=== PATIENT | female | born 1940 | race Caucasian/White ===

== ENCOUNTER 2023-04-29 17:45 | Observation (INO) | payer MEDICARE, SELFPAY ==
[2023-04-29] VITALS (28 sets, daily range): BP systolic 170–189; BP diastolic 78–100; PULSE 65–109; RESP 15–28; TEMP 36.6–36.8; O2SAT 97; BMI 24.0
--- NOTE | 2023-04-29 17:53 | CT_ITS ---
The [address] [address] Patient Name: AGNIE HONEYCUTT MRN: [id number] date: 1940 Sex: F Assigned Patient Location: ER Current Patient Location: ER Accession/Order Number: [id number] Exam Date: 04/29/2023 18:17 Report Date: 04/29/2023 18:45 At the request of: RADHA MENA Procedure: CT head/brain wo con EXAM: CT scan of the head and cervical spine without contrast. Dose reduction technique used: Automated exposure control and/or adjustment of the mA and/or kV according to patient size and/or use of iterative reconstruction technique. REASON FOR EXAM: fall, head injury COMPARISON: None FINDINGS: HEAD: No intracranial hemorrhage, mass effect, midline shift, fractures or evidence of acute ischemic infarct. No hydrocephalus. Moderate generalized cerebral and cerebellar volume loss. Moderate small vessel gliosis. Old left thalamic lacunar infarct. Tiny old left basal ganglia lacunar infarct. Paranasal sinuses and mastoid air cells are clear. C-SPINE: No fractures, dislocations or acute malalignment of the cervical spine. Cervical spine degenerative changes with multilevel bilateral moderate and severe neural foraminal stenoses. Anterolisthesis of C3 on C4. Multilevel mild and moderate spinal canal stenoses. Remainder unremarkable. CT/CT head/brain wo con IMPRESSION: No acute intracranial or cervical spine abnormalities. Electronically authenticated by: SREE RAY Date: 04/29/2023 18:45
--- NOTE | 2023-04-29 17:53 | CT_ITS ---
The [address] [address] Patient Name: ANGIE HONEYCUTT MRN: [id number] date: 1940 Sex: F Assigned Patient Location: ER Current Patient Location: ER Accession/Order Number: [id number] Exam Date: 04/29/2023 18:17 Report Date: 04/29/2023 18:45 At the request of: RADHA MENA Procedure: CT cervical spine wo con EXAM: CT scan of the head and cervical spine without contrast. Dose reduction technique used: Automated exposure control and/or adjustment of the mA and/or kV according to patient size and/or use of iterative reconstruction technique. REASON FOR EXAM: fall, head injury COMPARISON: None FINDINGS: HEAD: No intracranial hemorrhage, mass effect, midline shift, fractures or evidence of acute ischemic infarct. No hydrocephalus. Moderate generalized cerebral and cerebellar volume loss. Moderate small vessel gliosis. Old left thalamic lacunar infarct. Tiny old left basal ganglia lacunar infarct. Paranasal sinuses and mastoid air cells are clear. C-SPINE: No fractures, dislocations or acute malalignment of the cervical spine. Cervical spine degenerative changes with multilevel bilateral moderate and severe neural foraminal stenoses. Anterolisthesis of C3 on C4. Multilevel mild and moderate spinal canal stenoses. Remainder unremarkable. CT/CT cervical spine wo con IMPRESSION: No acute intracranial or cervical spine abnormalities. Electronically authenticated by: SREE RAY Date: 04/29/2023 18:45
--- NOTE | 2023-04-29 18:06 | PC.NURSE ---
pt was making some dinner and slipped out of rollator chair and onto floor. does admit to hitting head on floor, no laceration or hematoma assessed. pt denies pain anywhere else and has full ROM in all 4 extremities. does have some back pain but states this is nothing new for her. pt does live alone, so pt was crawling on floor for approx 40mins trying to get to phone to call daughter.
--- NOTE | 2023-04-29 18:15 | ED.GENADUL1 ---
HPI - General Adult General Chief complaint: Head Injury Stated complaint: FALL 40 MINS/HIT HEAD Time Seen by Provider: 04/29/23 17:46 Source: patient Mode of arrival: ambulance Limitations: physical limitation History of Present Illness HPI narrative: Patient with dementia who lives at home alone but has a son in law who assists with her care, came in by EMS after she slid off of her chair in the kitchen at home. She said that she was making soup and then leaned too much one way and slid off the chair. She struck the top of her head - she told us on the floor and has some pain there. No LOC. She was on the floor about 40 minutes trying to get up and eventually was able to contact her daughter - who lives out of state - and apparently 911 was called. She denied any neck or back pain that is not chronic - no extremity injuries or pain in the hips/pelvis. No syncope or near-syncope. No dizziness. No vomiting or seizure since the injury. Related Data Allergies Allergy/AdvReac Type Severity Reaction Status Date / Time No Known Drug Allergies Allergy Verified 04/29/23 17:56 Exam Narrative Exam Narrative: Nurses note and vital signs reviewed and patient is not hypoxic. afebrile General: The patient appears well and in no apparent distress. Patient is resting comfortably on cart. GCS = 15. Skin: Warm, dry, no pallor noted. Head: Normocephalic, atraumatic - I cannot find an area of injury of the patient's head. Neck: Supple, trachea mid-line. Full ROM and no cervical spinal tenderness. Eyes: PERRLA, EOMI ENT: TMs clear, no hemotympanum detected, no blood in posterior oropharynx Cardiovascular: Regular Rate and Rhythm Respiratory: Patient is in no distress, no accessory muscle use, lungs are clear to auscultation, no wheezing, rales or rhonchi Chest Wall: no tenderness, no flail chest, contusion, abrasion, or signs of trauma. Back: No thoracic or lumbar tenderness to palpation. Negative straight leg raise bilaterally. Musculoskeletal: no sign of long bone fracture, no tenderness, no swelling. Pulses at femoral, DP, PT, and popliteal were 2+ bilaterally. Moves all four extremities in all modalities with 5/5 strength. GI: Normal bowel sounds, no tenderness to palpation, no masses appreciated. No rebound, guarding, or rigidity noted. Neurological: A&O x4, normal equal improvement auditor strength, normal finger to nose, normal speech, normal coordination, normal motor, normal sensory. Psychiatric: Cooperative Constitutional Vital Signs, click to edit/add: Last Vital Signs Temp 98.3 F 04/29/23 17:47 Pulse 88 04/29/23 17:47 Resp 16 04/29/23 17:47 BP 182/90 H 04/29/23 17:47 Pulse Ox 97 04/29/23 17:47 O2 Del Method Room Air 04/29/23 17:47 Course Vital Signs Vital signs: Vital Signs Temperature 98.3 F 04/29/23 17:47 Pulse Rate 88 04/29/23 17:47 Respiratory Rate 16 04/29/23 17:47 Blood Pressure 182/90 H 04/29/23 17:47 Pulse Oximetry 97 04/29/23 17:47 Oxygen Delivery Method Room Air 04/29/23 17:47 Temperature 98.3 F 04/29/23 17:47 Pulse Rate 88 04/29/23 17:47 Respiratory Rate 16 04/29/23 17:47 Blood Pressure 182/90 H 04/29/23 17:47 Pulse Oximetry 97 04/29/23 17:47 Oxygen Delivery Method Room Air 04/29/23 17:47 Medical Decision Making MDM Narrative Medical decision making narrative: blood was drawn and sent for testing. EKG is obtained. The patient was sent for CT scan of the brain and cervical spine, which radiologist did not find anything worrisome acutely. Patient signed out to Dr Nair at 7pm shift change with blood and urine tests pending. Her son and I discussed the case and i plan to admit the patient on obs basis tonight. Lab Data Lab results reviewed: Yes I reviewed the patient's lab results Labs: Lab Results 04/29/23 04/29/23 Range/Units 18:08 18:45 WBC 6.3 (4.0-11.0) 10^3/uL RBC 4.67 (4.20-5.40) 10^6/uL Hgb 13.6 (12.0-16.0) g/dL Hct 42.6 (36.0-48.0) % MCV 91.2 (81.0-99.0) fL MCH 29.1 (26.7-34.0) pg MCHC 31.9 (29.9-35.2) g/dL RDW 12.7 (11.0-15.0) % Plt Count 255 (150-450) 10^3/uL MPV 10.6 (9.5-13.5) fL Neut % (Auto) 64.0 (43.0-75.0) % Lymph % (Auto) 24.0 (20.5-60.0) % [place] % (Auto) 7.0 (1.7-12.0) % Eos % (Auto) 3.2 (0.9-7.0) % Baso % (Auto) 1.6 (0.2-2.0) % Neut # (Auto) 4.0 (1.4-6.5) 10^3/uL Lymph # (Auto) 1.5 (1.2-3.8) 10^3/uL [place] # (Auto) 0.4 (0.3-0.8) 10^3/uL Eos # (Auto) 0.2 (0.0-0.7) 10^3/uL Baso # (Auto) 0.1 (0.0-0.1) 10^3/uL Abs Immat Gran (auto) 0.01 (0.00-0.03) 10^3/uL Imm/Tot Granulo (auto) 0.2 (0.0-0.5) % Sodium 143 (136-145) mmol/L Potassium 3.8 (3.5-5.1) mmol/L Chloride 104 (98-107) mmol/L Carbon Dioxide 27.6 (21.0-32.0) mmol/L Anion Gap 15.2 BUN 19.0 H (7.0-18.0) mg/dL Creatinine 1.10 H (0.55-1.02) mg/dL Est GFR ( Amer) 57 L (>=60) Est GFR (Non-Af Amer) 47 L (>=60) BUN/Creatinine Ratio 17.3 Glucose 102 (74-106) mg/dL Calcium 10.2 H (8.5-10.1) mg/dL Imaging Data CT scan - head: Radiologist's impression: Patient Name: ANGIE HONEYCUTT MRN: [facility]:[id number] date: 1940 Sex: F Assigned Patient Location: ER Current Patient Location: ER Accession/Order Number: [id number] Exam Date: 04/29/2023 18:17 Report Date: 04/29/2023 18:45 At the request of: RADHA MENA Procedure: CT head/brain wo con EXAM: CT scan of the head and cervical spine without contrast. Dose reduction technique used: Automated exposure control and/or adjustment of the mA and/or kV according to patient size and/or use of iterative reconstruction technique. REASON FOR EXAM: fall, head injury COMPARISON: None FINDINGS: HEAD: No intracranial hemorrhage, mass effect, midline shift, fractures or evidence of acute ischemic infarct. No hydrocephalus. Moderate generalized cerebral and cerebellar volume loss. Moderate small vessel gliosis. Old left thalamic lacunar infarct. Tiny old left basal ganglia lacunar infarct. Paranasal sinuses and mastoid air cells are clear. C-SPINE: No fractures, dislocations or acute malalignment of the cervical spine. Cervical spine degenerative changes with multilevel bilateral moderate and severe neural foraminal stenoses. Anterolisthesis of C3 on C4. Multilevel mild and moderate spinal canal stenoses. Remainder unremarkable. IMPRESSION: No acute intracranial or cervical spine abnormalities. Electronically authenticated by: SREE RAY Date: 04/29/2023 18:45 CT cervical spine: Radiologist's impression: Patient Name: ANGIE HONEYCUTT MRN: [id number] date: 1940 Sex: F Assigned Patient Location: Current Patient Location: ER Accession/Order Number: [id number] Exam Date: 04/29/2023 18:17 Report Date: 04/29/2023 18:45 At the request of: RADHA MENA Procedure: CT cervical spine wo con EXAM: CT scan of the head and cervical spine without contrast. Dose reduction technique used: Automated exposure control and/or adjustment of the mA and/or kV according to patient size and/or use of iterative reconstruction technique. REASON FOR EXAM: fall, head injury COMPARISON: None FINDINGS: HEAD: No intracranial hemorrhage, mass effect, midline shift, fractures or evidence of acute ischemic infarct. No hydrocephalus. Moderate generalized cerebral and cerebellar volume loss. Moderate small vessel gliosis. Old left thalamic lacunar infarct. Tiny old left basal ganglia lacunar infarct. Paranasal sinuses and mastoid air cells are clear. C-SPINE: No fractures, dislocations or acute malalignment of the cervical spine. Cervical spine degenerative changes with multilevel bilateral moderate and severe neural foraminal stenoses. Anterolisthesis of C3 on C4. Multilevel mild and moderate spinal canal stenoses. Remainder unremarkable. IMPRESSION: No acute intracranial or cervical spine abnormalities. Electronically authenticated by: SREE RAY Date: 04/29/2023 18:45 ECG Data Interpretation: EKG interpretation: Emergency Department physician interpretation. Normal sinus rhythm at 78bpm. Normal axis, normal intervals and no ST segment elevation or depression. Normal EKG Discharge Plan Discharge Chief Complaint: Head Injury Clinical Impression: Closed head injury Referrals: APOLLO BOO [Primary Care Provider] - 1 week
--- NOTE | 2023-04-29 18:20 | ECG_ITS ---
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
[2023-04-29 18:26] LABS: Anion Gap 15.2; BUN Creatinine Ratio 17.3; Calcium 10.2 mg/dL (8.5-10.1); Carbon Dioxide 27.6 mmol/L (21.0-32.0); Chloride 104 mmol/L (98-107); Estimated GFR (African America 57 (>=60); Estimated GFR (Non-African Ame 47 (>=60); Glucose 102 mg/dL (74-106); Potassium 3.8 mmol/L (3.5-5.1); Sodium 143 mmol/L (136-145)
[2023-04-29 18:50] LABS: Basophils Absolute Auto 0.1 10^3/uL (0.0-0.1); Basophils Percent Auto 1.6 % (0.2-2.0); Eosinophils Absolute Auto 0.2 10^3/uL (0.0-0.7); Eosinophils Percent Auto 3.2 % (0.9-7.0); Hematocrit 42.6 % (36.0-48.0); Hemoglobin 13.6 g/dL (12.0-16.0); Immature Granulocytes Abs Auto 0.01 10^3/uL (0.00-0.03); Immature Granulocytes Pct Auto 0.2 % (0.0-0.5); Lymphocytes Absolute Auto 1.5 10^3/uL (1.2-3.8); Mean Corpuscular HGB Conc 31.9 g/dL (29.9-35.2); Mean Corpuscular Hemoglobin 29.1 pg (26.7-34.0); Mean Corpuscular Volume 91.2 fL (81.0-99.0); Mean Platelet Volume 10.6 fL (9.5-13.5); Monocytes Absolute Auto 0.4 10^3/uL (0.3-0.8); Platelet Count 255 10^3/uL (150-450); Red Blood Count 4.67 10^6/uL (4.20-5.40); Red Cell Distribution Width 12.7 % (11.0-15.0); White Blood Count 6.3 10^3/uL (4.0-11.0)
[2023-04-29 19:18] LABS: Creatine Kinase 88 U/L (26-192); Creatine Kinase MB 0.97 ng/mL (<=3.60); Troponin I High Sensitivity 7.6 pg/mL (4.0-51.3)
[2023-04-29 19:19] LABS: Myoglobin 302 ng/mL (9-82)
[2023-04-29] MEDS: 0.9 % SODIUM CHLORIDE 500 ML IV (19:26)
[2023-04-29 19:28] LABS: Bilirubin Urine NEGATIVE (NEGATIVE); Blood Urine TRACE-I (NEGATIVE); Clarity Urine CLEAR (CLEAR); Color Urine YELLOW (YELLOW); Glucose Urine UA NEGATIVE (NEGATIVE); Ketones Urine TRACE mg/dL (NEGATIVE); Leukocyte Esterase Urine NEGATIVE (NEGATIVE); Nitrite Urine NEGATIVE (NEGATIVE); Protein Urine TRACE mg/dL (NEG/TRACE); Specific Gravity Urine 1.025 (1.005-1.025); Urobilinogen Urine 0.2 EU/dL (0.2-1.0)
[2023-04-29 19:33] LABS: Urine Microscopic Indicated NO
--- NOTE | 2023-04-29 19:33 | ED_ITS ---
HPI - General Adult General Chief complaint: Head Injury Stated complaint: FALL 40 MINS/HIT HEAD Time Seen by Provider: 04/29/23 17:46 Source: patient Mode of arrival: ambulance Limitations: physical limitation History of Present Illness HPI narrative: The patient was initially seen by Dr. Hinson and signed out to me after discussing the case with him thoroughly. Please see his full history and physical. Related Data Allergies Allergy/AdvReac Type Severity Reaction Status Date / Time No Known Drug Allergies Allergy Verified 04/29/23 17:56 Exam Constitutional Vital Signs, click to edit/add: Last Vital Signs Temp 98.3 F 04/29/23 17:47 Pulse 88 04/29/23 17:47 Resp 16 04/29/23 17:47 BP 182/90 H 04/29/23 17:47 Pulse Ox 97 04/29/23 17:47 O2 Del Method Room Air 04/29/23 17:47 Course Vital Signs Vital signs: Vital Signs Temperature 98.3 F 04/29/23 17:47 Pulse Rate 88 04/29/23 17:47 Respiratory Rate 16 04/29/23 17:47 Blood Pressure 182/90 H 04/29/23 17:47 Pulse Oximetry 97 04/29/23 17:47 Oxygen Delivery Method Room Air 04/29/23 17:47 Temperature 98.3 F 04/29/23 17:47 Pulse Rate 88 04/29/23 17:47 Respiratory Rate 16 04/29/23 17:47 Blood Pressure 182/90 H 04/29/23 17:47 Pulse Oximetry 97 04/29/23 17:47 Oxygen Delivery Method Room Air 04/29/23 17:47 Medical Decision Making [facility] Narrative Medical decision making narrative: CT of the brain and CT C-spine are negative. Myoglobin is mildly elevated at three oh two and she'll be admitted for hydration. Findings are discussed with her son by telephone who reports that she has status of DNR CCA. Differential Diagnosis Differential Diagnosis: fall, cervical spine injury, intracranial hemorrhage, rhabdomyolysis Lab Data Lab results reviewed: Yes I reviewed the patient's lab results Labs: Lab Results 04/29/23 04/29/23 Range/Units 18:08 18:45 WBC 6.3 (4.0-11.0) 10^3/uL RBC 4.67 (4.20-5.40) 10^6/uL Hgb 13.6 (12.0-16.0) g/dL Hct 42.6 (36.0-48.0) % MCV 91.2 (81.0-99.0) fL MCH 29.1 (26.7-34.0) pg MCHC 31.9 (29.9-35.2) g/dL RDW 12.7 (11.0-15.0) % Plt Count 255 (150-450) 10^3/uL MPV 10.6 (9.5-13.5) fL Neut % (Auto) 64.0 (43.0-75.0) % Lymph % (Auto) 24.0 (20.5-60.0) % [place] % (Auto) 7.0 (1.7-12.0) % Eos % (Auto) 3.2 (0.9-7.0) % Baso % (Auto) 1.6 (0.2-2.0) % Neut # (Auto) 4.0 (1.4-6.5) 10^3/uL Lymph # (Auto) 1.5 (1.2-3.8) 10^3/uL [place] # (Auto) 0.4 (0.3-0.8) 10^3/uL Eos # (Auto) 0.2 (0.0-0.7) 10^3/uL Baso # (Auto) 0.1 (0.0-0.1) 10^3/uL Abs Immat Gran (auto) 0.01 (0.00-0.03) 10^3/uL Imm/Tot Granulo (auto) 0.2 (0.0-0.5) % Sodium 143 (136-145) mmol/L Potassium 3.8 (3.5-5.1) mmol/L Chloride 104 (98-107) mmol/L Carbon Dioxide 27.6 (21.0-32.0) mmol/L Anion Gap 15.2 BUN 19.0 H (7.0-18.0) mg/dL Creatinine 1.10 H (0.55-1.02) mg/dL Est GFR ( Amer) 57 L (>=60) Est GFR (Non-Af Amer) 47 L (>=60) BUN/Creatinine Ratio 17.3 Glucose 102 (74-106) mg/dL Calcium 10.2 H (8.5-10.1) mg/dL Total Creatine Kinase 88 (26-192) U/L CK-MB (CK-2) 0.97 (<=3.60) ng/mL Myoglobin 302 H* (9-82) ng/mL Troponin I High Sens 7.6 (4.0-51.3) pg/mL Imaging Data CT brain, CT C-spine: Radiologist's impression: Procedure: CT cervical spine wo con EXAM: CT scan of the head and cervical spine without contrast. Dose reduction technique used: Automated exposure control and/or adjustment of the mA and/or kV according to patient size and/or use of iterative reconstruction technique. REASON FOR EXAM: fall, head injury COMPARISON: None FINDINGS: HEAD: No intracranial hemorrhage, mass effect, midline shift, fractures or evidence of acute ischemic infarct. No hydrocephalus. Moderate generalized cerebral and cerebellar volume loss. Moderate small vessel gliosis. Old left thalamic lacunar infarct. Tiny old left basal ganglia lacunar infarct. Paranasal sinuses and mastoid air cells are clear. C-SPINE: No fractures, dislocations or acute malalignment of the cervical spine. Cervical spine degenerative changes with multilevel bilateral moderate and severe neural foraminal stenoses. Anterolisthesis of C3 on C4. Multilevel mild and moderate spinal canal stenoses. Remainder unremarkable. IMPRESSION: No acute intracranial or cervical spine abnormalities. * Procedure: CT head/brain wo conEXAM: CT scan of the head and cervical spine without contrast. Dose reduction technique used: Automated exposure control and/or adjustment ofthe mA and/or kV according to patient size and/or use of iterative reconstruction technique.REASON FOR EXAM: fall, head injuryCOMPARISON: NoneFINDINGS: HEAD: No intracranial hemorrhage, mass effect, midline shift, fractures or evidence of acute ischemic infarct. No hydrocephalus. Moderate generalized cerebral and cerebellar volume loss. Moderate small vessel gliosis. Old left thalamic lacunar infarct. Tiny old left basal ganglia lacunar infarct. Paranasal sinuses and mastoid air cells are clear. C-SPINE: No fractures, dislocations or acute malalignment of the cervical spine. Cervical spine degenerative changes with multilevel bilateral moderate and severe neural foraminal stenoses. Anterolisthesis of C3 on C4. Multilevel mild and moderate spinal canal stenoses.Remainder unremarkable.IMPRESSION:No acute intracranial or cervical spine abnormalities. Electronically authenticated by: SREE RAY Date: 04/29/2023 18:45 Discharge Plan Discharge Chief Complaint: Head Injury Clinical Impression: Closed head injury, Rhabdomyolysis Patient Disposition: Admitted as Observation Time of Disposition Decision: 19:32 Condition: Good
--- NOTE | 2023-04-29 22:30 | P.PN_ITS ---
Progress Note: Subjective Subjective Interval history: CC: Fall at home HPI: 83 y/o Female with history of HTN, early dementia who presents after a fall at home. she lives by herself, but has a sone who assist with her care. she slid off her chair in the kitchen and struck the top of her head on the floor. no report of LOC, she was unable to et up on her own, eventually called her daughter. she has chronic back pain limiting ambulation, no reports of recent illness, fevers, cough, vomiting, change in bowel urinary habits, seizures, of focal weakness. in the ER, CT head C spine without acute abnormalities, labs with mild elevation in creatinine and myoglobin. IV fluids started, son (physician) contacted and aware of hospitalization. PMHx: hypertension, asthma, chronic lumbar pain, dementia, hypothyroidism, insomnia PSHx: n/a due to dementia SHx: lives by herself, no reports of tobacco or etoh use FHx: non- contributory to today's visit Allergies: none per chart Home medications: difficult to reconcile due to mentation ROS: unable to obtain due to dementia PE: Gen: lying in bed, in no distress, alert to self and place HEENT: NC, trachea midline, EOMI CVS: RRR, no edema Lungs: bilateral air entry, normal respiratory effort GI: no visible masses. not distended neuro: moves all extremities, no focal deficits Exam Constitutional Vital Signs, click to edit/add: Last Vital Signs Temp 98.3 F 04/29/23 20:49 Pulse 75 04/29/23 21:53 Resp 20 04/29/23 20:49 BP 177/78 H 04/29/23 20:49 Pulse Ox 97 04/29/23 21:53 O2 Del Method Room Air 04/29/23 20:49 Progress Note: Objective Labs Labs: Short CBC 04/29/23 Range/Units 18:45 WBC 6.3 (4.0-11.0) 10^3/uL Hgb 13.6 (12.0-16.0) g/dL Hct 42.6 (36.0-48.0) % Plt Count 255 (150-450) 10^3/uL BMP 04/29/23 18:08 Sodium 143 Potassium 3.8 Chloride 104 Carbon Dioxide 27.6 BUN 19.0 H Creatinine 1.10 H Glucose 102 Calcium 10.2 H Cardiac Enzymes 04/29/23 Range/Units 18:45 Total Creatine Kinase 88 (26-192) U/L CK-MB (CK-2) 0.97 (<=3.60) ng/mL Urine 04/29/23 Range/Units 19:00 Urine Color Yellow (YELLOW) Urine Clarity Clear (CLEAR) Urine pH 6.0 (5.0-9.0) Ur Specific [place] 1.025 (1.005-1.025) Urine Protein Trace (NEG/TRACE) mg/dL Urine Glucose (UA) Negative (NEGATIVE) mg/dL Progress Note: A&P Assessment and Plan (1) Closed head injury: (2) Rhabdomyolysis: (3) Hypertension, uncontrolled: Plan Fall at home Closed head injury Early Alzheimer dementia At risk for polypharmacy Mild Rhabdomyolysis Hypertension, uncontrolled Acquired hypothyroidism chronic low back pain Insomnia - Admit to med surg bed on telemetry - check B12/Folate, UA, TSH, Vit D - fall precautions - Unable to reconcile home medications due to confusion -IV fluids recheck CPK level - PT/OT evaluation, fall precautions - start low dose Norvasc for better BP control and monitor vitals closely - Son (physician) helps take care of patient DVT ppx-Lovenox DNR-CCA Medication reconciliation unable to complete due to confusion communications: discussed with ER physician, bedside nurse, patient updated of plan of care, all questions answered to their satisfaction disposition: Home when medically stable As the provider of this telehealth evaluation, requested by the patient's evaluating physician, i attest that i introduced myself to the patient, provided my credentials, and determined that telemedicine, via a realtime 2 way interactive audio and video platform is an appropriate and effective means of providing this service. I reviewed the patient chart and had a discussion with the member of the patient treatment team. the patient and I mutually agreed with continuation of this evaluation via telemedicine. the patient consented for the telemedicine evaluation. The nurse was present during the entire time of the encounter and was able to move the stethoscope in appropriate directions, encounter lasted about 30 minutes evaluated at 2240 Telemedicine Attestation Telemedicine Attestation I conducted this encounter from [[place]] via secure live, [id number] video conference with the patient, located at [facility] with [nursing staff]. Prior to the interview, the risks and benefits of telemedicine were discussed with the patient and verbal consent was obtained.
[2023-04-29] MEDS: LACTATED RINGER'S SOLUTION 1,000 ML 125 ML IV (23:48)
[2023-04-29] MEDS: TRAMADOL HCL 50 MG TABLET PO (23:49)
[2023-04-29] MEDS: ENOXAPARIN SODIUM 30 MG/0.3 ML SYRINGE SUBQ (23:54)
[2023-04-30] VITALS (36 sets, daily range): BP systolic 154–199; BP diastolic 75–100; PULSE 60–96; RESP 15–25; TEMP 36.5–36.9; O2SAT 95–97
[2023-04-30 04:49] LABS: Basophils Absolute Auto 0.1 10^3/uL (0.0-0.1); Basophils Percent Auto 1.6 % (0.2-2.0); Eosinophils Absolute Auto 0.3 10^3/uL (0.0-0.7); Eosinophils Percent Auto 4.2 % (0.9-7.0); Hematocrit 39.2 % (36.0-48.0); Hemoglobin 12.6 g/dL (12.0-16.0); Immature Granulocytes Abs Auto 0.01 10^3/uL (0.00-0.03); Immature Granulocytes Pct Auto 0.2 % (0.0-0.5); Lymphocytes Percent Auto 30.7 % (20.5-60.0); Mean Corpuscular HGB Conc 32.1 g/dL (29.9-35.2); Mean Corpuscular Hemoglobin 29.4 pg (26.7-34.0); Mean Corpuscular Volume 91.4 fL (81.0-99.0); Mean Platelet Volume 11.9 fL (9.5-13.5); Monocytes Absolute Auto 0.6 10^3/uL (0.3-0.8); Monocytes Percent Auto 9.1 % (1.7-12.0); Neutrophils Absolute Auto 3.5 10^3/uL (1.4-6.5); Neutrophils Percent Auto 54.2 % (43.0-75.0); Platelet Count 191 10^3/uL (150-450); Red Blood Count 4.29 10^6/uL (4.20-5.40); Red Cell Distribution Width 12.7 % (11.0-15.0); White Blood Count 6.5 10^3/uL (4.0-11.0)
[2023-04-30 04:55] LABS: Anion Gap 13.8; BUN Creatinine Ratio 13.8; Calcium 9.2 mg/dL (8.5-10.1); Carbon Dioxide 25.8 mmol/L (21.0-32.0); Chloride 105 mmol/L (98-107); Estimated GFR (African America >60 (>=60); Estimated GFR (Non-African Ame 57 (>=60); Glucose 103 mg/dL (74-106); Potassium 3.6 mmol/L (3.5-5.1); Sodium 141 mmol/L (136-145)
[2023-04-30 05:11] LABS: Creatine Kinase 116 U/L (26-192); Thyroid Stimulating Hormone 4.216 uIU/mL (0.358-3.740)
[2023-04-30] MEDS: LACTATED RINGER'S SOLUTION 1,000 ML 125 ML IV (07:33)
[2023-04-30] MEDS: ENOXAPARIN SODIUM 30 MG/0.3 ML SYRINGE SUBQ (10:14)
[2023-04-30] MEDS: DONEPEZIL HCL 10 MG TABLET PO ×2 (10:14→21:38)
[2023-04-30] MEDS: DULOXETINE HCL 60 MG CAPSULE.DR PO (10:15)
[2023-04-30] MEDS: MEMANTINE HCL 28 MG CAP XR PO (10:15)
[2023-04-30] MEDS: AMLODIPINE BESYLATE 5 MG TABLET 10 MG PO (10:15)
[2023-04-30 10:54] LABS: Creatine Kinase 196 U/L (26-192); Myoglobin 99 ng/mL (9-82)
--- NOTE | 2023-04-30 12:36 | PM.HP ---
H&P: HPI History of Present Illness Chief complaint: Fall/Weakness Narrative: 83 y o female, who lives alone at home was brought via EMS after she slid off her chair and was unable to get up. She laid on the floor for about 40 minutes or so and was finally able to reach out to her daughter who called EMS. Patient reports being unsteady on her feet. She denies LOC but struck her head. She denies any sig active complaints currently. Her w/u in ED was c/w mild rhabdo and dehydration. Pt was admitted for IV hydration and PT/OT eval. Review of Systems ROS Status of ROS 10 or more systems reviewed and unremarkable except as noted in history and below [facility] Medical History (Updated 04/30/23 @ 12:57 by Shaikh Verónica MD) Acute asthma ?J45.909 - Unspecified asthma, uncomplicated (ICD-10) Acute bronchitis ?J20.9 - Acute bronchitis, unspecified (ICD-10) Cataract ?H26.9 - Unspecified cataract (ICD-10) COPD (chronic obstructive pulmonary disease) ?J44.9 - Chronic obstructive pulmonary disease, unspecified (ICD-10) Cystitis cystica ?N30.80 - Other cystitis without hematuria (ICD-10) Dementia ?F03.90 - Unspecified dementia, unspecified severity, without behavioral disturbance, psychotic disturbance, mood disturbance, and anxiety (ICD-10) Esophageal abnormality ?K22.9 - Disease of esophagus, unspecified (ICD-10) Hypothyroid ?E03.9 - Hypothyroidism, unspecified (ICD-10) Numbness and tingling in both hands ?R20.0 - Anesthesia of skin (ICD-10) ?R20.2 - Paresthesia of skin (ICD-10) Numbness and tingling of both feet ?R20.0 - Anesthesia of skin (ICD-10) ?R20.2 - Paresthesia of skin (ICD-10) Spondylitis ?M46.90 - Unspecified inflammatory spondylopathy, site unspecified (ICD-10) TMJ (temporomandibular joint syndrome) ?M26.609 - Unspecified temporomandibular joint disorder, unspecified side (ICD-10) Surgical History H/O: hysterectomy ?Z90.710 - Acquired absence of both cervix and uterus (ICD-10) History of cataract surgery ?Z98.49 - Cataract extraction status, unspecified eye (ICD-10) Total knee replacement status ?Z96.659 - Presence of unspecified artificial knee joint (ICD-10) Social History Within the past year, how often did you have a drink containing alcohol: never Within the past year, how often did you have six or more drinks on one occasion: never Score interpretation: A score less than 3 is consistent with normal alcohol consumption. Smoking status: Never smoker Non-prescribed substance use: denies use Previous occupational history: n/a Highest level of school completed/degree received: some college, no degree Are you now , , , , never or living with a partner: In a typical week, how many times do you talk on the telephone with family, friends, or neighbors: 3 or more times per week How often do you get together with friends or relatives: never How often do you attend mandaen or spiritism services: never Do you belong to any clubs or organizations such as mandaen groups unions, [employer] or athletic groups, or school groups: no Total score: 1 Score interpretation: A score of less than or equal to 1 indicates the most socially isolated. Little interest or pleasure in doing things: not at all Feeling down, depressed, or hopeless: nearly every day Feel stressed/tense/nervous/anxious/difficulty sleeping: to some extent Life stressors: other Life stressor details: pain in back Due to disability, difficulty making decisions: No Meds Home Medications and Allergies Home Medications Medication Instructions Recorded Confirmed Type donepezil 10 mg tablet 10 mg PO BID 04/29/23 04/30/23 History duloxetine 60 mg capsule,delayed 60 mg PO DAILY 04/29/23 04/30/23 History release quetiapine 25 mg tablet 25 mg PO BEDTIME 04/29/23 04/30/23 History levothyroxine 100 mcg tablet 100 mcg PO DAILY 04/30/23 04/30/23 History (Synthroid) memantine 10 mg tablet (Namenda) 10 mg PO BID 04/30/23 04/30/23 History Allergies Allergy/AdvReac Type Severity Reaction Status Date / Time No Known Drug Allergies Allergy Verified 04/29/23 17:56 Exam Constitutional Vital Signs, click to edit/add: Last Vital Signs Temp 97.8 F 04/30/23 12:22 Pulse 72 04/30/23 12:22 Resp 18 04/30/23 12:22 BP 191/87 H 04/30/23 07:36 Pulse Ox 97 04/30/23 12:22 O2 Del Method Room Air 04/30/23 12:22 Documenting provider has reviewed patient's vital signs: yes Common normals: no apparent distress and oriented x3 General appearance: cooperative and frail appearing [facility] Common normals: normocephalic and head/scalp atraumatic Head and scalp: normocephalic and atraumatic Eye Common normals: conjunctivae normal and no scleral icterus Conjunctiva: conjunctiva(e) normal Respiratory Common normals: normal respiratory effort and clear to auscultation bilaterally Effort & inspection: able to speak in complete sentences Auscultation: clear to auscultation bilaterally Cardio Common normals: regular rate, S1 normal heart sound and S2 normal heart sound Rate: regular rate Heart sounds: S1 normal and S2 normal GI Common normals: Normal to inspection, nondistended, normoactive bowel sounds present, soft to palpation, non-tender and no hepatosplenomegaly Palpation: soft and no hepatosplenomegaly Extremity Common normals: no clubbing, cyanosis or edema Neuro Common normals: oriented x3, moves all extremities and no focal motor deficits Gait (neuro): other (unsteady) Psych Common normals: mental status grossly normal, denies hallucinations, denies homicidal ideation and denies suicidal ideation Results Labs Labs: Short CBC 04/29/23 04/30/23 Range/Units 18:45 03:59 WBC 6.3 6.5 (4.0-11.0) 10^3/uL Hgb 13.6 12.6 (12.0-16.0) g/dL Hct 42.6 39.2 (36.0-48.0) % Plt Count 255 191 (150-450) 10^3/uL BMP 04/29/23 04/30/23 18:08 03:59 Sodium 143 141 Potassium 3.8 3.6 Chloride 104 105 Carbon Dioxide 27.6 25.8 BUN 19.0 H 13.0 Creatinine 1.10 H 0.94 Glucose 102 103 Calcium 10.2 H 9.2 Cardiac Enzymes 04/29/23 04/30/23 04/30/23 Range/Units 18:45 03:59 10:19 Total Creatine Kinase 88 116 196 H (26-192) U/L CK-MB (CK-2) 0.97 (<=3.60) ng/mL Urine 04/29/23 Range/Units 19:00 Urine Color Yellow (YELLOW) Urine Clarity Clear (CLEAR) Urine pH 6.0 (5.0-9.0) Ur Specific [place] 1.025 (1.005-1.025) Urine Protein Trace (NEG/TRACE) mg/dL Urine Glucose (UA) Negative (NEGATIVE) mg/dL Assessment and Plan Assessment and Plan (1) Closed head injury: Assessment and Plan: No LOC, no acute finding on CTH and Neck. Normal Neurological exam Qualifiers: Encounter type: subsequent encounter Qualified Code(s): S09.90XD - Unspecified injury of head, subsequent encounter (2) Rhabdomyolysis: Assessment and Plan: mild rhabdo from being on floor for prolonged period. On IVF Monitor CK and myoglobin Qualifiers: Rhabdomyolysis type: non-traumatic Qualified Code(s): M62.82 - Rhabdomyolysis (3) Hypertension, uncontrolled: Assessment and Plan: Not on any medications surprisingly. Started on amlodipine. (4) Dementia: Assessment and Plan: More or less at baseline mental status. C/w terri meds. (5) Hypothyroid: Assessment and Plan: C/w levothyroxine. Plan Old age, poor mobility, unsteady gait and lives by herself. PT/OT eval rec rehab placement. Will need precert for it.
[2023-04-30] MEDS: LACTATED RINGER'S SOLUTION 1,000 ML 100 ML IV (16:40)
--- NOTE | 2023-04-30 21:36 | PC.NURSE ---
pt. up to bedside commode. pt. vioded. but not enough to measure. incontinent of urine
[2023-04-30] MEDS: QUETIAPINE FUMARATE 25 MG TABLET PO (21:38)
[2023-05-01] MEDS: LACTATED RINGER'S SOLUTION 1,000 ML 100 ML IV (02:02)
[2023-05-01 04:57] VITALS: BP 169/81; PULSE 66; RESP 18; TEMP 36.4; O2SAT 92
[2023-05-01] MEDS: LEVOTHYROXINE SODIUM 100 MCG TABLET PO (05:40)
[2023-05-01 08:08] LABS: Vitamin D, 25-Hydroxy 21.7 ng/mL (30.0-100.0)
[2023-05-01] MEDS: MEMANTINE HCL 28 MG CAP XR PO (08:48)
[2023-05-01] MEDS: ENOXAPARIN SODIUM 30 MG/0.3 ML SYRINGE SUBQ (08:48)
[2023-05-01] MEDS: DULOXETINE HCL 60 MG CAPSULE.DR PO (08:48)
[2023-05-01] MEDS: DONEPEZIL HCL 10 MG TABLET PO ×2 (08:48→21:10)
[2023-05-01] MEDS: AMLODIPINE BESYLATE 5 MG TABLET 10 MG PO (08:48)
[2023-05-01 10:56] VITALS: BP 149/77; PULSE 76; RESP 16; TEMP 36.6; O2SAT 96
--- NOTE | 2023-05-01 11:43 | P.IMPN_ITS ---
Progress Note: A&P Assessment and Plan (1) Closed head injury: Assessment and Plan: CTH negative for acute intracranial pathology. No neurological deficit. Qualifiers: Encounter type: subsequent encounter Qualified Code(s): S09.90XD - Unspecified injury of head, subsequent encounter (2) Rhabdomyolysis: Assessment and Plan: due to immobility and being on ground for long. Resolved. Qualifiers: Rhabdomyolysis type: non-traumatic Qualified Code(s): M62.82 - Rhabdomyolysis (3) Hypertension, uncontrolled: Assessment and Plan: Started on amlodipine - BP is better but still above goal. Monitor for now. (4) Dementia: Assessment and Plan: Not on any medications as outpatient. Monitor. (5) Hypothyroid: Assessment and Plan: C/w levothyroxine. (6) Persistent asthma: Assessment and Plan: Repots hx of asthma and that she feels her chest is congested. Added duonebs as needed (7) Ambulatory dysfunction: Assessment and Plan: Ambulatory dysfunction, unsteady gait, generalized weakness, lives by herself. PT/OT eval and rx. Will need rehab placement Internal Medicine - PN: Subj Subjective Interval history: Seen and examined. No events overnight. Reports mild difficulty in breathing and that she thinks her asthma is flaring up. Exam Constitutional Vital Signs, click to edit/add: Last Vital Signs Temp 97.8 F 05/01/23 10:56 Pulse 76 05/01/23 10:56 Resp 16 05/01/23 10:56 BP 149/77 H 05/01/23 10:56 Pulse Ox 96 05/01/23 10:56 O2 Del Method Room Air 05/01/23 10:56 Documenting provider has reviewed patient's vital signs: yes Common normals: no apparent distress and oriented x3 General appearance: cooperative and frail appearing [facility] Common normals: normocephalic and head/scalp atraumatic Head and scalp: normocephalic and atraumatic Eye Common normals: conjunctivae normal and no scleral icterus Conjunctiva: conjunctiva(e) normal Respiratory Common normals: normal respiratory effort and clear to auscultation bilaterally Effort & inspection: able to speak in complete sentences Auscultation: clear to auscultation bilaterally Cardio Common normals: regular rate, S1 normal heart sound and S2 normal heart sound Rate: regular rate Heart sounds: S1 normal and S2 normal GI Common normals: Normal to inspection, nondistended, normoactive bowel sounds present, soft to palpation, non-tender and no hepatosplenomegaly Palpation: soft and no hepatosplenomegaly Extremity Common normals: no clubbing, cyanosis or edema Neuro Common normals: oriented x3, moves all extremities and no focal motor deficits Gait (neuro): other (unsteady) Psych Common normals: mental status grossly normal, denies hallucinations, denies homicidal ideation and denies suicidal ideation Internal Medicine - PN: Obj Da Labs Labs: Laboratory Results - last 24 hr 04/30/23 03:59 25-OH Vitamin D Total 21.7 L
[2023-05-01 11:57] VITALS: O2SAT 95
[2023-05-01 13:46] VITALS: BP 144/70; PULSE 79; RESP 18; TEMP 36.3; O2SAT 95
--- NOTE | 2023-05-01 19:47 | RESP.RT ---
No PRN breathing tx given. No respiratory distress noted.
[2023-05-01 20:00] VITALS: BP 138/79; PULSE 80; RESP 18; TEMP 36.9; O2SAT 95
[2023-05-01] MEDS: QUETIAPINE FUMARATE 25 MG TABLET PO (21:09)
[2023-05-02] MEDS: LEVOTHYROXINE SODIUM 100 MCG TABLET PO (05:47)
[2023-05-02 06:00] VITALS: BP 168/95; PULSE 77; RESP 18; TEMP 36.8; O2SAT 96
--- NOTE | 2023-05-02 09:19 | SWNOTE1 ---
SW had message from pt's son and they would like pt to go to [facility]. SW to send referral. Pt is a precert.
[2023-05-02] MEDS: DONEPEZIL HCL 10 MG TABLET PO ×2 (09:21→21:35)
[2023-05-02] MEDS: AMLODIPINE BESYLATE 5 MG TABLET 10 MG PO (09:21)
[2023-05-02] MEDS: DULOXETINE HCL 60 MG CAPSULE.DR PO (09:22)
[2023-05-02] MEDS: ENOXAPARIN SODIUM 30 MG/0.3 ML SYRINGE SUBQ (09:22)
[2023-05-02] MEDS: MEMANTINE HCL 28 MG CAP XR PO (09:22)
--- NOTE | 2023-05-02 10:24 | PT.DAILY ---
Physical Therapy Daily Note PT Daily Note/Assess Start: 05/02/23 10:20 Freq: Status: Active Protocol: Document 05/02/23 10:20 WILLIAM (Rec: 05/02/23 10:24 WILLIAM [id number]) Physical Therapy Daily Note/Assessment Time In/Time Out Time In 09:25 Time Out 09:38 Pain In Pain N/A Pain Out Pain N/A Subjective Subjective Pt sitting in BS chair upon arrival. Agrees to PT. Reports high pain in low back but does not rate. Therapeutic Exercise Time Therapeutic Exercise Minutes (minutes) 3 Therapeutic Exercise Units 0 Therapeutic Exercise Treatment Therapeutic Exercise Treatment Seated bilat LE strengthening ex complete while in BS chair - 10x ea. Therapeutic Activity Time Therapeutic Activity Minutes (minutes) 12 Therapeutic Activity Units 1 Therapeutic Activity Treatment Bed Mobility Ability Moderate Assist Chair Transfer Ability Minimum Assist Therapeutic Activity Comments Sit>stand from BS chair Radhika to RW. Pt amb 80'x2 with 1x standing rest break needed. Pt needs to use restroom. Needs assistance to doff brief and using grab bar to lower herself to toilet. Sit>stand from toilet with grab bar and Radhika. Pt amb 30' to bed. ModA to advance LE's into bed. Bed alarm set and needs met. Total Physical Therapy Time Total Therapy Minutes 15 Total Physical Therapy Units 1 Summary Daily Note Summary Improved gait endurance. Does need assistance for sit>stand and sit>supine transfers. Min fatigue upon completion.
--- NOTE | 2023-05-02 10:49 | CM.NOTE ---
Rounds made with Dr. Sanches. Potential discharge if precert obtained from insurance company for [facility].
--- NOTE | 2023-05-02 11:34 | SWNOTE1 ---
Saigeert started for pt to go to [facility].
--- NOTE | 2023-05-02 12:06 | PM.IMPN1 ---
Progress Note: A&P Assessment and Plan (1) Closed head injury: Assessment and Plan: CTH negative for acute intracranial pathology. No neurological deficit. Qualifiers: Encounter type: subsequent encounter Qualified Code(s): S09.90XD - Unspecified injury of head, subsequent encounter (2) Rhabdomyolysis: Assessment and Plan: due to immobility and being on ground for long. Resolved. Qualifiers: Rhabdomyolysis type: non-traumatic Qualified Code(s): M62.82 - Rhabdomyolysis (3) Hypertension, uncontrolled: Assessment and Plan: Started on amlodipine - BP is better but still above goal. Monitor for now. (4) Dementia: Assessment and Plan: Not on any medications as outpatient. Monitor. (5) Hypothyroid: Assessment and Plan: C/w levothyroxine. (6) Persistent asthma: Assessment and Plan: Repots hx of asthma and that she feels her chest is congested. Added duonebs as needed (7) Ambulatory dysfunction: Assessment and Plan: Ambulatory dysfunction, unsteady gait, generalized weakness, lives by herself. PT/OT eval and rx. Awaiting pre certification for rehab placement Internal Medicine - PN: Subj Subjective Interval history: Seen and examined. No events. No active complaints. Exam Constitutional Vital Signs, click to edit/add: Last Vital Signs Temp 98.2 F 05/02/23 06:00 Pulse 77 05/02/23 06:00 Resp 18 05/02/23 06:00 BP 168/95 H 05/02/23 06:00 Pulse Ox 96 05/02/23 06:00 O2 Del Method Room Air 05/02/23 06:00 Documenting provider has reviewed patient's vital signs: yes Common normals: no apparent distress and oriented x3 General appearance: cooperative and frail appearing [facility] Common normals: normocephalic and head/scalp atraumatic Head and scalp: normocephalic and atraumatic Eye Common normals: conjunctivae normal and no scleral icterus Conjunctiva: conjunctiva(e) normal Respiratory Common normals: normal respiratory effort and clear to auscultation bilaterally Effort & inspection: able to speak in complete sentences Auscultation: clear to auscultation bilaterally Cardio Common normals: regular rate, S1 normal heart sound and S2 normal heart sound Rate: regular rate Heart sounds: S1 normal and S2 normal GI Common normals: Normal to inspection, nondistended, normoactive bowel sounds present, soft to palpation, non-tender and no hepatosplenomegaly Palpation: soft and no hepatosplenomegaly Extremity Common normals: no clubbing, cyanosis or edema Neuro Common normals: oriented x3, moves all extremities and no focal motor deficits Gait (neuro): other (unsteady) Psych Common normals: mental status grossly normal, denies hallucinations, denies homicidal ideation and denies suicidal ideation
--- NOTE | 2023-05-02 12:47 | SWNOTE1 ---
JALYN spoke with pt, pt is agreeable to rehab and voiced she spoke with her son about it. She voiced she went to [facility] in past because [place] did not have openings. She liked [facility]. SW let her know referral was sent and we are waiting for approval from insurance. Pt does live at home alone and furniture walks at home, if she goes outside she uses a walker. Pt is alert and oriented and knows she is at [facility], and the month, and they year. Pt knows her birthdate as well. JALYN reviewed the EMERY form with pt. Pt voiced understanding and had no questions/concerns at this time. Pt signed form, original given to pt and copy placed in chart.
[2023-05-02 13:50] VITALS: BP 154/83; PULSE 68; RESP 18; TEMP 36.9; O2SAT 92
[2023-05-02] MEDS: QUETIAPINE FUMARATE 25 MG TABLET PO (21:35)
[2023-05-02 21:39] VITALS: BP 157/75; PULSE 80; RESP 18; TEMP 36.6; O2SAT 92
[2023-05-02 22:22] VITALS: O2SAT 96
[2023-05-03] MEDS: LEVOTHYROXINE SODIUM 100 MCG TABLET PO (05:33)
[2023-05-03 05:38] VITALS: BP 153/76; PULSE 81; RESP 18; TEMP 36.5; O2SAT 92
[2023-05-03] MEDS: ENOXAPARIN SODIUM 30 MG/0.3 ML SYRINGE SUBQ (08:19)
[2023-05-03] MEDS: AMLODIPINE BESYLATE 5 MG TABLET 10 MG PO (08:19)
[2023-05-03] MEDS: DONEPEZIL HCL 10 MG TABLET PO (08:19)
[2023-05-03] MEDS: DULOXETINE HCL 60 MG CAPSULE.DR PO (08:19)
[2023-05-03] MEDS: TRAMADOL HCL 50 MG TABLET PO (08:19)
[2023-05-03] MEDS: MEMANTINE HCL 28 MG CAP XR PO (08:19)
[2023-05-03 08:27] VITALS: BP 156/82; PULSE 83
--- NOTE | 2023-05-03 09:20 | SWNOTE1 ---
SW spoke to case management and pt is approved to go to [facility]. SW to get things set up once discharge orders are in.
--- NOTE | 2023-05-03 11:04 | P.DS_ITS ---
DS: Providers Provider Date of admission: 04/29/23 20:08 Primary care physician: APOLLO BOO Consults: 04/29/23 22:25 Occupational Therapy Eval and Treat Routine Reason for consultation: fall Has provider been notified: Yes Physical Therapy Eval and Treat Routine Reason for consultation: fall Has provider been notified: Yes Attending physician on discharge: Shaikh Verónica Discharging clinician: Shaikh Verónica Anticipated date of discharge: 05/03/23 DS: Diagnosis Discharge Diagnosis (1) Closed head injury: Assessment and plan: No acute intracranial pathology. CTH -negative Qualifiers: Encounter type: subsequent encounter Qualified Code(s): S09.90XD - Unspecified injury of head, subsequent encounter (2) Rhabdomyolysis: Assessment and plan: due to being on floor for extended period of time. Resolved. Qualifiers: Rhabdomyolysis type: non-traumatic Qualified Code(s): M62.82 - Rh abdomyolysis (3) Hypertension, uncontrolled: Assessment and plan: New diagnosis. Started on amlodipine. Will need f/u for it (4) Dementia: Assessment and plan: Outpatient f/u (5) Hypothyroid: Assessment and plan: C/w levothyroxine (6) Persistent asthma: Assessment and plan: Stable (7) Ambulatory dysfunction: Assessment and plan: Poor balance, generalized weakness - will be d/c to rehab DS: Summary Hospital Course Hospital Course: 83 y o female, who lives alone at home was brought via EMS after she slid off her chair and was unable to get up. She laid on the floor for about 40 minutes or so and was finally able to reach out to her daughter who called EMS. On w/u she was found to have mild rhabdomyolysis and dehydration and was treated with IVF. Normal CTH. No fx or dislocation on CT neck. She participated with PT/OT and was accepted for short term rehab for poor balance, weakness and unsteady gait. Stable from medical point of view for discharge. New diagnosis of HTN -started on amlodipine and she will need f/u for it as outpatient to adjust her meds and monitoring. Status at Discharge Functional status at discharge: uses cane/walker Overall status at discharge: patient is progressing back to baseline Time Spent with Patient Time attestation: Total time spent providing and/or coordinating discharge services: Time spent: greater than 30 minutes Exam Constitutional Vital Signs, click to edit/add: Last Vital Signs Temp 97.7 F 05/03/23 05:38 Pulse 83 05/03/23 08:27 Resp 18 05/03/23 05:38 BP 156/82 H 05/03/23 08:27 Pulse Ox 92 L 05/03/23 05:38 O2 Del Method Room Air 05/03/23 05:38 Documenting provider has reviewed patient's vital signs: yes Common normals: no apparent distress and oriented x3 General appearance: cooperative and frail appearing [facility] Common normals: normocephalic and head/scalp atraumatic Head and scalp: normocephalic and atraumatic Eye Common normals: conjunctivae normal and no scleral icterus Conjunctiva: conjunctiva(e) normal Respiratory Common normals: normal respiratory effort and clear to auscultation bilaterally Effort & inspection: able to speak in complete sentences Auscultation: clear to auscultation bilaterally Cardio Common normals: regular rate, S1 normal heart sound and S2 normal heart sound Rate: regular rate Heart sounds: S1 normal and S2 normal GI Common normals: Normal to inspection, nondistended, normoactive bowel sounds present, soft to palpation, non-tender and no hepatosplenomegaly Palpation: soft and no hepatosplenomegaly Back & Pelvis Other: severe kyphosis of spine Extremity Common normals: no clubbing, cyanosis or edema Neuro Common normals: oriented x3, moves all extremities and no focal motor deficits Gait (neuro): assistive device used (walks slowly, and is unsteady on her feet) walker Psych Common normals: mental status grossly normal, denies hallucinations, denies homicidal ideation and denies suicidal ideation Discharge Plan Discharge Disposition: Xfer Inpatient Rehab Fac Condition: Good Discharge Medications: New amlodipine 10 mg tablet 10 mg PO DAILY Qty: 30 0RF Continued quetiapine 25 mg tablet 25 mg PO BEDTIME donepezil 10 mg tablet 10 mg PO BID duloxetine 60 mg capsule,delayed release(DR/EC) 60 mg PO DAILY memantine [Namenda] 10 mg tablet 10 mg PO BID levothyroxine [Synthroid] 100 mcg tablet 100 mcg PO DAILY Forms: Portal Instructions Follow Up Appointments: PCP in one week
[2023-05-03 11:12] VITALS: O2SAT 94
--- NOTE | 2023-05-03 11:25 | RESP.RT ---
Patient denies need. No distress noted
--- NOTE | 2023-05-03 11:49 | CM.NOTE ---
Rounds made with Dr. Sanches. Plan for discharge today to [facility].
--- NOTE | 2023-05-03 12:38 | SWNOTE1 ---
JALYN set up discharge to [facility] for skilled. Trips will be here between 4-4:30. JALYN sent dc orders to [facility] and updated packet. JALYN completed HENS. JALYN notified pt's son, nursing, and [facility] of time.
[2023-05-03 13:42] VITALS: BP 147/79; PULSE 75; RESP 18; TEMP 36.6; O2SAT 94
== END 2023-05-03 16:30 ==
LOC: ER 19:53 → ICU 20:13 → MS 04-30 15:36
PROVIDERS: Emergency Medicine; Internal Medicine; Admitting Provider Family Medicine; Emergency Provider Emergency Medicine; PCP Family Medicine; Visit Provider Internal Medicine
DX: M62.82 Rhabdomyolysis (principal); S09.8XXA Other specified injuries of head, initial encounter; I10 Essential (primary) hypertension; G30.0 Alzheimer's disease with early onset; F02.80 Dementia in other diseases classified elsewhere, unspecified severity, without behavioral disturbance, psychotic disturbance, mood disturbance, and anxiety; R26.81 Unsteadiness on feet; R53.1 Weakness; J45.30 Mild persistent asthma, uncomplicated; E86.0 Dehydration; W19.XXXA Unspecified fall, initial encounter; G89.29 Other chronic pain; M54.50 Low back pain, unspecified; E03.9 Hypothyroidism, unspecified; G47.00 Insomnia, unspecified; Z66 Do not resuscitate; M46.90 Unspecified inflammatory spondylopathy, site unspecified; Z90.710 Acquired absence of both cervix and uterus; Z96.659 Presence of unspecified artificial knee joint; Z98.49 Cataract extraction status, unspecified eye; Z79.899 Other long term (current) drug therapy; Z79.890 Hormone replacement therapy
CPT/HCPCS: 36415; 70450; 72125; 80048; 81003; 82306; 82550; 82553; 82607; 82746; 83874; 84443; 84484; 85025; 93005; 96360; 96361; 96372; 97161; 97165; 97530; 97535; 99285; G0378; Q3014

== ENCOUNTER 2023-06-19 22:45 | Outpatient (REF) | payer MEDICARE, SELFPAY ==
[2023-06-20 09:29] LABS: Bilirubin Urine NEGATIVE (NEGATIVE); Blood Urine NEGATIVE (NEGATIVE); Clarity Urine CLEAR (CLEAR); Color Urine LT. YELLOW (YELLOW); Glucose Urine UA NEGATIVE (NEGATIVE); Ketones Urine NEGATIVE (NEGATIVE); Leukocyte Esterase Urine NEGATIVE (NEGATIVE); Nitrite Urine POSITIVE (NEGATIVE); Protein Urine NEGATIVE (NEG/TRACE); Specific Gravity Urine 1.015 (1.005-1.025); Urobilinogen Urine 0.2 EU/dL (0.2-1.0)
[2023-06-20 09:32] LABS: Urine Microscopic Indicated YES
[2023-06-20 09:39] LABS: Bacteria Urine SMALL #/HPF (NONE SEEN); Mucus Urine NONE SEEN (NONE SEEN); RBC Urine NONE SEEN #/HPF (0-2); Squamous Epithelial Cell Urine FEW #/LPF (NONE/RARE)
[2023-06-20 09:40] LABS: Urine Culture Indicated YES
== END 2023-06-19 22:46 | disposition home or self-care (01) ==
LOC: LAB 22:45
PROVIDERS: PCP Family Medicine; Visit Provider Family Medicine
DX: R30.0 Dysuria (principal)
CPT/HCPCS: 81001; 87086; 87150; 87186

== ENCOUNTER 2023-08-14 07:17 | Observation (INO) | payer MEDICARE, SELFPAY ==
[2023-08-14] VITALS (19 sets, daily range): BP systolic 129–203; BP diastolic 75–103; PULSE 63–74; RESP 16–30; TEMP 36.6–36.8; O2SAT 94–99; BMI 30.2; BMI 32.6
--- NOTE | 2023-08-14 | CT_ITS ---
The [address] [address] Patient Name: ANGIE HONEYCUTT MRN: [id number] date: 1940 Sex: F Assigned Patient Location: ER Current Patient Location: ED.MAIN Accession/Order Number: [id number] Exam Date: 08/14/2023 07:20 Report Date: 08/14/2023 07:38 At the request of: KAVITA HERNANDEZ Procedure: CT stroke head/brain wo con HEAD CT WITHOUT CONTRAST: 08/14/2023 7:20 AM EST Clinical Data: Confussion Comparison: 04/29/2023 Unenhanced axial data from base to vertex. INTRA-AXIAL: No acute hemorrhage. No acute infarction is evident. 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 Again, potential chronic right periventricular infarct. No interval change. Again, there is symmetric modest white matter disease. EXTRA-AXIAL: No acute hemorrhage. No focal fluid collection. BRAIN VOLUME: No change VENTRICLES: No hydrocephalus PARANASAL SINUSES: No air-fluid levels in the included aspects. MASTOIDS: Clear. CALVARIUM: No acute finding. EXTRACALVARIAL: No acute findings CT/CT stroke head/brain wo con IMPRESSION: 1. Chronic findings. No evidence of acute intracranial process on this unenhanced study as described. All CT scans at this facility use dose modulation, iterative reconstruction, and/or weight based dosing when appropriate to reduce radiation dose to as low as reasonably achievable. Electronically authenticated by: ZAIRE RODRIGUEZ Date: 08/14/2023 07:38
--- OUTSIDE RECORDS SUMMARY | 2023-08-14 07:39 | XMS_ITS | CCD ---
Author Name Unknown Address [address] [place] [address] Organization [facility] Care Team Providers Care Foundation Coordinator Name Role Phone PHYSICIAN, DEFAULT Unavailable Unavailable PHYSICIAN, DEFAULT Unavailable Unavailable DARCY, DR ALEIDA Gonzaelz Consulting Unavailable PETZNICK, APOLLO Primary Care Unavailable ROMULO ., NATELMO Attending Unavailable ROMULO ., ANTELMO Admitting Unavailable ELIDELL Consulting Unavailable DAVIS, ASHVIN Consulting Unavailable ROMULO ., ANTELMO Consulting Unavailable DIAB ., KAVITA Consulting Unavailable KENDALL ., DR MARLA Nieto Attending Unavailable KENDALL ., DR MARLA Nieto Consulting Unavailable ENOCH ., DR MARLA Nieto Admitting [facility]available [facility] AP[facility]LL[facility] Primary Care Unavailable EARNESTINE, DR KARISSA Martinez Consulting Unavailable KENDALL ., DR MARLA Nieto Attending Unavailable KENDALL ., DR MARLA Nieto Consulting Unavailable ENOCH ., DR MARLA Nieto Admitting Unavailable [facility] Primary Care Unavailable DR KENROY HEALY Consulting UnavailDR ALEIDA Griffin V Consulting Unavailable DAWSON MAYA Consulting Unavailable Allergies Allergy Classification Reported Allergen(s) Allergy Type Date of Onset Reaction(s) Facility (1 source) Desonide Drug Allergy [facility] (1 source) nabumetone Drug Allergy [facility] (1 source) Neomycin Drug Allergy [facility] (1 source) oxyCODONE Drug Allergy [facility] (1 source) Ramipril Drug Allergy [facility] (1 source) Polymyxin B Drug allergy (disorder) [facility] Problems Active Problems Problem Classification Problem Date Documented Da te Episodic/Chronic Delirium, dementia, and amnestic and other cognitive disorders (1 source) Unspecified dementia without behavioral disturbance; Translations: [UNSP CONCHA UNS SEV W/O DSTRB ANXTY] Onset: 12-28-2022 Chronic Fluid and electrolyte disorders (1 source) Hypokalemia; Translations: [HYPOKALEMIA] Onset: 12-28-2022 Episodic Influenza (1 source) Influenza due to other identified influenza virus with unspecified type of pneumonia; Translations: [FLU D/T OTH ID FLU VIR UNS TYPE PN] Onset: 12-28-2022 Episodic Menopausal disorders (1 source) Hormone replacement therapy; Translations: [HORMONE REPLACEMENT THERAPY] Onset: 12-28-2022 Episodic Osteoporosis (2 sources) Age-related osteoporosis without current pathological fracture; Translations: [AGE-REL OSTEOPOR W/O CURR PATH FX] Onset: 06-28-2022 Chronic Other acquired deformities (1 source) Scoliosis, unspecified; Translations: [SCOLIOSIS UNSPECIFIED] Onset: 06-21-2022 Chronic Other acquired deformities (1 source) Other forms of scoliosis, lumbar region; Translations: [OTHER FORMS SCOLIOSIS LUMBAR REGION] Onset: 06-21-2022 Chronic Other aftercare (1 source) 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; Translations: [USP CURRENT USE OF ASPIRIN] Onset: 12-28-2022 Episodic Other aftercare (1 source) Other group home (current) drug therapy; Translations: [OTH PARCEL CARRIER CURRENT DRUG THERAPY] Onset: 12-28-2022 Episodic Other hereditary and degenerative nervous system conditions (1 source) Mild cognitive impairment, so stated; Translations: [MILD COGNTV IMPAIRMNT UNCRTN/UNKNWN] Onset: 06-21-2022 Chronic Thyroid disorders (1 source) Hypothyroidism, unspecified; Translations: [HYPOTHYROIDISM UNSPECIFIED] Onset: 12-28-2022 Chronic Unclassified (1 source) CONTACT W/AND (SUSP) EXPOS COVID-19; Translations: [CONTACT W/AND (SUSP) EXPOS COVID-19] Onset: 06-21-2022 Viral infection (3 sources) COVID-19; Translations: [COVID-19] Onset: 12-26-2022 Past or Other Problems Problem Classification Problem Date Documented Da te Episodic/Chronic Deficiency and other anemia (1 source) Anemia, unspecified; Translations: [ANEMIA UNSPECIFIED] Onset: 06-21-2022 Episodic Malaise and fatigue (4 sources) Weakness; Translations: [WEAKNESS] Onset: 06-22-2022 Episodic Other bone disease and musculoskeletal deformities (1 source) Other specified disorders of bone density and structure, right thigh; Translations: [OTH D/O BONE DEN STRUCT RT THIGH] Onset: 06-28-2022 Episodic Other connective tissue disease (4 sources) Muscle weakness (generalized); Translations: [MUSCLE WEAKNESS GENERALIZED] Onset: 06-14-2022 Episodic Other connective tissue disease (1 source) Other muscle spasm; Translations: [OTHER MUSCLE SPASM] Onset: 06-21-2022 Episodic Other gastrointestinal disorders (1 source) Full incontinence of feces; Translations: [FULL INCONTINENCE OF FECES] Onset: 06-21-2022 Episodic Other injuries and conditions due to external causes (1 source) History of falling; Translations: [HISTORY OF FALLING] Onset: 06-21-2022 Episodic Results Test Name Value Interpretation Reference Range Facility CBC AUTO DIFFon 12-29-2022 BASO # 0.1 103/ul Normal 0.0-0.1 [facility] Comment on above: Performed By: #### R SPLUS #### [facility] [address] [place] [address] Dr. Emilie Carmona Basophils/100 WBC (Bld) 0.8 % Normal 0.2-2.0 [facility] Comment on above: Performed By: #### R SPLUS #### [facility] [address] [place] [address] Dr. Emilie Carmona EO # 0.0 103/ul Normal 0.0-0.7 [facility] Comment on above: Performed By: #### R SPLUS #### [facility] [address] [address] [address] Emilie Carmona Eosinophils/100 WBC (Bld) 0.1 % Critically low 0.9-7.0 [facility] Comment on above: Performed By: #### R SPLUS #### [facility] [address] [place] [address] Dr. Emilie Carmona Erythrocyte distribution width (RBC) [Ratio] 14.8 % Normal 11.0-15.0 [facility] Comment on above: Performed By: #### R SPLUS #### [facility] [address] [place] [address] Dr. Emilie Carmona Hematocrit (Bld) [Volume fraction] 33.3 % Critically low 36.0-48.0 [facility] Comment on above: Performed By: #### R SPLUS #### [facility] [address] [place] [address] Dr. Emilie Carmona Hemoglobin (Bld) [Mass/Vol] 10.9 g/dL Critically low 12.0-16.0 [facility] Comment on above: Performed By: #### R SPLUS #### [facility] [address] [address] [address] Emilie Carmona IG # 0.61 10e3/ul Critically high 0.00-0.03 [facility] Comment on above: Performed By: #### R SPLUS #### [facility] [address] [place] [address] Dr. Emilie Carmona IG % 5.7 % Critically high 0.0-0.5 [facility] Comment on above: Performed By: #### R SPLUS #### [facility] [address] [place] [address] Dr. Emilie Carmona LYMPH # 1.7 103/ul Normal 1.2-3.8 [facility] Comment on above: Performed By: #### R SPLUS #### [facility] [address] [place] [address] Dr. Emilie Carmona Lymphocytes/100 WBC (Bld) 15.8 % Critically low 20.5-60.0 [facility] Comment on above: Performed By: #### R SPLUS #### [facility] [address] [place] [address] Dr. Emilie Carmona MANUAL DIFF REQ NO Normal [facility] Comment on above: Performed By: #### R SPLUS #### [facility] [address] [place] [address] Dr. Emilie Carmona MCH (RBC) [Entitic mass] 27.9 pg Normal 26.7-34.0 [facility] Comment on above: Performed By: #### R SPLUS #### [facility] [address] [place] [address] Dr. Emilie Carmona MCHC (RBC) [Mass/Vol] 32.7 g/dL Normal 29.9-35.2 [facility] Comment on above: Performed By: #### R SPLUS #### [facility] [address] [place] [address] Dr. Emilie Carmona MCV (RBC) [Entitic vol] 85.4 fL Normal 81.0-99.0 [facility] Comment on above: Performed By: #### R SPLUS #### [facility] [address] [place] [address] Dr. Emilie Carmona MONO # 0.7 103/ul Normal 0.3-0.8 [facility] Comment on above: Performed By: #### R SPLUS #### [facility] [address] [place] [address] Dr. Emilie Carmona Monocytes/100 WBC (Bld) 6.9 % Normal 1.7-12.0 [facility] Comment on above: Performed By: #### R SPLUS #### [facility] [address] [place] [address] Dr. Emilie Carmona NEUT # 7.6 103/ul Critically high 1.4-6.5 [facility] Comment on above: Performed By: #### R SPLUS #### [facility] [address] [place] [address] Dr. Emilie Carmona Neutrophils/100 WBC (Bld) 70.7 % Normal 43.0-75.0 [facility] Comment on above: Performed By: #### R SPLUS #### [facility] [address] [place] [address] Dr. Emilie Carmona Platelet mean volume (Bld) [Entitic vol] 10.8 fL Normal 9.5-13.5 [facility] Comment on above: Performed By: #### R SPLUS #### [facility] [address] [place] [address] Dr. Emilie Carmona PLT 270 103/ul Normal 150-450 [facility] Comment on above: Performed By: #### R SPLUS #### [facility] [address] [place] [address] Dr. Emilie Carmona RBC 3.90 106/ul Critically low 4.20-5.40 [facility] Comment on above: Performed By: #### R SPLUS #### [facility] [address] [place] [address] Dr. Emilie Carmona WBC 10.7 103/ul Normal 4.0-11.0 [facility] Comment on above: Performed By: #### R SPLUS #### [facility] [address] [place] [address] Dr. Emilie Carmona PROF 14(COMP METB)on 023 Albumin [Mass/Vol] 2.6 g/dL Critically low 3.4-5.0 [facility] Comment on above: Performed By: #### C MP #### [facility] [address] [place] [address] Dr. Emilie Carmona Albumin/Globulin [Mass ratio] 0.6 {ratio} Normal [facility] Comment on above: Performed By: #### C MP #### [facility] [address] [place] [address] Dr. Emilie Carmona ALP [Catalytic activity/Vol] 58 U/L Normal 46-116 [facility] Comment on above: Performed By: #### C MP #### [facility] [address] [place] [address] Dr. Emilie Carmona ALT [Catalytic activity/Vol] 32 U/L Normal 14-59 [facility] Comment on above: Performed By: #### C MP #### [facility] [address] [place] [address] Dr. Emilie Carmona Anion gap [Moles/Vol] 13.8 mmol/L Normal [facility] Comment on above: Performed By: #### C MP #### [facility] [address] [place] [address] Dr. Emilie Carmona AST [Catalytic activity/Vol] 30 U/L Normal 15-37 [facility] Comment on above: Performed By: #### C MP #### [facility] [address] [place] [address] Dr. Emilie Carmona Bilirubin [Mass/Vol] 0.2 mg/dL Normal 0.2-1.0 [facility] Comment on above: Performed By: #### C MP #### [facility] [address] [address] [address] Emilie Carmona Calcium [Mass/Vol] 9.7 mg/dL Normal 8.5-10.1 [facility] Comment on above: Performed By: #### C MP #### [facility] [address] [address] [address] Emilie Carmona Chloride [Moles/Vol] 107 mmol/L Normal 98-107 [facility] Comment on above: Performed By: #### C MP #### [facility] [address] [address] [address] Emilie Carmona CO2 [Moles/Vol] 24.8 mmol/L Normal 21.0-32.0 [facility] Comment on above: Performed By: #### C MP #### [facility] [address] [address] [address] Emilie Carmona Creatinine [Mass/Vol] 1.02 mg/dL Normal 0.55-1.02 [facility] Comment on above: Performed By: #### C MP #### [facility] [address] [address] [address] Emilie Carmona EGFR-AF JAPANESE >60 Normal >=60 [facility] Comment on above: Performed By: #### C MP #### [facility] [address] [address] [address] Emilie Carmona EGFR-NON AF JAPANESE 52 mL/min/1.73m2 Critically low >=60 [facility] Comment on above: Performed By: #### C MP #### [facility] [address] [address] [address] Emilie Carmona Globulin (S) [Mass/Vol] 4.0 g/dL Normal [facility] Comment on above: Performed By: #### C MP #### [facility] [address] [address] [address] Emilie Carmona Glucose [Mass/Vol] 99 mg/dL Normal 74-106 [facility] Comment on above: Performed By: #### C MP #### [facility] [address] [address] [address] Emilie Carmona Potassium [Moles/Vol] 4.6 mmol/L Normal 3.5-5.1 [facility] Comment on above: Performed By: #### C MP #### [facility] [address] [address] [address] Emilie Carmona Protein [Mass/Vol] 6.6 g/dL Normal 6.4-8.2 [facility] Comment on above: Performed By: #### C MP #### [facility] [address] [address] [address] Emilie Carmona Sodium [Moles/Vol] 141 mmol/L Normal 136-145 [facility] Comment on above: Performed By: #### C MP #### [facility] [address] [place] [address] Dr. Emilie Carmona Urea nitrogen [Mass/Vol] 17.0 mg/dL Normal 7.0-18.0 [facility] Comment on above: Performed By: #### C MP #### [facility] [address] [place] [address] Dr. Emilie Carmona Urea nitrogen/Creatinine [Mass ratio] 16.7 mg/mg Normal [facility] Comment on above: Performed By: #### C MP #### [facility] [address] [place] [address] Dr. Emilie Carmona CBC AUTO DIFFon 12-28-2022 BASO # 0.0 103/ul Normal 0.0-0.1 [facility] Comment on above: Performed By: #### C BC #### [facility] [address] [place] [address] Dr. mEilie Carmona Basophils/100 WBC (Bld) 0.3 % Normal 0.2-2.0 [facility] Comment on above: Performed By: #### C BC #### [facility] [address] [place] [address] Dr. Emilie Carmona EO # 0.0 103/ul Normal 0.0-0.7 [facility] Comment on above: Performed By: #### C BC #### [facility] [address] [address] [address] Emilie Carmona Eosinophils/100 WBC (Bld) 0.0 % Critically low 0.9-7.0 [facility] Comment on above: Performed By: #### C BC #### [facility] [address] [address] [address] Emilie Carmona Erythrocyte distribution width (RBC) [Ratio] 14.6 % Normal 11.0-15.0 [facility] Comment on above: Performed By: #### C BC #### [facility] [address] [place] [address] Dr. Emilie Carmona Hematocrit (Bld) [Volume fraction] 32.2 % Critically low 36.0-48.0 [facility] Comment on above: Performed By: #### C BC #### [facility] [address] [place] [address] Dr. Emilie Carmona Hemoglobin (Bld) [Mass/Vol] 10.4 g/dL Critically low 12.0-16.0 [facility] Comment on above: Performed By: #### C BC #### [facility] [address] [place] [address] Dr. Emilie aCrmona IG # 0.22 10e3/ul Critically high 0.00-0.03 [facility] Comment on above: Performed By: #### C BC #### [facility] [address] [place] [address] Dr. Emilie Carmona IG % 2.0 % Critically high 0.0-0.5 [facility] Comment on above: Performed By: #### C BC #### [facility] [address] [place] [address] Dr. Emilie Carmona LYMPH # 1.2 103/ul Normal 1.2-3.8 [facility] Comment on above: Performed By: #### C BC #### [facility] [address] [place] [address] Dr. Emilie Carmona Lymphocytes/100 WBC (Bld) 11.4 % Critically low 20.5-60.0 [facility] Comment on above: Performed By: #### C BC #### [facility] [address] [place] [address] Dr. Emilie Carmona MANUAL DIFF REQ NO Normal [facility] Comment on above: Performed By: #### C BC #### [facility] [address] [place] [address] Dr. Emilie Carmona MCH (RBC) [Entitic mass] 27.6 pg Normal 26.7-34.0 [facility] Comment on above: Performed By: #### C BC #### [facility] [address] [place] [address] Dr. Emilie Carmona MCHC (RBC) [Mass/Vol] 32.3 g/dL Normal 29.9-35.2 [facility] Comment on above: Performed By: #### C BC #### [facility] [address] [place] [address] Dr. Emilie Carmona MCV (RBC) [Entitic vol] 85.4 fL Normal 81.0-99.0 [facility] Comment on above: Performed By: #### C BC #### [facility] [address] [place] [address] Dr. Emilie Carmona MONO # 0.7 103/ul Normal 0.3-0.8 [facility] Comment on above: Performed By: #### C BC #### [facility] [address] [place] [address] Dr. Emilie Carmona Monocytes/100 WBC (Bld) 6.3 % Normal 1.7-12.0 [facility] Comment on above: Performed By: #### C BC #### [facility] [address] [place] [address] Dr. Emilie Carmona NEUT # 8.7 103/ul Critically high 1.4-6.5 [facility] Comment on above: Performed By: #### C BC #### [facility] [address] [place] [address] Dr. Emilie Carmona Neutrophils/100 WBC (Bld) 80.0 % Critically high 43.0-75.0 [facility] Comment on above: Performed By: #### C BC #### [facility] [address] [address] [address] Emilie Carmona Platelet mean volume (Bld) [Entitic vol] 10.9 fL Normal 9.5-13.5 [facility] Comment on above: Performed By: #### C BC #### [facility] [address] [address] [address] Emilie Carmona PLT 226 103/ul Normal 150-450 [facility] Comment on above: Performed By: #### C BC #### [facility] [address] [address] [address] Emilie Carmona RBC 3.77 106/ul Critically low 4.20-5.40 [facility] Comment on above: Performed By: #### C BC #### [facility] [address] [address] [address] Emilie Carmona WBC 10.9 103/ul Normal 4.0-11.0 [facility] Comment on above: Performed By: #### C BC #### [facility] [address] [address] [address] Emilie Carmona PROF 14(COMP METB)on 023 Albumin [Mass/Vol] 2.4 g/dL Critically low 3.4-5.[address] [facility] Comment on above: Performed By: #### C MP ####[facility] [address] [id number] Carmona Albumin/Globulin [Mass ratio] 0.6 {ratio} Normal [facility] Comment on above: Performed By: #### C MP ####[facility] [address] [id number] Carmona ALP [Catalytic activity/Vol] 57 U/L Normal 46-116 [facility] Comment on above: Performed By: #### C MP ####[facility] [address] [address]DrBrenton Carmona ALT [Catalytic activity/Vol] 32 U/L Normal 14-59 [facility] Comment on above: Performed By: #### C MP ####[facility] [address] [address]Dr. Emilie Carmona Anion gap [Moles/Vol] 14.1 mmol/L Normal [facility] Comment on above: Performed By: #### C MP ####[facility] [address] [place], [place] [address]Dr. Emilie Carmona AST [Catalytic activity/Vol] 35 U/L Normal 15-37 [facility] Comment on above: Performed By: #### C MP ####[facility] [address] [place], [place] [address]Dr. Emilie Mathew Bilirubin [Mass/Vol] 0.2 mg/dL Normal 0.2-1.0 [facility] Comment on above: Performed By: #### C MP ####[facility] [address] [place], [place] [address]Dr. Emilie Carmona Calcium [Mass/Vol] 9.2 mg/dL Normal 8.5-10.1 [facility] Comment on above: Performed By: #### C MP ####[facility] [address] [place], [place] [address]Dr. Emilie Carmona Chloride [Moles/Vol] 107 mmol/L Normal 98-107 [facility] Comment on above: Performed By: #### C MP ####[facility] [address] [place], [place] [address]Dr. Emilie Carmona CO2 [Moles/Vol] 22.7 mmol/L Normal 21.0-32.0 [facility] Comment on above: Performed By: #### C MP ####[facility] [address] [place], [place] [address]Dr. Emilie Carmona Creatinine [Mass/Vol] 1.02 mg/dL Normal 0.55-1.02 [facility] Comment on above: Performed By: #### C MP ####[facility] [address] [place], [place] [address]Dr. Emilie Carmona EGFR-AF JAPANESE >60 Normal >=60 [facility] Comment on above: Performed By: #### C MP ####[facility] [address] [place], [place] [address]Dr. Emilie Carmona EGFR-NON AF JAPANESE 52 mL/min/1.73m2 Critically low >=60 [facility] Comment on above: Performed By: #### C MP ####[facility] [address] [address]Dr. Emilie Carmona Globulin (S) [Mass/Vol] 4.0 g/dL Normal [facility] Comment on above: Performed By: #### C MP ####[facility] [address] [address]Dr. Emilie Carmona Glucose [Mass/Vol] 132 mg/dL Critically high 74-106 [facility] Comment on above: Performed By: #### C MP ####[facility] [address] [place], [place] [address]Dr. Emilie Carmona Potassium [Moles/Vol] 3.8 mmol/L Normal 3.5-5.1 [facility] Comment on above: Performed By: #### C MP ####[facility] [address] [place], [place] [address]Dr. Emilie Carmona Protein [Mass/Vol] 6.4 g/dL Normal 6.4-8.2 [facility] Comment on above: Performed By: #### C MP ####[facility] [address] [place], [place] [address]Dr. Emilie Carmona Sodium [Moles/Vol] 140 mmol/L Normal 136-145 [facility] Comment on above: Performed By: #### C MP ####[facility] [address] [place], [place] [address]Dr. Emilie Carmona Urea nitrogen [Mass/Vol] 19.0 mg/dL Critically high 7.0-18.0 [facility] Comment on above: Performed By: #### C MP ####[facility] [address] [place], [place] [address]Dr. Emilie Carmona Urea nitrogen/Creatinine [Mass ratio] 18.6 mg/mg Normal [facility] Comment on above: Performed By: #### C MP ####[facility] [address] [place], [place] [address]Dr. Emilie Carmona CBC AUTO DIFFon 12-27-2022 BASO # 0.1 103/ul Normal 0.0-0.1 [facility] Comment on above: Performed By: #### C BC #### [facility] [address] [address] [address] Emilie Carmona Basophils/100 WBC (Bld) 0.4 % Normal 0.2-2.0 [facility] Comment on above: Performed By: #### C BC #### [facility] [address] [address] [address] Emilie Carmona EO # 0.2 103/ul Normal 0.0-0.7 [facility] Comment on above: Performed By: #### C BC #### [facility] [address] [place] [address] Dr. Emilie Carmona Eosinophils/100 WBC (Bld) 1.8 % Normal 0.9-7.0 [facility] Comment on above: Performed By: #### C BC #### [facility] [address] [place] [address] Dr. Emilie Carmona Erythrocyte distribution width (RBC) [Ratio] 14.1 % Normal 11.0-15.0 [facility] Comment on above: Performed By: #### C BC #### [facility] [address] [place] [address] Dr. Emilie Carmona Hematocrit (Bld) [Volume fraction] 32.1 % Critically low 36.0-48.0 [facility] Comment on above: Performed By: #### C BC #### [facility] [address] [place] [address] Dr. Emilie Carmona Hemoglobin (Bld) [Mass/Vol] 10.7 g/dL Critically low 12.0-16.0 [facility] Comment on above: Performed By: #### C BC #### [facility] [address] [place] [address] Dr. Emilie Carmona IG # 0.13 10e3/ul Critically high 0.00-0.03 [facility] Comment on above: Performed By: #### C BC #### [facility] [address] [place] [address] Dr. Emilie Carmona IG % 0.9 % Critically high 0.0-0.5 [facility] Comment on above: Performed By: #### C BC #### [facility] [address] [place] [address] Dr. Emilie Carmona LYMPH # 0.9 103/ul Critically low 1.2-3.[address] [facility] Comment on above: Performed By: #### C BC #### [facility] [address] [place] [address] Dr. Emilie Carmona Lymphocytes/100 WBC (Bld) 6.9 % Critically low 20.5-60.0 [facility] Comment on above: Performed By: #### C BC #### [facility] [address] [place] [address] Dr. Emilie Carmona MANUAL DIFF REQ NO Normal [facility] Comment on above: Performed By: #### C BC #### [facility] [address] [place] [address] Dr. Emilie Carmona MCH (RBC) [Entitic mass] 28.2 pg Normal 26.7-34.0 [facility] Comment on above: Performed By: #### C BC #### [facility] [address] [place] [address] Dr. Emilie Carmona MCHC (RBC) [Mass/Vol] 33.3 g/dL Normal 29.9-35.2 [facility] Comment on above: Performed By: #### C BC #### [facility] [address] [place] [address] Dr. Emilie Carmona MCV (RBC) [Entitic vol] 84.7 fL Normal 81.0-99.0 [facility] Comment on above: Performed By: #### C BC #### [facility] [address] [place] [address] Dr. Emilie Carmona MONO # 0.8 103/ul Normal 0.3-0.8 [facility] Comment on above: Performed By: #### C BC #### [facility] [address] [place] [address] Dr. Emilie Carmona Monocytes/100 WBC (Bld) 5.8 % Normal 1.7-12.0 [facility] Comment on above: Performed By: #### C BC #### [facility] [address] [place] [address] Dr. Emilie Carmona NEUT # 11.5 103/ul Critically high 1.4-6.5 [facility] Comment on above: Performed By: #### C BC #### [facility] [address] [place] [address] Dr. Emilie Carmona Neutrophils/100 WBC (Bld) 84.2 % Critically high 43.0-75.0 [facility] Comment on above: Performed By: #### C BC #### [facility] [address] [place] [address] Dr. Emilie Carmona Platelet mean volume (Bld) [Entitic vol] 10.8 fL Normal 9.5-13.5 [facility] Comment on above: Performed By: #### C BC #### [facility] [address] [place] [address] Dr. Emilie Carmona PLT 200 103/ul Normal 150-450 [facility] Comment on above: Performed By: #### C BC #### [facility] [address] [place] [address] Dr. Emilie Carmona RBC 3.79 106/ul Critically low 4.20-5.40 [facility] Comment on above: Performed By: #### C BC #### [facility] [address] [place] [address] Dr. Emilie Carmona WBC 13.7 103/ul Critically high 4.0-11.0 [facility] Comment on above: Performed By: #### C BC #### [facility] [address] [place] [address] Dr. Emilie Carmona PROF 14(COMP METB)on 023 Albumin [Mass/Vol] 2.4 g/dL Critically low 3.4-5.[address] [facility] Comment on above: Performed By: #### C MP #### [facility] [address] [place] [address] Dr. Emilie Carmona Albumin/Globulin [Mass ratio] 0.6 {ratio} Normal [facility] Comment on above: Performed By: #### C MP #### [facility] [address] [place] [address] Dr. Emilie Carmona ALP [Catalytic activity/Vol] 57 U/L Normal 46-116 [facility] Comment on above: Performed By: #### C MP #### [facility] [address] [address] [address] Emilie Carmona ALT [Catalytic activity/Vol] 21 U/L Normal 14-59 [facility] Comment on above: Performed By: #### C MP #### [facility] [address] [place] [address] Dr. Emilie Carmona Anion gap [Moles/Vol] 15.4 mmol/L Normal [facility] Comment on above: Performed By: #### C MP #### [facility] [address] [place] [address] Dr. Emilie Carmona AST [Catalytic activity/Vol] 39 U/L Critically high 15-37 [facility] Comment on above: Performed By: #### C MP #### [facility] [address] [place] [address] Dr. Emilie Carmona Bilirubin [Mass/Vol] 0.3 mg/dL Normal 0.2-1.0 [facility] Comment on above: Performed By: #### C MP #### [facility] [address] [place] [address] Dr. Emilie Carmona Calcium [Mass/Vol] 9.0 mg/dL Normal 8.5-10.1 [facility] Comment on above: Performed By: #### C MP #### [facility] [address] [address] [address] Emilie Carmona Chloride [Moles/Vol] 104 mmol/L Normal 98-107 [facility] Comment on above: Performed By: #### C MP #### [facility] [address] [place] [address] Dr. Emilie Carmona CO2 [Moles/Vol] 20.7 mmol/L Critically low 21.0-32.0 [facility] Comment on above: Performed By: #### C MP #### [facility] [address] [address] [address] Emilie Carmona Creatinine [Mass/Vol] 1.05 mg/dL Critically high 0.55-1.02 [facility] Comment on above: Performed By: #### C MP #### [facility] [address] [address] [address] Emilie Carmona EGFR-AF JAPANESE >60 Normal >=60 [facility] Comment on above: Performed By: #### C MP #### [facility] [address] [address] [address] Emilie Carmona EGFR-NON AF JAPANESE 50 mL/min/1.73m2 Critically low >=60 [facility] Comment on above: Performed By: #### C MP #### [facility] [address] [address] [address] Emilie Carmona Globulin (S) [Mass/Vol] 4.1 g/dL Normal [facility] Comment on above: Performed By: #### C MP #### [facility] [address] [address] [address] Emilie Carmona Glucose [Mass/Vol] 141 mg/dL Critically high 74-106 [facility] Comment on above: Performed By: #### C MP #### [facility] [address] [address] [address] Emilie Carmona Potassium [Moles/Vol] 4.1 mmol/L Normal 3.5-5.1 [facility] Comment on above: Performed By: #### C MP #### [facility] [address] [address] [address] Emilie Carmona Protein [Mass/Vol] 6.5 g/dL Normal 6.4-8.2 [facility] Comment on above: Performed By: #### C MP #### [facility] [address] [address] [address] Emilie Carmona Sodium [Moles/Vol] 136 mmol/L Normal 136-145 [facility] Comment on above: Performed By: #### C MP #### [facility] [address] [place] [address] Dr. Emilie Carmona Urea nitrogen [Mass/Vol] 22.0 mg/dL Critically high 7.0-18.0 [facility] Comment on above: Performed By: #### C MP #### [facility] [address] [place] [address] Dr. Emilie Carmona Urea nitrogen/Creatinine [Mass ratio] 21.0 mg/mg Normal [facility] Comment on above: Performed By: #### C MP #### [facility] [address] [place] [address] Dr. Emilie Carmona CBC AUTO DIFFon 12-26-2022 BASO # 0.0 103/ul Normal 0.0-0.1 [facility] Comment on above: Performed By: #### C BC #### [facility] [address] [place] [address] Dr. Emilie Carmona Basophils/100 WBC (Bld) 0.2 % Normal 0.2-2.0 [facility] Comment on above: Performed By: #### C BC #### [facility] [address] [place] [address] Dr. Emilie Carmona EO # 0.0 103/ul Normal 0.0-0.7 [facility] Comment on above: Performed By: #### C BC #### [facility] [address] [place] [address] Dr. Emilie Carmona Eosinophils/100 WBC (Bld) 0.1 % Critically low 0.9-7.0 [facility] Comment on above: Performed By: #### C BC #### [facility] [address] [place] [address] Dr. Emilie Carmona Erythrocyte distribution width (RBC) [Ratio] 13.7 % Normal 11.0-15.0 [facility] Comment on above: Performed By: #### C BC #### [facility] [address] [place] [address] Dr. Emilie Carmona Hematocrit (Bld) [Volume fraction] 32.5 % Critically low 36.0-48.0 [facility] Comment on above: Performed By: #### C BC #### [facility] [address] [address] [address] Emilie Carmona Hemoglobin (Bld) [Mass/Vol] 10.9 g/dL Critically low 12.0-16.0 [facility] Comment on above: Performed By: #### C BC #### [facility] [address] [address] [address] Emilie Carmona IG # 0.09 10e3/ul Critically high 0.00-0.03 [facility] Comment on above: Performed By: #### C BC #### [facility] [address] [address] [address] Emilie Carmona IG % 0.9 % Critically high 0.0-0.5 [facility] Comment on above: Performed By: #### C BC #### [facility] [address] [address] [address] Emilie Carmona LYMPH # 0.5 103/ul Critically low 1.2-3.8 [facility] Comment on above: Performed By: #### C BC #### [facility] [address] [address] [address] Emilie Carmona Lymphocytes/100 WBC (Bld) 4.8 % Critically low 20.5-60.0 [facility] Comment on above: Performed By: #### C BC #### [facility] [address] [address] [address] Emilie Carmona MANUAL DIFF REQ NO Normal [facility] Comment on above: Performed By: #### C BC #### [facility] [address] [address] [address] Emilie Carmona MCH (RBC) [Entitic mass] 28.5 pg Normal 26.7-34.0 [facility] Comment on above: Performed By: #### C BC #### [facility] [address] [address] [address] Emilie Carmona MCHC (RBC) [Mass/Vol] 33.5 g/dL Normal 29.9-35.2 [facility] Comment on above: Performed By: #### C BC #### [facility] [address] [address] [address] Emilie Carmona MCV (RBC) [Entitic vol] 84.9 fL Normal 81.0-99.0 [facility] Comment on above: Performed By: #### C BC #### [facility] [address] [address] [address] Emilie Carmona MONO # 0.3 103/ul Normal 0.3-0.8 [facility] Comment on above: Performed By: #### C BC #### [facility] [address] [address] [address] Emilie Carmona Monocytes/100 WBC (Bld) 2.9 % Normal 1.7-12.0 [facility] Comment on above: Performed By: #### C BC #### [facility] [address] [place] [address] Dr. Emilie Carmona NEUT # 8.9 103/ul Critically high 1.4-6.5 [facility] Comment on above: Performed By: #### C BC #### [facility] [address] [place] [address] Dr. Emilie Carmona Neutrophils/100 WBC (Bld) 91.1 % Critically high 43.0-75.0 [facility] Comment on above: Performed By: #### C BC #### [facility] [address] [place] [address] Dr. Emilie Carmona Platelet mean volume (Bld) [Entitic vol] 10.8 fL Normal 9.5-13.5 [facility] Comment on above: Performed By: #### C BC #### [facility] [address] [place] [address] Dr. Emilie Carmona PLT 204 103/ul Normal 150-450 [facility] Comment on above: Performed By: #### C BC #### [facility] [address] [place] [address] Dr. Emilie Carmona RBC 3.83 106/ul Critically low 4.20-5.40 [facility] Comment on above: Performed By: #### C BC #### [facility] [address] [address] [address] Emilie Carmona WBC 9.8 103/ul Normal 4.0-11.0 [facility] Comment on above: Performed By: #### C BC #### [facility] [address] [place] [address] Dr. Emilie Carmona PROF 14(COMP METB)on 023 Albumin [Mass/Vol] 2.5 g/dL Critically low 3.4-5.0 [facility] Comment on above: Performed By: #### R SPLUS #### [facility] [address] [place] [address] Dr. Emilie Carmona Albumin/Globulin [Mass ratio] 0.6 {ratio} Normal [facility] Comment on above: Performed By: #### R SPLUS #### [facility] [address] [place] [address] Dr. Emilie Carmona ALP [Catalytic activity/Vol] 63 U/L Normal 46-116 [facility] Comment on above: Performed By: #### R SPLUS #### [facility] [address] [place] [address] Dr. Emilie Carmona ALT [Catalytic activity/Vol] 13 U/L Critically low 14-59 [facility] Comment on above: Performed By: #### R SPLUS #### [facility] [address] [place] [address] Dr. Emilie Carmona Anion gap [Moles/Vol] 18.7 mmol/L Normal [facility] Comment on above: Performed By: #### R SPLUS #### [facility] [address] [place] [address] Dr. Emilie Carmona AST [Catalytic activity/Vol] 16 U/L Normal 15-37 [facility] Comment on above: Performed By: #### R SPLUS #### [facility] [address] [place] [address] Dr. Emilie Carmona Bilirubin [Mass/Vol] 0.3 mg/dL Normal 0.2-1.0 [facility] Comment on above: Performed By: #### R SPLUS #### [facility] [address] [address] [address] Emilie Carmona Calcium [Mass/Vol] 8.5 mg/dL Normal 8.5-10.1 [facility] Comment on above: Performed By: #### R SPLUS #### [facility] [address] [address] [address] Emilie Carmona Chloride [Moles/Vol] 103 mmol/L Normal 98-107 [facility] Comment on above: Performed By: #### R SPLUS #### [facility] [address] [address] [address] Emilie Carmona CO2 [Moles/Vol] 21.0 mmol/L Normal 21.0-32.0 [facility] Comment on above: Performed By: #### R SPLUS #### [facility] [address] [address] [address] Emilie Carmona Creatinine [Mass/Vol] 1.37 mg/dL Critically high 0.55-1.02 [facility] Comment on above: Performed By: #### R SPLUS #### [facility] [address] [address] [address] Emilie Carmona EGFR-AF JAPANESE 45 mL/min/1.73m2 Critically low >=60 [facility] Comment on above: Performed By: #### R SPLUS #### [facility] [address] [address] [address] Emilie Carmona EGFR-NON AF JAPANESE 37 mL/min/1.73m2 Critically low >=60 [facility] Comment on above: Performed By: #### R SPLUS #### [facility] [address] [address] [address] Emilie Carmona Globulin (S) [Mass/Vol] 4.1 g/dL Normal [facility] Comment on above: Performed By: #### R SPLUS #### [facility] [address] [address] [address] Emilie Carmona Glucose [Mass/Vol] 235 mg/dL Critically high 74-106 [facility] Comment on above: Performed By: #### R SPLUS #### [facility] [address] [address] [address] Emilie Carmona Potassium [Moles/Vol] 2.7 mmol/L Critically low 3.5-5.1 [facility] Comment on above: Performed By: #### R SPLUS #### [facility] [address] [address] [address] Emilie Carmona Protein [Mass/Vol] 6.6 g/dL Normal 6.4-8.2 [facility] Comment on above: Performed By: #### R SPLUS #### [facility] [address] [address] [address] Emilie Carmona Sodium [Moles/Vol] 138 mmol/L Normal 136-145 [facility] Comment on above: Performed By: #### R SPLUS #### [facility] [address] [place] [address] Dr. Emilie Carmona Urea nitrogen [Mass/Vol] 20.0 mg/dL Critically high 7.0-18.0 [facility] Comment on above: Performed By: #### R SPLUS #### [facility] [address] [place] [address] Dr. Emilie Carmona Urea nitrogen/Creatinine [Mass ratio] 14.6 mg/mg Normal [facility] Comment on above: Performed By: #### R SPLUS #### [facility] [address] [place] [address] Dr. Emilie Carmona XR CHEST 1 Von 12-26-2022 XR CHEST 1 V EXAM: XR CHEST 1 V HISTORY: SHORTNESS OF BREATH 12/25/2022 COMPARISON: None. TECHNIQUE: AP portable FINDINGS: LUNGS: New left basilar infiltrate. The right lung is clear. VASCULATURE: No increased pulmonary vasculature. PLEURA: No pneumothorax, effusion, or pleural thickening. CARDIAC: No cardiomegaly or cardiac silhouette abnormality. MEDIASTINUM: No visible mass or adenopathy. BONES: No fracture or visible bone lesion. OTHER: Negative. IMPRESSION: New left basilar infiltrate, atelectasis versus pneumonia Electronically authenticated by: ALEIDA TAVERAS Date: 2022-12-26 10:29 Normal [facility] BNPon 12-25-2022 Natriuretic peptide B (Bld) [Mass/Vol] 639.0 pg/mL Normal <=1,800.0 [facility] Comment on above: Performed By: #### C MADM, BNP, CMP ####[facility] [id number] [id number] Emilie Carmona CARDIAC MARYCRUZ ADMITon 023 CK [Catalytic activity/Vol] 248 U/L Critically high 26-192 [facility] Comment on above: Performed By: #### C MADM, BNP, CMP ####[facility] [address] [address]Dr[address] Emilie Carmona CK.MB [Mass/Vol] 1.38 ng/mL Normal <=3.60 [facility] Comment on above: Performed By: #### C MADM, BNP, CMP ####[facility] [address] [address]Dr. Emilie Carmona HSTROP 11.8 pg/mL Normal 4.0-51.3 [facility] Comment on above: Result Comment: CUT- OFF POINTS HAVE BEEN ESTABLISHED BASED ON THE FOURTH UNIVERSAL DEFINITIONS OF MYOCARDIAL INFARCTION. THE UPPER REFERENCE LIMIT (URL) OF TROPONIN, DEFINED THE 99TH PERCENTILE OF cTnI DISTRIBUTION IN A REFERENCE POPULATION, HAS BEEN CONFIRMED THE DECISION THRESHOLD FOR HI DIAGNOSIS. Performed By: #### C MADM, BNP, CMP ####[facility] [address] [id number] Carmona MAXIMILIAN 484 ng/mL Critically high 9-82 [facility] Comment on above: Performed By: #### C MADM, BNP, CMP ####[facility] [address] [id number] Emilie Carmona CBC AUTO DIFFon 12-25-2022 BASO # 0.0 103/ul Normal 0.0-0.1 [facility] Comment on above: Performed By: #### C BC #### [facility] [id number] Emilie Carmona Basophils/100 WBC (Bld) 0.4 % Normal 0.2-2.0 [facility] Comment on above: Performed By: #### C BC #### [facility] [address] [place] [address] Dr. Emilie Carmona EO # 0.0 103/ul Normal 0.0-0.7 [facility] Comment on above: Performed By: #### C BC #### [facility] [address] [place] [address] Dr. Emilie Carmona Eosinophils/100 WBC (Bld) 0.0 % Critically low 0.9-7.0 [facility] Comment on above: Performed By: #### C BC #### [facility] [address] [place] [address] Dr. Emilie Carmona Erythrocyte distribution width (RBC) [Ratio] 13.6 % Normal 11.0-15.0 [facility] Comment on above: Performed By: #### C BC #### [facility] [address] [place] [address] Dr. Emilie Carmona Hematocrit (Bld) [Volume fraction] 39.0 % Normal 36.0-48.0 [facility] Comment on above: Performed By: #### C BC #### [facility] [address] [place] [address] Dr. Emilie Carmona Hemoglobin (Bld) [Mass/Vol] 13.0 g/dL Normal 12.0-16.0 [facility] Comment on above: Performed By: #### C BC #### [facility] [address] [place] [address] Dr. Emilie Carmona IG # 0.07 10e3/ul Critically high 0.00-0.03 The [facility] Comment on above: Performed By: #### C BC #### [facility] [address] [place] [address] Dr. Emilie Carmona IG % 0.6 % Critically high 0.0-0.5 The [facility] Comment on above: Performed By: #### C BC #### [facility] [address] [place] [address] Dr. Emilie Carmona LYMPH # 0.8 103/ul Critically low 1.2-3.[address] [facility] Comment on above: Performed By: #### C BC #### [facility] [address] [address] [address] Emilie Carmona Lymphocytes/100 WBC (Bld) 6.9 % Critically low 20.5-60.0 [facility] Comment on above: Performed By: #### C BC #### [facility] [address] [address] [address] Emilie Carmona MANUAL DIFF REQ NO Normal [facility] Comment on above: Performed By: #### C BC #### [facility] [address] [place] [address] Dr. Emilie Carmona MCH (RBC) [Entitic mass] 28.4 pg Normal 26.7-34.0 The [facility] Comment on above: Performed By: #### C BC #### [facility] [address] [place] [address] Dr. Emilie Carmona MCHC (RBC) [Mass/Vol] 33.3 g/dL Normal 29.9-35.2 The [facility] Comment on above: Performed By: #### C BC #### [facility] [address] [place] [address] Dr. Emilie Carmona MCV (RBC) [Entitic vol] 85.3 fL Normal 81.0-99.0 [facility] Comment on above: Performed By: #### C BC #### [facility] [address] [place] [address] Dr. Emilie Carmona MONO # 1.0 103/ul Critically high 0.3-0.8 [facility] Comment on above: Performed By: #### C BC #### [facility] [address] [place] [address] Dr. Emilie Carmona Monocytes/100 WBC (Bld) 9.1 % Normal 1.7-12.0 The [facility] Comment on above: Performed By: #### C BC #### [facility] [address] [place] [address] Dr. Emilie Carmona NEUT # 9.0 103/ul Critically high 1.4-6.5 [facility] Comment on above: Performed By: #### C BC #### [facility] [address] [address] [address] Emilie Carmona Neutrophils/100 WBC (Bld) 83.0 % Critically high 43.0-75.0 [facility] Comment on above: Performed By: #### C BC #### [facility] [address] [address] [address] Emilie Carmona Platelet mean volume (Bld) [Entitic vol] 10.6 fL Normal 9.5-13.5 [facility] Comment on above: Performed By: #### C BC #### [facility] [address] [address] [address] Emilie Carmona PLT 276 103/ul Normal 150-450 [facility] Comment on above: Performed By: #### C BC #### [facility] [address] [address] [address] Emilie Carmona RBC 4.57 106/ul Normal 4.20-5.40 [facility] Comment on above: Performed By: #### C BC #### [facility] [address] [address] [address] Emilie Carmona WBC 10.8 103/ul Normal 4.0-11.0 [facility] Comment on above: Performed By: #### C BC #### [facility] [address] [address] [address] Emilie Carmona CULTURE BLOODon 12-25-2022 Microscopic examination of blood, culture Culture Observations: NO GROWTH AT 36-48 HOURS. FINAL TO FOLLOW. Normal [facility] Comment on above: Performed By: #### B LDCX2 ####[facility] [address] [id number]. Emilie Carmona Microscopic examination of blood, culture Culture Observations: NO GROWTH AT 36-48 HOURS. FINAL TO FOLLOW. Normal [facility] Comment on above: Performed By: #### B LDCX1 #### [facility] [address] [address] [address] Emilie Carmona CULTURE SPUTUMon 12-25-2022 CULTURE SPUTUM Culture Observations : Growth of Normal Respiratory Joanne also seen Isolate 1 Haemophilus influenzae Heavy growth of Normal The [facility] Comment on above: Result Comment: Beta Lactamase: Negative Performed By: #### S PUTCX ####[facility] [address] [address]Dr. Emilie Carmona CULTURE URINEon 12-25-2022 CULTURE URINE Culture Observations : ROD TO FOLLOW. Isolate 1 Escherichia coli 15,000 cfu/mL of Normal [facility] Comment on above: Performed By: #### U RCX #### [facility] [address] [address] [address] Emilie Carmona ER URINE PROFILEon 3 Bilirubin Ql (U) Negative Normal NEGATIVE [facility] Comment on above: Performed By: #### R SPLUS #### [facility] [address] [place] [address] Dr. Emilie Carmona Clarity (U) CLEAR Normal CLEAR [facility] Comment on above: Performed By: #### R SPLUS #### [facility] [address] [place] [address] Dr. Emilie Carmona Color (U) YELLOW Normal YELLOW [facility] Comment on above: Performed By: #### R SPLUS #### [facility] [address] [place] [address] Dr. Emilie MURRIETA A micrscopic examination will be performed if indicated. Normal The [facility] Comment on above: Performed By: #### R SPLUS #### [facility] [address] [place] [address] Dr. Emilie Carmona Glucose Ql (U) Negative Normal NEGATIVE The [facility] Comment on above: Performed By: #### R SPLUS #### [facility] [address] [place] [address] Dr. Emilie Carmona Hemoglobin Ql (U) SMALL Abnormal NEGATIVE The [facility] Comment on above: Performed By: #### R SPLUS #### [facility] [address] [place] [address] Dr. Emilie Carmona Ketones Ql (U) 15 mg/dl Abnormal NEGATIVE The [facility] Comment on above: Performed By: #### R SPLUS #### [facility] [address] [place] [address] Dr. Emilie Carmona LEUKOCYTES Negative Normal NEGATIVE [facility] Comment on above: Performed By: #### R SPLUS #### [facility] [address] [address] [address] Emilie Carmona Nitrite Ql (U) Negative Normal NEGATIVE [facility] Comment on above: Performed By: #### R SPLUS #### [facility] [address] [address] [address] Emilie Carmona pH (U) 6.0 [pH] Normal 5-9 [facility] Comment on above: Performed By: #### R SPLUS #### [facility] [address] [address] [address] Emilie Carmona SPEC GRAVITY 1.015 Normal 1.005-<=1.025 [facility] Comment on above: Performed By: #### R SPLUS #### [facility] [address] [place] [address] Dr. Emilie Carmona UA PROTEIN TRACE Normal NEGATIVE/ TRACE [facility] Comment on above: Performed By: #### R SPLUS #### [facility] [address] [place] [address] Dr. Emilie Carmona UR MICRO IND INDICATED Normal [facility] Comment on above: Performed By: #### R SPLUS #### [facility] [address] [place] [address] Dr. Emilie Carmona Urobilinogen Qn (U) 0.2 {Warren'U}/dL Normal 0.2 - 1. 0 [facility] Comment on above: Performed By: #### R SPLUS #### [facility] [address] [place] [address] Dr. Emilie Carmona LACTATE/LACTIC ACIDon 2022 Lactate [Moles/Vol] 1.2 mmol/L Normal 0.4-2.0 [facility] Comment on above: Performed By: #### L ACT ####[facility] [address] [address]Dr. Emilie Carmona PROF 14(COMP METB)on 023 Albumin [Mass/Vol] 3.4 g/dL Normal 3.4-5.0 [facility] Comment on above: Performed By: #### C MADM, BNP, CMP ####[facility] [address] [address]Dr. Emilie Carmona Albumin/Globulin [Mass ratio] 0.8 {ratio} Normal [facility] Comment on above: Performed By: #### C MADM, BNP, CMP ####[facility] [address] [address]Dr. Emilie Carmona ALP [Catalytic activity/Vol] 88 U/L Normal 46-116 [facility] Comment on above: Performed By: #### C MADM, BNP, CMP ####[facility] [address] [place], [place] [address]Dr. Emilie Carmona ALT [Catalytic activity/Vol] 17 U/L Normal 14-59 [facility] Comment on above: Performed By: #### C MADM, BNP, CMP ####[facility] [address] [place], [place] [address]Dr. Emilie Carmona Anion gap [Moles/Vol] 13.2 mmol/L Normal [facility] Comment on above: Performed By: #### C MADM, BNP, CMP ####[facility] [address] [place], [place] [address]Dr. Emilie Carmona AST [Catalytic activity/Vol] 22 U/L Normal 15-37 [facility] Comment on above: Performed By: #### C MADM, BNP, CMP ####[facility] [address] [place], [place] [address]Dr. Emilie Carmona Bilirubin [Mass/Vol] 0.4 mg/dL Normal 0.2-1.0 The [facility] Comment on above: Performed By: #### C MADM, BNP, CMP ####[facility] [address] [place], [place] [address]Dr. Emilie Carmona Calcium [Mass/Vol] 9.2 mg/dL Normal 8.5-10.1 [facility] Comment on above: Performed By: #### C MADM, BNP, CMP ####[facility] [address] [address]Dr. Emilie Carmona Chloride [Moles/Vol] 100 mmol/L Normal 98-107 The [facility] Comment on above: Performed By: #### C MADM, BNP, CMP ####[facility] [address] [address]Dr. Emilie Carmona CO2 [Moles/Vol] 26.5 mmol/L Normal 21.0-32.0 [facility] Comment on above: Performed By: #### C MADM, BNP, CMP ####[facility] [address] [address]Dr. Emilie Carmona Creatinine [Mass/Vol] 1.12 mg/dL Critically high 0.55-1.02 [facility] Comment on above: Performed By: #### C MADM, BNP, CMP ####[facility] [address] [place], [place] [address]Dr. Emilie Mathew EGFR-AF JAPANESE 56 mL/min/1.73m2 Critically low >=60 [facility] Comment on above: Performed By: #### C MADM, BNP, CMP ####[facility] [address] [place], [place] [address]Dr. Emilie Carmona EGFR-NON AF JAPANESE 46 mL/min/1.73m2 Critically low >=60 [facility] Comment on above: Performed By: #### C MADM, BNP, CMP ####[facility] [address] [address]Dr. Emilie Carmona Globulin (S) [Mass/Vol] 4.4 g/dL Normal [facility] Comment on above: Performed By: #### C MADM, BNP, CMP ####[facility] [address] [address]Dr. Emilie Carmona Glucose [Mass/Vol] 123 mg/dL Critically high 74-106 [facility] Comment on above: Performed By: #### C MADM, BNP, CMP ####[facility] [address] [address]Dr. Emilie Carmona Potassium [Moles/Vol] 3.7 mmol/L Normal 3.5-5.1 The [facility] Comment on above: Performed By: #### C MADM, BNP, CMP ####[facility] [address] [address]Dr. Emilie Carmona Protein [Mass/Vol] 7.8 g/dL Normal 6.4-8.2 [facility] Comment on above: Performed By: #### C MADM, BNP, CMP ####[facility] [address] [address]Dr. Emilie Carmona Sodium [Moles/Vol] 136 mmol/L Normal 136-145 [facility] Comment on above: Performed By: #### C MADM, BNP, CMP ####[facility] [address] [address]Dr. Emilie Carmona Urea nitrogen [Mass/Vol] 14.0 mg/dL Normal 7.0-18.0 The [facility] Comment on above: Performed By: #### C MADM, BNP, CMP ####[facility] [address] [place], [place] [address]Dr. Emilie Carmoan Urea nitrogen/Creatinine [Mass ratio] 12.5 mg/mg Normal The [facility] Comment on above: Performed By: #### C MADM, BNP, CMP ####[facility] [address] [place], [place] [address]Dr. Emilie Carmona RESPIRATORY PANEL PLUSon Adenovirus Not detected Normal NOT DETECTED The [facility] Comment on above: Performed By: #### R SPLUS #### [facility] [address] [place] [address] Dr. Emilie Carmona B. Parapertusis Not detected Normal NOT DETECTED [facility] Comment on above: Performed By: #### R SPLUS #### [facility] [address] [place] [address] Dr. Emilie Lyn. Pertussis Not detected Normal NOT DETECTED [facility] Comment on above: Performed By: #### R SPLUS #### [facility] [address] [address] [address] Emilei Carmona Chlamydia Pneumoniae Not detected Normal NOT DETECTED The [facility] Comment on above: Performed By: #### R SPLUS #### [facility] [address] [place] [address] Dr. Emilie Carmona Coronavirus 229E Not detected Normal NOT DETECTED The [facility] Comment on above: Performed By: #### R SPLUS #### [facility] [address] [place] [address] Dr. Emilie Carmona Coronavirus HKU1 Not detected Normal NOT DETECTED The [facility] Comment on above: Performed By: #### R SPLUS #### [facility] [address] [place] [address] Dr. Emilie Carmona Coronavirus NL63 Not detected Normal NOT DETECTED [facility] Comment on above: Performed By: #### R SPLUS #### [facility] [address] [place] [address] Dr. Emilie Carmona Coronavirus OC43 Not detected Normal NOT DETECTED [facility] Comment on above: Performed By: #### R SPLUS #### [facility] [address] [place] [address] Dr. Emilie Carmona Influenza A H1 Not detected Normal NOT DETECTED [facility] Comment on above: Performed By: #### R SPLUS #### [facility] [address] [place] [address] Dr. Emilie Carmona Influenza A H1 2009 Detected Abnormal NOT DETECTED [facility] Comment on above: Performed By: #### R SPLUS #### [facility] [address] [place] [address] Dr. Emilie Carmona Influenza A H3 Not detected Normal NOT DETECTED [facility] Comment on above: Performed By: #### R SPLUS #### [facility] [address] [place] [address] Dr. Emilie Carmona Influenza B Not detected Normal NOT DETECTED [facility] Comment on above: Performed By: #### R SPLUS #### [facility] [address] [place] [address] Dr. Emilie Carmona Metapneumovirus Not detected Normal NOT DETECTED [facility] Comment on above: Performed By: #### R SPLUS #### [facility] [address] [place] [address] Dr. Emilie Carmona Mycoplas. Pneumoniae Not detected Normal NOT DETECTED [facility] Comment on above: Performed By: #### R SPLUS #### [facility] [address] [place] [address] Dr. Emilie Carmona Parainfluenza 1 Not detected Normal NOT DETECTED [facility] Comment on above: Performed By: #### R SPLUS #### [facility] [address] [place] [address] Dr. Emilie Carmona Parainfluenza 2 Not detected Normal NOT DETECTED [facility] Comment on above: Performed By: #### R SPLUS #### [facility] [address] [place] [address] Dr. Emilie Carmona Parainfluenza 3 Not detected Normal NOT DETECTED [facility] Comment on above: Performed By: #### R SPLUS #### [facility] [address] [place] [address] Dr. Emilie Carmona Parainfluenza 4 Not detected Normal NOT DETECTED [facility] Comment on above: Performed By: #### R SPLUS #### [facility] [address] [place] [address] Dr. Emilie Carmona Rhino/Enterovirus Not detected Normal NOT DETECTED [facility] Comment on above: Performed By: #### R SPLUS #### [facility] [address] [place] [address] Dr. Emilie FRASER Header 1 RESPIRATORY PANEL: VIRUSES Normal [facility] Comment on above: Performed By: #### R SPLUS #### [facility] [address] [place] [address] Dr. Emilie FRASER Header 2 RESPIRATORY PANEL: BACTERIA Normal [facility] Comment on above: Performed By: #### R SPLUS #### [facility] [address] [place] [address] Dr. Emilie Carmona RSV Not detected Normal NOT DETECTED The [facility] Comment on above: Performed By: #### R SPLUS #### [facility] [address] [address] [address] Emilie Carmona SARS-CoV-2 (COVID-19) RNA CHASITY+probe Ql (Unsp spec) Detected Abnormal NOT DETECTED The [facility] Comment on above: Performed By: #### R SPLUS #### [facility] [address] [place] [address] Dr. Emilie Carmona SPUTUM GRAM STAINon 12-26-19 COMMENTS Normal [facility] Comment on above: Performed By: #### C BC #### [facility] [address] [place] [address] Dr. Emilie Carmona DIPHTHEROIDS Normal [facility] Comment on above: Performed By: #### C BC #### [facility] [address] [place] [address] Dr. Emilie Carmona EPITHELIALS <25 Normal [facility] Comment on above: Performed By: #### C BC #### [facility] [address] [place] [address] Dr. Emilie Carmona FUNGAL ELEMENTS Normal [facility] Comment on above: Performed By: #### C BC #### [facility] [address] [address] [address] Emilie Carmona GRAM NEG BACILLI [facility] Comment on above: Performed By: #### C BC #### [facility] [address] [place] [address] Dr. Emilie Carmona GRAM NEG DIPPLOCOCCI FEW Normal [facility] Comment on above: Performed By: #### C BC #### [facility] [address] [place] [address] Dr. Emilie Carmona GRAM POS BACILLI Normal [facility] Comment on above: Performed By: #### C BC #### [facility] [address] [address] [address] Emilie Carmona GRAM POSITIVE COCCI Normal [facility] Comment on above: Performed By: #### C BC #### [facility] [address] [place] [address] Dr. Emilie Carmona WBC (Bld) [#/Vol] 10*3/uL Normal [facility] Comment on above: Performed By: #### C BC #### [facility] [address] [place] [address] Dr. Emilie Carmona URINE MICROSCOPIC ONLYon BACTERIA SMALL Abnormal NONE SEEN The [facility] Comment on above: Performed By: #### R SPLUS #### [facility] [address] [place] [address] Dr. Emilie Carmona Bacteria identified Cx Nom (U) INDICATED Normal [facility] Comment on above: Performed By: #### R SPLUS #### [facility] [address] [place] [address] Dr. Emilie Carmona CAST SEEN Abnormal NONE SEEN [facility] Comment on above: Performed By: #### R SPLUS #### [facility] [address] [place] [address] Dr. Emilie Carmona Crystals LM Nom (Urine sed) NONE SEEN Normal NONE SEEN [facility] Comment on above: Performed By: #### R SPLUS #### [facility] [address] [place] [address] Dr. Emilie Carmona Epithelial cells LM Ql (Urine sed) FEW Abnormal NONE SEEN /RARE The [facility] Comment on above: Performed By: #### R SPLUS #### [facility] [address] [place] [address] Dr. Emilie Carmona HYALINE CAST RARE Normal [facility] Comment on above: Performed By: #### R SPLUS #### [facility] [address] [place] [address] Dr. Emilie Carmona MUCOUS NONE SEEN Normal NONE SEEN [facility] Comment on above: Performed By: #### R SPLUS #### [facility] [address] [place] [address] Dr. Emilie Carmona RBC 10-20 Abnormal 0-2 [facility] Comment on above: Performed By: #### R SPLUS #### [facility] [address] [place] [address] Dr. Emilie Carmona WBC 2-5 Abnormal NONE SEEN [facility] Comment on above: Performed By: #### R SPLUS #### [facility] [address] [place] [address] Dr. Emilie Carmona XR CHEST 1 Von 12-25-2022 XR CHEST 1 V EXAM: XR CHEST 1 V INDICATION: SHORTNESS OF BREATH. COMPARISON: Chest radiograph 06/14/2022 TECHNIQUE: Single frontal view of the chest FINDINGS: Normal cardiomediastinal contours. No acute infiltrative process. No pleural effusion or pneumothorax. No acute osseous abnormality. IMPRESSION: No acute cardiopulmonary process. Electronically authenticated by: DELL BENITEZ Date: 2022-12-25 15:54 Normal [facility] XR DEXA BONE DENSITYon 06-22 XR DEXA BONE DENSITY EXAMINATION: XR DEX A BONE DENSITY, 06/22/2022 11:25 AM EST HISTORY: Anemia COMPARISON: None. TECHNIQUE: Dual-energy X-ray absorptiometry (DEXA) bone density study performed for the axial skeleton. FINDINGS: HIP ANALYSIS: Lowest bone mineral density is within the right femoral neck, 0.51 g/cm2. T-score (standard deviation relative to young adult mean): -1.3 . IMPRESSION: [employer] Classification: Osteopenia - Moderate Fracture Risk Electronically authenticated by: KARISSA COLBY Date: 2022-06-22 15:50 Normal [facility] CBC AUTO DIFFon 06-16-2022 BASO # 0.1 103/ul Normal 0.0-0.1 [facility] Comment on above: Performed By: #### C BC #### [facility] [address] [address] [address] Emilie Carmona Basophils/100 WBC (Bld) 0.9 % Normal 0.2-2.0 [facility] Comment on above: Performed By: #### C BC #### [facility] [facility] [address] [address] [address] Emilie Carmona EO # 0.4 103/ul Normal 0.0-0.7 [facility] Comment on above: Performed By: #### C BC #### [facility] [address] [address] [address] Emilie Carmona Eosinophils/100 WBC (Bld) 5.7 % Normal 0.9-7.0 [facility] Comment on above: Performed By: #### C BC #### [facility] [address] [place] [address] Dr. Emilie Carmona Erythrocyte distribution width (RBC) [Ratio] 13.5 % Normal 11.0-15.0 [facility] Comment on above: Performed By: #### C BC #### [facility] [address] [place] [address] Dr. Emilie Carmona Hematocrit (Bld) [Volume fraction] 32.9 % Critically low 36.0-48.0 [facility] Comment on above: Performed By: #### C BC #### [facility] [address] [place] [address] Dr. Emilie Carmona Hemoglobin (Bld) [Mass/Vol] 10.6 g/dL Critically low 12.0-16.0 [facility] Comment on above: Performed By: #### C BC #### [facility] [address] [place] [address] Dr. Emilie Carmona IG # 0.02 10e3/ul Normal 0.00-0.03 [facility] Comment on above: Performed By: #### C BC #### [facility] [address] [place] [address] Dr. Emilie Carmona IG % 0.3 % Normal 0.0-0.5 [facility] Comment on above: Performed By: #### C BC #### [facility] [address] [place] [address] Dr. Emilie Carmona LYMPH # 1.8 103/ul Normal 1.2-3.8 [facility] Comment on above: Performed By: #### C BC #### [facility] [address] [place] [address] Dr. Emilie Carmona Lymphocytes/100 WBC (Bld) 28.4 % Normal 20.5-60.0 [facility] Comment on above: Performed By: #### C BC #### [facility] [address] [place] [address] Dr. Emilie Carmona MANUAL DIFF REQ NO Normal [facility] Comment on above: Performed By: #### C BC #### [facility] [address] [place] [address] Dr. Emilie Carmona MCH (RBC) [Entitic mass] 28.5 pg Normal 26.7-34.0 [facility] Comment on above: Performed By: #### C BC #### [facility] [address] [place] [address] Dr. Emilie Carmona MCHC (RBC) [Mass/Vol] 32.2 g/dL Normal 29.9-35.2 [facility] Comment on above: Performed By: #### C BC #### [facility] [address] [place] [address] Dr. Emilie Carmona MCV (RBC) [Entitic vol] 88.4 fL Normal 81.0-99.0 [facility] Comment on above: Performed By: #### C BC #### [facility] [address] [place] [address] Dr. Emilie Carmona MONO # 0.7 103/ul Normal 0.3-0.8 [facility] Comment on above: Performed By: #### C BC #### [facility] [address] [place] [address] Dr. Emilie Carmona Monocytes/100 WBC (Bld) 11.0 % Normal 1.7-12.0 [facility] Comment on above: Performed By: #### C BC #### [facility] [address] [place] [address] Dr. Emilie Carmona NEUT # 3.5 103/ul Normal 1.4-6.5 [facility] Comment on above: Performed By: #### C BC #### [facility] [address] [place] [address] Dr. Emilie Carmona Neutrophils/100 WBC (Bld) 53.7 % Normal 43.0-75.0 [facility] Comment on above: Performed By: #### C BC #### [facility] [address] [place] [address] Dr. Emilie Carmona Platelet mean volume (Bld) [Entitic vol] 11.6 fL Normal 9.5-13.5 [facility] Comment on above: Performed By: #### C BC #### [facility] [address] [place] [address] Dr. Emilie Carmona PLT 223 103/ul Normal 150-450 [facility] Comment on above: Performed By: #### C BC #### [facility] [address] [place] [address] Dr. Emilie Carmona RBC 3.72 106/ul Critically low 4.20-5.40 [facility] Comment on above: Performed By: #### C BC #### [facility] [address] [place] [address] Dr. Emilie Carmona WBC 6.4 103/ul Normal 4.0-11.0 [facility] Comment on above: Performed By: #### C BC #### [facility] [address] [place] [address] Dr. Emilie Carmona PROF CHEM 8 (BAS METB)on Anion gap [Moles/Vol] 10.4 mmol/L Normal [facility] Comment on above: Performed By: #### C BC #### [facility] [address] [place] [address] Dr. Emilie Carmona Calcium [Mass/Vol] 9.8 mg/dL Normal 8.5-10.1 [facility] Comment on above: Performed By: #### C BC #### [facility] [address] [place] [address] Dr. Emilie Carmona Chloride [Moles/Vol] 105 mmol/L Normal 98-107 [facility] Comment on above: Performed By: #### C BC #### [facility] [address] [place] [address] Dr. Emilie Carmona CO2 [Moles/Vol] 25.0 mmol/L Normal 21.0-32.0 [facility] Comment on above: Performed By: #### C BC #### [facility] [address] [place] [address] Dr. Emilie Carmona Creatinine [Mass/Vol] 0.87 mg/dL Normal 0.55-1.02 [facility] Comment on above: Performed By: #### C BC #### [facility] [address] [place] [address] Dr. Emilie Carmona EGFR-AF JAPANESE >60 Normal >=60 [facility] Comment on above: Performed By: #### C BC #### [facility] [address] [address] [address] Emilie Carmona EGFR-NON AF JAPANESE >60 Normal >=60 [facility] Comment on above: Performed By: #### C BC #### [facility] [address] [address] [address] Emilie Carmona Glucose [Mass/Vol] 105 mg/dL Normal 74-106 [facility] Comment on above: Performed By: #### C BC #### [facility] [address] [address] [address] Emilie Carmona Potassium [Moles/Vol] 3.4 mmol/L Critically low 3.5-5.1 [facility] Comment on above: Performed By: #### C BC #### [facility] [address] [address] [address] Emilie Carmona Sodium [Moles/Vol] 137 mmol/L Normal 136-145 [facility] Comment on above: Performed By: #### C BC #### [facility] [address] [address] [address] Emilie Carmona Urea nitrogen [Mass/Vol] 12.0 mg/dL Normal 7.0-18.0 [facility] Comment on above: Performed By: #### C BC #### [facility] [address] [address] [address] Emilie Carmona Urea nitrogen/Creatinine [Mass ratio] 13.8 mg/mg Normal [facility] Comment on above: Performed By: #### C BC #### [facility] [address] [address] [address] Emilie Carmona CBC AUTO DIFFon 06-15-2022 BASO # 0.1 103/ul Normal 0.0-0.1 [facility] Comment on above: Performed By: #### C BC ####[facility] [address] [address]Dr. Emilie Carmona Basophils/100 WBC (Bld) 0.7 % Normal 0.2-2.0 [facility] Comment on above: Performed By: #### C BC ####[facility] [address] [address]Dr. Emilie Carmona EO # 0.2 103/ul Normal 0.0-0.7 [facility] Comment on above: Performed By: #### C BC ####[facility] [address] [place], [place] [address]Dr. Savileslie Carmona Eosinophils/100 WBC (Bld) 2.4 % Normal 0.9-7.0 [facility] Comment on above: Performed By: #### C BC ####[facility] [address] [place], [place] [address]Dr. Savileslie Carmona Erythrocyte distribution width (RBC) [Ratio] 13.5 % Normal 11.0-15.0 [facility] Comment on above: Performed By: #### C BC ####[facility] [address] [place], [place] [address]Dr. Savileslie Carmona Hematocrit (Bld) [Volume fraction] 35.3 % Critically low 36.0-48.0 [facility] Comment on above: Performed By: #### C BC ####[facility] [address] [place], [place] [address]Dr. Emilie Carmona Hemoglobin (Bld) [Mass/Vol] 11.5 g/dL Critically low 12.0-16.0 [facility] Comment on above: Performed By: #### C BC ####[facility] [address] [place], [place] [address]Dr. Savileslie Carmona IG # 0.01 10e3/ul Normal 0.00-0.03 [facility] Comment on above: Performed By: #### C BC ####[facility] [address] [place], [place] [address]Dr. Savileslie Carmona IG % 0.1 % Normal 0.0-0.5 [facility] Comment on above: Performed By: #### C BC ####[facility] [address] [place], [place] [address]DrBrenton Carmona LYMPH # 1.6 103/ul Normal 1.2-3.8 [facility] Comment on above: Performed By: #### C BC ####[facility] [address] [id number]. Savileslie Carmona Lymphocytes/100 WBC (Bld) 23.3 % Normal 20.5-60.0 [facility] Comment on above: Performed By: #### C BC ####[facility] [address] [id number]. Emilie Carmona MANUAL DIFF REQ NO Normal [facility] Comment on above: Performed By: #### C BC ####[facility] [address] [id number]. Emilie Carmona MCH (RBC) [Entitic mass] 28.9 pg Normal 26.7-34.0 [facility] Comment on above: Performed By: #### C BC ####[facility] [address] [id number]. Emilie Carmona MCHC (RBC) [Mass/Vol] 32.6 g/dL Normal 29.9-35.2 [facility] Comment on above: Performed By: #### C BC ####[facility] [address] [id number]. Emilie Carmona MCV (RBC) [Entitic vol] 88.7 fL Normal 81.0-99.0 [facility] Comment on above: Performed By: #### C BC ####[facility] [address] [id number]. Emilie Carmona MONO # 0.8 103/ul Normal 0.3-0.8 [facility] Comment on above: Performed By: #### C BC ####[facility] [address] [id number]. Emilie Carmona Monocytes/100 WBC (Bld) 11.9 % Normal 1.7-12.0 [facility] Comment on above: Performed By: #### C BC ####[facility] [address] [id number] Carmona NEUT # 4.3 103/ul Normal 1.4-6.5 [facility] Comment on above: Performed By: #### C BC ####[facility] [address] [phone]. Emilie Carmona Neutrophils/100 WBC (Bld) 61.6 % Normal 43.0-75.0 [facility] Comment on above: Performed By: #### C BC ####[facility] [address] [phone] Carmona Platelet mean volume (Bld) [Entitic vol] 11.9 fL Normal 9.5-13.5 [facility] Comment on above: Performed By: #### C BC ####[facility] [address] [phone]. Emilie Carmona PLT 247 103/ul Normal 150-450 [facility] Comment on above: Performed By: #### C BC ####[facility] [address] [phone] Carmona RBC 3.98 106/ul Critically low 4.20-5.40 [facility] Comment on above: Performed By: #### C BC ####[facility] [address] [phone] Carmona WBC 7.0 103/ul Normal 4.0-11.0 [facility] Comment on above: Performed By: #### C BC ####[facility] [address] [phone] Carmona FREE T3on 06-15-2022 FREE T3 1.29 pg/mlL Critically low 2.18-3.98 [facility] Comment on above: Performed By: #### F T3, TSH ####[facility] [address] [phone] Carmona PROF CHEM 8 (BAS METB)on Anion gap [Moles/Vol] 10.0 mmol/L Normal [facility] Comment on above: Performed By: #### B MP ####[facility] [address] [phone] Carmona Calcium [Mass/Vol] 9.8 mg/dL Normal 8.5-10.1 [facility] Comment on above: Performed By: #### B MP ####[facility] [address] [address]Dr. Savileslie Mathew Chloride [Moles/Vol] 102 mmol/L Normal 98-107 [facility] Comment on above: Performed By: #### B MP ####[facility] [address] [address]Dr. Savileslie Mathew CO2 [Moles/Vol] 28.0 mmol/L Normal 21.0-32.0 [facility] Comment on above: Performed By: #### B MP ####[facility] [address] [place], [place] [address]Dr. Emilie Carmona Creatinine [Mass/Vol] 0.91 mg/dL Normal 0.55-1.02 [facility] Comment on above: Performed By: #### B MP ####[facility] [address] [place], [place] [address]Dr. Savileslie Mathew EGFR-AF JAPANESE >60 Normal >=60 [facility] Comment on above: Performed By: #### B MP ####[facility] [address] [place], [place] [address]Dr. Savileslie Mathew EGFR-NON AF JAPANESE 59 mL/min/1.73m2 Critically low >=60 [facility] Comment on above: Performed By: #### B MP ####[facility] [address] [address]Dr. Emilie Carmona Glucose [Mass/Vol] 96 mg/dL Normal 74-106 [facility] Comment on above: Performed By: #### B MP ####[facility] [address] [address]Dr. Emilie Carmona Potassium [Moles/Vol] 3.0 mmol/L Critically low 3.5-5.1 [facility] Comment on above: Performed By: #### B MP ####[facility] [address] [address]Dr. Emilie Carmona Sodium [Moles/Vol] 137 mmol/L Normal 136-145 [facility] Comment on above: Performed By: #### B MP ####[facility] [address] [address]DrBrenton Carmona Urea nitrogen [Mass/Vol] 16.0 mg/dL Normal 7.0-18.0 [facility] Comment on above: Performed By: #### B MP ####[facility] [address] [address]DrBrenton Carmona Urea nitrogen/Creatinine [Mass ratio] 17.6 mg/mg Normal [facility] Comment on above: Performed By: #### B MP ####[facility] [address] [address]DrBrenton Carmona TSHon 06-15-2022 TSH 12.224 uIU/mL Critically high 0.358-3.740 [facility] Comment on above: Performed By: #### F T3, TSH ####[facility] [address] [address]DrBrenton Carmona CARDIAC MARYCRUZ 3-6on 2 CK [Catalytic activity/Vol] 163 U/L Normal 26-192 [facility] Comment on above: Performed By: #### R SPLUS #### [facility] [address] [place] [address] Dr. Emilie Carmona CK.MB [Mass/Vol] 2.77 ng/mL Normal <=3.60 [facility] Comment on above: Performed By: #### R SPLUS #### [facility] [address] [place] [address] Dr. Emilie Carmona HSTROP 8.5 pg/mL Normal 4.0-51.3 [facility] Comment on above: Result Comment: CUT- OFF POINTS HAVE BEEN ESTABLISHED BASED ON THE FOURTH UNIVERSAL DEFINITIONS OF MYOCARDIAL INFARCTION. THE UPPER REFERENCE LIMIT (URL) OF TROPONIN, DEFINED THE 99TH PERCENTILE OF cTnI DISTRIBUTION IN A REFERENCE POPULATION, HAS BEEN CONFIRMED THE DECISION THRESHOLD FOR HI DIAGNOSIS. Performed By: #### R SPLUS #### [facility] [address] [place] [address] Dr. Emilie Carmona CK [Catalytic activity/Vol] 141 U/L Normal 26-192 [facility] Comment on above: Performed By: #### C BC #### [facility] [address] [place] [address] Dr. Emilie Carmona CK.MB [Mass/Vol] 2.50 ng/mL Normal <=3.60 [facility] Comment on above: Performed By: #### C BC #### [facility] [address] [place] [address] Dr. Emilie Carmona HSTROP 9.8 pg/mL Normal 4.0-51.3 [facility] Comment on above: Result Comment: CUT- OFF POINTS HAVE BEEN ESTABLISHED BASED ON THE FOURTH UNIVERSAL DEFINITIONS OF MYOCARDIAL INFARCTION. THE UPPER REFERENCE LIMIT (URL) OF TROPONIN, DEFINED THE 99TH PERCENTILE OF cTnI DISTRIBUTION IN A REFERENCE POPULATION, HAS BEEN CONFIRMED THE DECISION THRESHOLD FOR HI DIAGNOSIS. Performed By: #### C BC #### [facility] [address] [place] [address] Dr. Emilie Carmona CBC AUTO DIFFon 06-14-2022 BASO # 0.0 103/ul Normal 0.0-0.1 [facility] Comment on above: Performed By: #### C BC #### [facility] [address] [place] [address] Dr. Emilie Carmona Basophils/100 WBC (Bld) 0.5 % Normal 0.2-2.0 [facility] Comment on above: Performed By: #### C BC #### [facility] [address] [place] [address] Dr. Emilie Carmona EO # 0.0 103/ul Normal 0.0-0.7 [facility] Comment on above: Performed By: #### C BC #### [facility] [address] [place] [address] Dr. Emilie Carmona Eosinophils/100 WBC (Bld) 0.1 % Critically low 0.9-7.0 [facility] Comment on above: Performed By: #### C BC #### [facility] [address] [place] [address] Dr. Emilie Carmona Erythrocyte distribution width (RBC) [Ratio] 13.2 % Normal 11.0-15.0 [facility] Comment on above: Performed By: #### C BC #### [facility] [address] [place] [address] Dr. Emilie Carmona Hematocrit (Bld) [Volume fraction] 41.0 % Normal 36.0-48.0 [facility] Comment on above: Performed By: #### C BC #### [facility] [address] [place] [address] Dr. Emilie Carmona Hemoglobin (Bld) [Mass/Vol] 13.3 g/dL Normal 12.0-16.0 [facility] Comment on above: Performed By: #### C BC #### [facility] [address] [place] [address] Dr. Emilie Carmona IG # 0.03 10e3/ul Normal 0.00-0.03 [facility] Comment on above: Performed By: #### C BC #### [facility] [address] [place] [address] Dr. Emilie Carmona IG % 0.4 % Normal 0.0-0.5 [facility] Comment on above: Performed By: #### C BC #### [facility] [address] [place] [address] Dr. Emilie Carmona LYMPH # 1.4 103/ul Normal 1.2-3.8 [facility] Comment on above: Performed By: #### C BC #### [facility] [address] [place] [address] Dr. Emilie Carmona Lymphocytes/100 WBC (Bld) 15.9 % Critically low 20.5-60.0 [facility] Comment on above: Performed By: #### C BC #### [facility] [address] [place] [address] Dr. Emilie Carmona MANUAL DIFF REQ NO Normal [facility] Comment on above: Performed By: #### C BC #### [facility] [address] [place] [address] Dr. Emilie Carmona MCH (RBC) [Entitic mass] 28.6 pg Normal 26.7-34.0 [facility] Comment on above: Performed By: #### C BC #### [facility] [address] [address] [address] Emilie Carmona MCHC (RBC) [Mass/Vol] 32.4 g/dL Normal 29.9-35.2 [facility] Comment on above: Performed By: #### C BC #### [facility] [address] [address] [address] Emilie Carmona MCV (RBC) [Entitic vol] 88.2 fL Normal 81.0-99.0 [facility] Comment on above: Performed By: #### C BC #### [facility] [address] [address] [address] Emilie Carmona MONO # 0.9 103/ul Critically high 0.3-0.8 [facility] Comment on above: Performed By: #### C BC #### [facility] [address] [address] [address] Emilie Carmona Monocytes/100 WBC (Bld) 9.9 % Normal 1.7-12.0 [facility] Comment on above: Performed By: #### C BC #### [facility] [address] [place] [address] Dr. Emilie Carmona NEUT # 6.3 103/ul Normal 1.4-6.5 [facility] Comment on above: Performed By: #### C BC #### [facility] [address] [address] [address] Emilie Carmona Neutrophils/100 WBC (Bld) 73.2 % Normal 43.0-75.0 [facility] Comment on above: Performed By: #### C BC #### [facility] [address] [address] [address] Emilie Carmona Platelet mean volume (Bld) [Entitic vol] 11.6 fL Normal 9.5-13.5 [facility] Comment on above: Performed By: #### C BC #### [facility] [address] [address] [address] Emilie Carmona PLT 269 103/ul Normal 150-450 [facility] Comment on above: Performed By: #### C BC #### [facility] [address] [place], [place] [address] Dr. Emilie Carmona RBC 4.65 106/ul Normal 4.20-5.40 [facility] Comment on above: Performed By: #### C BC #### [facility] [address] [place], [place] [address] Dr. Eimlie Carmona WBC 8.6 103/ul Normal 4.0-11.0 [facility] Comment on above: Performed By: #### C BC #### [facility] [id number] Emilie Carmona Covid-19 PCR (CVDTBH)on 06-01 SARS-CoV-2 (COVID-19) RNA CHASITY+probe Ql (Unsp spec) Not detected Normal NOT DETECTED [facility] Comment on above: Result Comment: When diagnostic testing is negative, the possibility of a false negative should be considered in the context of a patient's recent exposures and the presence of clinical signs and symptoms consistent with SARS-CoV-2. This test is not yet approved or cleared by the [place] FDA. When there are no FDA-approved or cleared tests available, and other criteria are met, FDA can make tests available under an emergency access mechanism called an Emergency Use Authorization (EUA). The EUA for this test is supported by the [employer] Leader of Health and Human Service's declaration that circumstances exist to justify the emergency use of in vitro diagnostics for the detection and/or diagnosis of the virus that causes COVID-19. This EUA will remain in effect for the duration of the COVID-19 declaration justifying emergency of IVDs, unless it is terminated or revoked by the FDA (after which the test may no longer be used). Performed By: #### C VDTBH ####[facility] [id number] [id number]. Emilie Carmona ER URINE PROFILEon 2 Bilirubin Ql (U) SMALL Abnormal NEGATIVE [facility] Comment on above: Performed By: #### R SPLUS #### [facility] [id number] Emilie Carmona Clarity (U) SL CLOUDY Abnormal CLEAR [facility] Comment on above: Performed By: #### R SPLUS #### [facility] [address] [address] [address] Emilie Carmona Color (U) YELLOW Normal YELLOW [facility] Comment on above: Performed By: #### R SPLUS #### [facility] [address] [place] [address] Dr. Emilie Carmona ERUAHD A micrscopic examination will be performed if indicated. Normal [facility] Comment on above: Performed By: #### R SPLUS #### [facility] [address] [place] [address] Dr. Emilie Carmona Glucose Ql (U) Negative Normal NEGATIVE [facility] Comment on above: Performed By: #### R SPLUS #### [facility] [address] [place] [address] Dr. Emilie Carmona Hemoglobin Ql (U) TRACE-INTACT Abnormal NEGATIVE [facility] Comment on above: Performed By: #### R SPLUS #### [facility] [address] [place] [address] Dr. Emilie Carmona Ketones Ql (U) 40 mg/dl Abnormal NEGATIVE [facility] Comment on above: Performed By: #### R SPLUS #### [facility] [address] [place] [address] Dr. Emilie Carmona LEUKOCYTES Negative Normal NEGATIVE [facility] Comment on above: Performed By: #### R SPLUS #### [facility] [address] [address] [address] Emilie Carmona Nitrite Ql (U) Negative Normal NEGATIVE [facility] Comment on above: Performed By: #### R SPLUS #### [facility] [address] [address] [address] Emilie Carmona pH (U) 5.5 [pH] Normal 5-9 [facility] Comment on above: Performed By: #### R SPLUS #### [facility] [address] [place] [address] Dr. Emilie Carmona SPEC GRAVITY 1.030 Abnormal 1.005-<=1.025 [facility] Comment on above: Performed By: #### R SPLUS #### [facility] [address] [address] [address] Emilie Carmona UA PROTEIN Negative Normal NEGATIVE/ TRACE [facility] Comment on above: Performed By: #### R SPLUS #### [facility] [address] [address] [address] Emilie Carmona UR MICRO IND INDICATED Normal [facility] Comment on above: Performed By: #### R SPLUS #### [facility] [address] [place] [address] Dr. Emilie Carmona Urobilinogen Qn (U) 0.2 {Warren'U}/dL Normal 0.2 - 1. 0 [facility] Comment on above: Performed By: #### R SPLUS #### [facility] [address] [place] [address] Dr. Emilie Carmona FREE T4on 06-14-2022 Free T4 [Mass/Vol] 0.75 ng/dL Critically low 0.76-1.[address] [facility] Comment on above: Performed By: #### F T4, VITAD, FETIBC, B12FOL ####[facility] [id number] [address]Dr. Emilie Carmona IRON AND TIBCon 06-14-2022 % SATURATION 6.7 % Normal [facility] Comment on above: Performed By: #### C BC #### [facility] [address] [place] [address] Dr. Emilie Carmona Iron [Mass/Vol] 21.0 ug/dL Critically low 50.0-170.0 [facility] Comment on above: Performed By: #### C BC #### [facility] [address] [place] [address] Dr. Emilie Carmona TIBC DIRECT 312.0 ug/dL Normal 250.0-450.0 [facility] Comment on above: Performed By: #### C BC #### [facility] [address] [address] [address] Emilie Carmona MYOGLOBINon 06-14-2022 MAXIMILIAN 268 ng/mL Critically high 9-82 [facility] Comment on above: Performed By: #### M YO ####[facility] [address] [address]Dr. Emilie Carmona PROF CHEM 8 (BAS METB)on Anion gap [Moles/Vol] 12.8 mmol/L Normal [facility] Comment on above: Performed By: #### C BC #### [facility] [address] [address] [address] Emilie Carmona Calcium [Mass/Vol] 10.7 mg/dL Critically high 8.5-10.1 [facility] Comment on above: Performed By: #### C BC #### [facility] [address] [address] [address] Emilie Carmona Chloride [Moles/Vol] 100 mmol/L Normal 98-107 [facility] Comment on above: Performed By: #### C BC #### [facility] [address] [address] [address] Emilie Carmona CO2 [Moles/Vol] 25.6 mmol/L Normal 21.0-32.0 [facility] Comment on above: Performed By: #### C BC #### [facility] [address] [address] [address] Emilie Carmona Creatinine [Mass/Vol] 1.05 mg/dL Critically high 0.55-1.02 [facility] Comment on above: Performed By: #### C BC #### [facility] [address] [address] [address] Emilie Carmona EGFR-AF JAPANESE >60 Normal >=60 [facility] Comment on above: Performed By: #### C BC #### [facility] [address] [address] [address] Emilie Carmona EGFR-NON AF JAPANESE 50 mL/min/1.73m2 Critically low >=60 [facility] Comment on above: Performed By: #### C BC #### [facility] [address] [address] [address] Emilie Carmona Glucose [Mass/Vol] 129 mg/dL Critically high 74-106 [facility] Comment on above: Performed By: #### C BC #### [facility] [address] [place] [address] Dr. Emilie Carmona Potassium [Moles/Vol] 3.4 mmol/L Critically low 3.5-5.1 [facility] Comment on above: Performed By: #### C BC #### [facility] [address] [place] [address] Dr. Emilie Carmona Sodium [Moles/Vol] 135 mmol/L Critically low 136-145 [facility] Comment on above: Performed By: #### C BC #### [facility] [address] [place] [address] Dr. Emilie Carmona Urea nitrogen [Mass/Vol] 19.0 mg/dL Critically high 7.0-18.0 [facility] Comment on above: Performed By: #### C BC #### [facility] [address] [place] [address] Dr. Emilie Carmona Urea nitrogen/Creatinine [Mass ratio] 18.1 mg/mg Normal [facility] Comment on above: Performed By: #### C BC #### [facility] [address] [place] [address] Dr. Emilie Carmona URINE MICROSCOPIC ONLYon BACTERIA NONE SEEN Normal NONE SEEN [facility] Comment on above: Performed By: #### R SPLUS #### [facility] [address] [place] [address] Dr. Emilie Carmona Bacteria identified Cx Nom (U) NOT INDICATED Normal [facility] Comment on above: Performed By: #### R SPLUS #### [facility] [address] [place] [address] Dr. Emilie Carmona CAST SEEN Abnormal NONE SEEN [facility] Comment on above: Performed By: #### R SPLUS #### [facility] [address] [place] [address] Dr. Emilie Carmona Crystals LM Nom (Urine sed) NONE SEEN Normal NONE SEEN [facility] Comment on above: Performed By: #### R SPLUS #### [facility] [address] [place] [address] Dr. Emilie Carmona Epithelial cells LM Ql (Urine sed) FEW Abnormal NONE SEEN /RARE [facility] Comment on above: Performed By: #### R SPLUS #### [facility] [address] [place] [address] Dr. Emilie Carmona MUCOUS NONE SEEN Normal NONE SEEN [facility] Comment on above: Performed By: #### R SPLUS #### [facility] [address] [place] [address] Dr. Emilie Carmona RBC 0-2 Normal 0-2 [facility] Comment on above: Performed By: #### R SPLUS #### [facility] [address] [place] [address] Dr. Emilie Carmona WBC 0-2 Abnormal NONE SEEN [facility] Comment on above: Performed By: #### R SPLUS #### [facility] [address] [place] [address] Dr. Emilie Carmona VIT B12 AND FOLATEon 022 Cobalamin (Vitamin B12) [Mass/Vol] 426.0 pg/mL Normal 193.0-986.0 [facility] Comment on above: Performed By: #### C BC #### [facility] [address] [place] [address] Dr. Emilie Carmona FOLATE 12.10 ng/mL Normal 8.60-58.90 [facility] Comment on above: Performed By: #### C BC #### [facility] [address] [place] [address] Dr. Emilie Carmona VITAMIN D 25 OHon 06-14-2022 VIT D 25-OH 75.5 ng/mL Normal [facility] Comment on above: Performed By: #### C BC #### [facility] [address] [place] [address] Dr. Emilie Carmona VIT D RANGES SEE BELOW Normal [facility] Comment on above: Result Comment: <20 ng/mL Vit D deficient 20 - <30 ng/mL Vit D insufficient 30 - 100 ng/mL Vit D sufficient >100 ng/mL Potential Toxicity Performed By: #### C BC #### [facility] [address] [address] [address] Emilie Carmona XR ABD FLAT_UPon 06-14-2022 XR ABD FLAT_UP EXAMINATION: XR ABD FLAT_UP HISTORY: Asthenia COMPARISON: No relevant comparison available. FINDINGS: BOWEL GAS PATTERN: Scattered air-fluid levels. Overall nonobstructive bowel gas pattern. FREE AIR: None. CALCIFICATIONS: None significant. BONES: Rotatory dextroscoliosis with degenerative change. L3-L4 fusion OTHER: Negative. IMPRESSION: Scattered air-fluid levels. Overall nonobstructive bowel gas pattern Electronically authenticated by: ALEIDA TAVERAS Date: 2022-06-14 12:35 Normal [facility] XR CHEST 1 Von 06-14-2022 XR CHEST 1 V EXAMINATION: XR CHES T 1 V HISTORY: Asthenia COMPARISON: No relevant comparison available. TECHNIQUE: Portable FINDINGS: LUNGS: No significant pulmonary parenchymal abnormalities. VASCULATURE: No increased pulmonary vasculature. PLEURA: No pneumothorax, effusion, or pleural thickening. CARDIAC: No cardiomegaly or cardiac silhouette abnormality. MEDIASTINUM: No visible mass or adenopathy. BONES: Mild degenerative disc disease and spondylosis without visible acute abnormalities. OTHER: Negative. IMPRESSION: No acute disease. Electronically authenticated by: ALEIDA TAVERAS Date: 2022-06-14 07:10 Normal [facility] XR HIPS LYNDA 5V W PELVISon XR HIPS LYNDA 5V W PELVIS EXAMINATION: XR HIPS LYNDA 5V W PELVIS HISTORY: Pain COMPARISON: No relevant comparison available. FINDINGS: RIGHT FINDINGS: BONES: No acute fracture or dislocation. Cgho-ul-pbaavarn hip osteoarthropathy SOFT TISSUES: Negative. No visible soft tissue swelling. OTHER: Lumbar posterior decompression and transpedicular fusion LEFT FINDINGS: BONES: No acute fracture or dislocation. Qdet-il-qrxkjhku hip osteoarthropathy SOFT TISSUES: Negative. No visible soft tissue swelling. OTHER: Negative. IMPRESSION: RIGHT CONCLUSION: Osteoarthritis. No acute fracture LEFT CONCLUSION: Osteoarthritis. No acute fracture Electronically authenticated by: ALEIDA TAVERAS Date: 2022-06-14 07:15 Normal [facility] XR LSPINE 2_3 VIEWSon 2021 XR LSPINE 2_3 VIEWS EXAMINATION: XR LSPI NE 2_3 VIEWS HISTORY: Pain COMPARISON: No relevant comparison available. FINDINGS: BONES: Normal alignment with no acute fracture or spondylolisthesis. Severe degenerative changes with spondylosis and facet osteoarthropathy. Posterior decompression bilateral transpedicular fusion L3-L4. DISC SPACES: Diffuse severe disc space narrowing with endplate sclerosis and vacuum disks PARASPINOUS: Negative. No paraspinous abnormality is seen. OTHER: Extensive atherosclerosis IMPRESSION: Severe degenerative changes and lumbar fusion Electronically authenticated by: ALEIDA TAVERAS Date: 2022-06-14 07:12 Normal [facility] Comprehensive Metabolic Pane edson 09-21-2021 Albumin [Mass/Vol] 4.5 g/dL Normal 3.6-5.1 [facility] Comment on above: Performed By: #### V ITD, FT3, FT4, CMP, TSH #### [facility] [address] [place], [place] [id number] Albumin/Globulin [Mass ratio] 1.5 {ratio} Normal 1.0-2.5 [facility] Comment on above: Performed By: #### V ITD, FT3, FT4, CMP, TSH #### [facility] [address], [place] [id number] ALP [Catalytic activity/Vol] 103 U/L Normal 35-119 [facility] Comment on above: Performed By: #### V ITD, FT3, FT4, CMP, TSH #### [facility] [address] [place], [place] [id number] ALT [Catalytic activity/Vol] 18 U/L Normal 6-33 [facility] Comment on above: Result Comment: 07/01 Female reference range changed. Performed By: #### V ITD, FT3, FT4, CMP, TSH #### [facility] [address] [place], [place] [id number] Anion gap [Moles/Vol] 24 mmol/L High 12-20 [facility] Comment on above: Result Comment: Effe ctive 08/06/2019 reference range changed. Performed By: #### V ITD, FT3, FT4, CMP, TSH #### [facility] [address] [place], [place] [id number] AST [Catalytic activity/Vol] 16 U/L Normal 9-34 [facility] Comment on above: Performed By: #### V ITD, FT3, FT4, CMP, TSH #### [facility] [address] [place], [place] [id number] BUN/CREA 27 Ratio High 6-22 [facility] Comment on above: Performed By: #### V ITD, FT3, FT4, CMP, TSH #### [facility] [address] [place], [place] [id number] Calcium [Mass/Vol] 10.7 mg/dL High 8.6-10.2 [facility] Comment on above: Performed By: #### V ITD, FT3, FT4, CMP, TSH #### [facility] [address] [place], [place] [id number] Chloride [Moles/Vol] 103 mmol/L Normal 98-107 [facility] Comment on above: Performed By: #### V ITD, FT3, FT4, CMP, TSH #### [facility] [address] [place], [place] [id number] CO2 [Moles/Vol] 17 mmol/L Low 20-31 [facility] Comment on above: Performed By: #### V ITD, FT3, FT4, CMP, TSH #### [facility] [address] [place], [place] [id number] Creatinine [Mass/Vol] 1.1 mg/dL Normal 0.6-1.4 [facility] Comment on above: Performed By: #### V ITD, FT3, FT4, CMP, TSH #### [facility] [address] [place], [place] [id number] eGFRAA 60 mL/min/1.73m2 Low >60 [facility] Comment on above: Performed By: #### V ITD, FT3, FT4, CMP, TSH #### [facility] [address] [place], [place] [id number] eGFRNAA 49 mL/min/1.73m2 Low >60 [facility] Comment on above: Performed By: #### V ITD, FT3, FT4, CMP, TSH #### [facility] [address] [place], [place] [id number] Globulin (S) [Mass/Vol] 3.0 g/dL Normal 1.9-3.7 [facility] [employer] [employer] [facility] Comment on above: Performed By: #### V ITD, FT3, FT4, CMP, TSH #### [facility] [address] [place], [place] [id number] Glucose [Mass/Vol] 109 mg/dL High 65-99 [facility] Comment on above: Result Comment: For FASTING Glucose --- ADA reference ranges: Normal 65-99 mg/dl Prediabetes 100-125 Diabetes >/= 126 Performed By: #### V ITD, FT3, FT4, CMP, TSH #### [facility] [address], [place] [id number] Potassium [Moles/Vol] 4.7 mmol/L Normal 3.5-5.5 [facility] [employer] Comment on above: Performed By: #### V ITD, FT3, FT4, CMP, TSH #### [facility] [address], [place] [id number] Protein [Mass/Vol] 7.5 g/dL Normal 6.1-8.1 [facility] [employer] [facility] Comment on above: Performed By: #### V ITD, FT3, FT4, CMP, TSH #### [facility] [address] [place], [place] [id number] Sodium [Moles/Vol] 139 mmol/L Normal 135-146 [facility] [employer] [facility] Comment on above: Performed By: #### V ITD, FT3, FT4, CMP, TSH #### [facility] [address], [place] [id number] TBIL <0.3 Normal [facility] Comment on above: Performed By: #### V ITD, FT3, FT4, CMP, TSH #### [facility] [address] [place], [place] [id number] Urea nitrogen [Mass/Vol] 29 mg/dL High 7-25 [facility] [employer] [facility] [employer] Comment on above: Performed By: #### V ITD, FT3, FT4, CMP, TSH #### [facility] [address] [place], [place] [id number] Free T3on 09-21-2021 FT3 1.79 pg/mL Low 2.00-4.40 [facility] [employer] [facility] [employer] Comment on above: Performed By: #### V ITD, FT3, FT4, CMP, TSH #### [facility] [address], [place] [id number] Free T4on 09-21-2021 Free T4 [Mass/Vol] 0.67 ng/dL Low 0.80-1.80 [facility] Comment on above: Performed By: #### V ITD, FT3, FT4, CMP, TSH #### [facility] [address] [place], [place] [id number] TSHon 09-21-2021 TSH 0.611 uIU/mL Normal 0.400-4.500 [facility] [employer] Comment on above: Performed By: #### V ITD, FT3, FT4, CMP, TSH #### [facility] [address], [place] [id number] US Carotid, Bilateralon 09-02 US Carotid, Bilateral FINDINGS: Right (% stenosis)Left (% stenosis) ICA Peak Systolic Velocity (cm/sec)6367 ICA/CCA Systolic Ratio0.81.0 BILATERAL CAROTID SYSTEMS: Minimal echogenic plaque throughout both carotid systems. No significant stenosis is present based on visual inspection or velocity and ratio values. Both vertebral arteries have normal cephalad-directed flow. Estimated range of stenosis*: Minimal, not hemodynamically significant *COMMENT: These estimates represent a median value within a 95% confidence interval range. They represent percent diameter ICA stenosis derived from regression curve analysis using the NASCET method and Doppler ultrasound velocities. Please note with high-grade stenosis (greater than 95%), an actual reduction in velocity will occur. Reference: Tyrese May. carotid ultrasound, in RAD [facility] NA, 39 (3), Nov, 2000. Report reported and signed by Tyrese Wisdom on 09/22/2021 0822 Normal [facility] Vitamin B12/Folateon 022 Cobalamin (Vitamin B12) [Mass/Vol] 383 pg/mL Normal 211-946 [facility] Comment on above: Performed By: #### B 12/Fol #### [facility] [address], [place] [id number] FOL 5.5 ng/mL Normal >4.7 [facility] Comment on above: Result Comment: Refe rence range change 06/17/2017. Prior reference range F 4.8-37.3 ng/mL, M 4.5-32.2 ng/mL. Performed By: #### B 12/Fol #### [facility] [address], [place] [id number] Vitamin D 25-OHon 09-21-2021 VIT D 25 OH 23 ng/ml Low >29 [facility] [employer] Comment on above: Result Comment: Lat[place] min D Status Deficiency <20 ng/mL Insufficiency 20-29 ng/mL Optimal 30-100 ng/mL Possible Toxicity >=150 ng/mL Performed By: #### V ITD, FT3, FT4, CMP, TSH #### [facility] [address] [place], [place] [id number] Encounters Encounter Date Encounter Type Care Provider Facility Start: 12-26-2022 End: 12-29-2022 Evaluation and management of inpatient DR ALEIDA TAVERAS Facility: Start: 06-22-2022 End: 06-23-[address] MARLA KENDALL . Facility:[facility] Start: 06-14-2022 End: 06-16-[address] MARLA KENDALL . Facility:[facility] Start: 10-20-2017 End: 10-21-2017 Ambulatory DEFAULT PHYSICIAN Facility:[facility] Payers Date Payer Category Payer Medicare [id number] 1960 Medicare [id number] 1940 Unknown [id number] 1940 Unknown [id number] 1940 Unknown [id number] [id number] Unknown Clinical Note 06-14-2022 Note Date & Type Note Facility 06-14-2022 Note PROCEDURE: XR SHOULD ER LT 2V or > COMPARISON: None. HISTORY: Pain FINDINGS: BONES:No acute fracture or dislocation. Mild degenerative changes. SOFT TISSUES:Negative. No visible soft tissue swelling. EFFUSION:None visible. OTHER: Negative. IMPRESSION: No acute fracture Electronically authenticated by: ALEIDA TAVERAS Date: 2022-06-14 07:08 [facility] Clinical Note 09-21-2021 Note Date & Type Note Facility 09-21-2021 Note PROCEDURE: [employer]ose[employer] Signa HDXT 1.5 Sagittal T1, T2, STIR and axial T1 and T2 contiguous and cone down images through the brain were performed with and without contrast administration HISTORY: Chronic dizziness, headaches FINDINGS: No acute or subacute major vessel ischemia. Diffuse loss of brain volume with commensurate ventricular and cerebral sulcal size. Moderate periventricular, subcortical white matter confluent non-enhancing hyperintensities (T2 inversion recovery) greatest involvement about the periventricular regions, frontal body and occipital horns. One larger contiguous non-enhancing hyperintensity right central semiovale 1.4 x 1.8 cm. No intracranial hemorrhage. Unremarkable corpus callosum, catia, midbrain and spinal cord. Empty sella. No mass effect upon optic chiasm. Unremarkable orbital contents, paranasal sinuses, mastoid air cells and nasopharyngeal soft tissues. IMPRESSION: 1. Non-enhancing white matter hyperintensities location and morphology can be consistent with demyelination, largest aggregate right centrum semiovale. Currently these are non-enhancing and demonstrate no surrounding edema. 2. Diffuse loss of brain volume. Report reported and signed by Tyrese Wisdom on 09/22/2021 0902 [facility] [employer] Summary Purpose Family History No Family History Records FoundNo Family History Records FoundNo Family History Records Found Advance Directives No Advanced Directives Records FoundNo Advanced Directives Records FoundNo Advanced Directives Records Found Additional Source Comments INFORMATION SOURCE (unrecogn ized section and content) DATE CREATED AUTHOR 01/20/2018 [facility] DATE CREATED AUTHOR AUTHOR'S ORGANIZ ATION 09/24/2021 [facility] DATE CREATED AUTHOR AUTHOR'S ORGANIZ ATION 01/10/2023 [facility] FOR RECORDS PERTAINING TO PATIENTS WHO ARE OR HAVE BEEN ENROLLED IN A CHEMICAL DEPENDENCY/SUBSTANCEABUSE PROGRAM, SOME INFORMATION MAY BE OMITTED. This clinical summary was aggregated from multiple sources. Caution should be exercised in using it in the provision of clinical care. This summary normalizes information from multiple sources, and as a consequence, information in this document may materially change the coding, format and clinical context of patient data. In addition, data may be omitted in some cases. CLINICAL DECISIONS SHOULD BE BASED ON THE PRIMARY CLINICAL RECORDS. [facility] [employer] [facility]. provides no warranty or guarantee of the accuracy or completeness of information in this document.
--- NOTE | 2023-08-14 07:41 | ECG_ITS ---
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
--- NOTE | 2023-08-14 07:41 | XR_ITS ---
The [address] [address] Patient Name: ANGIE HONEYCUTT MRN: [id number] date: 1940 Sex: F Assigned Patient Location: ER Current Patient Location: ER Accession/Order Number: [id number] Exam Date: 08/14/2023 07:48 Report Date: 08/14/2023 08:00 At the request of: KAVITA HERNANDEZ Procedure: XR chest 1V EXAM: XR chest 1V HISTORY: Cough. Confusion. COMPARISON: 12/26/2022 FINDINGS: There is a shallow inspiratory volume. The heart, mediastinum, pulmonary vasculature, and bony thorax demonstrate no discrete acute abnormality. There is no evidence of an infiltrate, pleural effusion or pneumothorax. There is mild prominence of the lung markings. XR/XR chest 1V IMPRESSION: No evidence of an acute cardiopulmonary abnormality. Electronically authenticated by: ZAIRE TUCKER Date: 08/14/2023 08:00
[2023-08-14 08:05] LABS: Basophils Absolute Auto 0.1 10^3/uL (0.0-0.1); Basophils Percent Auto 1.4 % (0.2-2.0); Eosinophils Absolute Auto 0.5 10^3/uL (0.0-0.7); Eosinophils Percent Auto 5.5 % (0.9-7.0); Hemoglobin 13.9 g/dL (12.0-16.0); Immature Granulocytes Abs Auto 0.04 10^3/uL (0.00-0.03); Immature Granulocytes Pct Auto 0.5 % (0.0-0.5); Lymphocytes Absolute Auto 1.6 10^3/uL (1.2-3.8); Lymphocytes Percent Auto 18.2 % (20.5-60.0); Mean Corpuscular HGB Conc 31.6 g/dL (29.9-35.2); Mean Corpuscular Hemoglobin 29.4 pg (26.7-34.0); Mean Platelet Volume 10.9 fL (9.5-13.5); Monocytes Absolute Auto 0.6 10^3/uL (0.3-0.8); Monocytes Percent Auto 7.1 % (1.7-12.0); Neutrophils Absolute Auto 5.9 10^3/uL (1.4-6.5); Neutrophils Percent Auto 67.3 % (43.0-75.0); Platelet Count 231 10^3/uL (150-450); Red Blood Count 4.73 10^6/uL (4.20-5.40); Red Cell Distribution Width 13.2 % (11.0-15.0); White Blood Count 8.8 10^3/uL (4.0-11.0)
[2023-08-14 08:15] LABS: SARS-CoV-2 Ag NEGATIVE (NEGATIVE)
[2023-08-14 08:18] LABS: INR 0.94
[2023-08-14 08:23] LABS: Troponin I High Sensitivity 6.7 pg/mL (4.0-51.3)
[2023-08-14 08:24] LABS: Alanine Aminotransferase 21 U/L (14-59); Albumin Globulin Ratio 0.9; Albumin Level 3.8 g/dL (3.4-5.0); Alkaline Phosphatase 96 U/L (46-116); Anion Gap 13.1; Aspartate Amino Transferase 15 U/L (15-37); Bilirubin Total 0.6 mg/dL (0.2-1.0); Calcium 9.9 mg/dL (8.5-10.1); Chloride 104 mmol/L (98-107); Estimated GFR (African America >60 (>=60); Estimated GFR (Non-African Ame 50 (>=60); Glucose 109 mg/dL (74-106); Potassium 4.1 mmol/L (3.5-5.1); Sodium 141 mmol/L (136-145); Total Protein 7.8 g/dL (6.4-8.2)
[2023-08-14] MEDS: TRAMADOL HCL 50 MG TABLET PO (08:31)
[2023-08-14 08:45] LABS: Bilirubin Urine NEGATIVE (NEGATIVE); Blood Urine NEGATIVE (NEGATIVE); Clarity Urine CLEAR (CLEAR); Color Urine LT. YELLOW (YELLOW); Glucose Urine UA NEGATIVE (NEGATIVE); Ketones Urine NEGATIVE (NEGATIVE); Leukocyte Esterase Urine SMALL (NEGATIVE); Nitrite Urine NEGATIVE (NEGATIVE); Protein Urine NEGATIVE (NEG/TRACE); Urobilinogen Urine 0.2 EU/dL (0.2-1.0)
[2023-08-14 08:49] LABS: Urine Microscopic Indicated YES
[2023-08-14 08:53] LABS: Bacteria Urine MODERATE #/HPF (NONE SEEN); Cast Seen? NONE SEEN #/LPF (NONE SEEN); Crystals Seen? None Seen #/HPF (None Seen); Mucus Urine TRACE (NONE SEEN); RBC Urine 0-2 #/HPF (0-2); Squamous Epithelial Cell Urine FEW #/LPF (NONE/RARE); Urine Culture Indicated YES; WBC Urine 20-50 #/HPF (NONE SEEN)
[2023-08-14] MEDS: KETOROLAC TROMETHAMINE 30 MG/ML VIAL 15 MG IVP (08:55)
[2023-08-14] MEDS: LABETALOL HCL 20 MG/4 ML SYRINGE 10 MG IVP (09:09)
--- NOTE | 2023-08-14 09:10 | ED_ITS ---
HPI - Fall General Chief Complaint: Fall Stated Complaint: head injury/ fall Time Seen by Provider: 08/14/23 07:40 Source: patient Mode of arrival: ambulance Limitations: no limitations History of Present Illness HPI Narrative: Is a brought to us from a senior living facility with increasing confusion as well as elevated blood pressure, according to the son who provided the information that she usually gets more confused when she have a urine infection, the patient blood pressure also was noted to be elevated upon arrival. The patient herself denies any acute complaints mentioned that she always have a fro ntal headache all the time and it has been going on for a long time and she did not fall. The headache is left-sided and frontal. The patient denies any complaints and in review of systems she does not have any complaint and I am not sure how accurate that would be with the dementia history Related Data Home Medications Medication Instructions Recorded Confirmed donepezil 10 mg tablet 10 mg PO BID 04/29/23 08/14/23 duloxetine 60 mg capsule,delayed 60 mg PO DAILY 04/29/23 08/14/23 release quetiapine 25 mg tablet 25 mg PO BEDTIME 04/29/23 08/14/23 levothyroxine 100 mcg tablet 100 mcg PO DAILY 04/30/23 08/14/23 (Synthroid) memantine 10 mg tablet (Namenda) 10 mg PO BID 04/30/23 08/14/23 Previous Rx's Medication Instructions Recorded amlodipine 10 mg tablet 10 mg PO DAILY #30 tabs 05/03/23 Allergies Allergy/AdvReac Type Severity Reaction Status Date / Time No Known Drug Allergies Allergy Verified 04/29/23 17:56 Review of Systems ROS Status of ROS 10 or more systems reviewed and unremark able except as noted in history and below [facility] Medical History (Updated 08/14/23 @ 09:23 by Devora Bojorquez MD) Ambulatory dysfunction ?R26.2 - Difficulty in walking, not elsewhere classified (ICD-10) Persistent asthma Hypothyroid ?E03.9 - Hypothyroidism, unspecified (ICD-10) Dementia ?F03.90 - Unspecified dementia, unspecified severity, without behavioral disturbance, psychotic disturbance, mood disturbance, and anxiety (ICD-10) Hypertension, uncontrolled ?I10 - Essential (primary) hypertension (ICD-10) Cystitis cystica ?N30.80 - Other cystitis without hematuria (ICD-10) Spondylitis ?M46.90 - Unspecified inflammatory spondylopathy, site unspecified (ICD-10) Cataract ?H26.9 - Unspecified cataract (ICD-10) Numbness and tingling of both feet ?R20.0 - Anesthesia of skin (ICD-10) ?R20.2 - Paresthesia of skin (ICD-10) Numbness and tingling in both hands ?R20.0 - Anesthesia of skin (ICD-10) ?R20.2 - Paresthesia of skin (ICD-10) COPD (chronic obstructive pulmonary disease) ?J44.9 - Chronic obstructive pulmonary disease, unspecified (ICD-10) Acute bronchitis ?J20.9 - Acute bronchitis, unspecified (ICD-10) Acute asthma ?J45.909 - Unspecified asthma, uncomplicated (ICD-10) Esophageal abnormality ?K22.9 - Disease of esophagus, unspecified (ICD-10) TMJ (temporomandibular joint syndrome) ?M26.609 - Unspecified temporomandibular joint disorder, unspecified side (ICD-10) Closed head injury ?S09.90XA - Unspecified injury of head, initial encounter (ICD-10) Surgical History History of cataract surgery ?Z98.49 - Cataract extraction status, unspecified eye (ICD-10) H/O: hysterectomy ?Z90.710 - Acquired absence of both cervix and uterus (ICD-10) Total knee replacement status ?Z96.659 - Presence of unspecified artificial knee joint (ICD-10) Social History Within the past year, how often did you have a drink containing alcohol: never Within the past year, how often did you have six or more drinks on one occasion: never Score interpretation: A score less than 3 is consistent with normal alcohol consumption. Smoking status: Never smoker Non-prescribed substance use: denies use Previous occupational history: n/a Highest level of school completed/degree received: some college, no degree Are you now , , , , never or living with a partner: In a typical week, how many times do you talk on the telephone with family, friends, or neighbors: 3 or more times per week How often do you get together with friends or relatives: never How often do you attend orthodoxy or protestant services: never Do you belong to any clubs or organizations such as orthodoxy groups unions, fraternal or athletic groups, or school groups: no Total score: 1 Score interpretation: A score of less than or equal to 1 indicates the most socially isolated. Little interest or pleasure in doing things: not at all Feeling down, depressed, or hopeless: nearly every day Feel stressed/tense/nervous/anxious/difficulty sleeping: to some extent Life stressors: other Life stressor details: pain in back Due to disability, difficulty making decisions: No Exam Narrative Exam Narrative: Nurses notes and vital signs reviewed and patient is not hypoxic. General: Well-appearing and in no apparent distress. Skin: Warm, dry, no pallor noted. No rash. Head: Normocephalic, atraumatic. Neck: Supple, non-tender. Eye: Pupils are equal, round and EOMI. No scleral icterus. Ears, Nose, Mouth, and Throat: TM are clear, no nasal mucosal hypertrophy. Oral mucosa is moist, no posterior oropharynx erythema, uvula is mid-line Cardiovascular: Regular Rate and Rhythm without murmur, gallop or rub. Respiratory: No accessory muscle use or respiratory distress. Lungs are clear to auscultation, no wheezing, rales or rhonchi Chest Wall: no tenderness Back: No midline thoracic or lumbar vertebral tenderness. No CVA tenderness Musculoskeletal: normal ROM, no calf or popliteal tenderness, no lower extremity edema/swelling GI: Abdomen is soft, non-distended. Normal bowel sounds. No masses appreciated. No tenderness to palpation. No rebound, guarding, or rigidity noted. Neurological: A&O x2 No cranial nerve dysfunction observed. Moves all extremities. Sensation intact. Psychiatric: Cooperative and interactive. Normal mood and affect. Constitutional Vital Signs, click to edit/add: Last Vital Signs Temp 98.2 F 08/14/23 07:31 Pulse 67 08/14/23 09:13 Resp 24 08/14/23 09:13 BP 155/76 H 08/14/23 09:13 Pulse Ox 96 08/14/23 09:13 Course Vital Signs Vital signs: Vital Signs Pulse Rate 72 08/14/23 07:27 Respiratory Rate 18 08/14/23 07:27 Blood Pressure 193/76 H 08/14/23 07:27 Pulse Oximetry 97 08/14/23 07:27 Temperature 98.2 F 08/14/23 07:31 Pulse Rate 67 08/14/23 09:13 Respiratory Rate 24 08/14/23 09:13 Blood Pressure 155/76 H 08/14/23 09:13 Pulse Oximetry 96 08/14/23 09:13 MDM - Fall MDM Narrative Medical decision making narrative: EKG showing sinus rhythm with a heart rate of [address] elevation or depression. Upon presentation the patient was taken to the CAT scan head right away and the CT head came negative for any acute pathology she does have some chronic changes. The patient blood pressure was noted to be elevated initially at 180 systolic it went up to 200 after a while and I did control it with the labetalol 10 mg IV one-time after making sure the patient had no stroke finding and her neurological examination was benign except for the confusion The patient urinalysis positive for UTI and I did speak with her son Dr. Tal Hernandez , he is up-to-date about her case. The patient case was discussed with Dr. Sanches who agreed with observation in the hospital setting Lab Data Labs: Lab Results 08/14/23 08/14/23 08/14/23 Range/Units 07:49 07:57 08:30 WBC 8.8 (4.0-11.0) 10^3/uL RBC 4.73 (4.20-5.40) 10^6/uL Hgb 13.9 (12.0-16.0) g/dL Hct 44.0 (36.0-48.0) % MCV 93.0 (81.0-99.0) fL MCH 29.4 (26.7-34.0) pg MCHC 31.6 (29.9-35.2) g/dL RDW 13.2 (11.0-15.0) % Plt Count 231 (150-450) 10^3/uL MPV 10.9 (9.5-13.5) fL Neut % (Auto) 67.3 (43.0-75.0) % Lymph % (Auto) 18.2 L (20.5-60.0) % Wayne % (Auto) 7.1 (1.7-12.0) % Eos % (Auto) 5.5 (0.9-7.0) % Baso % (Auto) 1.4 (0.2-2.0) % Neut # (Auto) 5.9 (1.4-6.5) 10^3/uL Lymph # (Auto) 1.6 (1.2-3.8) 10^3/uL Wayne # (Auto) 0.6 (0.3-0.8) 10^3/uL Eos # (Auto) 0.5 (0.0-0.7) 10^3/uL Baso # (Auto) 0.1 (0.0-0.1) 10^3/uL Abs Immat Gran (auto) 0.04 H (0.00-0.03) 10^3/uL Imm/Tot Granulo (auto) 0.5 (0.0-0.5) % PT 10.0 (9.0-11.6) sec INR 0.94 Sodium 141 (136-145) mmol/L Potassium 4.1 (3.5-5.1) mmol/L Chloride 104 (98-107) mmol/L Carbon Dioxide 28.0 (21.0-32.0) mmol/L Anion Gap 13.1 BUN 22.0 H (7.0-18.0) mg/dL Creatinine 1.05 H (0.55-1.02) mg/dL Est GFR ( Amer) >60 (>=60) Est GFR (Non-Af Amer) 50 L (>=60) BUN/Creatinine Ratio 21.0 Glucose 109 H (74-106) mg/dL Calcium 9.9 (8.5-10.1) mg/dL Total Bilirubin 0.6 (0.2-1.0) mg/dL AST 15 (15-37) U/L ALT 21 (14-59) U/L Alkaline Phosphatase 96 (46-116) U/L Troponin I High Sens 6.7 (4.0-51.3) pg/mL Total Protein 7.8 (6.4-8.2) g/dL Albumin 3.8 (3.4-5.0) g/dL Globulin 4.0 g/dL Albumin/Globulin Ratio 0.9 Urine Color Lt. yellow (YELLOW) Urine Clarity Clear (CLEAR) Urine pH 7.0 (5.0-9.0) Ur Specific [place] 1.020 (1.005-1.025) Urine Protein Negative (NEG/TRACE) mg/dL Urine Glucose (UA) Negative (NEGATIVE) mg/dL Urine Ketones Negative (NEGATIVE) mg/dL Urine Occult Blood Negative (NEGATIVE) Urine Nitrite Negative (NEGATIVE) Urine Bilirubin Negative (NEGATIVE) Urine Urobilinogen 0.2 (0.2-1.0) EU/dL Ur Leukocyte Esterase Small A (NEGATIVE) Urine RBC 0-2 (0-2) #/HPF Urine WBC 20-50 A (NONE SEEN) #/HPF Ur Squamous Epith Cells Few A (NONE/RARE) #/LPF Urine Crystals None seen (None Seen) #/HPF Urine Bacteria Moderate A (NONE SEEN) #/HPF Urine Casts None seen (NONE SEEN) #/LPF Urine Mucus Trace A (NONE SEEN) Ur Culture Indicated? Yes SARS-CoV-2 Ag (CV2AG) Negative (NEGATIVE) Discharge Plan Discharge Chief Complaint: Fall Clinical Impression: Hypertension, uncontrolled, Confusion, Acute UTI Patient Disposition: Admitted as Observation Time of Disposition Decision: 09:23
--- OUTSIDE RECORDS SUMMARY | 2023-08-14 09:55 | XMS_ITS | CCD ---
Author Name Unknown Address [address] [place] [address] Organization [facility] Care Team Providers Care Coding Manager Name Role Phone PHYSICIAN, DEFAULT Unavailable Unavailable PHYSICIAN, DEFAULT Unavailable Unavailable DARCY, DR ALEIDA Gonzalez Consulting Unavailable PETZNICK, APOLLO Primary Care Unavailable ROMULO ., ANTELMO Attending Unavailable ROMULO ., ANTELMO Admitting Unavailable ELIDELL Consulting Unavailable DAVIS, ASHVIN Consulting Unavailable ROMULO ., ANTELMO Consulting Unavailable DIAB ., KAVITA Consulting Unavailable KENDALL ., DR MARLA Nieto Attending Unavailable KENDALL ., DR MARLA Nieto Consulting Unavailable ENOCH ., DR MARLA Nieto Admitting [facility]available [facility] Primary Care Unavailable EARNESTINE, DR KARISSA Martinez Consulting Unavailable KENDALL ., DR MARLA Nieto Attending Unavailable KENDALL ., DR MARLA Nieto Consulting Unavailable ENOCH ., DR MARLA Nieto Admitting Unavailable [facility], [facility] Primary Care Unavailable DR KENROY HEALY Consulting UnavailDR ALEIDA Griffin V Consulting Unavailable DAWSON MAYA Consulting Unavailable Allergies Allergy Classification Reported Allergen(s) Allergy Type Date of Onset Reaction(s) Facility (1 source) Desonide Drug Allergy [facility] Repository (1 source) nabumetone Drug Allergy [facility] Repository (1 source) Neomycin Drug Allergy [facility] Repository (1 source) oxyCODONE Drug Allergy [facility] Repository (1 source) Ramipril Drug Allergy [facility] Repository (1 source) Polymyxin B Drug allergy (disorder) [facility] Repository Problems Active Problems Problem Classification Problem [...] Onset: 06-21-2022 Chronic Other aftercare (1 source) 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 Emilie Carmona Basophils/100 WBC (Bld) 0.8 % Normal 0.2-2.0 [facility] Comment on above: Performed By: #### R SPLUS #### [facility] Laboratory [address] [place] [address] Dr. Emilie Carmona EO # 0.0 103/ul Normal 0.0-0.7 [facility] Comment on above: Performed By: #### R SPLUS #### [facility] Laboratory [address] [address] [address] Emilie Carmona Eosinophils/100 WBC (Bld) 0.1 % Critically low 0.9-7.0 [facility] Comment on above: Performed By: #### R SPLUS #### [facility] Laboratory [address] [place] [address] Dr. Emilie Carmona Erythrocyte distribution width (RBC) [Ratio] 14.8 % Normal 11.0-15.0 [facility] Comment on above: Performed By: #### R SPLUS #### [facility] Laboratory [address] [place] [address] Dr. Emilie Carmona Hematocrit (Bld) [Volume fraction] 33.3 % Critically low 36.0-48.0 [facility] Comment on above: Performed By: #### R SPLUS #### [facility] Laboratory [address] [place] [address] Dr. Emilie Carmona Hemoglobin (Bld) [Mass/Vol] 10.9 g/dL Critically low 12.0-16.0 [facility] Comment on above: Performed By: #### R SPLUS #### [facility] Laboratory [address] [address] [address] Emilie Carmona IG # 0.61 10e3/ul Critically high 0.00-0.03 [facility] Comment on above: Performed By: #### R SPLUS #### [facility] Laboratory [address] [place] [address] Dr. Emilie Carmona IG % 5.7 % Critically high 0.0-0.5 [facility] Comment on above: Performed By: #### R SPLUS #### [facility] Laboratory [address] [place] [address] Dr. Emilie Carmona LYMPH # 1.7 103/ul Normal 1.2-3.8 [facility] Comment on above: Performed By: #### R SPLUS #### [facility] Laboratory [address] [place] [address] Dr. Emilie Carmona Lymphocytes/100 WBC (Bld) 15.8 % Critically low 20.5-60.0 [facility] Comment on above: Performed By: #### R SPLUS #### [facility] Laboratory [address] [place] [address] Dr. Emilie Carmona MANUAL DIFF REQ NO Normal [facility] Comment on above: Performed By: #### R SPLUS #### [facility] Laboratory [address] [place] [address] Dr. Emilie Carmona MCH (RBC) [Entitic mass] 27.9 pg Normal 26.7-34.0 [facility] Comment on above: Performed By: #### R SPLUS #### [facility] Laboratory [address] [place] [address] Dr. Emilie Carmona MCHC (RBC) [Mass/Vol] 32.7 g/dL Normal 29.9-35.2 [facility] Comment on above: Performed By: #### R SPLUS #### [facility] Laboratory [address] [place] [address] Dr. Emilie Carmona MCV (RBC) [Entitic vol] 85.4 fL Normal 81.0-99.0 [facility] Comment on above: Performed By: #### R SPLUS #### [facility] Laboratory [address] [place] [address] Dr. Emilie Carmona MONO # 0.7 103/ul Normal 0.3-0.8 [facility] Comment on above: Performed By: #### R SPLUS #### [facility] Laboratory [address] [place] [address] Dr. Emilie Carmona Monocytes/100 WBC (Bld) 6.9 % Normal 1.7-12.0 [facility] Comment on above: Performed By: #### R SPLUS #### [facility] Laboratory [address] [place] [address] Dr. Emilie Carmona NEUT # 7.6 103/ul Critically high 1.4-6.5 [facility] Comment on above: Performed By: #### R SPLUS #### [facility] Laboratory [address] [place] [address] Dr. Emilie Carmona Neutrophils/100 WBC (Bld) 70.7 % Normal 43.0-75.0 [facility] Comment on above: Performed By: #### R SPLUS #### [facility] Laboratory [address] [place] [address] Dr. Emilie Carmona Platelet mean volume (Bld) [Entitic vol] 10.8 fL Normal 9.5-13.5 [facility] Comment on above: Performed By: #### R SPLUS #### [facility] Laboratory [address] [place] [address] Dr. Emilie Carmona PLT 270 103/ul Normal 150-450 [facility] Comment on above: Performed By: #### R SPLUS #### [facility] Laboratory [address] [place] [address] Dr. Emilie Carmona RBC 3.90 106/ul Critically low 4.20-5.40 [facility] Comment on above: Performed By: #### R SPLUS #### [facility] Laboratory [address] [place] [address] Dr. Emilie Carmona WBC 10.7 103/ul Normal 4.0-11.0 [facility] Comment on above: Performed By: #### R SPLUS #### [facility] Laboratory [address] [place] [address] Dr. Emilie Carmona PROF 14(COMP METB)on 023 Albumin [Mass/Vol] 2.6 g/dL Critically low 3.4-5.0 [facility] Comment on above: Performed By: #### C MP #### [facility] Laboratory [address] [place] [address] Dr. Emilie Carmona Albumin/Globulin [Mass ratio] 0.6 {ratio} Normal [facility] Comment on above: Performed By: #### C MP #### [facility] Laboratory [address] [place] [address] Dr. Emilie Carmona ALP [Catalytic activity/Vol] 58 U/L Normal 46-116 [facility] Comment on above: Performed By: #### C MP #### [facility] Laboratory [address] [place] [address] Dr. Emilie Carmona ALT [Catalytic activity/Vol] 32 U/L Normal 14-59 [facility] Comment on above: Performed By: #### C MP #### [facility] Laboratory [address] [place] [address] Dr. Emilie Carmona Anion gap [Moles/Vol] 13.8 mmol/L Normal [facility] Comment on above: Performed By: #### C MP #### [facility] Laboratory [address] [place] [address] Dr. Emilie Carmona AST [Catalytic activity/Vol] 30 U/L Normal 15-37 [facility] Comment on above: Performed By: #### C MP #### [facility] Laboratory [address] [place] [address] Dr. Emilie Carmona Bilirubin [Mass/Vol] 0.2 mg/dL Normal 0.2-1.0 [facility] Comment on above: Performed By: #### C MP #### [facility] Laboratory [address] [address] [address] Emilie Carmona Calcium [Mass/Vol] 9.7 mg/dL Normal 8.5-10.1 [facility] Comment on above: Performed By: #### C MP #### [facility] Laboratory [address] [address] [address] Emilie Carmona Chloride [Moles/Vol] 107 mmol/L Normal 98-107 [facility] Comment on above: Performed By: #### C MP #### [facility] Laboratory [address] [address] [address] Emilie Carmona CO2 [Moles/Vol] 24.8 mmol/L Normal 21.0-32.0 [facility] Comment on above: Performed By: #### C MP #### [facility] Laboratory [address] [address] [address] Emilie Carmona Creatinine [Mass/Vol] 1.02 mg/dL Normal 0.55-1.02 [facility] Comment on above: Performed By: #### C MP #### [facility] Laboratory [address] [address] [address] Emilie Carmona EGFR-AF GAMBIAN >60 Normal >=60 [facility] Comment on above: Performed By: #### C MP #### [facility] Laboratory [address] [address] [address] Emilie Carmona EGFR-NON AF GAMBIAN 52 mL/min/1.73m2 Critically low >=60 [facility] Comment on above: Performed By: #### C MP #### [facility] Laboratory [address] [address] [address] Emilie Carmona Globulin (S) [Mass/Vol] 4.0 g/dL Normal [facility] Comment on above: Performed By: #### C MP #### [facility] Laboratory [address] [address] [address] Emilie Carmona Glucose [Mass/Vol] 99 mg/dL Normal 74-106 [facility] Comment on above: Performed By: #### C MP #### [facility] Laboratory [address] [address] [address] Emilie Carmona Potassium [Moles/Vol] 4.6 mmol/L Normal 3.5-5.1 [facility] Comment on above: Performed By: #### C MP #### [facility] Laboratory [address] [address] [address] Emilie Carmona Protein [Mass/Vol] 6.6 g/dL Normal 6.4-8.2 [facility] Comment on above: Performed By: #### C MP #### [facility] Laboratory [address] [address] [address] Emilie Carmona Sodium [Moles/Vol] 141 mmol/L Normal 136-145 [facility] Comment on above: Performed By: #### C MP #### [facility] Laboratory [address] [place] [address] Dr. Emilie Carmona Urea nitrogen [Mass/Vol] 17.0 mg/dL Normal 7.0-18.0 [facility] Comment on above: Performed By: #### C MP #### [facility] Laboratory [address] [place] [address] Dr. Emilie Carmona Urea nitrogen/Creatinine [Mass ratio] 16.7 mg/mg Normal [facility] Comment on above: Performed By: #### C MP #### [facility] Laboratory [address] [place] [address] Dr. Emilie Carmona CBC AUTO DIFFon 12-28-2022 BASO # 0.0 103/ul Normal 0.0-0.1 [facility] Comment on above: Performed By: #### C BC #### [facility] Laboratory [address] [place] [address] Dr. Emilie Carmona Basophils/100 WBC (Bld) 0.3 % Normal 0.2-2.0 [facility] Comment on above: Performed By: #### C BC #### [facility] Laboratory [address] [place] [address] Dr. Emilie Carmona EO # 0.0 103/ul Normal 0.0-0.7 [facility] Comment on above: Performed By: #### C BC #### [facility] Laboratory [address] [address] [address] Emilie Carmona Eosinophils/100 WBC (Bld) 0.0 % Critically low 0.9-7.0 [facility] Comment on above: Performed By: #### C BC #### [facility] Laboratory [address] [address] [address] Emilie Carmona Erythrocyte distribution width (RBC) [Ratio] 14.6 % Normal 11.0-15.0 [facility] Comment on above: Performed By: #### C BC #### [facility] Laboratory [address] [place] [address] Dr. Emilie Carmona Hematocrit (Bld) [Volume fraction] 32.2 % Critically low 36.0-48.0 [facility] Comment on above: Performed By: #### C BC #### [facility] Laboratory [address] [place] [address] Dr. Emilie Carmona Hemoglobin (Bld) [Mass/Vol] 10.4 g/dL Critically low 12.0-16.0 [facility] Comment on above: Performed By: #### C BC #### [facility] Laboratory [address] [place] [address] Dr. Emilie Carmona IG # 0.22 10e3/ul Critically high 0.00-0.03 [facility] Comment on above: Performed By: #### C BC #### [facility] Laboratory [address] [place] [address] Dr. Emilie Carmona IG % 2.0 % Critically high 0.0-0.5 [facility] Comment on above: Performed By: #### C BC #### [facility] Laboratory [address] [place] [address] Dr. Emilie Carmona LYMPH # 1.2 103/ul Normal 1.2-3.8 [facility] Comment on above: Performed By: #### C BC #### [facility] Laboratory [address] [place] [address] Dr. Emilie Carmona Lymphocytes/100 WBC (Bld) 11.4 % Critically low 20.5-60.0 [facility] Comment on above: Performed By: #### C BC #### [facility] Laboratory [address] [place] [address] Dr. Emilie Carmona MANUAL DIFF REQ NO Normal [facility] Comment on above: Performed By: #### C BC #### [facility] Laboratory [address] [place] [address] Dr. Emilie Carmona MCH (RBC) [Entitic mass] 27.6 pg Normal 26.7-34.0 [facility] Comment on above: Performed By: #### C BC #### [facility] Laboratory [address] [place] [address] Dr. Emilie Carmona MCHC (RBC) [Mass/Vol] 32.3 g/dL Normal 29.9-35.2 [facility] Comment on above: Performed By: #### C BC #### [facility] Laboratory [address] [place] [address] Dr. Emilie Carmona MCV (RBC) [Entitic vol] 85.4 fL Normal 81.0-99.0 [facility] Comment on above: Performed By: #### C BC #### [facility] Laboratory [address] [place] [address] Dr. Emilie Carmona MONO # 0.7 103/ul Normal 0.3-0.8 [facility] Comment on above: Performed By: #### C BC #### [facility] Laboratory [address] [place] [address] Dr. Emilie Carmona Monocytes/100 WBC (Bld) 6.3 % Normal 1.7-12.0 [facility] Comment on above: Performed By: #### C BC #### [facility] Laboratory [address] [place] [address] Dr. Emilie Carmona NEUT # 8.7 103/ul Critically high 1.4-6.5 [facility] Comment on above: Performed By: #### C BC #### [facility] Laboratory [address] [place] [address] Dr. Emilie Carmona Neutrophils/100 WBC (Bld) 80.0 % Critically high 43.0-75.0 [facility] Comment on above: Performed By: #### C BC #### [facility] Laboratory [address] [address] [address] Emilie Carmona Platelet mean volume (Bld) [Entitic vol] 10.9 fL Normal 9.5-13.5 [facility] Comment on above: Performed By: #### C BC #### [facility] Laboratory [address] [address] [address] Emilie Carmona PLT 226 103/ul Normal 150-450 [facility] Comment on above: Performed By: #### C BC #### [facility] Laboratory [address] [address] [address] Emilie Carmona RBC 3.77 106/ul Critically low 4.20-5.40 [facility] Comment on above: Performed By: #### C BC #### [facility] Laboratory [address] [address] [address] Emilie Carmona WBC 10.9 103/ul Normal 4.0-11.0 [facility] Comment on above: Performed By: #### C BC #### [facility] Laboratory [address] [address] [address] Emilie Carmona PROF 14(COMP METB)on 023 Albumin [Mass/Vol] 2.4 g/dL Critically low 3.4-5.0 [facility] Comment on above: Performed By: #### C MP ####[facility] [id number] [id number] Carmona Albumin/Globulin [Mass ratio] 0.6 {ratio} Normal [facility] Comment on above: Performed By: #### C MP ####[facility] [address] [id number] Carmona ALP [Catalytic activity/Vol] 57 U/L Normal 46-116 [facility] Comment on above: Performed By: #### C MP ####[facility] [address] [address]DrBrenton Carmona ALT [Catalytic activity/Vol] 32 U/L Normal 14-59 [facility] Comment on above: Performed By: #### C MP ####[facility] [id number] [address]Dr. Emilie Carmona Anion gap [Moles/Vol] 14.1 mmol/L Normal [facility] Comment on above: Performed By: #### C MP ####[facility] [address] [place], [place] [address]Dr. Emilie Carmona AST [Catalytic activity/Vol] 35 U/L Normal 15-37 [facility] Comment on above: Performed By: #### C MP ####[facility] [address] [place], [place] [address]Dr. Emilie Mathew Bilirubin [Mass/Vol] 0.2 mg/dL Normal 0.2-1.0 [facility] Comment on above: Performed By: #### C MP ####[facility] [address] [place], [place] [address]Dr. Emilie Carmona Calcium [Mass/Vol] 9.2 mg/dL Normal 8.5-10.1 [facility] Comment on above: Performed By: #### C MP ####[facility] [address] [place], [place] [address]Dr. Emilie Carmona Chloride [Moles/Vol] 107 mmol/L Normal 98-107 [facility] Comment on above: Performed By: #### C MP ####[facility] [address] [place], [place] [address]Dr. Emilie Carmona CO2 [Moles/Vol] 22.7 mmol/L Normal 21.0-32.0 [facility] Comment on above: Performed By: #### C MP ####[facility] [address] [place], [place] [address]Dr. Emilie Carmona Creatinine [Mass/Vol] 1.02 mg/dL Normal 0.55-1.02 [facility] Comment on above: Performed By: #### C MP ####[facility] [address] [place], [place] [address]Dr. Emilie Carmona EGFR-AF GAMBIAN >60 Normal >=60 [facility] Comment on above: Performed By: #### C MP ####[facility] [address] [place], [place] [address]Dr. Emilie Carmona EGFR-NON AF GAMBIAN 52 mL/min/1.73m2 Critically low >=60 [facility] Comment on above: Performed By: #### C MP ####[facility] [id number] [address]Dr. Emilie Carmona Globulin (S) [Mass/Vol] 4.0 g/dL Normal [facility] Comment on above: Performed By: #### C MP ####[facility] [address] [address]Dr. Emilie Carmona Glucose [Mass/Vol] 132 mg/dL Critically high 74-106 [facility] Comment on above: Performed By: #### C MP ####[facility] [address] [place], [place] [address]Dr. Emilie Carmona Potassium [Moles/Vol] 3.8 mmol/L Normal 3.5-5.1 [facility] Comment on above: Performed By: #### C MP ####[facility] [address] [place], [place] [address]Dr. Emilie Carmona Protein [Mass/Vol] 6.4 g/dL Normal 6.4-8.2 [facility] Comment on above: Performed By: #### C MP ####[facility] [id number] [place], [place] [address]Dr. Emilie Carmona Sodium [Moles/Vol] 140 mmol/L Normal 136-145 [facility] Comment on above: Performed By: #### C MP ####[facility] [address] [place], [place] [address]Dr. Emilie Carmona Urea nitrogen [Mass/Vol] 19.0 mg/dL Critically high 7.0-18.0 [facility] Comment on above: Performed By: #### C MP ####[facility] [address] [place], [place] [address]Dr. Emilie Carmona Urea nitrogen/Creatinine [Mass ratio] 18.6 mg/mg Normal [facility] Comment on above: Performed By: #### C MP ####[facility] [address] [place], [place] [address]Dr. Emilie Carmona CBC AUTO DIFFon 12-27-2022 BASO # 0.1 103/ul Normal 0.0-0.1 [facility] Comment on above: Performed By: #### C BC #### [facility] Laboratory [address] [address] [address] Emilie Carmona Basophils/100 WBC (Bld) 0.4 % Normal 0.2-2.0 [facility] Comment on above: Performed By: #### C BC #### [facility] Laboratory [address] [address] [address] Emilie Carmona EO # 0.2 103/ul Normal 0.0-0.7 [facility] Comment on above: Performed By: #### C BC #### [facility] Laboratory [address] [place] [address] Dr. Emilie Carmona Eosinophils/100 WBC (Bld) 1.8 % Normal 0.9-7.0 [facility] Comment on above: Performed By: #### C BC #### [facility] Laboratory [address] [place] [address] Dr. Emilie Carmona Erythrocyte distribution width (RBC) [Ratio] 14.1 % Normal 11.0-15.0 [facility] Comment on above: Performed By: #### C BC #### [facility] Laboratory [address] [place] [address] Dr. Emilie Carmona Hematocrit (Bld) [Volume fraction] 32.1 % Critically low 36.0-48.0 [facility] Comment on above: Performed By: #### C BC #### [facility] Laboratory [address] [place] [address] Dr. Emilie Carmona Hemoglobin (Bld) [Mass/Vol] 10.7 g/dL Critically low 12.0-16.0 [facility] Comment on above: Performed By: #### C BC #### [facility] Laboratory [address] [place] [address] Dr. Emilie Carmona IG # 0.13 10e3/ul Critically high 0.00-0.03 [facility] Comment on above: Performed By: #### C BC #### [facility] Laboratory [address] [place] [address] Dr. Emiile Carmona IG % 0.9 % Critically high 0.0-0.5 [facility] Comment on above: Performed By: #### C BC #### [facility] Laboratory [address] [place] [address] Dr. Emilie Carmona LYMPH # 0.9 103/ul Critically low 1.2-3.[address] [facility] Comment on above: Performed By: #### C BC #### [facility] Laboratory [address] [place] [address] Dr. Emilie Carmona Lymphocytes/100 WBC (Bld) 6.9 % Critically low 20.5-60.0 [facility] Comment on above: Performed By: #### C BC #### [facility] Laboratory [address] [place] [address] Dr. Emilie Carmona MANUAL DIFF REQ NO Normal [facility] Comment on above: Performed By: #### C BC #### [facility] Laboratory [address] [place] [address] Dr. Emilie Carmona MCH (RBC) [Entitic mass] 28.2 pg Normal 26.7-34.0 [facility] Comment on above: Performed By: #### C BC #### [facility] Laboratory [address] [place] [address] Dr. Emilie Carmona MCHC (RBC) [Mass/Vol] 33.3 g/dL Normal 29.9-35.2 [facility] Comment on above: Performed By: #### C BC #### [facility] Laboratory [address] [place] [address] Dr. Emilie Carmona MCV (RBC) [Entitic vol] 84.7 fL Normal 81.0-99.0 [facility] Comment on above: Performed By: #### C BC #### [facility] Laboratory [address] [place] [address] Dr. Emilie Carmona MONO # 0.8 103/ul Normal 0.3-0.8 [facility] Comment on above: Performed By: #### C BC #### [facility] Laboratory [address] [place] [address] Dr. Emilie Carmona Monocytes/100 WBC (Bld) 5.8 % Normal 1.7-12.0 [facility] Comment on above: Performed By: #### C BC #### [facility] Laboratory [address] [place] [address] Dr. Emilie Carmona NEUT # 11.5 103/ul Critically high 1.4-6.5 [facility] Comment on above: Performed By: #### C BC #### [facility] Laboratory [address] [place] [address] Dr. Emiile Carmona Neutrophils/100 WBC (Bld) 84.2 % Critically high 43.0-75.0 [facility] Comment on above: Performed By: #### C BC #### [facility] Laboratory [address] [place] [address] Dr. Emilie Carmona Platelet mean volume (Bld) [Entitic vol] 10.8 fL Normal 9.5-13.5 [facility] Comment on above: Performed By: #### C BC #### [facility] Laboratory [address] [place] [address] Dr. Emilie Carmona PLT 200 103/ul Normal 150-450 [facility] Comment on above: Performed By: #### C BC #### [facility] Laboratory [address] [place] [address] Dr. Emilie Carmona RBC 3.79 106/ul Critically low 4.20-5.40 [facility] Comment on above: Performed By: #### C BC #### [facility] Laboratory [address] [place] [address] Dr. Emilie Carmona WBC 13.7 103/ul Critically high 4.0-11.0 [facility] Comment on above: Performed By: #### C BC #### [facility] Laboratory [address] [place] [address] Dr. Emilie Carmona PROF 14(COMP METB)on 023 Albumin [Mass/Vol] 2.4 g/dL Critically low 3.4-5.0 [facility] Comment on above: Performed By: #### C MP #### [facility] Laboratory [address] [place] [address] Dr. Emilie Carmona Albumin/Globulin [Mass ratio] 0.6 {ratio} Normal [facility] Comment on above: Performed By: #### C MP #### [facility] Laboratory [address] [place] [address] Dr. Emilie Carmona ALP [Catalytic activity/Vol] 57 U/L Normal 46-116 [facility] Comment on above: Performed By: #### C MP #### [facility] Laboratory [address] [address] [address] Emilie Carmona ALT [Catalytic activity/Vol] 21 U/L Normal 14-59 [facility] Comment on above: Performed By: #### C MP #### [facility] Laboratory [address] [place] [address] Dr. Emilie Carmona Anion gap [Moles/Vol] 15.4 mmol/L Normal [facility] Comment on above: Performed By: #### C MP #### [facility] Laboratory [address] [place] [address] Dr. Emilie Carmoan AST [Catalytic activity/Vol] 39 U/L Critically high 15-37 [facility] Comment on above: Performed By: #### C MP #### [facility] Laboratory [address] [place] [address] Dr. Emilie Carmona Bilirubin [Mass/Vol] 0.3 mg/dL Normal 0.2-1.0 [facility] Comment on above: Performed By: #### C MP #### [facility] Laboratory [address] [place] [address] Dr. Emilie Carmona Calcium [Mass/Vol] 9.0 mg/dL Normal 8.5-10.1 [facility] Comment on above: Performed By: #### C MP #### [facility] Laboratory [address] [address] [address] Emilie Carmona Chloride [Moles/Vol] 104 mmol/L Normal 98-107 [facility] Comment on above: Performed By: #### C MP #### [facility] Laboratory [address] [place] [address] Dr. Emilie Carmona CO2 [Moles/Vol] 20.7 mmol/L Critically low 21.0-32.0 [facility] Comment on above: Performed By: #### C MP #### [facility] Laboratory [address] [address] [address] Emilie Carmona Creatinine [Mass/Vol] 1.05 mg/dL Critically high 0.55-1.02 [facility] Comment on above: Performed By: #### C MP #### [facility] Laboratory [address] [address] [address] Emilie Carmona EGFR-AF GAMBIAN >60 Normal >=60 [facility] Comment on above: Performed By: #### C MP #### [facility] Laboratory [address] [address] [address] Emilie Carmona EGFR-NON AF GAMBIAN 50 mL/min/1.73m2 Critically low >=60 [facility] Comment on above: Performed By: #### C MP #### [facility] Laboratory [address] [address] [address] Emilie Carmona Globulin (S) [Mass/Vol] 4.1 g/dL Normal [facility] Comment on above: Performed By: #### C MP #### [facility] Laboratory [address] [address] [address] Emilie Carmona Glucose [Mass/Vol] 141 mg/dL Critically high 74-106 [facility] Comment on above: Performed By: #### C MP #### [facility] Laboratory [address] [address] [address] Emilie Carmona Potassium [Moles/Vol] 4.1 mmol/L Normal 3.5-5.1 [facility] Comment on above: Performed By: #### C MP #### [facility] Laboratory [address] [address] [address] Emilie Carmona Protein [Mass/Vol] 6.5 g/dL Normal 6.4-8.2 [facility] Comment on above: Performed By: #### C MP #### [facility] Laboratory [address] [address] [address] Emilie Carmona Sodium [Moles/Vol] 136 mmol/L Normal 136-145 [facility] Comment on above: Performed By: #### C MP #### [facility] Laboratory [address] [place] [address] Dr. Emilie Carmona Urea nitrogen [Mass/Vol] 22.0 mg/dL Critically high 7.0-18.0 [facility] Comment on above: Performed By: #### C MP #### [facility] Laboratory [address] [place] [address] Dr. Emilie Carmona Urea nitrogen/Creatinine [Mass ratio] 21.0 mg/mg Normal [facility] Comment on above: Performed By: #### C MP #### [facility] Laboratory [address] [place] [address] Dr. Emilie Carmona CBC AUTO DIFFon 12-26-2022 BASO # 0.0 103/ul Normal 0.0-0.1 [facility] Comment on above: Performed By: #### C BC #### [facility] Laboratory [address] [place] [address] Dr. Emilie Carmona Basophils/100 WBC (Bld) 0.2 % Normal 0.2-2.0 [facility] Comment on above: Performed By: #### C BC #### [facility] Laboratory [address] [place] [address] Dr. Emilie Carmona EO # 0.0 103/ul Normal 0.0-0.7 [facility] Comment on above: Performed By: #### C BC #### [facility] Laboratory [address] [place] [address] Dr. Emilie Carmona Eosinophils/100 WBC (Bld) 0.1 % Critically low 0.9-7.0 [facility] Comment on above: Performed By: #### C BC #### [facility] Laboratory [address] [place] [address] Dr. Emilie Carmona Erythrocyte distribution width (RBC) [Ratio] 13.7 % Normal 11.0-15.0 [facility] Comment on above: Performed By: #### C BC #### [facility] Laboratory [address] [place] [address] Dr. Emilie Carmona Hematocrit (Bld) [Volume fraction] 32.5 % Critically low 36.0-48.0 [facility] Comment on above: Performed By: #### C BC #### [facility] Laboratory [address] [address] [address] Emilie Carmona Hemoglobin (Bld) [Mass/Vol] 10.9 g/dL Critically low 12.0-16.0 [facility] Comment on above: Performed By: #### C BC #### [facility] Laboratory [address] [address] [address] Emilie Carmona IG # 0.09 10e3/ul Critically high 0.00-0.03 [facility] Comment on above: Performed By: #### C BC #### [facility] Laboratory [address] [address] [address] Emilie Carmona IG % 0.9 % Critically high 0.0-0.5 [facility] Comment on above: Performed By: #### C BC #### [facility] Laboratory [address] [address] [address] Emilie Carmona LYMPH # 0.5 103/ul Critically low 1.2-3.8 [facility] Comment on above: Performed By: #### C BC #### [facility] Laboratory [address] [address] [address] Emilie Carmona Lymphocytes/100 WBC (Bld) 4.8 % Critically low 20.5-60.0 [facility] Comment on above: Performed By: #### C BC #### [facility] Laboratory [address] [address] [address] Emilie Carmona MANUAL DIFF REQ NO Normal [facility] Comment on above: Performed By: #### C BC #### [facility] Laboratory [address] [address] [address] Emilie Carmona MCH (RBC) [Entitic mass] 28.5 pg Normal 26.7-34.0 [facility] Comment on above: Performed By: #### C BC #### [facility] Laboratory [address] [address] [address] Emilie Carmona MCHC (RBC) [Mass/Vol] 33.5 g/dL Normal 29.9-35.2 [facility] Comment on above: Performed By: #### C BC #### [facility] Laboratory [address] [address] [address] Emilie Carmona MCV (RBC) [Entitic vol] 84.9 fL Normal 81.0-99.0 [facility] Comment on above: Performed By: #### C BC #### [facility] Laboratory [address] [address] [address] Emilie Carmona MONO # 0.3 103/ul Normal 0.3-0.8 [facility] Comment on above: Performed By: #### C BC #### [facility] Laboratory [address] [address] [address] Emilie Carmona Monocytes/100 WBC (Bld) 2.9 % Normal 1.7-12.0 [facility] Comment on above: Performed By: #### C BC #### [facility] Laboratory [address] [place] [address] Dr. Emilie Carmona NEUT # 8.9 103/ul Critically high 1.4-6.5 [facility] Comment on above: Performed By: #### C BC #### [facility] Laboratory [address] [place] [address] Dr. Emilie Carmona Neutrophils/100 WBC (Bld) 91.1 % Critically high 43.0-75.0 [facility] Comment on above: Performed By: #### C BC #### [facility] Laboratory [address] [place] [address] Dr. Emilie Carmona Platelet mean volume (Bld) [Entitic vol] 10.8 fL Normal 9.5-13.5 [facility] Comment on above: Performed By: #### C BC #### [facility] Laboratory [address] [place] [address] Dr. Emilie Carmona PLT 204 103/ul Normal 150-450 [facility] Comment on above: Performed By: #### C BC #### [facility] Laboratory [address] [place] [address] Dr. Emilie Carmona RBC 3.83 106/ul Critically low 4.20-5.40 [facility] Comment on above: Performed By: #### C BC #### [facility] Laboratory [address] [address] [address] Emilie Carmona WBC 9.8 103/ul Normal 4.0-11.0 [facility] Comment on above: Performed By: #### C BC #### [facility] Laboratory [address] [place] [address] Dr. Emilie Carmona PROF 14(COMP METB)on 023 Albumin [Mass/Vol] 2.5 g/dL Critically low 3.4-5.0 [facility] Comment on above: Performed By: #### R SPLUS #### [facility] Laboratory [address] [place] [address] Dr. Emilie Carmona Albumin/Globulin [Mass ratio] 0.6 {ratio} Normal [facility] Comment on above: Performed By: #### R SPLUS #### [facility] Laboratory [address] [place] [address] Dr. Emilie Carmona ALP [Catalytic activity/Vol] 63 U/L Normal 46-116 [facility] Comment on above: Performed By: #### R SPLUS #### [facility] Laboratory [address] [place] [address] Dr. Emilie Carmona ALT [Catalytic activity/Vol] 13 U/L Critically low 14-59 [facility] Comment on above: Performed By: #### R SPLUS #### [facility] Laboratory [address] [place] [address] Dr. Emilie Carmona Anion gap [Moles/Vol] 18.7 mmol/L Normal [facility] Comment on above: Performed By: #### R SPLUS #### [facility] Laboratory [address] [place] [address] Dr. Emilie Carmona AST [Catalytic activity/Vol] 16 U/L Normal 15-37 [facility] Comment on above: Performed By: #### R SPLUS #### [facility] Laboratory [address] [place] [address] Dr. Emilie Carmona Bilirubin [Mass/Vol] 0.3 mg/dL Normal 0.2-1.0 [facility] Comment on above: Performed By: #### R SPLUS #### [facility] Laboratory [address] [address] [address] Emilie Carmona Calcium [Mass/Vol] 8.5 mg/dL Normal 8.5-10.1 [facility] Comment on above: Performed By: #### R SPLUS #### [facility] Laboratory [address] [address] [address] Emilie Carmona Chloride [Moles/Vol] 103 mmol/L Normal 98-107 [facility] Comment on above: Performed By: #### R SPLUS #### [facility] Laboratory [address] [address] [address] Emilie Carmona CO2 [Moles/Vol] 21.0 mmol/L Normal 21.0-32.0 [facility] Comment on above: Performed By: #### R SPLUS #### [facility] Laboratory [address] [address] [address] Emilie Carmona Creatinine [Mass/Vol] 1.37 mg/dL Critically high 0.55-1.02 [facility] Comment on above: Performed By: #### R SPLUS #### [facility] Laboratory [address] [address] [address] Emilie Carmona EGFR-AF GAMBIAN 45 mL/min/1.73m2 Critically low >=60 [facility] Comment on above: Performed By: #### R SPLUS #### [facility] Laboratory [address] [address] [address] Emilie Carmona EGFR-NON AF GAMBIAN 37 mL/min/1.73m2 Critically low >=60 [facility] Comment on above: Performed By: #### R SPLUS #### [facility] Laboratory [address] [address] [address] Emilie Carmona Globulin (S) [Mass/Vol] 4.1 g/dL Normal [facility] Comment on above: Performed By: #### R SPLUS #### [facility] Laboratory [address] [address] [address] Emilie Carmona Glucose [Mass/Vol] 235 mg/dL Critically high 74-106 [facility] Comment on above: Performed By: #### R SPLUS #### [facility] Laboratory [address] [address] [address] Emilie Carmona Potassium [Moles/Vol] 2.7 mmol/L Critically low 3.5-5.1 [facility] Comment on above: Performed By: #### R SPLUS #### [facility] Laboratory [address] [address] [address] Emilie Carmona Protein [Mass/Vol] 6.6 g/dL Normal 6.4-8.2 [facility] Comment on above: Performed By: #### R SPLUS #### [facility] Laboratory [address] [address] [address] Emilie Carmona Sodium [Moles/Vol] 138 mmol/L Normal 136-145 [facility] Comment on above: Performed By: #### R SPLUS #### [facility] Laboratory [address] [place] [address] Dr. Emilie Carmona Urea nitrogen [Mass/Vol] 20.0 mg/dL Critically high 7.0-18.0 [facility] Comment on above: Performed By: #### R SPLUS #### [facility] Laboratory [address] [place] [address] Dr. Emilie Carmona Urea nitrogen/Creatinine [Mass ratio] 14.6 mg/mg Normal [facility] Comment on above: Performed By: #### R SPLUS #### [facility] Laboratory [address] [place] [address] Dr. Emilie Carmona XR CHEST 1 Von [...] ALEIDA TAVERAS Date: 2022-12-26 10:29 Normal [facility] BNPon 12-25-2022 Natriuretic peptide B (Bld) [Mass/Vol] 639.0 pg/mL Normal <=1,800.0 [facility] Comment on above: Performed By: #### C MADM, BNP, CMP ####[facility] [id number] Emilie Carmona CARDIAC MARYCRUZ ADMITon 023 CK [Catalytic activity/Vol] 248 U/L Critically high 26-192 [facility] Comment on above: Performed By: #### C MADM, BNP, CMP ####[facility] [id number] [address]. Emilie Carmnoa CK.MB [Mass/Vol] 1.38 ng/mL Normal <=3.60 [facility] Comment on above: Performed By: #### C MADM, BNP, CMP ####[facility] [id number] [address]. Emilie Carmona HSTROP 11.8 pg/mL Normal 4.0-51.3 [facility] Comment on above: Result Comment: CUT- OFF POINTS HAVE BEEN ESTABLISHED BASED ON THE FOURTH UNIVERSAL DEFINITIONS OF MYOCARDIAL INFARCTION. THE UPPER REFERENCE LIMIT (URL) OF TROPONIN, DEFINED THE 99TH PERCENTILE OF cTnI DISTRIBUTION IN A REFERENCE POPULATION, HAS BEEN CONFIRMED THE DECISION THRESHOLD FOR MO DIAGNOSIS. Performed By: #### C MADM, BNP, CMP ####[facility] [id number] [id number] Carmona MAXIMILIAN 484 ng/mL Critically high 9-82 [facility] Comment on above: Performed By: #### C MADM, BNP, CMP ####[facility] [id number] [id number] Emilie Carmona CBC AUTO DIFFon 12-25-2022 BASO # 0.0 103/ul Normal 0.0-0.1 [facility] [facility] Comment on above: Performed By: #### C BC #### [facility] Laboratory [id number] Emilie Carmona Basophils/100 WBC (Bld) 0.4 % Normal 0.2-2.0 [facility] [place] Comment on above: Performed By: #### C BC #### [facility] Laboratory [address] [place] [address] Dr. Emilie Carmona EO # 0.0 103/ul Normal 0.0-0.7 The [facility] Comment on above: Performed By: #### C BC #### [facility] Laboratory [address] [place] [address] Dr. Emilie Carmona Eosinophils/100 WBC (Bld) 0.0 % Critically low 0.9-7.0 The [facility] [place] Comment on above: Performed By: #### C BC #### [facility] Laboratory [address] [place] [address] Dr. Emilie Carmona Erythrocyte distribution width (RBC) [Ratio] 13.6 % Normal 11.0-15.0 [facility] Comment on above: Performed By: #### C BC #### [facility] Laboratory [address] [place] [address] Dr. Emilie Carmona Hematocrit (Bld) [Volume fraction] 39.0 % Normal 36.0-48.0 [facility] Comment on above: Performed By: #### C BC #### [facility] Laboratory [address] [place] [address] Dr. Emilie Carmona Hemoglobin (Bld) [Mass/Vol] 13.0 g/dL Normal 12.0-16.0 [facility] Comment on above: Performed By: #### C BC #### [facility] Laboratory [address] [place] [address] Dr. Emilie Carmona IG # 0.07 10e3/ul Critically high 0.00-0.03 The [facility] Comment on above: Performed By: #### C BC #### [facility] Laboratory [address] [place] [address] Dr. Emilie Carmona IG % 0.6 % Critically high 0.0-0.5 The [facility] Comment on above: Performed By: #### C BC #### [facility] Laboratory [address] [place] [address] Dr. Emilie Carmona LYMPH # 0.8 103/ul Critically low 1.2-3.[address] [facility] Comment on above: Performed By: #### C BC #### [facility] Laboratory [address] [address] [address] Emilie Carmona Lymphocytes/100 WBC (Bld) 6.9 % Critically low 20.5-60.0 [facility] Comment on above: Performed By: #### C BC #### [facility] Laboratory [address] [address] [address] Emilie Carmona MANUAL DIFF REQ NO Normal The [facility] Comment on above: Performed By: #### C BC #### [facility] Laboratory [address] [place] [address] Dr. Emilie Carmona MCH (RBC) [Entitic mass] 28.4 pg Normal 26.7-34.0 The [facility] Comment on above: Performed By: #### C BC #### [facility] Laboratory [address] [place] [address] Dr. Emilie Carmona MCHC (RBC) [Mass/Vol] 33.3 g/dL Normal 29.9-35.2 The [facility] Comment on above: Performed By: #### C BC #### [facility] Laboratory [address] [place] [address] Dr. Emilie Carmona MCV (RBC) [Entitic vol] 85.3 fL Normal 81.0-99.0 [facility] Comment on above: Performed By: #### C BC #### [facility] Laboratory [address] [place] [address] Dr. Emilie Carmona MONO # 1.0 103/ul Critically high 0.3-0.8 The [facility] Comment on above: Performed By: #### C BC #### [facility] Laboratory [address] [place] [address] Dr. Emilie Carmona Monocytes/100 WBC (Bld) 9.1 % Normal 1.7-12.0 The [facility] Comment on above: Performed By: #### C BC #### [facility] Laboratory [address] [place] [address] Dr. Emilie Carmona NEUT # 9.0 103/ul Critically high 1.4-6.5 The [facility] Comment on above: Performed By: #### C BC #### [facility] Laboratory [address] [address] [address] Emilie Carmona Neutrophils/100 WBC (Bld) 83.0 % Critically high 43.0-75.0 [facility] Comment on above: Performed By: #### C BC #### [facility] Laboratory [address] [address] [address] Emilie Carmona Platelet mean volume (Bld) [Entitic vol] 10.6 fL Normal 9.5-13.5 [facility] Comment on above: Performed By: #### C BC #### [facility] Laboratory [address] [address] [address] Emilie Carmona PLT 276 103/ul Normal 150-450 [facility] Comment on above: Performed By: #### C BC #### [facility] Laboratory [address] [address] [address] Emilie Carmona RBC 4.57 106/ul Normal 4.20-5.40 [facility] Comment on above: Performed By: #### C BC #### [facility] Laboratory [address] [address] [address] Emilie Carmona WBC 10.8 103/ul Normal 4.0-11.0 [facility] Comment on above: Performed By: #### C BC #### [facility] Laboratory [address] [address] [address] Emilie Carmona CULTURE BLOODon 12-25-2022 Microscopic examination of blood, culture Culture Observations: NO GROWTH AT 36-48 HOURS. FINAL TO FOLLOW. Normal [facility] Comment on above: Performed By: #### B LDCX2 ####[facility] [id number] [id number]. Emilie Carmona Microscopic examination of blood, culture Culture Observations: NO GROWTH AT 36-48 HOURS. FINAL TO FOLLOW. Normal [facility] Comment on above: Performed By: #### B LDCX1 #### [facility] Laboratory [address] [address] [address] Emilie Carmona CULTURE SPUTUMon 12-25-2022 CULTURE SPUTUM Culture Observations : Growth of Normal Respiratory Joanne also seen Isolate 1 Haemophilus influenzae Heavy growth of Normal The [facility] Comment on above: Result Comment: Beta Lactamase: Negative Performed By: #### S PUTCX ####[facility] [address] [address] Emilie Carmona CULTURE URINEon 12-25-2022 CULTURE URINE Culture Observations : ROD TO FOLLOW. Isolate 1 Escherichia coli 15,000 cfu/mL of Normal [facility] Comment on above: Performed By: #### U RCX #### [facility] Laboratory [address] [address] [address] Emilie Carmona ER URINE PROFILEon 3 Bilirubin Ql (U) Negative Normal NEGATIVE The [facility] Comment on above: Performed By: #### R SPLUS #### [facility] Laboratory [address] [place] [address] Dr. Emilie Carmona Clarity (U) CLEAR Normal CLEAR [facility] Comment on above: Performed By: #### R SPLUS #### [facility] Laboratory [address] [place] [address] Dr. Emilie Carmona Color (U) YELLOW Normal YELLOW [facility] Comment on above: Performed By: #### R SPLUS #### [facility] Laboratory [address] [place] [address] Dr. Emilie MURRIETA A micrscopic examination will be performed if indicated. Normal The [facility] Comment on above: Performed By: #### R SPLUS #### [facility] Laboratory [address] [place] [address] Dr. Emilie Carmona Glucose Ql (U) Negative Normal NEGATIVE The [facility] Comment on above: Performed By: #### R SPLUS #### [facility] Laboratory [address] [place] [address] Dr. Emilie Carmona Hemoglobin Ql (U) SMALL Abnormal NEGATIVE The [facility] Comment on above: Performed By: #### R SPLUS #### [facility] Laboratory [address] [place] [address] Dr. Emilie Carmona Ketones Ql (U) 15 mg/dl Abnormal NEGATIVE The [facility] Comment on above: Performed By: #### R SPLUS #### [facility] Laboratory [address] [place] [address] Dr. Emilie Carmona LEUKOCYTES Negative Normal NEGATIVE [facility] Comment on above: Performed By: #### R SPLUS #### [facility] Laboratory [address] [address] [address] Emilie Carmona Nitrite Ql (U) Negative Normal NEGATIVE [facility] Comment on above: Performed By: #### R SPLUS #### [facility] Laboratory [address] [address] [address] Emilie Carmona pH (U) 6.0 [pH] Normal 5-9 [facility] Comment on above: Performed By: #### R SPLUS #### [facility] Laboratory [address] [address] [address] Emilie Carmona SPEC GRAVITY 1.015 Normal 1.005-<=1.025 [facility] Comment on above: Performed By: #### R SPLUS #### [facility] Laboratory [address] [place] [address] Dr. Emilie Carmona UA PROTEIN TRACE Normal NEGATIVE/ TRACE [facility] Comment on above: Performed By: #### R SPLUS #### [facility] Laboratory [address] [place] [address] Dr. Emilie Carmona UR MICRO IND INDICATED Normal [facility] Comment on above: Performed By: #### R SPLUS #### [facility] Laboratory [address] [place] [address] Dr. Emilie Carmona Urobilinogen Qn (U) 0.2 {Warren'U}/dL Normal 0.2 - 1. 0 [facility] Comment on above: Performed By: #### R SPLUS #### [facility] Laboratory [address] [place] [address] Dr. Emilie Carmona LACTATE/LACTIC ACIDon 2022 Lactate [Moles/Vol] 1.2 mmol/L Normal 0.4-2.0 [facility] Comment on above: Performed By: #### L ACT ####[facility] [address] [address] Emilie Carmona PROF 14(COMP METB)on 023 Albumin [Mass/Vol] 3.4 g/dL Normal 3.4-5.0 [facility] Comment on above: Performed By: #### C MADM, BNP, CMP ####[facility] [address] [address]Dr. Emilie Carmona Albumin/Globulin [Mass ratio] 0.8 {ratio} Normal [facility] Comment on above: Performed By: #### C MADM, BNP, CMP ####[facility] [id number] [address]Dr. Emilie Carmona ALP [Catalytic activity/Vol] 88 U/L Normal 46-116 [facility] Comment on above: Performed By: #### C MADM, BNP, CMP ####[facility] [address] [place], [place] [address]Dr. Emilie Carmona ALT [Catalytic activity/Vol] 17 U/L Normal 14-59 [facility] Comment on above: Performed By: #### C MADM, BNP, CMP ####[facility] [address] [place], [place] [address]Dr. Emilie Carmona Anion gap [Moles/Vol] 13.2 mmol/L Normal [facility] Comment on above: Performed By: #### C MADM, BNP, CMP ####[facility] [address] [place], [place] [address]Dr. Emilie Carmona AST [Catalytic activity/Vol] 22 U/L Normal 15-37 [facility] Comment on above: Performed By: #### C MADM, BNP, CMP ####[facility] [address] [place], [place] [address]Dr. Emilie Carmona Bilirubin [Mass/Vol] 0.4 mg/dL Normal 0.2-1.0 The [facility] Comment on above: Performed By: #### C MADM, BNP, CMP ####[facility] [address] [place], [place] [address]Dr. Emilie Carmona Calcium [Mass/Vol] 9.2 mg/dL Normal 8.5-10.1 [facility] Comment on above: Performed By: #### C MADM, BNP, CMP ####[facility] [address] [address]Dr. Emilie Carmona Chloride [Moles/Vol] 100 mmol/L Normal 98-107 The [facility] Comment on above: Performed By: #### C MADM, BNP, CMP ####[facility] [address] [address]Dr. Emilie Carmona CO2 [Moles/Vol] 26.5 mmol/L Normal 21.0-32.0 The [facility] Comment on above: Performed By: #### C MADM, BNP, CMP ####[facility] [address] [address]Dr. Emilie Carmona Creatinine [Mass/Vol] 1.12 mg/dL Critically high 0.55-1.02 [facility] Comment on above: Performed By: #### C MADM, BNP, CMP ####[facility] [address] [place], [place] [address]Dr. Emilie Mathew EGFR-AF GAMBIAN 56 mL/min/1.73m2 Critically low >=60 [facility] Comment on above: Performed By: #### C MADM, BNP, CMP ####[facility] [address] [place], [place] [address]Dr. Emilie Carmona EGFR-NON AF GAMBIAN 46 mL/min/1.73m2 Critically low >=60 [facility] Comment on above: Performed By: #### C MADM, BNP, CMP ####[facility] [address] [address]Dr. Emilie Carmona Globulin (S) [Mass/Vol] 4.4 g/dL Normal The [facility] Comment on above: Performed By: #### C MADM, BNP, CMP ####[facility] [address] [address]Dr. Emilie Carmona Glucose [Mass/Vol] 123 mg/dL Critically high 74-106 [facility] Comment on above: Performed By: #### C MADM, BNP, CMP ####[facility] [address] [address]Dr. Emilie Carmona Potassium [Moles/Vol] 3.7 mmol/L Normal 3.5-5.1 The [facility] Comment on above: Performed By: #### C MADM, BNP, CMP ####[facility] [address] [address]Dr. Emilie Carmona Protein [Mass/Vol] 7.8 g/dL Normal 6.4-8.2 [facility] Comment on above: Performed By: #### C MADM, BNP, CMP ####[facility] [address] [address]Dr. Emilie Carmona Sodium [Moles/Vol] 136 mmol/L Normal 136-145 [facility] Comment on above: Performed By: #### C MADM, BNP, CMP ####[facility] [address] [address]Dr. Emilie Carmona Urea nitrogen [Mass/Vol] 14.0 mg/dL Normal 7.0-18.0 The [facility] Comment on above: Performed By: #### C MADM, BNP, CMP ####[facility] [address] [place], [place] [address]Dr. Emilie Carmona Urea nitrogen/Creatinine [Mass ratio] 12.5 mg/mg Normal The [facility] Comment on above: Performed By: #### C MADM, BNP, CMP ####[facility] [id number] [place], [place] [address]Dr. Emilie Carmona RESPIRATORY PANEL PLUSon Adenovirus Not detected Normal NOT DETECTED The [facility] Comment on above: Performed By: #### R SPLUS #### [facility] Laboratory [address] [place] [address] Dr. Emilie Carmona B. Parapertusis Not detected Normal NOT DETECTED The [facility] Comment on above: Performed By: #### R SPLUS #### [facility] Laboratory [address] [place] [address] Dr. Emilie Lyn. Pertussis Not detected Normal NOT DETECTED The [facility] Comment on above: Performed By: #### R SPLUS #### [facility] Laboratory [address] [address] [address] Emilie Carmona Chlamydia Pneumoniae Not detected Normal NOT DETECTED The [facility] Comment on above: Performed By: #### R SPLUS #### [facility] Laboratory [address] [place] [address] Dr. Emilie Carmona Coronavirus 229E Not detected Normal NOT DETECTED The [facility] Comment on above: Performed By: #### R SPLUS #### [facility] Laboratory [address] [place] [address] Dr. Emilie Carmona Coronavirus HKU1 Not detected Normal NOT DETECTED The [facility] Comment on above: Performed By: #### R SPLUS #### [facility] Laboratory [address] [place] [address] Dr. Emilie Carmona Coronavirus NL63 Not detected Normal NOT DETECTED The [facility] Comment on above: Performed By: #### R SPLUS #### [facility] Laboratory [address] [place] [address] Dr. Emilie Carmona Coronavirus OC43 Not detected Normal NOT DETECTED The [facility] Comment on above: Performed By: #### R SPLUS #### [facility] Laboratory [address] [place] [address] Dr. Emilie Carmona Influenza A H1 Not detected Normal NOT DETECTED [facility] Comment on above: Performed By: #### R SPLUS #### [facility] Laboratory [address] [place] [address] Dr. Emilie Carmona Influenza A H1 2009 Detected Abnormal NOT DETECTED The [facility] Comment on above: Performed By: #### R SPLUS #### [facility] Laboratory [address] [place] [address] Dr. Emilie Carmona Influenza A H3 Not detected Normal NOT DETECTED [facility] Comment on above: Performed By: #### R SPLUS #### [facility] Laboratory [address] [place] [address] Dr. Emilie Carmona Influenza B Not detected Normal NOT DETECTED [facility] Comment on above: Performed By: #### R SPLUS #### [facility] Laboratory [address] [place] [address] Dr. Emilie Carmona Metapneumovirus Not detected Normal NOT DETECTED [facility] Comment on above: Performed By: #### R SPLUS #### [facility] Laboratory [address] [place] [address] Dr. Emilie Carmona Mycoplas. Pneumoniae Not detected Normal NOT DETECTED The [facility] Comment on above: Performed By: #### R SPLUS #### [facility] Laboratory [address] [place] [address] Dr. Emilie Carmona Parainfluenza 1 Not detected Normal NOT DETECTED [facility] Comment on above: Performed By: #### R SPLUS #### [facility] Laboratory [address] [place] [address] Dr. Emilie Carmona Parainfluenza 2 Not detected Normal NOT DETECTED [facility] Comment on above: Performed By: #### R SPLUS #### [facility] Laboratory [address] [place] [address] Dr. Emilie Carmona Parainfluenza 3 Not detected Normal NOT DETECTED [facility] Comment on above: Performed By: #### R SPLUS #### [facility] Laboratory [address] [place] [address] Dr. Emilie Carmona Parainfluenza 4 Not detected Normal NOT DETECTED [facility] Comment on above: Performed By: #### R SPLUS #### [facility] Laboratory [address] [place] [address] Dr. Emilie Carmona Rhino/Enterovirus Not detected Normal NOT DETECTED The [facility] Comment on above: Performed By: #### R SPLUS #### [facility] Laboratory [address] [place] [address] Dr. Emilie FRASER Header 1 RESPIRATORY PANEL: VIRUSES Normal The [facility] Comment on above: Performed By: #### R SPLUS #### [facility] Laboratory [address] [place] [address] Dr. Emilie FRASER Header 2 RESPIRATORY PANEL: BACTERIA Normal The [facility] Comment on above: Performed By: #### R SPLUS #### [facility] Laboratory [address] [place] [address] Dr. Emilie Carmona RSV Not detected Normal NOT DETECTED The [facility] Comment on above: Performed By: #### R SPLUS #### [facility] Laboratory [address] [address] [address] Emilie Carmona SARS-CoV-2 (COVID-19) RNA CHASITY+probe Ql (Unsp spec) Detected Abnormal NOT DETECTED The [facility] Comment on above: Performed By: #### R SPLUS #### [facility] Laboratory [address] [place] [address] Dr. Emilie Carmona SPUTUM GRAM STAINon 12-26-19 COMMENTS Normal [facility] Comment on above: Performed By: #### C BC #### [facility] Laboratory [address] [place] [address] Dr. Emilie Carmona DIPHTHEROIDS Normal [facility] Comment on above: Performed By: #### C BC #### [facility] Laboratory [address] [place] [address] Dr. Emilie Carmona EPITHELIALS <25 Normal [facility] Comment on above: Performed By: #### C BC #### [facility] Laboratory [address] [place] [address] Dr. Emilie Carmona FUNGAL ELEMENTS Normal [facility] Comment on above: Performed By: #### C BC #### [facility] Laboratory [address] [address] [address] Emilie Carmona GRAM NEG BACILLI [facility] Comment on above: Performed By: #### C BC #### [facility] Laboratory [address] [place] [address] Dr. Emilie Carmona GRAM NEG DIPPLOCOCCI FEW Normal [facility] [facility] Comment on above: Performed By: #### C BC #### [facility] Laboratory [address] [place] [address] Dr. Emilie Carmona GRAM POS BACILLI Normal [facility] Comment on above: Performed By: #### C BC #### [facility] Laboratory [address] [address] [address] Emilie Carmona GRAM POSITIVE COCCI Normal [facility] Comment on above: Performed By: #### C BC #### [facility] Laboratory [address] [place] [address] Dr. Emilie Carmona WBC (Bld) [#/Vol] 10*3/uL Normal [facility] Comment on above: Performed By: #### C BC #### [facility] Laboratory [address] [place] [address] Dr. Emilie Carmona URINE MICROSCOPIC ONLYon BACTERIA SMALL Abnormal NONE SEEN [facility] Comment on above: Performed By: #### R SPLUS #### [facility] Laboratory [address] [place] [address] Dr. Emilie Carmona Bacteria identified Cx Nom (U) INDICATED Normal [facility] Comment on above: Performed By: #### R SPLUS #### [facility] Laboratory [address] [place] [address] Dr. Emilie Carmona CAST SEEN Abnormal NONE SEEN [facility] Comment on above: Performed By: #### R SPLUS #### [facility] Laboratory [address] [place] [address] Dr. Emilie Carmona Crystals LM Nom (Urine sed) NONE SEEN Normal NONE SEEN [facility] Comment on above: Performed By: #### R SPLUS #### [facility] Laboratory [address] [place] [address] Dr. Emilie Carmona Epithelial cells LM Ql (Urine sed) FEW Abnormal NONE SEEN /RARE [facility] Comment on above: Performed By: #### R SPLUS #### [facility] Laboratory [address] [place] [address] Dr. Emilie Carmona HYALINE CAST RARE Normal [facility] Comment on above: Performed By: #### R SPLUS #### [facility] Laboratory [address] [place] [address] Dr. Emilie Carmona MUCOUS NONE SEEN Normal NONE SEEN [facility] Comment on above: Performed By: #### R SPLUS #### [facility] Laboratory [address] [place] [address] Dr. Emilie Carmona RBC 10-20 Abnormal 0-2 [facility] Comment on above: Performed By: #### R SPLUS #### [facility] Laboratory [address] [place] [address] Dr. Emilie Carmona WBC 2-5 Abnormal NONE SEEN [facility] Comment on above: Performed By: #### R SPLUS #### [facility] Laboratory [address] [place] [address] Dr. Emilie Carmona XR CHEST 1 Von 12-25-2022 XR CHEST 1 V EXAM: XR CHEST 1 V INDICATION: SHORTNESS OF BREATH. COMPARISON: Chest radiograph 06/14/2022 TECHNIQUE: Single frontal view of the chest FINDINGS: Normal cardiomediastinal contours. No acute infiltrative process. No pleural effusion or pneumothorax. No acute osseous abnormality. IMPRESSION: No acute cardiopulmonary process. Electronically authenticated by: DELL BENITEZ Date: 2022-12-25 15:54 Normal [facility] XR DEXA BONE DENSITYon 06-22 XR DEXA [...] by: KARISSA COLBY Date: 2022-06-22 15:50 Normal [facility] CBC AUTO DIFFon 06-16-2022 BASO # 0.1 103/ul Normal 0.0-0.1 [facility] Comment on above: Performed By: #### C BC #### [facility] Laboratory [address] [address] [address] Emilie Carmona Basophils/100 WBC (Bld) 0.9 % Normal 0.2-2.0 [facility] Comment on above: Performed By: #### C BC #### [facility] Laboratory [address] [address] [address] Emilie Carmona EO # 0.4 103/ul Normal 0.0-0.7 [facility] Comment on above: Performed By: #### C BC #### [facility] Laboratory [address] [address] [address] Emilie Carmona Eosinophils/100 WBC (Bld) 5.7 % Normal 0.9-7.0 [facility] Comment on above: Performed By: #### C BC #### [facility] Laboratory [address] [place] [address] Dr. Emilie Carmona Erythrocyte distribution width (RBC) [Ratio] 13.5 % Normal 11.0-15.0 [facility] Comment on above: Performed By: #### C BC #### [facility] Laboratory [address] [place] [address] Dr. Emilie Carmona Hematocrit (Bld) [Volume fraction] 32.9 % Critically low 36.0-48.0 [facility] Comment on above: Performed By: #### C BC #### [facility] Laboratory [address] [place] [address] Dr. Emilie Carmona Hemoglobin (Bld) [Mass/Vol] 10.6 g/dL Critically low 12.0-16.0 [facility] Comment on above: Performed By: #### C BC #### [facility] Laboratory [address] [place] [address] Dr. Emilie Carmona IG # 0.02 10e3/ul Normal 0.00-0.03 [facility] Comment on above: Performed By: #### C BC #### [facility] Laboratory [address] [place] [address] Dr. Emilie Carmona IG % 0.3 % Normal 0.0-0.5 [facility] Comment on above: Performed By: #### C BC #### [facility] Laboratory [address] [place] [address] Dr. Emilie Carmona LYMPH # 1.8 103/ul Normal 1.2-3.8 [facility] Comment on above: Performed By: #### C BC #### [facility] Laboratory [address] [place] [address] Dr. Emilie Carmona Lymphocytes/100 WBC (Bld) 28.4 % Normal 20.5-60.0 [facility] Comment on above: Performed By: #### C BC #### [facility] Laboratory [address] [place] [address] Dr. Emilie Carmona MANUAL DIFF REQ NO Normal [facility] Comment on above: Performed By: #### C BC #### [facility] Laboratory [address] [place] [address] Dr. Emilie Carmona MCH (RBC) [Entitic mass] 28.5 pg Normal 26.7-34.0 [facility] Comment on above: Performed By: #### C BC #### [facility] Laboratory [address] [place] [address] Dr. Emilie Carmona MCHC (RBC) [Mass/Vol] 32.2 g/dL Normal 29.9-35.2 [facility] Comment on above: Performed By: #### C BC #### [facility] Laboratory [address] [place] [address] Dr. Emilie Carmona MCV (RBC) [Entitic vol] 88.4 fL Normal 81.0-99.0 [facility] Comment on above: Performed By: #### C BC #### [facility] Laboratory [address] [place] [address] Dr. Emilie Carmona MONO # 0.7 103/ul Normal 0.3-0.8 [facility] Comment on above: Performed By: #### C BC #### [facility] Laboratory [address] [place] [address] Dr. Emilie Carmona Monocytes/100 WBC (Bld) 11.0 % Normal 1.7-12.0 [facility] Comment on above: Performed By: #### C BC #### [facility] Laboratory [address] [place] [address] Dr. Emilie Carmona NEUT # 3.5 103/ul Normal 1.4-6.5 [facility] Comment on above: Performed By: #### C BC #### [facility] Laboratory [address] [place] [address] Dr. Emilie Carmona Neutrophils/100 WBC (Bld) 53.7 % Normal 43.0-75.0 [facility] Comment on above: Performed By: #### C BC #### [facility] Laboratory [address] [place] [address] Dr. Emilie Carmona Platelet mean volume (Bld) [Entitic vol] 11.6 fL Normal 9.5-13.5 [facility] Comment on above: Performed By: #### C BC #### [facility] Laboratory [address] [place] [address] Dr. Emilie Carmona PLT 223 103/ul Normal 150-450 [facility] Comment on above: Performed By: #### C BC #### [facility] Laboratory [address] [place] [address] Dr. Emilie Carmona RBC 3.72 106/ul Critically low 4.20-5.40 [facility] Comment on above: Performed By: #### C BC #### [facility] Laboratory [address] [place] [address] Dr. Emilie Carmona WBC 6.4 103/ul Normal 4.0-11.0 [facility] Comment on above: Performed By: #### C BC #### [facility] Laboratory [address] [place] [address] Dr. Emilie Carmona PROF CHEM 8 (BAS METB)on Anion gap [Moles/Vol] 10.4 mmol/L Normal [facility] Comment on above: Performed By: #### C BC #### [facility] Laboratory [address] [place] [address] Dr. Emilie Carmona Calcium [Mass/Vol] 9.8 mg/dL Normal 8.5-10.1 [facility] Comment on above: Performed By: #### C BC #### [facility] Laboratory [address] [place] [address] Dr. Emilie Carmona Chloride [Moles/Vol] 105 mmol/L Normal 98-107 [facility] Comment on above: Performed By: #### C BC #### [facility] Laboratory [address] [place] [address] Dr. Emilie Carmona CO2 [Moles/Vol] 25.0 mmol/L Normal 21.0-32.0 [facility] Comment on above: Performed By: #### C BC #### [facility] Laboratory [address] [place] [address] Dr. Emilie Carmona Creatinine [Mass/Vol] 0.87 mg/dL Normal 0.55-1.02 [facility] Comment on above: Performed By: #### C BC #### [facility] Laboratory [address] [place] [address] Dr. Emilie Carmona EGFR-AF GAMBIAN >60 Normal >=60 [facility] Comment on above: Performed By: #### C BC #### [facility] Laboratory [address] [address] [address] Emilie Carmona EGFR-NON AF GAMBIAN >60 Normal >=60 [facility] Comment on above: Performed By: #### C BC #### [facility] Laboratory [address] [address] [address] Emilie Carmona Glucose [Mass/Vol] 105 mg/dL Normal 74-106 [facility] Comment on above: Performed By: #### C BC #### [facility] Laboratory [address] [address] [address] Emilie Carmona Potassium [Moles/Vol] 3.4 mmol/L Critically low 3.5-5.1 [facility] Comment on above: Performed By: #### C BC #### [facility] Laboratory [address] [address] [address] Emilie Carmona Sodium [Moles/Vol] 137 mmol/L Normal 136-145 [facility] Comment on above: Performed By: #### C BC #### [facility] Laboratory [address] [address] [address] Emilie Carmona Urea nitrogen [Mass/Vol] 12.0 mg/dL Normal 7.0-18.0 [facility] Comment on above: Performed By: #### C BC #### [facility] Laboratory [address] [address] [address] Emilie Carmona Urea nitrogen/Creatinine [Mass ratio] 13.8 mg/mg Normal [facility] Comment on above: Performed By: #### C BC #### [facility] Laboratory [address] [address] [address] Emilie Carmona CBC AUTO DIFFon 06-15-2022 BASO # 0.1 103/ul Normal 0.0-0.1 [facility] Comment on above: Performed By: #### C BC ####[facility] [address] [address]Dr. Emilie Carmona Basophils/100 WBC (Bld) 0.7 % Normal 0.2-2.0 [facility] Comment on above: Performed By: #### C BC ####[facility] [address] [address]Dr. Emilie aCrmona EO # 0.2 103/ul Normal 0.0-0.7 [facility] Comment on above: Performed By: #### C BC ####[facility] [address] [place], [place] [address]Dr. Savileslie Carmona Eosinophils/100 WBC (Bld) 2.4 % Normal 0.9-7.0 [facility] Comment on above: Performed By: #### C BC ####[facility] [address] [place], [place] [address]Dr. Savileslie Carmona Erythrocyte distribution width (RBC) [Ratio] 13.5 % Normal 11.0-15.0 [facility] Comment on above: Performed By: #### C BC ####[facility] [address] [place], [place] [address]Dr. Savileslie Carmona Hematocrit (Bld) [Volume fraction] 35.3 % Critically low 36.0-48.0 [facility] Comment on above: Performed By: #### C BC ####[facility] [address] [place], [place] [address]Dr. Emilie Carmona Hemoglobin (Bld) [Mass/Vol] 11.5 g/dL Critically low 12.0-16.0 [facility] Comment on above: Performed By: #### C BC ####[facility] [address] [place], [place] [address]Dr. Savileslie Carmona IG # 0.01 10e3/ul Normal 0.00-0.03 [facility] Comment on above: Performed By: #### C BC ####[facility] [address] [place], [place] [address]Dr. Savileslie Carmona IG % 0.1 % Normal 0.0-0.5 The [facility] Comment on above: Performed By: #### C BC ####[facility] [address] [place], [place] [address]DrBrenton Carmona LYMPH # 1.6 103/ul Normal 1.2-3.8 [facility] Comment on above: Performed By: #### C BC ####[facility] [address] [id number]. Savileslie Carmona Lymphocytes/100 WBC (Bld) 23.3 % Normal 20.5-60.0 [facility] Comment on above: Performed By: #### C BC ####[facility] [address] [phone]. Emilie Carmona MANUAL DIFF REQ NO Normal [facility] Comment on above: Performed By: #### C BC ####[facility] [address] [phone]. Emilie Carmona MCH (RBC) [Entitic mass] 28.9 pg Normal 26.7-34.0 [facility] Comment on above: Performed By: #### C BC ####[facility] [address] [phone]. Emilie Carmona MCHC (RBC) [Mass/Vol] 32.6 g/dL Normal 29.9-35.2 The [facility] Comment on above: Performed By: #### C BC ####[facility] [address] [phone]. Emilie Carmona MCV (RBC) [Entitic vol] 88.7 fL Normal 81.0-99.0 The [facility] Comment on above: Performed By: #### C BC ####[facility] [address] [phone]. Emilie Carmona MONO # 0.8 103/ul Normal 0.3-0.8 The [facility] Comment on above: Performed By: #### C BC ####[facility] [address] [phone]. Emilie Carmona Monocytes/100 WBC (Bld) 11.9 % Normal 1.7-12.0 The [facility] Comment on above: Performed By: #### C BC ####[facility] [address] [phone] Carmona NEUT # 4.3 103/ul Normal 1.4-6.5 [facility] Comment on above: Performed By: #### C BC ####[facility] [address] [phone]. Emilie Carmona Neutrophils/100 WBC (Bld) 61.6 % Normal 43.0-75.0 [facility] Comment on above: Performed By: #### C BC ####[facility] [address] [phone] Carmona Platelet mean volume (Bld) [Entitic vol] 11.9 fL Normal 9.5-13.5 [facility] Comment on above: Performed By: #### C BC ####[facility] [address] [phone]. Emilie Carmona PLT 247 103/ul Normal 150-450 [facility] Comment on above: Performed By: #### C BC ####[facility] [address] [phone] Carmona RBC 3.98 106/ul Critically low 4.20-5.40 [facility] Comment on above: Performed By: #### C BC ####[facility] [address] [phone] Carmona WBC 7.0 103/ul Normal 4.0-11.0 [facility] Comment on above: Performed By: #### C BC ####[facility] [address] [phone] Carmona FREE T3on 06-15-2022 FREE T3 1.29 pg/mlL Critically low 2.18-3.98 [facility] Comment on above: Performed By: #### F T3, TSH ####[facility] [address] [phone] Carmona PROF CHEM 8 (BAS METB)on Anion gap [Moles/Vol] 10.0 mmol/L Normal [facility] Comment on above: Performed By: #### B MP ####[facility] [address] [phone] Carmona Calcium [Mass/Vol] 9.8 mg/dL Normal 8.5-10.1 [facility] Comment on above: Performed By: #### B MP ####[facility] [address] [address]Dr. Savileslie Mathew Chloride [Moles/Vol] 102 mmol/L Normal 98-107 [facility] Comment on above: Performed By: #### B MP ####[facility] [address] [address]Dr. Savileslie Mathew CO2 [Moles/Vol] 28.0 mmol/L Normal 21.0-32.0 [facility] Comment on above: Performed By: #### B MP ####[facility] [address] [place], [place] [address]Dr. Emilie Carmona Creatinine [Mass/Vol] 0.91 mg/dL Normal 0.55-1.02 [facility] Comment on above: Performed By: #### B MP ####[facility] X[address] [place], [place] [address]Dr. Savileslie Mathew EGFR-AF GAMBIAN >60 Normal >=60 [facility] Comment on above: Performed By: #### B MP ####[facility] [address] [place], [place] [address]Dr. Savileslie Mathew EGFR-NON AF GAMBIAN 59 mL/min/1.73m2 Critically low >=60 [facility] Comment on above: Performed By: #### B MP ####[facility] [address] [address]Dr. Emilie Carmona Glucose [Mass/Vol] 96 mg/dL Normal 74-106 [facility] Comment on above: Performed By: #### B MP ####[facility] [address] [address]Dr. Emilie Carmona Potassium [Moles/Vol] 3.0 mmol/L Critically low 3.5-5.1 [facility] Comment on above: Performed By: #### B MP ####[facility] [address] [address]Dr. Emilie Carmona Sodium [Moles/Vol] 137 mmol/L Normal 136-145 [facility] Comment on above: Performed By: #### B MP ####[facility] [address] [address]DrBrenton Carmona Urea nitrogen [Mass/Vol] 16.0 mg/dL Normal 7.0-18.0 [facility] Comment on above: Performed By: #### B MP ####[facility] [address] [address]DrBrenton Carmona Urea nitrogen/Creatinine [Mass ratio] 17.6 mg/mg Normal [facility] Comment on above: Performed By: #### B MP ####[facility] [address] [address]DrBrenton Carmona TSHon 06-15-2022 TSH 12.224 uIU/mL Critically high 0.358-3.740 [facility] Comment on above: Performed By: #### F T3, TSH ####[facility] [address] [address]DrBrenton Carmona CARDIAC MARYCRUZ 3-6on 2 CK [Catalytic activity/Vol] 163 U/L Normal 26-192 [facility] Comment on above: Performed By: #### R SPLUS #### [facility] Laboratory [address] [place] [address] Dr. Emilie Carmona CK.MB [Mass/Vol] 2.77 ng/mL Normal <=3.60 [facility] Comment on above: Performed By: #### R SPLUS #### [facility] Laboratory [address] [place] [address] Dr. Emilie Carmona HSTROP 8.5 pg/mL Normal 4.0-51.3 [facility] Comment on above: Result Comment: CUT- OFF POINTS HAVE BEEN ESTABLISHED BASED ON THE FOURTH UNIVERSAL DEFINITIONS OF MYOCARDIAL INFARCTION. THE UPPER REFERENCE LIMIT (URL) OF TROPONIN, DEFINED THE 99TH PERCENTILE OF cTnI DISTRIBUTION IN A REFERENCE POPULATION, HAS BEEN CONFIRMED THE DECISION THRESHOLD FOR MO DIAGNOSIS. Performed By: #### R SPLUS #### [facility] Laboratory [address] [place] [address] Dr. Emilie Carmona CK [Catalytic activity/Vol] 141 U/L Normal 26-192 [facility] Comment on above: Performed By: #### C BC #### [facility] Laboratory [address] [place] [address] Dr. Emilie Carmona CK.MB [Mass/Vol] 2.50 ng/mL Normal <=3.60 [facility] Comment on above: Performed By: #### C BC #### [facility] Laboratory [address] [place] [address] Dr. Emilie Carmnoa HSTROP 9.8 pg/mL Normal 4.0-51.3 [facility] [facility] Comment on above: Result Comment: CUT- OFF POINTS HAVE BEEN ESTABLISHED BASED ON THE FOURTH UNIVERSAL DEFINITIONS OF MYOCARDIAL INFARCTION. THE UPPER REFERENCE LIMIT (URL) OF TROPONIN, DEFINED THE 99TH PERCENTILE OF cTnI DISTRIBUTION IN A REFERENCE POPULATION, HAS BEEN CONFIRMED THE DECISION THRESHOLD FOR MO DIAGNOSIS. Performed By: #### C BC #### [facility] [address] [place] [address] Dr. Emilie Carmona CBC AUTO DIFFon 06-14-2022 BASO # 0.0 103/ul Normal 0.0-0.1 [facility] Comment on above: Performed By: #### C BC #### [facility] [address] [place] [address] Dr. Emilie Carmona Basophils/100 WBC (Bld) 0.5 % Normal 0.2-2.0 [facility] Comment on above: Performed By: #### C BC #### [facility] [address] [place] [address] Dr. Emilie Carmona EO # 0.0 103/ul Normal 0.0-0.7 [facility] Comment on above: Performed By: #### C BC #### [facility] [address] [place] [address] Dr. Emilie Carmona Eosinophils/100 WBC (Bld) 0.1 % Critically low 0.9-7.0 [facility] Comment on above: Performed By: #### C BC #### [facility] [address] [place] [address] Dr. Emilie Carmona Erythrocyte distribution width (RBC) [Ratio] 13.2 % Normal 11.0-15.0 [facility] Comment on above: Performed By: #### C BC #### [facility] [address] [place] [address] Dr. Emilie Carmona Hematocrit (Bld) [Volume fraction] 41.0 % Normal 36.0-48.0 [facility] Comment on above: Performed By: #### C BC #### [facility] [address] [place] [address] Dr. Emilie Carmona Hemoglobin (Bld) [Mass/Vol] 13.3 g/dL Normal 12.0-16.0 [facility] Comment on above: Performed By: #### C BC #### [facility] [address] [place] [address] Dr. Emilie Carmona IG # 0.03 10e3/ul Normal 0.00-0.03 [facility] Comment on above: Performed By: #### C BC #### [facility] [address] [place] [address] Dr. Emilie Carmona IG % 0.4 % Normal 0.0-0.5 [facility] Comment on above: Performed By: #### C BC #### [facility] [address] [place] [address] Dr. Emilie Carmona LYMPH # 1.4 103/ul Normal 1.2-3.8 [facility] Comment on above: Performed By: #### C BC #### [facility] [address] [place] [address] Dr. Emilie Carmona Lymphocytes/100 WBC (Bld) 15.9 % Critically low 20.5-60.0 [facility] Comment on above: Performed By: #### C BC #### [facility] [address] [place] [address] Dr. Emilie Carmona MANUAL DIFF REQ NO Normal [facility] Comment on above: Performed By: #### C BC #### [facility] [address] [place] [address] Dr. Emilie Carmona MCH (RBC) [Entitic mass] 28.6 pg Normal 26.7-34.0 [facility] Comment on above: Performed By: #### C BC #### [facility] [address] [address] [address] Emilie Carmona MCHC (RBC) [Mass/Vol] 32.4 g/dL Normal 29.9-35.2 [facility] Comment on above: Performed By: #### C BC #### [facility] [address] [address] [address] Emilie Carmona MCV (RBC) [Entitic vol] 88.2 fL Normal 81.0-99.0 [facility] Comment on above: Performed By: #### C BC #### [facility] [address] [address] [address] Emilie Carmona MONO # 0.9 103/ul Critically high 0.3-0.8 [facility] Comment on above: Performed By: #### C BC #### [facility] [address] [address] [address] Emilie Carmona Monocytes/100 WBC (Bld) 9.9 % Normal 1.7-12.0 [facility] Comment on above: Performed By: #### C BC #### [facility] [address] [place] [address] Dr. Emilie Carmona NEUT # 6.3 103/ul Normal 1.4-6.5 [facility] Comment on above: Performed By: #### C BC #### [facility] [address] [address] [address] Emilie Carmona Neutrophils/100 WBC (Bld) 73.2 % Normal 43.0-75.0 [facility] Comment on above: Performed By: #### C BC #### [facility] [address] [address] [address] Emilie Carmona Platelet mean volume (Bld) [Entitic vol] 11.6 fL Normal 9.5-13.5 [facility] Comment on above: Performed By: #### C BC #### [facility] [address] [address] [address] Emilie Carmona PLT 269 103/ul Normal 150-450 [facility] Comment on above: Performed By: #### C BC #### [facility] [address] [place], [place] [address] Dr. Emilie Carmona RBC 4.65 106/ul Normal 4.20-5.40 [facility] Comment on above: Performed By: #### C BC #### [facility] [address] [place], [place] [address] Dr. Emilie Carmona WBC 8.6 103/ul Normal 4.0-11.0 [facility] Comment on above: Performed By: #### C BC #### [facility] [address] [id number] Emilie Carmona Covid-19 PCR (CVDTBH)on 06-01 SARS-CoV-2 (COVID-19) RNA CHASITY+probe Ql (Unsp spec) Not detected Normal NOT DETECTED [facility] Comment on above: Result Comment: When diagnostic [...] for this test is supported by the Supervisor [employer] of Health and Human Service's declaration that [...] be used). Performed By: #### C VDTBH ####[facility] [id number] [id number][address] Emilie Carmona ER URINE PROFILEon 2 Bilirubin Ql (U) SMALL Abnormal NEGATIVE [facility] Comment on above: Performed By: #### R SPLUS #### [facility] [address] [id number] Emilie Carmona Clarity (U) SL CLOUDY Abnormal CLEAR [facility] Comment on above: Performed By: #### R SPLUS #### [facility] [address] [address] [address] Emilie Carmona Color (U) YELLOW Normal YELLOW [facility] Comment on above: Performed By: #### R SPLUS #### [facility] [address] [place] [address] Dr. Emilie Carmona ERUAHD A micrscopic examination will be performed if indicated. Normal [facility] Comment on above: Performed By: #### R SPLUS #### [facility] [address] [place] [address] Dr. Emilie Carmona Glucose Ql (U) Negative Normal NEGATIVE [facility] Comment on above: Performed By: #### R SPLUS #### [facility] [address] [place] [address] Dr. Emilie Carmona Hemoglobin Ql (U) TRACE-INTACT Abnormal NEGATIVE [facility] Comment on above: Performed By: #### R SPLUS #### [facility] [address] [place] [address] Dr. Emilie Carmona Ketones Ql (U) 40 mg/dl Abnormal NEGATIVE [facility] Comment on above: Performed By: #### R SPLUS #### [facility] [address] [place] [address] Dr. Emilie Carmona LEUKOCYTES Negative Normal NEGATIVE [facility] Comment on above: Performed By: #### R SPLUS #### [facility] [address] [address] [address] Emilie Carmona Nitrite Ql (U) Negative Normal NEGATIVE [facility] Comment on above: Performed By: #### R SPLUS #### [facility] [address] [address] [address] Emilie Carmona pH (U) 5.5 [pH] Normal 5-9 [facility] Comment on above: Performed By: #### R SPLUS #### [facility] [address] [place] [address] Dr. Emilie Carmona SPEC GRAVITY 1.030 Abnormal 1.005-<=1.025 [facility] Comment on above: Performed By: #### R SPLUS #### [facility] [address] [address] [address] Emilie Carmona UA PROTEIN Negative Normal NEGATIVE/ TRACE [facility] Comment on above: Performed By: #### R SPLUS #### [facility] [address] [address] [address] Emilie Carmona UR MICRO IND INDICATED Normal [facility] Comment on above: Performed By: #### R SPLUS #### [facility] [address] [place] [address] Dr. Emilie Carmona Urobilinogen Qn (U) 0.2 {Warren'U}/dL Normal 0.2 - 1. 0 [facility] Comment on above: Performed By: #### R SPLUS #### [facility] [address] [place] [address] Dr. Emilie Carmona FREE T4on 06-14-2022 Free T4 [Mass/Vol] 0.75 ng/dL Critically low 0.76-1.46 [facility] Comment on above: Performed By: #### F T4, VITAD, FETIBC, B12FOL ####[facility] [id number] [address]. Emilie Carmona IRON AND TIBCon 06-14-2022 % SATURATION 6.7 % Normal [facility] Comment on above: Performed By: #### C BC #### [facility] [address] [place] [address] Dr. Emilie Carmona Iron [Mass/Vol] 21.0 ug/dL Critically low 50.0-170.0 [facility] Comment on above: Performed By: #### C BC #### [facility] [address] [place] [address] Dr. Emilie Carmona TIBC DIRECT 312.0 ug/dL Normal 250.0-450.[address] [facility] Comment on above: Performed By: #### C BC #### [facility] [address] [address] [address] Emilie Carmona MYOGLOBINon 06-14-2022 MAXIMILIAN 268 ng/mL Critically high 9-82 [facility] Comment on above: Performed By: #### M YO ####[facility] [id number] [address]. Emilie Carmona PROF CHEM 8 (BAS METB)on Anion gap [Moles/Vol] 12.8 mmol/L Normal [facility] Comment on above: Performed By: #### C BC #### [facility] [address] [address] [address] Emilie Carmona Calcium [Mass/Vol] 10.7 mg/dL Critically high 8.5-10.1 [facility] Comment on above: Performed By: #### C BC #### [facility] [address] [address] [address] Emilie Carmona Chloride [Moles/Vol] 100 mmol/L Normal 98-107 [facility] Comment on above: Performed By: #### C BC #### [facility] [address] [address] [address] Emilie Carmona CO2 [Moles/Vol] 25.6 mmol/L Normal 21.0-32.0 [facility] Comment on above: Performed By: #### C BC #### [facility] [address] [address] [address] Emilie Carmona Creatinine [Mass/Vol] 1.05 mg/dL Critically high 0.55-1.02 [facility] Comment on above: Performed By: #### C BC #### [facility] [address] [address] [address] Emilie Carmona EGFR-AF GAMBIAN >60 Normal >=60 [facility] Comment on above: Performed By: #### C BC #### [facility] [address] [address] [address] Emilie Carmona EGFR-NON AF GAMBIAN 50 mL/min/1.73m2 Critically low >=60 [facility] Comment on above: Performed By: #### C BC #### [facility] [address] [address] [address] Emilie Carmona Glucose [Mass/Vol] 129 mg/dL Critically high 74-106 T [facility] Comment on above: Performed By: #### C BC #### [facility] [address] [place] [address] Dr. Emilie Carmona Potassium [Moles/Vol] 3.4 mmol/L Critically low 3.5-5.1 [facility] Comment on above: Performed By: #### C BC #### [facility] [address] [place] [address] Dr. Emilie Carmona Sodium [Moles/Vol] 135 mmol/L Critically low 136-145 [facility] Comment on above: Performed By: #### C BC #### [facility] Laboratory [address] [place] [address] Dr. Emilie Carmona Urea nitrogen [Mass/Vol] 19.0 mg/dL Critically high 7.0-18.0 [facility] Comment on above: Performed By: #### C BC #### [facility] Laboratory [address] [place] [address] Dr. Emilie Carmona Urea nitrogen/Creatinine [Mass ratio] 18.1 mg/mg Normal [facility] Comment on above: Performed By: #### C BC #### [facility] [address] [place] [address] Dr. Emilie Carmona URINE MICROSCOPIC ONLYon BACTERIA NONE SEEN Normal NONE SEEN [facility] Comment on above: Performed By: #### R SPLUS #### [facility] [address] [place] [address] Dr. Emilie Carmona Bacteria identified Cx Nom (U) NOT INDICATED Normal [facility] Comment on above: Performed By: #### R SPLUS #### [facility] Laboratory [address] [place] [address] Dr. Emilie Carmona CAST SEEN Abnormal NONE SEEN [facility] Comment on above: Performed By: #### R SPLUS #### [facility] Laboratory [address] [place] [address] Dr. Emilie Carmona Crystals LM Nom (Urine sed) NONE SEEN Normal NONE SEEN [facility] Comment on above: Performed By: #### R SPLUS #### [facility] Laboratory [address] [place] [address] Dr. Emilie Carmona Epithelial cells LM Ql (Urine sed) FEW Abnormal NONE SEEN /RARE [facility] Comment on above: Performed By: #### R SPLUS #### [facility] Laboratory [address] [place] [address] Dr. Emilie Carmona MUCOUS NONE SEEN Normal NONE SEEN [facility] Comment on above: Performed By: #### R SPLUS #### [facility] [address] [place] [address] Dr. Emilie Carmona RBC 0-2 Normal 0-2 [facility] Comment on above: Performed By: #### R SPLUS #### [facility] [address] [place] [address] Dr. Emilie Carmona WBC 0-2 Abnormal NONE SEEN [facility] Comment on above: Performed By: #### R SPLUS #### [facility] Laboratory [address] [place] [address] Dr. Emilie Carmona VIT B12 AND FOLATEon 022 Cobalamin (Vitamin B12) [Mass/Vol] 426.0 pg/mL Normal 193.0-986.0 [facility] Comment on above: Performed By: #### C BC #### [facility] Laboratory [address] [place] [address] Dr. Emilie Carmona FOLATE 12.10 ng/mL Normal 8.60-58.90 [facility] Comment on above: Performed By: #### C BC #### [facility] Laboratory [address] [place] [address] Dr. Emilie Carmona VITAMIN D 25 OHon 06-14-2022 VIT D 25-OH 75.5 ng/mL Normal [facility] Comment on above: Performed By: #### C BC #### [facility] Laboratory [address] [place] [address] Dr. Emilie Carmona VIT D RANGES SEE BELOW Normal [facility] Comment on above: Result Comment: <20 ng/mL Vit D deficient 20 - <30 ng/mL Vit D insufficient 30 - 100 ng/mL Vit D sufficient >100 ng/mL Potential Toxicity Performed By: #### C BC #### [facility] [address] [address] [address] Emilie Carmona XR ABD FLAT_UPon 06-14-2022 [...] by: ALEIDA TAVERAS Date: 2022-06-14 12:35 Normal [facility] XR CHEST 1 Von 06-14-2022 XR CHEST [...] by: ALEIDA TAVERAS Date: 2022-06-14 07:10 Normal [facility] XR HIPS LYNDA 5V W PELVISon XR HIPS LYNDA 5V W PELVIS EXAMINATION: XR HIPS LYNDA 5V W PELVIS HISTORY: Pain COMPARISON: No relevant comparison available. FINDINGS: RIGHT FINDINGS: BONES: No acute fracture or dislocation. Hesq-aq-wbufjxic hip osteoarthropathy SOFT TISSUES: Negative. No visible soft tissue swelling. OTHER: Lumbar posterior decompression and transpedicular fusion LEFT FINDINGS: BONES: No acute fracture or dislocation. Siam-cf-zncgmelz hip osteoarthropathy SOFT TISSUES: Negative. No visible soft tissue swelling. OTHER: Negative. IMPRESSION: RIGHT CONCLUSION: Osteoarthritis. No acute fracture LEFT CONCLUSION: Osteoarthritis. No acute fracture Electronically authenticated by: ALEIDA TAVERAS Date: 2022-06-14 07:15 Normal [facility] XR LSPINE 2_3 VIEWSon 2021 XR LSPINE [...] ALEIDA TAVERAS Date: 2022-06-14 07:12 Normal [facility] Comprehensive Metabolic Pane edson 09-21-2021 Albumin [Mass/Vol] 4.5 g/dL Normal 3.6-5.1 [facility] Comment on above: Performed By: #### V ITD, FT3, FT4, CMP, TSH #### [facility] [address], [place] [id number] Albumin/Globulin [Mass ratio] 1.5 {ratio} Normal 1.0-2.5 [facility] Comment on above: Performed By: #### V ITD, FT3, FT4, CMP, TSH #### [facility] [address], [place] [id number] ALP [Catalytic activity/Vol] 103 U/L Normal 35-119 [facility] Comment on above: Performed By: #### V ITD, FT3, FT4, CMP, TSH #### [facility] [address], [place] [id number] ALT [Catalytic activity/Vol] 18 U/L Normal 6-33 [facility] Comment on above: Result Comment: 07/01 Female reference range changed. Performed By: #### V ITD, FT3, FT4, CMP, TSH #### [facility] [address], [place] [id number] Anion gap [Moles/Vol] 24 mmol/L High 12-20 [facility] Comment on above: Result Comment: Effe ctive 08/06/2019 reference range changed. Performed By: #### V ITD, FT3, FT4, CMP, TSH #### [facility] [address], [place] [id number] AST [Catalytic activity/Vol] 16 U/L Normal 9-34 [facility] Comment on above: Performed By: #### V ITD, FT3, FT4, CMP, TSH #### [facility] [address], [place] [id number] BUN/CREA 27 Ratio High 6-22 [facility] Comment on above: Performed By: #### V ITD, FT3, FT4, CMP, TSH #### [facility] [address], [place] [id number] Calcium [Mass/Vol] 10.7 mg/dL High 8.6-10.2 [facility] Comment on above: Performed By: #### V ITD, FT3, FT4, CMP, TSH #### [facility] [address], [place] [id number] Chloride [Moles/Vol] 103 mmol/L Normal 98-107 [facility] Comment on above: Performed By: #### V ITD, FT3, FT4, CMP, TSH #### [facility] [address], [place] [id number] CO2 [Moles/Vol] 17 mmol/L Low 20-31 [facility] Comment on above: Performed By: #### V ITD, FT3, FT4, CMP, TSH #### [facility] [address], [place] [id number] Creatinine [Mass/Vol] 1.1 mg/dL Normal 0.6-1.4 [facility] Comment on above: Performed By: #### V ITD, FT3, FT4, CMP, TSH #### [facility] [address], [place] [id number] eGFRAA 60 mL/min/1.73m2 Low >60 [facility] Comment on above: Performed By: #### V ITD, FT3, FT4, CMP, TSH #### [facility] [address], [place] [id number] eGFRNAA 49 mL/min/1.73m2 Low >60 [facility] Comment on above: Performed By: #### V ITD, FT3, FT4, CMP, TSH #### [facility] [address], [place] [id number] Globulin (S) [Mass/Vol] 3.0 g/dL Normal 1.9-3.7 [facility] Comment on above: Performed By: #### V ITD, FT3, FT4, CMP, TSH #### [facility] [address], [place] [id number] Glucose [Mass/Vol] 109 mg/dL High 65-99 [facility] Comment on above: Result Comment: For FASTING Glucose --- ADA reference ranges: Normal 65-99 mg/dl Prediabetes 100-125 Diabetes >/= 126 Performed By: #### V ITD, FT3, FT4, CMP, TSH #### [facility] [address], [place] [id number] Potassium [Moles/Vol] 4.7 mmol/L Normal 3.5-5.5 [facility] Comment on above: Performed By: #### V ITD, FT3, FT4, CMP, TSH #### [facility] [address], [place] [id number] Protein [Mass/Vol] 7.5 g/dL Normal 6.1-8.1 [facility] Comment on above: Performed By: #### V ITD, FT3, FT4, CMP, TSH #### [facility] [address], [place] [id number] Sodium [Moles/Vol] 139 mmol/L Normal 135-146 [facility] Comment on above: Performed By: #### V ITD, FT3, FT4, CMP, TSH #### [facility] [address], [place] [id number] TBIL <0.3 Normal [facility] Comment on above: Performed By: #### V ITD, FT3, FT4, CMP, TSH #### [facility] [address], [place] [id number] Urea nitrogen [Mass/Vol] 29 mg/dL High 7-25 [facility] Comment on above: Performed By: #### V ITD, FT3, FT4, CMP, TSH #### [facility] [address], [place] [id number] Free T3on 09-21-2021 FT3 1.79 pg/mL Low 2.00-4.40 [facility] Comment on above: Performed By: #### V ITD, FT3, FT4, CMP, TSH #### [facility] [address], [place] [id number] Free T4on 09-21-2021 Free T4 [Mass/Vol] 0.67 ng/dL Low 0.80-1.80 [facility] Comment on above: Performed By: #### V ITD, FT3, FT4, CMP, TSH #### [facility] [address], [place] [id number] TSHon 09-21-2021 TSH 0.611 uIU/mL Normal 0.400-4.500 [facility] Comment on above: Performed By: #### V ITD, FT3, FT4, CMP, TSH #### [facility] [address], [place] [id number] US Carotid, Bilateralon 09-02 US Carotid, Bilateral [...] by Tyrese Wisdom on 09/22/[address] [facility] Vitamin B12/Folateon 022 Cobalamin (Vitamin B12) [Mass/Vol] 383 pg/mL Normal 211-946 [facility] Comment on above: Performed By: #### B 12/Fol #### [facility] [address], [place] [id number] FOL 5.5 ng/mL Normal >4.7 [facility] Comment on above: Result Comment: Refe rence range change 06/17/2017. Prior reference range F 4.8-37.3 ng/mL, M 4.5-32.2 ng/mL. Performed By: #### B 12/Fol #### [facility] [address], [place] [id number] Vitamin D 25-OHon 09-21-2021 VIT D 25 OH 23 ng/ml Low >29 [facility] Branch Services Manager Comment on above: Result Comment: Latonia min D Status Deficiency <20 ng/mL Insufficiency 20-29 ng/mL Optimal 30-100 ng/mL Possible Toxicity >=150 ng/mL Performed By: #### V ITD, FT3, FT4, CMP, TSH #### [facility] [address], [place] [id number] Encounters Encounter Date Encounter Type Care Provider Facility Start: 12-26-2022 End: 12-29-2022 Evaluation and management of inpatient DR ALEIDA TAVERAS Facility: Start: 06-22-2022 End: 06-23-[address] MARLA KENDALL . Facility:[facility] Start: 06-14-2022 End: 06-16-[address] MARLA KENDALL . Facility:[facility] Start: 10-20-2017 End: 10-21-2017 Ambulatory DEFAULT PHYSICIAN Facility:[facility] Payers Date Payer Category Payer Medicare [id number] 1960 Medicare [id number] 1940 Unknown [id number] 1940 Unknown [id number] 1940 Unknown [id number] Unknown Clinical Note 06-14-2022 Note Date & Type Note Facility 06-14-2022 Note PROCEDURE: XR SHOULD ER LT 2V or > COMPARISON: None. HISTORY: Pain FINDINGS: BONES:No acute fracture or dislocation. Mild degenerative changes. SOFT TISSUES:Negative. No visible soft tissue swelling. EFFUSION:None visible. OTHER: Negative. IMPRESSION: No acute fracture Electronically authenticated by: ALEIDA TAVERAS Date: 2022-06-14 07:08 [facility] [place] Clinical Note 09-21-2021 Note Date & Type Note Facility 09-21-2021 Note PROCEDURE: eCircle Signa HDXT 1.5 Sagittal T1, T2, STIR [...] signed by Tyrese Wisdom on 09/22/2021 0902 [facility] Branch Services Manager Summary Purpose Family History No Family History Records FoundNo Family History Records FoundNo Family History Records Found Advance Directives No Advanced Directives Records FoundNo Advanced Directives Records FoundNo Advanced Directives Records Found Additional Source Comments INFORMATION SOURCE (unrecogn ized section and content) DATE CREATED AUTHOR 01/20/2018 [facility] DATE CREATED AUTHOR AUTHOR'S ORGANIZ ATION 09/24/2021 [facility] DATE CREATED AUTHOR AUTHOR'S ORGANIZ ATION 01/10/2023 [facility] FOR RECORDS PERTAINING TO PATIENTS WHO ARE [...] BE BASED ON THE PRIMARY CLINICAL RECORDS. [facility]. provides no warranty or guarantee of the accuracy or completeness of information in this document.
[2023-08-14] MEDS: CEFTRIAXONE 1,000 MG in 0.9 % SODIUM CHLORIDE 50 ML 100 MG IV (10:35)
[2023-08-14] MEDS: LACTATED RINGER'S SOLUTION 1,000 ML 100 ML IV ×2 (10:35→21:14)
[2023-08-14] MEDS: ACETAMINOPHEN 325 MG TABLET 650 MG PO ×2 (10:43→15:19)
[2023-08-14] MEDS: NITROFURANTOIN MONOHYD/MAC-CRST 100 MG CAPSULE PO (10:43)
[2023-08-14] MEDS: LEVOTHYROXINE SODIUM 100 MCG TABLET PO (10:49)
[2023-08-14] MEDS: DONEPEZIL HCL 10 MG TABLET PO ×2 (10:49→21:14)
[2023-08-14] MEDS: DULOXETINE HCL 60 MG CAPSULE.DR PO (10:49)
[2023-08-14] MEDS: MEMANTINE HCL 28 MG CAP XR PO (10:49)
--- NOTE | 2023-08-14 11:29 | PM.HP ---
H&P: HPI History of Present Illness Chief complaint: head injury/ fall Narrative: 83 y o female was brought over to ED for poorly controlled blood pressure, and increasing confusion. Patient has baseline dementia and confusion because of it but she gets more disoriented and confused whenever she has a UTI. Work up in ED revealed poorly controlled blood pressure and UTI based on UA. She had a normal CTH and was given IVF and recephin for UTI. Upon evaluation, it seems like she is at her baseline mental status. She is complaining of a headache but reports this is now and persistent for years now. Denies nausea, fever, abdominal pain. She has urgency, dysuria but could not tell me for now long. Review of Systems ROS Status of ROS 10 or more systems reviewed and unremarkable except as noted in history and below [facility] Medical History (Updated 08/14/23 @ 11:35 by Shaikh Verónica MD) Ambulatory dysfunction ?R26.2 - Difficulty in walking, not elsewhere classified (ICD-10) Persistent asthma Hypothyroid ?E03.9 - Hypothyroidism, unspecified (ICD-10) Dementia ?F03.90 - Unspecified dementia, unspecified severity, without behavioral disturbance, psychotic disturbance, mood disturbance, and anxiety (ICD-10) Hypertension, uncontrolled ?I10 - Essential (primary) hypertension (ICD-10) Cystitis cystica ?N30.80 - Other cystitis without hematuria (ICD-10) Spondylitis ?M46.90 - Unspecified inflammatory spondylopathy, site unspecified (ICD-10) Cataract ?H26.9 - Unspecified cataract (ICD-10) Numbness and tingling of both feet ?R20.0 - Anesthesia of skin (ICD-10) ?R20.2 - Paresthesia of skin (ICD-10) Numbness and tingling in both hands ?R20.0 - Anesthesia of skin (ICD-10) ?R20.2 - Paresthesia of skin (ICD-10) COPD (chronic obstructive pulmonary disease) ?J44.9 - Chronic obstructive pulmonary disease, unspecified (ICD-10) Acute bronchitis ?J20.9 - Acute bronchitis, unspecified (ICD-10) Acute asthma ?J45.909 - Unspecified asthma, uncomplicated (ICD-10) Esophageal abnormality ?K22.9 - Disease of esophagus, unspecified (ICD-10) TMJ (temporomandibular joint syndrome) ?M26.609 - Unspecified temporomandibular joint disorder, unspecified side (ICD-10) Closed head injury ?S09.90XA - Unspecified injury of head, initial encounter (ICD-10) Surgical History History of cataract surgery ?Z98.49 - Cataract extraction status, unspecified eye (ICD-10) H/O: hysterectomy ?Z90.710 - Acquired absence of both cervix and uterus (ICD-10) Total knee replacement status ?Z96.659 - Presence of unspecified artificial knee joint (ICD-10) Social History Within the past year, how often did you have a drink containing alcohol: never Within the past year, how often did you have six or more drinks on one occasion: never Score interpretation: A score less than 3 is consistent with normal alcohol consumption. Smoking status: Never smoker Non-prescribed substance use: denies use Previous occupational history: n/a Highest level of school completed/degree received: high school graduate Are you now , , , , never or living with a partner: In a typical week, how many times do you talk on the telephone with family, friends, or neighbors: 3 or more times per week How often do you get together with friends or relatives: never How often do you attend yarsani or samaritan services: never Do you belong to any clubs or organizations such as yarsani groups unions, fraternal or athletic groups, or school groups: no Total score: 1 Score interpretation: A score of less than or equal to 1 indicates the most socially isolated. Little interest or pleasure in doing things: not at all Feeling down, depressed, or hopeless: nearly every day Feel stressed/tense/nervous/anxious/difficulty sleeping: to some extent Life stressors: other Life stressor details: pain in back Due to disability, difficulty making decisions: No Meds Home Medications and Allergies Home Medications Medication Instructions Recorded Confirmed Type donepezil 10 mg tablet 10 mg PO BID 04/29/23 08/14/23 History duloxetine 60 mg capsule,delayed 60 mg PO DAILY 04/29/23 08/14/23 History release quetiapine 25 mg tablet 25 mg PO BEDTIME 04/29/23 08/14/23 History levothyroxine 100 mcg tablet 100 mcg PO DAILY 04/30/23 08/14/23 History (Synthroid) memantine 10 mg tablet (Namenda) 10 mg PO BID 04/30/23 08/14/23 History amlodipine 10 mg tablet 10 mg PO DAILY #30 tabs 05/03/23 08/14/23 Rx Allergies Allergy/AdvReac Type Severity Reaction Status Date / Time No Known Drug Allergies Allergy Verified 04/29/23 17:56 Exam Constitutional Vital Signs, click to edit/add: Last Vital Signs Temp 97.9 F 08/14/23 09:57 Pulse 63 08/14/23 09:57 Resp 20 08/14/23 09:57 BP 157/90 H 08/14/23 09:57 Pulse Ox 94 L 08/14/23 09:57 O2 Del Method Room Air 08/14/23 09:57 Documenting provider has reviewed patient's vital signs: yes Common normals: no apparent distress and oriented x3 General appearance: cooperative HENMT Common normals: normocephalic and head/scalp atraumatic Head and scalp: normocephalic and atraumatic Respiratory Common normals: normal respiratory effort and clear to auscultation bilaterally Effort & inspection: able to speak in complete sentences Auscultation: clear to auscultation bilaterally Cardio Common normals: regular rate, S1 normal heart sound and S2 normal heart sound Rate: regular rate Heart sounds: S1 normal and S2 normal GI Common normals: Normal to inspection, nondistended, normoactive bowel sounds present, soft to palpation, non-tender and no hepatosplenomegaly Palpation: soft and no hepatosplenomegaly Extremity Common normals: no clubbing, cyanosis or edema Neuro Common normals: oriented x3, moves all extremities and no focal motor deficits Psych Common normals: mental status grossly normal, denies hallucinations, denies homicidal ideation and denies suicidal ideation Results Labs Labs: Short CBC 08/14/23 Range/Units 07:57 WBC 8.8 (4.0-11.0) 10^3/uL Hgb 13.9 (12.0-16.0) g/dL Hct 44.0 (36.0-48.0) % Plt Count 231 (150-450) 10^3/uL BMP 08/14/23 07:57 Sodium 141 Potassium 4.1 Chloride 104 Carbon Dioxide 28.0 BUN 22.0 H Creatinine 1.05 H Glucose 109 H Calcium 9.9 Liver Function 08/14/23 Range/Units 07:57 Total Bilirubin 0.6 (0.2-1.0) mg/dL AST 15 (15-37) U/L ALT 21 (14-59) U/L Alkaline Phosphatase 96 (46-116) U/L Albumin 3.8 (3.4-5.0) g/dL Urine 08/14/23 Range/Units 08:30 Urine Color Lt. yellow (YELLOW) Urine Clarity Clear (CLEAR) Urine pH 7.0 (5.0-9.0) Ur Specific [place] 1.020 (1.005-1.025) Urine Protein Negative (NEG/TRACE) mg/dL Urine Glucose (UA) Negative (NEGATIVE) mg/dL Assessment and Plan Assessment and Plan (1) Metabolic encephalopathy: Assessment and Plan: More or less back to her baseline. Likely due to UTI. Normal CTH. Monitor. (2) Acute UTI: Assessment and Plan: Started on Rocephin. F/u urine culture. (3) Hypertensive urgency: Assessment and Plan: Presented with SBP over 200 and DBP over 110. Now improved and last BP was 160/90 C/w IV hydralazine as needed. Resumed PO norvasc 10 mg. If needed,will need another PO antihypertensive but hold off for now. (4) Hypothyroid: Assessment and Plan: C/w synthyroid (5) Dementia: Assessment and Plan: C/w memantine, donezepil. Seroquel at night for mood/behavioral disturbances. Qualifiers: Dementia type: Alzheimer's Alzheimer's disease onset: late onset Dementia severity: moderate Dementia behavioral or psychological symptom: with mood disturbance Qualified Code(s): G30.1 - Alzheimer's disease with late onset; F02.B3 - Dementia in other diseases classified elsewhere, moderate, with mood disturbance Plan C/w IVF, IV antibiotics, monitor overnight and possible discharge if remains stable.
[2023-08-14] MEDS: HYDRALAZINE HCL 20 MG/ML VIAL 10 MG IVP (13:27)
[2023-08-14] MEDS: OXYCODONE HCL 5 MG TABLET PO (15:20)
[2023-08-14] MEDS: ENOXAPARIN SODIUM 30 MG/0.3 ML SYRINGE SUBQ (16:04)
--- NOTE | 2023-08-14 16:46 | PC.NURSE ---
Spoke with son to update condition. Son hears pt coughing while nurse is on patient's phone in her room. States that her asthma might be flaring up..she might need a breathing treatment or to use her prn inhaler. No inhaler listed on home med list. Arnaud jack notified and med list faxed to [facility], including DNRCC status. Mosby text sent to Dr Sanches to get prn meds ordered. Pt lungs are clear, and is in no distress or dyspneic, only has had increased cough after drinking water with pills for headache. Will continue to monitor pt.
[2023-08-14] MEDS: QUETIAPINE FUMARATE 25 MG TABLET PO (21:14)
[2023-08-15 04:25] VITALS: O2SAT 95
[2023-08-15 05:09] VITALS: BP 166/66; PULSE 80; RESP 18; TEMP 36.4; O2SAT 93
[2023-08-15 05:13] LABS: Basophils Absolute Auto 0.1 10^3/uL (0.0-0.1); Basophils Percent Auto 1.6 % (0.2-2.0); Eosinophils Absolute Auto 0.5 10^3/uL (0.0-0.7); Eosinophils Percent Auto 8.3 % (0.9-7.0); Hematocrit 37.4 % (36.0-48.0); Hemoglobin 11.9 g/dL (12.0-16.0); Immature Granulocytes Abs Auto 0.03 10^3/uL (0.00-0.03); Immature Granulocytes Pct Auto 0.5 % (0.0-0.5); Mean Corpuscular HGB Conc 31.8 g/dL (29.9-35.2); Mean Corpuscular Hemoglobin 29.2 pg (26.7-34.0); Mean Corpuscular Volume 91.7 fL (81.0-99.0); Mean Platelet Volume 11.3 fL (9.5-13.5); Monocytes Absolute Auto 0.6 10^3/uL (0.3-0.8); Neutrophils Absolute Auto 3.1 10^3/uL (1.4-6.5); Neutrophils Percent Auto 48.6 % (43.0-75.0); Platelet Count 200 10^3/uL (150-450); Red Blood Count 4.08 10^6/uL (4.20-5.40); Red Cell Distribution Width 13.6 % (11.0-15.0); White Blood Count 6.3 10^3/uL (4.0-11.0)
[2023-08-15] MEDS: LEVOTHYROXINE SODIUM 100 MCG TABLET PO (05:30)
[2023-08-15 05:50] LABS: Alanine Aminotransferase 14 U/L (14-59); Albumin Globulin Ratio 0.8; Albumin Level 2.9 g/dL (3.4-5.0); Alkaline Phosphatase 75 U/L (46-116); Aspartate Amino Transferase 12 U/L (15-37); Bilirubin Total 0.5 mg/dL (0.2-1.0); Carbon Dioxide 26.9 mmol/L (21.0-32.0); Chloride 104 mmol/L (98-107); Estimated GFR (African America 60 (>=60); Estimated GFR (Non-African Ame 49 (>=60); Globulin 3.5 g/dL; Glucose 96 mg/dL (74-106); Potassium 3.9 mmol/L (3.5-5.1); Sodium 138 mmol/L (136-145); Total Protein 6.4 g/dL (6.4-8.2)
[2023-08-15] MEDS: LACTATED RINGER'S SOLUTION 1,000 ML 100 ML IV (07:47)
[2023-08-15] MEDS: OXYCODONE HCL 5 MG TABLET PO (07:48)
[2023-08-15] MEDS: MEMANTINE HCL 28 MG CAP XR PO (08:58)
[2023-08-15] MEDS: DULOXETINE HCL 60 MG CAPSULE.DR PO (08:58)
[2023-08-15] MEDS: DONEPEZIL HCL 10 MG TABLET PO (08:58)
--- NOTE | 2023-08-15 10:26 | SWNOTE1 ---
Pt is from [facility] assisted living, if pt needs skilled she is a precert.
--- NOTE | 2023-08-15 10:43 | P.DS_ITS ---
DS: Providers Provider Date of admission: 08/14/23 09:50 Primary care physician: APOLLO BOO Consults: 08/14/23 09:19 Occupational Therapy Eval and Treat Routine Reason for consultation: Ambulatory dysfunction/weakness Physical Therapy Eval and Treat Routine Reason for consultation: Ambulatory dysfunction/weakness Attending physician on discharge: Shaikh Verónica Discharging clinician: Shaikh Verónica Anticipated date of discharge: 08/15/23 DS: Diagnosis Discharge Diagnosis (1) Metabolic encephalopathy: Assessment and plan: due to UTI, resolved. (2) Acute UTI: Assessment and plan: Stable for d/c on oral cefdinir. urine culture is pending. (3) Hypertensive urgency: Assessment and plan: Reasonably controlled but still above goal. Added losartan-hctz on top of norvasc. Will need follow up with PCP in one week to ensure BP is well controlled and at goal. (4) Hypothyroid: Assessment and plan: c/w sythyroid (5) Dementia: Assessment and plan: c/w aricept and memantine. Qualifiers: Dementia type: Alzheimer's Alzheimer's disease onset: late onset Dementia severity: moderate Dementia behavioral or psychological symptom: with mood disturbance Qualified Code(s): G30.1 - Alzheimer's disease with late onset; F02.B3 - Dementia in other diseases classified elsewhere, moderate, with mood disturbance DS: Summary Hospital Course Hospital Course: 83 y o female was brought over to ED for poorly controlled blood pressure, and increasing confusion. Patient has baseline dementia and confusion but it was noted to have gotten worse in past 1-2 days. Work up in ED revealed poorly controlled blood pressure and UTI based on UA. She had a normal CTH and was given IVF and recephin for UTI. She was treated with IV rocephin, her blood pressure regimen was adjusted and she is deemed safe for discharge on oral cefdiner for UTI. Her mental status returned to her baseline. For her HTN - she will continue using amlodipine alongwith losartan/hctz (new prescription) Patient should follow up with PCP in one week to ensure BP is stable and adjust BP meds as clinically indication. Status at Discharge Functional status at discharge: independent ambulation Overall status at discharge: patient is back to baseline Time Spent with Patient Time attestation: Total time spent providing and/or coordinating discharge services: Time spent: greater than 30 minutes Exam Constitutional Vital Signs, click to edit/add: Last Vital Signs Temp 97.6 F 08/15/23 05:09 Pulse 80 08/15/23 05:09 Resp 18 08/15/23 05:09 BP 166/66 H 08/15/23 05:09 Pulse Ox 93 L 08/15/23 05:09 O2 Del Method Room Air 08/15/23 05:09 Documenting provider has reviewed patient's vital signs: yes Common normals: no apparent distress and oriented x3 General appearance: cooperative Respiratory Common normals: normal respiratory effort and clear to auscultation bilaterally Effort & inspection: able to speak in complete sentences Auscultation: clear to auscultation bilaterally Cardio Common normals: regular rate, S1 normal heart sound and S2 normal heart sound Rate: regular rate Heart sounds: S1 normal and S2 normal GI Common normals: Normal to inspection, nondistended, normoactive bowel sounds present, soft to palpation, non-tender and no hepatosplenomegaly Palpation: soft and no hepatosplenomegaly Extremity Common normals: no clubbing, cyanosis or edema Neuro Common normals: oriented x3, moves all extremities and no focal motor deficits Psych Common normals: mental status grossly normal, denies hallucinations, denies homicidal ideation and denies suicidal ideation DS: Data Data Completed and Pending Labs on day of discharge: Labs from last 24 hours 08/15/23 04:42 WBC 6.3 RBC 4.08 L Hgb 11.9 L Hct 37.4 MCV 91.7 MCH 29.2 MCHC 31.8 RDW 13.6 Plt Count 200 MPV 11.3 Neut % (Auto) 48.6 Lymph % (Auto) 31.0 [place]assen % (Auto) 10.0 Eos % (Auto) 8.3 H Baso % (Auto) 1.6 Neut # (Auto) 3.1 Lymph # (Auto) 2.0 [place] # (Auto) 0.6 Eos # (Auto) 0.5 Baso # (Auto) 0.1 Abs Immat Gran (auto) 0.03 Imm/Tot Granulo (auto) 0.5 Sodium 138 Potassium 3.9 Chloride 104 Carbon Dioxide 26.9 Anion Gap 11.0 BUN 18.0 Creatinine 1.06 H Est GFR ( Amer) 60 Est GFR (Non-Af Amer) 49 L BUN/Creatinine Ratio 17.0 Glucose 96 Calcium 9.0 Total Bilirubin 0.5 AST 12 L ALT 14 Alkaline Phosphatase 75 Total Protein 6.4 Albumin 2.9 L Globulin 3.5 Albumin/Globulin Ratio 0.8 Discharge Plan Discharge Disposition: Xfer SNF Discharge Medications: New losartan-hydrochlorothiazide 50-12.5 mg tablet 1 tab PO DAILY Qty: 30 0RF cefdinir 300 mg capsule 300 mg PO BID 5 Days Qty: 10 0RF Continued quetiapine 25 mg tablet 25 mg PO BEDTIME donepezil 10 mg tablet 10 mg PO BID duloxetine 60 mg capsule,delayed release(DR/EC) 60 mg PO DAILY memantine [Namenda] 10 mg tablet 10 mg PO BID levothyroxine [Synthroid] 100 mcg tablet 100 mcg PO DAILY amlodipine 10 mg tablet 10 mg PO DAILY Qty: 30 0RF albuterol sulfate 90 mcg/actuation aerosol powdr breath activated 2 inh inhalation Q4H PRN (Reason: shortness of breath) Forms: Portal Instructions Follow Up Appointments: F/u with PCP in one week
--- NOTE | 2023-08-15 10:48 | CM.NOTE ---
Rounds made with Dr. Sanches, pt is able to discharge today.
[2023-08-15] MEDS: CEFTRIAXONE 1,000 MG in 0.9 % SODIUM CHLORIDE 50 ML 100 MG IV (11:37)
--- NOTE | 2023-08-15 11:52 | SWNOTE1 ---
JALYN spoke to nursing and physical therapy worked with pt, pt is at baseline. JALYN spoke with Jillian at [facility] and she will update [facility]. Pt is being discharged back today and [facility] will pick her up around 12:30. JALYN sent over updates to [facility]. Pt's daughter in law is in room and is aware of time. JALYN reviewed EMERY form with pt's daughter in law and pt. Pt signed form, original given to pt and copy placed in chart. No questions at this time.
== END 2023-08-15 12:30 | disposition home or self-care (01) ==
LOC: ER 09:23 → MS 09:52
PROVIDERS: Admitting Provider Internal Medicine; Emergency Provider Emergency Medicine; PCP Family Medicine; Visit Provider Internal Medicine
DX: N39.0 Urinary tract infection, site not specified (principal); I16.0 Hypertensive urgency; G93.41 Metabolic encephalopathy; E03.9 Hypothyroidism, unspecified; G30.1 Alzheimer's disease with late onset; F02.B3 Dementia in other diseases classified elsewhere, moderate, with mood disturbance; J44.9 Chronic obstructive pulmonary disease, unspecified; B96.20 Unspecified Escherichia coli [E. coli] as the cause of diseases classified elsewhere; Z96.659 Presence of unspecified artificial knee joint; Z79.899 Other long term (current) drug therapy; Z79.890 Hormone replacement therapy; Z90.710 Acquired absence of both cervix and uterus; Z98.49 Cataract extraction status, unspecified eye; Z20.822 Contact with and (suspected) exposure to COVID-19; Z66 Do not resuscitate
CPT/HCPCS: 36415; 70450; 71045; 80053; 81001; 84484; 85025; 85610; 87086; 87150; 87186; 87635; 87811; 93005; 94761; 96365; 96372; 96375; 96376; 97161; 97165; 99285; G0378; J0360; J0696; J1290; J1650; J1885

== ENCOUNTER 2024-04-19 12:56 | Observation (INO) | payer MEDICARE, SELFPAY ==
[2024-04-19] VITALS (7 sets, daily range): BP systolic 100–152; BP diastolic 58–93; PULSE 59–78; TEMP 36.4–36.7; O2SAT 92–97; BMI 34.0; BMI 34.2
--- NOTE | 2024-04-19 13:25 | CT_ITS ---
The [address] [address] Patient Name: ANGIE HONEYCUTT MRN: [id number] date: 1940 Sex: F Assigned Patient Location: ER Current Patient Location: ER Accession/Order Number: [id number] Exam Date: 04/19/2024 14:27 Report Date: 04/19/2024 15:29 At the request of: LIANE MENA Procedure: CT abdomen pelvis w con EXAM: CT abdomen pelvis w con HISTORY: RLQ pain COMPARISON: None. TECHNIQUE: Enhanced helical acquisition obtained through the abdomen and pelvis. FINDINGS: Minimal pulmonary scarring within the included lung bases. The pleural spaces are clear. Prior cholecystectomy. Mild hepatic steatosis. The spleen, pancreas and the adrenal glands are unremarkable. Mild bilateral renal atrophy. Multiple bilateral renal cysts are present, largest on the right measuring 3 cm and the largest on the left measuring 2.1 cm. Moderate-severe diffuse atherosclerotic vascular calcifications. No enlarged lymph nodes within the abdomen or the pelvis. Diverticulosis without radiographic evidence of diverticulitis. Normal appendix. No ascites or focal intraperitoneal fluid collections. Prior hysterectomy. Prior L3-L4 posterior lumbar spinal fusion. Severe multilevel degenerative changes of lumbar spine. Diffuse demineralization. Image degradation secondary to patient motion. CT/CT abdomen pelvis w con IMPRESSION: 1. Hepatic steatosis. Prior cholecystectomy. 2. Bilateral renal cysts. Mild bilateral renal atrophy. 3. Diverticulosis without radiographic evidence of diverticulitis. Normal appendix. Electronically authenticated by: NICHO NAIR Date: 04/19/2024 15:29
--- NOTE | 2024-04-19 13:27 | ED_ITS ---
HPI - Abdominal Pain General Chief Complaint: Abdominal Pain Stated Complaint: ABDOMINAL PAIN Time Seen by Provider: 04/19/24 13:06 Source: patient Mode of arrival: ambulance Limitations: no limitations History of Present Illness HPI narrative: 84-year-old female presents to the emergency department via EMS from [facility] with complaint of right lower quadrant pain. States mainly pain began this morning, but this has been an ongoing problem. Because of it, she has not taken her medications in the past 2 days. Describes the pain as sharp. Patient worried about her appendix. However, in prior evaluations, nothing has been found to be wrong with her appendix. 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 Has had associated nausea. Denies fever, vomiting. + Diarrhea Quality:?sharp Severity:?moderate Timing:?as above, constant Context: Normal setting and activity? Modifying factors:?Pain worse with palpation Associated symptoms: Nausea Related Data Home Medications ?Medication ?Instructions ?Recorded ?Confirmed donepezil 10 mg tablet 10 mg PO BID 04/29/23 04/19/24 duloxetine 60 mg capsule,delayed 60 mg PO DAILY 04/29/23 04/19/24 release quetiapine 25 mg tablet 25 mg PO BEDTIME 04/29/23 04/19/24 levothyroxine 100 mcg tablet 100 mcg PO DAILY 04/30/23 04/19/24 (Synthroid) memantine 10 mg tablet (Namenda) 10 mg PO BID 04/30/23 04/19/24 albuterol sulfate 2.5 mg/3 mL 2.5 mg inhalation Q6H PRN 04/19/24 04/19/24 (0.083 %) solution for nebulization shortness of breath or wheezing cephalexin 250 mg capsule 250 mg PO DAILY 04/19/24 04/19/24 losartan 100 1 tab PO .qd 04/19/24 04/19/24 mg-hydrochlorothiazide 12.5 mg tablet Previous Rx's ?Medication ?Instructions ?Recorded amlodipine 10 mg tablet 10 mg PO DAILY #30 tabs 05/03/23 Allergies Allergy/AdvReac Type Severity Reaction Status Date / Time No Known Drug Allergies Allergy Verified 04/29/23 17:56 Review of Systems ROS Constitutional Denies: fever or chills Cardiovascular Denies: chest pain or shortness of breath with exertion Respiratory Denies: shortness of breath Gastrointestinal Reports: abdominal pain and nausea; Denies: vomiting, diarrhea or bloating Genitourinary Denies: painful urination or urinary frequency Musculoskeletal Denies: back pain PFSH [facility] Medical History (Updated 04/19/24 @ 17:42 by Michaelle Pham DO) Primary hypertension ?I10 - Essential (primary) hypertension (ICD-10) Acute UTI ?N39.0 - Urinary tract infection, site not specified (ICD-10) Confusion ?R41.0 - Disorientation, unspecified (ICD-10) Hypertension, uncontrolled ?I10 - Essential (primary) hypertension (ICD-10) Ambulatory dysfunction ?R26.2 - Difficulty in walking, not elsewhere classified (ICD-10) Persistent asthma Hypothyroid ?E03.9 - Hypothyroidism, unspecified (ICD-10) Dementia ?F03.90 - Unspecified dementia, unspecified severity, without behavioral disturbance, psychotic disturbance, mood disturbance, and anxiety (ICD-10) Hypertension, uncontrolled ?I10 - Essential (primary) hypertension (ICD-10) Cystitis cystica ?N30.80 - Other cystitis without hematuria (ICD-10) Spondylitis ?M46.90 - Unspecified inflammatory spondylopathy, site unspecified (ICD-10) Cataract ?H26.9 - Unspecified cataract (ICD-10) Numbness and tingling of both feet ?R20.0 - Anesthesia of skin (ICD-10) ?R20.2 - Paresthesia of skin (ICD-10) Numbness and tingling in both hands ?R20.0 - Anesthesia of skin (ICD-10) ?R20.2 - Paresthesia of skin (ICD-10) COPD (chronic obstructive pulmonary disease) ?J44.9 - Chronic obstructive pulmonary disease, unspecified (ICD-10) Acute bronchitis ?J20.9 - Acute bronchitis, unspecified (ICD-10) Acute asthma ?J45.909 - Unspecified asthma, uncomplicated (ICD-10) Esophageal abnormality ?K22.9 - Disease of esophagus, unspecified (ICD-10) TMJ (temporomandibular joint syndrome) ?M26.609 - Unspecified temporomandibular joint disorder, unspecified side (ICD-10) Closed head injury ?S09.90XA - Unspecified injury of head, initial encounter (ICD-10) Surgical History History of cataract surgery ?Z98.49 - Cataract extraction status, unspecified eye (ICD-10) H/O: hysterectomy ?Z90.710 - Acquired absence of both cervix and uterus (ICD-10) Total knee replacement status ?Z96.659 - Presence of unspecified artificial knee joint (ICD-10) Family History Sister Family history of stroke Mother Family history of diabetes mellitus Social History Within the past year, how often did you have a drink containing alcohol: never Within the past year, how often did you have six or more drinks on one occasion: never Score interpretation: A score less than 3 is consistent with normal alcohol consumption. Smoking status: Never smoker Non-prescribed substance use: denies use Previous occupational history: n/a Highest level of school completed/degree received: high school graduate Are you now , , , , never or living with a partner: In a typical week, how many times do you talk on the telephone with family, friends, or neighbors: 3 or more times per week How often do you get together with friends or relatives: never How often do you attend rastafarian or lutheran services: never Do you belong to any clubs or organizations such as rastafarian groups unions, fraternal or athletic groups, or school groups: no Total score: 1 Score interpretation: A score of less than or equal to 1 indicates the most socially isolated. Little interest or pleasure in doing things: not at all Feeling down, depressed, or hopeless: not at all Feel stressed/tense/nervous/anxious/difficulty sleeping: to some extent Life stressors: other Life stressor details: pain in back Due to disability, difficulty making decisions: No Exam Constitutional Vital Signs, click to edit/add: Last Vital Signs Temp 97.6 F 04/19/24 17:36 Pulse 60 04/19/24 17:36 Resp 18 04/19/24 17:36 BP 150/73 H 04/19/24 17:36 Pulse Ox 92 L 04/19/24 17:36 O2 Del Method Room Air 04/19/24 17:36 Documenting provider has reviewed patient's vital signs: yes Common normals: no apparent distress, oriented x3 and alert General appearance: well developed HENMT Common normals: normocephalic and head/scalp atraumatic Head and scalp: normocephalic and atraumatic Eye Common normals: conjunctivae normal Conjunctiva: conjunctiva(e) normal Respiratory Common normals: normal respiratory effort and clear to auscultation bilaterally Effort & inspection: able to speak in complete sentences Auscultation: clear to auscultation bilaterally Cardio Common normals: regular rate, regular rhythm and no murmurs Rate: regular rate Rhythm: regular rhythm GI Common normals: soft to palpation Inspection: normal to inspection; no abdominal distension Auscultation: normoactive bowel sounds Palpation: soft and tender Details: RLQ; no guarding Common normals: no CVA tenderness Bladder/kidney exam: no CVA tenderness Back & Pelvis Common normals: no CVA tenderness Neuro Common normals: oriented x3, moves all extremities and no focal motor deficits Sensorium/orientation: alert Psych Common normals: mental status grossly normal, thought process normal and cooperative Thought process: normal thought process Course Vital Signs Vital signs: Vital Signs Temperature 98.1 F 04/19/24 13:03 Pulse Rate 78 04/19/24 13:03 Respiratory Rate 18 04/19/24 13:03 Blood Pressure 110/93 H 04/19/24 13:03 Pulse Oximetry 96 04/19/24 13:03 Oxygen Delivery Method Room Air 04/19/24 13:03 Temperature 97.6 F 04/19/24 17:36 Pulse Rate 60 04/19/24 17:36 Respiratory Rate 18 04/19/24 17:36 Blood Pressure 150/73 H 04/19/24 17:36 Pulse Oximetry 92 L 04/19/24 17:36 Oxygen Delivery Method Room Air 04/19/24 17:36 MDM - Abdominal Pain MDM Narrative Medical decision making narrative: This is a pleasant 84-year-old female who presented to the emergency department from [facility] with complaint of right lower quadrant abdominal pain. This has been an ongoing problem for the patient, however she states it has been worse since this morning. Patient worries about her appendix. She has had some nausea. Denies any known fevers. On arrival, afebrile, vital signs are stable. Exam, nontoxic, well-appearing patient in no distress. Heart regular rate and rhythm. Lung sounds clear and equal bilaterally. Abdomen soft with right lower quadrant tenderness. No rebound or guarding is present. The tenderness is somewhat diffuse in the right lower quadrant, no focal area of maximal tenderness. IV access established. She was given IV fluids, medications including fentanyl and Zofran. Labs obtained revealing no leukocytosis, anemia, thrombocytopenia, electrolyte imbalance. Renal functions were a little elevated compared to prior with BUN 27 creatinine 1.24. Lipase of concern as it is elevated at 383. CT abdomen pelvis imaging, per radiologist reveals hepatic steatosis. Prior cholecystectomy. Bilateral renal cysts. Mild bilateral renal atrophy. Diverticulosis without radiographic evidence of diverticulitis. Normal appendix. History and record review Discussion with independent historian: Patient's son. States she does have some memory issues Prior records reveal mildly elevated renal functions today Favor abdominal pain, elevated lipase suggestive of acute pancreatitis Appendicitis, perforation, diverticulitis less likely based on imaging Management Discussion with another healthcare provider: Hospitalist, Dr. Pham Saw additional testing interventions IV fluids: Hydration Reevaluation: Patient reports improvement of pain after treatment. Disposition ? Plan: Patient will be admitted, observation status for further hydration, monitoring of pain and lipase level. Condition at time of disposition: stable ? PLEASE NOTE: Portions of the medical record may have been produced using electronic paper bags sewing machine operator and may contain errors with respect to translation of words which may not have been identified prior to finalization of the chart. Medical Records Attestation: I reviewed the patient's medical records. Lab Data Attestation: I reviewed the patient's lab results. Labs: Lab Results 04/19/24 Range/Units 13:10 WBC 7.7 (4.0-11.0) 10^3/uL RBC 4.18 L (4.20-5.40) 10^6/uL Hgb 12.9 (12.0-16.0) g/dL Hct 38.3 (36.0-48.0) % MCV 91.6 (81.0-99.0) fL MCH 30.9 (26.7-34.0) pg MCHC 33.7 (29.9-35.2) g/dL RDW 12.5 (11.0-15.0) % Plt Count 261 (150-450) 10^3/uL MPV 11.5 (9.5-13.5) fL Neut % (Auto) 61.1 (43.0-75.0) % Lymph % (Auto) 27.3 (20.5-60.0) % [place] % (Auto) 6.5 (1.7-12.0) % Eos % (Auto) 3.0 (0.9-7.0) % Baso % (Auto) 1.7 (0.2-2.0) % Neut # (Auto) 4.7 (1.4-6.5) 10^3/uL Lymph # (Auto) 2.1 (1.2-3.8) 10^3/uL [place] # (Auto) 0.5 (0.3-0.8) 10^3/uL Eos # (Auto) 0.2 (0.0-0.7) 10^3/uL Baso # (Auto) 0.1 (0.0-0.1) 10^3/uL Abs Immat Gran (auto) 0.03 (0.00-0.03) 10^3/uL Imm/Tot Granulo (auto) 0.4 (0.0-0.5) % Sodium 140 (136-145) mmol/L Potassium 4.3 (3.5-5.1) mmol/L Chloride 105 (98-107) mmol/L Carbon Dioxide 26.9 (21.0-32.0) mmol/L Anion Gap 12.4 BUN 27.0 H (7.0-18.0) mg/dL Creatinine 1.24 H (0.55-1.02) mg/dL Est GFR ( Amer) 50 L (>=60) Est GFR (Non-Af Amer) 41 L (>=60) BUN/Creatinine Ratio 21.8 Glucose 102 (74-106) mg/dL Calcium 10.1 (8.5-10.1) mg/dL Magnesium 2.3 (1.8-2.4) mg/dL Total Bilirubin 0.6 (0.2-1.0) mg/dL AST 13 L (15-37) U/L ALT 19 (14-59) U/L Alkaline Phosphatase 94 (46-116) U/L Total Protein 7.3 (6.4-8.2) g/dL Albumin 3.8 (3.4-5.0) g/dL Globulin 3.5 g/dL Albumin/Globulin Ratio 1.1 Lipase 383.0 H (16.0-77.0) U/L Imaging Data CT scan - abdomen: Radiologist's impression: ITS Impressions Abdomen/Pelvis CT 04/19/24 13:25 IMPRESSION: 1. Hepatic steatosis. Prior cholecystectomy. 2. Bilateral renal cysts. Mild bilateral renal atrophy. 3. Diverticulosis without radiographic evidence of diverticulitis. Normal appendix. Electronically authenticated by: NICHO NAIR Date: 04/19/2024 15:29 Discharge Plan Discharge Chief Complaint: Abdominal Pain Clinical Impression: Pancreatitis Qualifiers: Chronicity: acute Pancreatitis type: unspecified pancreatitis type Acute pancreatitis complication: unspecified Qualified Code(s): K85.90 - Acute pancr eatitis without necrosis or infection, unspecified Abdominal pain Qualifiers: Abdominal location: unspecified location Qualified Code(s): R10.9 - Unspecified abdominal pain Patient Disposition: Admitted As Inpatient Time of Disposition Decision: 16:42 Discharge Date/Time: 04/19/24 17:38
[2024-04-19 13:30] LABS: Basophils Absolute Auto 0.1 10^3/uL (0.0-0.1); Basophils Percent Auto 1.7 % (0.2-2.0); Eosinophils Absolute Auto 0.2 10^3/uL (0.0-0.7); Hematocrit 38.3 % (36.0-48.0); Hemoglobin 12.9 g/dL (12.0-16.0); Immature Granulocytes Abs Auto 0.03 10^3/uL (0.00-0.03); Immature Granulocytes Pct Auto 0.4 % (0.0-0.5); Lymphocytes Absolute Auto 2.1 10^3/uL (1.2-3.8); Lymphocytes Percent Auto 27.3 % (20.5-60.0); Mean Corpuscular HGB Conc 33.7 g/dL (29.9-35.2); Mean Corpuscular Hemoglobin 30.9 pg (26.7-34.0); Mean Corpuscular Volume 91.6 fL (81.0-99.0); Mean Platelet Volume 11.5 fL (9.5-13.5); Monocytes Absolute Auto 0.5 10^3/uL (0.3-0.8); Monocytes Percent Auto 6.5 % (1.7-12.0); Neutrophils Absolute Auto 4.7 10^3/uL (1.4-6.5); Neutrophils Percent Auto 61.1 % (43.0-75.0); Platelet Count 261 10^3/uL (150-450); Red Blood Count 4.18 10^6/uL (4.20-5.40); Red Cell Distribution Width 12.5 % (11.0-15.0); White Blood Count 7.7 10^3/uL (4.0-11.0)
[2024-04-19] MEDS: ONDANSETRON PF 4 MG/2 ML VIAL IV (13:37)
[2024-04-19] MEDS: 0.9 % SODIUM CHLORIDE 1,000 ML 999 ML IV (13:37)
[2024-04-19] MEDS: FENTANYL CITRATE/PF 100 MCG/2 ML VIAL 50 MCG IV (13:37)
--- OUTSIDE RECORDS SUMMARY | 2024-04-19 13:39 | XMS_ITS | CCD ---
Author Organization [facility] Inform ion Partnership [facility] Care Team Providers Care Back Tufter Name Role Phone PHYSICIAN, DEFAULT Unavailable Unavailable PHYSICIAN, DEFAULT Unavailable Unavailable DARCY, DR ALEIDA Gonzalez Consulting Unavailable EMA, APOLLO Primary Care Unavailable ROMULO ., ANTELMO Attending Unavailable ROMULO ., ANTELMO Admitting Unavailable ELIDELL Consulting Unavailable DAVIS, ASHVIN Consulting Unavailable ROMULO ., ANTELMO Consulting Unavailable DIAB ., KAVITA Consulting Unavailable KENDALL ., DR MARLA Nieto Attending Unavailable KENDALL ., DR MARLA Nieto Consulting Unavailable KENDALL ., DR MARLA Nieto Admitting Unavailable PETPRINCE, APOLLO Primary Care Unavailable EARNESTINE, DR KARISSA Martinez Consulting Unavailable KENDALL ., DR MARLA Nieto Attending Unavailable KENDALL ., DR MARLA Nieto Consulting Unavailable KENDALL ., DR MARLA Nieto Admitting Unavailable EMA, APOLLO Primary Care Unavailable NIRAJ, DR KENROY Lowe Consulting UnavailDR ALEIDA Griffin V Consulting Unavailable DAWSON MAYA Consulting Unavailable APOLLO BOO Attending Unavailable Allergies Allergy Classification Reported Allergen(s) Allergy Type Date of Onset Reaction(s) Facility (1 source) Desonide Drug Allergy [facility] (1 source) nabumetone Drug Allergy [facility] (1 source) Neomycin Drug Allergy [facility] (1 source) oxyCODONE Drug Allergy [facility] (1 source) Ramipril Drug Allergy [facility] (1 source) Polymyxin B Drug allergy (disorder) [facility] Problems Active Problems Problem Classification [...] Onset: 06-21-2022 Chronic Other aftercare (1 source) custodial (current) use of aspirin; Translations: [CORRECTION CURRENT USE OF ASPIRIN] Onset: 12-28-2022 Episodic Other aftercare (1 source) Other jail (current) drug therapy; Translations: [OTH CORRECTION CURRENT DRUG THERAPY] Onset: 12-28-2022 Episodic Other [...] 12-29-2022 BASO # 0.1 103/ul Normal 0.0-0.1 [facility] Comment on above: Performed By: #### R SPLUS #### [facility] [address] [address] [address] Emilie Carmona Basophils/100 WBC (Bld) 0.8 % Normal 0.2-2.0 [facility] Comment on above: Performed By: #### R SPLUS #### [facility] [address] [address] [address] Emilie Carmona EO # 0.0 103/ul Normal 0.0-0.7 [facility] Comment on above: Performed By: #### R SPLUS #### [facility] [address] [address] [address] Emilie Carmona Eosinophils/100 WBC (Bld) 0.1 % Critically low 0.9-7.0 [facility] Comment on above: Performed By: #### R SPLUS #### [facility] [address] [address] [address] Emilie Carmona Erythrocyte distribution width (RBC) [Ratio] 14.8 % Normal 11.0-15.0 [facility] Comment on above: Performed By: #### R SPLUS #### [facility] [address] [place] [address] Dr. Emilie Carmona Hematocrit (Bld) [Volume fraction] 33.3 % Critically low 36.0-48.0 [facility] Comment on above: Performed By: #### R SPLUS #### [facility] [address] [address] [address] Emilie Carmona Hemoglobin (Bld) [Mass/Vol] 10.9 g/dL Critically low 12.0-16.0 [facility] Comment on above: Performed By: #### R SPLUS #### [facility] [address] [address] [address] Emilie Carmona IG # 0.61 10e3/ul Critically high 0.00-0.03 [facility] Comment on above: Performed By: #### R SPLUS #### [facility] [address] [place] [address] Dr. Emilie Carmona IG % 5.7 % Critically high 0.0-0.5 [facility] Comment on above: Performed By: #### R SPLUS #### [facility] [address] [place] [address] Dr. Emilie Carmona LYMPH # 1.7 103/ul Normal 1.2-3.8 [facility] Comment on above: Performed By: #### R SPLUS #### [facility] [address] [place] [address] Dr. Emilie Carmona Lymphocytes/100 WBC (Bld) 15.8 % Critically low 20.5-60.0 [facility] Comment on above: Performed By: #### R SPLUS #### [facility] [address] [place] [address] Dr. Emilie Carmona MANUAL DIFF REQ NO Normal [facility] Comment on above: Performed By: #### R SPLUS #### [facility] [address] [place] [address] Dr. Emilie Carmona MCH (RBC) [Entitic mass] 27.9 pg Normal 26.7-34.0 [facility] Comment on above: Performed By: #### R SPLUS #### [facility] [address] [place] [address] Dr. Emilie Carmona MCHC (RBC) [Mass/Vol] 32.7 g/dL Normal 29.9-35.2 [facility] Comment on above: Performed By: #### R SPLUS #### [facility] [address] [place] [address] Dr. Eimlie Carmona MCV (RBC) [Entitic vol] 85.4 fL Normal 81.0-99.0 [facility] Comment on above: Performed By: #### R SPLUS #### [facility] [address] [place] [address] Dr. Emilie Carmona MONO # 0.7 103/ul Normal 0.3-0.8 [facility] Comment on above: Performed By: #### R SPLUS #### [facility] [address] [place] [address] Dr. Emilie Carmona Monocytes/100 WBC (Bld) 6.9 % Normal 1.7-12.0 [facility] Comment on above: Performed By: #### R SPLUS #### [facility] [address] [place] [address] Dr. Emilie Carmona NEUT # 7.6 103/ul Critically high 1.4-6.5 [facility] Comment on above: Performed By: #### R SPLUS #### [facility] [address] [place] [address] Dr. Emilie Carmona Neutrophils/100 WBC (Bld) 70.7 % Normal 43.0-75.0 [facility] Comment on above: Performed By: #### R SPLUS #### [facility] [address] [place] [address] Dr. Emilie Carmona Platelet mean volume (Bld) [Entitic vol] 10.8 fL Normal 9.5-13.5 [facility] Comment on above: Performed By: #### R SPLUS #### [facility] [address] [place] [address] Dr. Emilie Carmona PLT 270 103/ul Normal 150-450 [facility] Comment on above: Performed By: #### R SPLUS #### [facility] [address] [place] [address] Dr. Emilie Carmona RBC 3.90 106/ul Critically low 4.20-5.40 [facility] Comment on above: Performed By: #### R SPLUS #### [facility] [address] [address] [address] Emilie Carmona WBC 10.7 103/ul Normal 4.0-11.0 [facility] Comment on above: Performed By: #### R SPLUS #### [facility] [address] [address] [address] Emilie Carmona PROF 14(COMP METB)on 023 Albumin [Mass/Vol] 2.6 g/dL Critically low 3.4-5.0 [facility] Comment on above: Performed By: #### C MP #### [facility] [address] [place] [address] Dr. Emilie Carmona Albumin/Globulin [Mass ratio] 0.6 {ratio} Normal [facility] Comment on above: Performed By: #### C MP #### [facility] [address] [place] [address] Dr. Emilie Carmona ALP [Catalytic activity/Vol] 58 U/L Normal 46-116 [facility] Comment on above: Performed By: #### C MP #### [facility] [address] [place] [address] Dr. Emilie Carmona ALT [Catalytic activity/Vol] 32 U/L Normal 14-59 [facility] Comment on above: Performed By: #### C MP #### [facility] [address] [place] [address] Dr. Emilie Carmona Anion gap [Moles/Vol] 13.8 mmol/L Normal [facility] Comment on above: Performed By: #### C MP #### [facility] [address] [address] [address] Emilie Carmona AST [Catalytic activity/Vol] 30 U/L Normal 15-37 [facility] Comment on above: Performed By: #### C MP #### [facility] [address] [place] [address] Dr. Emilie Carmona Bilirubin [Mass/Vol] 0.2 mg/dL Normal 0.2-1.0 [facility] Comment on above: Performed By: #### C MP #### [facility] [address] [address] [address] Emilie Carmona Calcium [Mass/Vol] 9.7 mg/dL Normal 8.5-10.1 [facility] Comment on above: Performed By: #### C MP #### [facility] [address] [address] [address] Emilie Carmona Chloride [Moles/Vol] 107 mmol/L Normal 98-107 [facility] Comment on above: Performed By: #### C MP #### [facility] [address] [address] [address] Emilie Carmona CO2 [Moles/Vol] 24.8 mmol/L Normal 21.0-32.0 [facility] Comment on above: Performed By: #### C MP #### [facility] [address] [address] [address] Emilie Carmona Creatinine [Mass/Vol] 1.02 mg/dL Normal 0.55-1.02 [facility] Comment on above: Performed By: #### C MP #### [facility] [address] [address] [address] Emilie Carmona EGFR-AF CHADIAN >60 Normal >=60 [facility] Comment on above: Performed By: #### C MP #### [facility] [address] [address] [address] Emilie Carmona EGFR-NON AF CHADIAN 52 mL/min/1.73m2 Critically low >=60 [facility] Comment on above: Performed By: #### C MP #### [facility] [address] [address] [address] Emilie Carmona Globulin (S) [Mass/Vol] 4.0 g/dL Normal [facility] Comment on above: Performed By: #### C MP #### [facility] [address] [address] [address] Emilie Carmona Glucose [Mass/Vol] 99 mg/dL Normal 74-106 [facility] Comment on above: Performed By: #### C MP #### [facility] [address] [address] [address] Emilie Carmona Potassium [Moles/Vol] 4.6 mmol/L Normal 3.5-5.1 [facility] Comment on above: Performed By: #### C MP #### [facility] [address] [address] [address] Emilie Carmona Protein [Mass/Vol] 6.6 g/dL Normal 6.4-8.2 [facility] Comment on above: Performed By: #### C MP #### [facility] [address] [address] [address] Emilie Carmona Sodium [Moles/Vol] 141 mmol/L Normal 136-145 [facility] Comment on above: Performed By: #### C MP #### [facility] [address] [address] [address] Emilie Carmona Urea nitrogen [Mass/Vol] 17.0 mg/dL Normal 7.0-18.0 [facility] Comment on above: Performed By: #### C MP #### [facility] [address] [address] [address] Emilie Carmona Urea nitrogen/Creatinine [Mass ratio] 16.7 mg/mg Normal [facility] Comment on above: Performed By: #### C MP #### [facility] [address] [address] [address] Emilie Carmona CBC AUTO DIFFon 12-28-2022 BASO # 0.0 103/ul Normal 0.0-0.1 [facility] Comment on above: Performed By: #### C BC #### [facility] [address] [address] [address] Emilie Carmona Basophils/100 WBC (Bld) 0.3 % Normal 0.2-2.0 [facility] Comment on above: Performed By: #### C BC #### [facility] [address] [address] [address] Emilie Carmona EO # 0.0 103/ul Normal 0.0-0.7 [facility] Comment on above: Performed By: #### C BC #### [facility] [address] [address] [address] Emilie Carmona Eosinophils/100 WBC (Bld) 0.0 % Critically low 0.9-7.0 [facility] Comment on above: Performed By: #### C BC #### [facility] [address] [place] [address] Dr. Emilie Carmona Erythrocyte distribution width (RBC) [Ratio] 14.6 % Normal 11.0-15.0 [facility] Comment on above: Performed By: #### C BC #### [facility] [address] [place] [address] Dr. Emilie Carmona Hematocrit (Bld) [Volume fraction] 32.2 % Critically low 36.0-48.0 [facility] Comment on above: Performed By: #### C BC #### [facility] [address] [place] [address] Dr. Emilie Carmona Hemoglobin (Bld) [Mass/Vol] 10.4 g/dL Critically low 12.0-16.0 [facility] Comment on above: Performed By: #### C BC #### [facility] [address] [place] [address] Dr. Emilie Carmona IG # 0.22 10e3/ul Critically high 0.00-0.03 [facility] Comment on above: Performed By: #### C BC #### [facility] [address] [place] [address] Dr. Emilie Carmona IG % 2.0 % Critically high 0.0-0.5 [facility] Comment on above: Performed By: #### C BC #### [facility] [address] [place] [address] Dr. Emilie Carmona LYMPH # 1.2 103/ul Normal 1.2-3.8 [facility] Comment on above: Performed By: #### C BC #### [facility] [address] [place] [address] Dr. Emilie Carmona Lymphocytes/100 WBC (Bld) 11.4 % Critically low 20.5-60.0 [facility] Comment on above: Performed By: #### C BC #### [facility] [address] [place] [address] Dr. Emilie Carmona MANUAL DIFF REQ NO Normal [facility] Comment on above: Performed By: #### C BC #### [facility] [address] [place] [address] Dr. Emilie Carmona MCH (RBC) [Entitic mass] 27.6 pg Normal 26.7-34.0 [facility] Comment on above: Performed By: #### C BC #### [facility] [address] [place] [address] Dr. Emilie Carmona MCHC (RBC) [Mass/Vol] 32.3 g/dL Normal 29.9-35.2 [facility] Comment on above: Performed By: #### C BC #### [facility] [address] [place] [address] Dr. Emilie Carmona MCV (RBC) [Entitic vol] 85.4 fL Normal 81.0-99.0 [facility] Comment on above: Performed By: #### C BC #### [facility] [address] [place] [address] Dr. Emilie Carmona MONO # 0.7 103/ul Normal 0.3-0.8 [facility] Comment on above: Performed By: #### C BC #### [facility] [address] [place] [address] Dr. Emilie Carmona Monocytes/100 WBC (Bld) 6.3 % Normal 1.7-12.0 [facility] Comment on above: Performed By: #### C BC #### [facility] [address] [place] [address] Dr. Emilie Carmona NEUT # 8.7 103/ul Critically high 1.4-6.5 [facility] Comment on above: Performed By: #### C BC #### [facility] [address] [place] [address] Dr. Emilie Carmoan Neutrophils/100 WBC (Bld) 80.0 % Critically high 43.0-75.0 [facility] Comment on above: Performed By: #### C BC #### [facility] [address] [address] [address] Emilie Carmona Platelet mean volume (Bld) [Entitic vol] 10.9 fL Normal 9.5-13.5 [facility] Comment on above: Performed By: #### C BC #### [facility] [address] [address] [address] Emilie Carmona PLT 226 103/ul Normal 150-450 [facility] Comment on above: Performed By: #### C BC #### [facility] [address] [address] [address] Emilie Carmona RBC 3.77 106/ul Critically low 4.20-5.40 [facility] Comment on above: Performed By: #### C BC #### [facility] [address] [address] [address] Emilie Carmona WBC 10.9 103/ul Normal 4.0-11.0 [facility] Comment on above: Performed By: #### C BC #### [facility] [address] [address] [address] Emilie Carmona PROF 14(COMP METB)on 023 Albumin [Mass/Vol] 2.4 g/dL Critically low 3.4-5.0 [facility] Comment on above: Performed By: #### C MP ####[facility] [address] [address]DrBrenton Carmona Albumin/Globulin [Mass ratio] 0.6 {ratio} Normal [facility] Comment on above: Performed By: #### C MP ####[facility] [address] [id number] Carmona ALP [Catalytic activity/Vol] 57 U/L Normal 46-116 [facility] Comment on above: Performed By: #### C MP ####[facility] [address] [id number] Carmona ALT [Catalytic activity/Vol] 32 U/L Normal 14-59 [facility] Comment on above: Performed By: #### C MP ####[facility] [address] [address]Dr. Emilie Carmona Anion gap [Moles/Vol] 14.1 mmol/L Normal [facility] Comment on above: Performed By: #### C MP ####[facility] [address] [place], [place] [address]Dr. Emilie Carmona AST [Catalytic activity/Vol] 35 U/L Normal 15-37 [facility] Comment on above: Performed By: #### C MP ####[facility] [address] [place], [place] [address]Dr. Emilie Carmona Bilirubin [Mass/Vol] 0.2 mg/dL Normal 0.2-1.0 [facility] Comment on above: Performed By: #### C MP ####[facility] [address] [place], [place] [address]Dr. Emilie Carmona Calcium [Mass/Vol] 9.2 mg/dL Normal 8.5-10.1 [facility] Comment on above: Performed By: #### C MP ####[facility] [address] [place], [place] [address]Dr. Emilie Carmona Chloride [Moles/Vol] 107 mmol/L Normal 98-107 [facility] Comment on above: Performed By: #### C MP ####[facility] [address] [place], [place] [address]Dr. Emilie Carmona CO2 [Moles/Vol] 22.7 mmol/L Normal 21.0-32.0 [facility] Comment on above: Performed By: #### C MP ####[facility] [address] [place], [place] [address]Dr. Emilie Mathew Creatinine [Mass/Vol] 1.02 mg/dL Normal 0.55-1.02 [facility] Comment on above: Performed By: #### C MP ####[facility] [address] [place], [place] [address]Dr. Savileslie Mathew EGFR-AF CHADIAN >60 Normal >=60 [facility] Comment on above: Performed By: #### C MP ####[facility] [address] [place], [place] [address]Dr. Emilie Carmona EGFR-NON AF CHADIAN 52 mL/min/1.73m2 Critically low >=60 [facility] Comment on above: Performed By: #### C MP ####[facility] [address] [address]Dr. Emilie Carmona Globulin (S) [Mass/Vol] 4.0 g/dL Normal [facility] Comment on above: Performed By: #### C MP ####[facility] [address] [address]Dr. Emilie Carmona Glucose [Mass/Vol] 132 mg/dL Critically high 74-106 [facility] Comment on above: Performed By: #### C MP ####[facility] [address] [place], [place] [address]Dr. Emilie Carmona Potassium [Moles/Vol] 3.8 mmol/L Normal 3.5-5.1 [facility] Comment on above: Performed By: #### C MP ####[facility] [address] [place], [place] [address]Dr. Emilie Carmona Protein [Mass/Vol] 6.4 g/dL Normal 6.4-8.2 [facility] Comment on above: Performed By: #### C MP ####[facility] [address] [place], [place] [address]Dr. Emilie Carmona Sodium [Moles/Vol] 140 mmol/L Normal 136-145 [facility] Comment on above: Performed By: #### C MP ####[facility] [address] [place], [place] [address]Dr. Emilie Carmona Urea nitrogen [Mass/Vol] 19.0 mg/dL Critically high 7.0-18.0 [facility] Comment on above: Performed By: #### C MP ####[facility] [address] [place], [place] [address]Dr. Emilie Carmona Urea nitrogen/Creatinine [Mass ratio] 18.6 mg/mg Normal [facility] Comment on above: Performed By: #### C MP ####[facility] [address] [place], [place] [address]Dr. Emilie Carmona CBC AUTO DIFFon 12-27-2022 BASO # 0.1 103/ul Normal 0.0-0.1 [facility] Comment on above: Performed By: #### C BC #### [facility] [address] [address] [address] Emilie Carmona Basophils/100 WBC (Bld) 0.4 % Normal 0.2-2.0 [facility] Comment on above: Performed By: #### C BC #### [facility] [address] [address] [address] Emilie Carmona EO # 0.2 103/ul Normal 0.0-0.7 [facility] Comment on above: Performed By: #### C BC #### [facility] [address] [place] [address] Dr. Emilie Carmona Eosinophils/100 WBC (Bld) 1.8 % Normal 0.9-7.0 [facility] Comment on above: Performed By: #### C BC #### [facility] [address] [place] [address] Dr. Emilie Carmona Erythrocyte distribution width (RBC) [Ratio] 14.1 % Normal 11.0-15.0 [facility] Comment on above: Performed By: #### C BC #### [facility] [address] [place] [address] Dr. Emilie Carmona Hematocrit (Bld) [Volume fraction] 32.1 % Critically low 36.0-48.0 [facility] Comment on above: Performed By: #### C BC #### [facility] [address] [place] [address] Dr. Emilie Carmona Hemoglobin (Bld) [Mass/Vol] 10.7 g/dL Critically low 12.0-16.0 [facility] Comment on above: Performed By: #### C BC #### [facility] [address] [place] [address] Dr. Emilie Carmona IG # 0.13 10e3/ul Critically high 0.00-0.03 [facility] Comment on above: Performed By: #### C BC #### [facility] [address] [place] [address] Dr. Emilie Carmona IG % 0.9 % Critically high 0.0-0.5 [facility] Comment on above: Performed By: #### C BC #### [facility] [address] [place] [address] Dr. Emilie Carmona LYMPH # 0.9 103/ul Critically low 1.2-3.8 [facility] Comment on above: Performed By: #### C BC #### [facility] [address] [place] [address] Dr. Emilie Carmona Lymphocytes/100 WBC (Bld) 6.9 % Critically low 20.5-60.0 [facility] Comment on above: Performed By: #### C BC #### [facility] [address] [place] [address] Dr. Emilie Carmona MANUAL DIFF REQ NO Normal [facility] Comment on above: Performed By: #### C BC #### [facility] [address] [place] [address] Dr. Emilie Carmona MCH (RBC) [Entitic mass] 28.2 pg Normal 26.7-34.0 [facility] Comment on above: Performed By: #### C BC #### [facility] [address] [place] [address] Dr. Emilie Carmona MCHC (RBC) [Mass/Vol] 33.3 g/dL Normal 29.9-35.2 [facility] Comment on above: Performed By: #### C BC #### [facility] [address] [place] [address] Dr. Emilie Carmona MCV (RBC) [Entitic vol] 84.7 fL Normal 81.0-99.0 [facility] Comment on above: Performed By: #### C BC #### [facility] [address] [place] [address] Dr. Emilie Carmona MONO # 0.8 103/ul Normal 0.3-0.8 [facility] Comment on above: Performed By: #### C BC #### [facility] [address] [place] [address] Dr. Emilie Carmona Monocytes/100 WBC (Bld) 5.8 % Normal 1.7-12.0 [facility] Comment on above: Performed By: #### C BC #### [facility] [address] [place] [address] Dr. Emilie Carmona NEUT # 11.5 103/ul Critically high 1.4-6.5 [facility] Comment on above: Performed By: #### C BC #### [facility] [address] [place] [address] Dr. Emilie Carmona Neutrophils/100 WBC (Bld) 84.2 % Critically high 43.0-75.0 [facility] Comment on above: Performed By: #### C BC #### [facility] [address] [place] [address] Dr. Emilie Carmona Platelet mean volume (Bld) [Entitic vol] 10.8 fL Normal 9.5-13.5 [facility] Comment on above: Performed By: #### C BC #### [facility] [address] [place] [address] Dr. Emilie Carmona PLT 200 103/ul Normal 150-450 [facility] Comment on above: Performed By: #### C BC #### [facility] [address] [place] [address] Dr. Emilie Carmona RBC 3.79 106/ul Critically low 4.20-5.40 [facility] Comment on above: Performed By: #### C BC #### [facility] [address] [place] [address] Dr. Emilie Carmona WBC 13.7 103/ul Critically high 4.0-11.0 [facility] Comment on above: Performed By: #### C BC #### [facility] [address] [place] [address] Dr. Emilie Carmona PROF 14(COMP METB)on 023 Albumin [Mass/Vol] 2.4 g/dL Critically low 3.4-5.0 Th [facility] Comment on above: Performed By: #### C MP #### [facility] [address] [place] [address] Dr. Emilie Carmona Albumin/Globulin [Mass ratio] 0.6 {ratio} Normal [facility] Comment on above: Performed By: #### C MP #### [facility] [address] [address] [address] Emilie Carmona ALP [Catalytic activity/Vol] 57 U/L Normal 46-116 [facility] Comment on above: Performed By: #### C MP #### [facility] [address] [address] [address] Emilie Carmona ALT [Catalytic activity/Vol] 21 U/L Normal 14-59 [facility] Comment on above: Performed By: #### C MP #### [facility] [address] [address] [address] Emilie Carmona Anion gap [Moles/Vol] 15.4 mmol/L Normal [facility] Comment on above: Performed By: #### C MP #### [facility] [address] [place] [address] Dr. Emilie Carmona AST [Catalytic activity/Vol] 39 U/L Critically high 15-37 [facility] Comment on above: Performed By: #### C MP #### [facility] [address] [address] [address] Emilie Carmona Bilirubin [Mass/Vol] 0.3 mg/dL Normal 0.2-1.0 [facility] Comment on above: Performed By: #### C MP #### [facility] [address] [address] [address] Emilie Carmona Calcium [Mass/Vol] 9.0 mg/dL Normal 8.5-10.1 [facility] Comment on above: Performed By: #### C MP #### [facility] [address] [address] [address] Emilie Carmona Chloride [Moles/Vol] 104 mmol/L Normal 98-107 [facility] Comment on above: Performed By: #### C MP #### [facility] [address] [address] [address] Emilie Carmona CO2 [Moles/Vol] 20.7 mmol/L Critically low 21.0-32.0 [facility] Comment on above: Performed By: #### C MP #### [facility] [address] [address] [address] Emilie Carmona Creatinine [Mass/Vol] 1.05 mg/dL Critically high 0.55-1.02 [facility] Comment on above: Performed By: #### C MP #### [facility] [address] [address] [address] Emilie Carmona EGFR-AF CHADIAN >60 Normal >=60 [facility] Comment on above: Performed By: #### C MP #### [facility] [address] [address] [address] Emilie Carmona EGFR-NON AF CHADIAN 50 mL/min/1.73m2 Critically low >=60 [facility] Comment on above: Performed By: #### C MP #### [facility] [address] [address] [address] Emilie Carmona Globulin (S) [Mass/Vol] 4.1 g/dL Normal [facility] Comment on above: Performed By: #### C MP #### [facility] [address] [address] [address] Emilie Carmona Glucose [Mass/Vol] 141 mg/dL Critically high 74-106 T [facility] Comment on above: Performed By: #### C MP #### [facility] [address] [address] [address] Emilie Carmona Potassium [Moles/Vol] 4.1 mmol/L Normal 3.5-5.1 [facility] Comment on above: Performed By: #### C MP #### [facility] [address] [address] [address] Emilie Carmona Protein [Mass/Vol] 6.5 g/dL Normal 6.4-8.2 [facility] Comment on above: Performed By: #### C MP #### [facility] [address] [address] [address] Emilie Carmona Sodium [Moles/Vol] 136 mmol/L Normal 136-145 [facility] Comment on above: Performed By: #### C MP #### [facility] [address] [place] [address] Dr. Emilie Carmona Urea nitrogen [Mass/Vol] 22.0 mg/dL Critically high 7.0-18.0 [facility] Comment on above: Performed By: #### C MP #### [facility] [address] [place] [address] Dr. Emilie Carmona Urea nitrogen/Creatinine [Mass ratio] 21.0 mg/mg Normal [facility] Comment on above: Performed By: #### C MP #### [facility] [address] [place] [address] Dr. Emilie Carmona CBC AUTO DIFFon 12-26-2022 BASO # 0.0 103/ul Normal 0.0-0.1 [facility] Comment on above: Performed By: #### C BC #### [facility] [address] [place] [address] Dr. Emilie Carmona Basophils/100 WBC (Bld) 0.2 % Normal 0.2-2.0 [facility] Comment on above: Performed By: #### C BC #### [facility] [address] [place] [address] Dr. Emilie Carmona EO # 0.0 103/ul Normal 0.0-0.7 [facility] Comment on above: Performed By: #### C BC #### [facility] [address] [place] [address] Dr. Emilie Carmona Eosinophils/100 WBC (Bld) 0.1 % Critically low 0.9-7.0 [facility] Comment on above: Performed By: #### C BC #### [facility] [address] [place] [address] Dr. Emilie Carmona Erythrocyte distribution width (RBC) [Ratio] 13.7 % Normal 11.0-15.0 [facility] Comment on above: Performed By: #### C BC #### [facility] [address] [place] [address] Dr. Emilie Carmona Hematocrit (Bld) [Volume fraction] 32.5 % Critically low 36.0-48.0 [facility] Comment on above: Performed By: #### C BC #### [facility] [address] [address] [address] Emilie Carmona Hemoglobin (Bld) [Mass/Vol] 10.9 g/dL Critically low 12.0-16.0 [facility] Comment on above: Performed By: #### C BC #### [facility] [address] [place] [address] Dr. Emilie Carmona IG # 0.09 10e3/ul Critically high 0.00-0.03 [facility] Comment on above: Performed By: #### C BC #### [facility] [address] [place] [address] Dr. Emilie Carmona IG % 0.9 % Critically high 0.0-0.5 [facility] Comment on above: Performed By: #### C BC #### [facility] [address] [place] [address] Dr. Emilie Carmona LYMPH # 0.5 103/ul Critically low 1.2-3.8 [facility] Comment on above: Performed By: #### C BC #### [facility] [address] [place] [address] Dr. Emilie Carmona Lymphocytes/100 WBC (Bld) 4.8 % Critically low 20.5-60.0 [facility] Comment on above: Performed By: #### C BC #### [facility] [address] [place] [address] Dr. Emilie Carmona MANUAL DIFF REQ NO Normal [facility] Comment on above: Performed By: #### C BC #### [facility] [address] [place] [address] Dr. Emilie Carmona MCH (RBC) [Entitic mass] 28.5 pg Normal 26.7-34.0 [facility] Comment on above: Performed By: #### C BC #### [facility] [address] [place] [address] Dr. Emilie Carmona MCHC (RBC) [Mass/Vol] 33.5 g/dL Normal 29.9-35.2 [facility] Comment on above: Performed By: #### C BC #### [facility] [address] [address] [address] mEilie Carmona MCV (RBC) [Entitic vol] 84.9 fL Normal 81.0-99.0 [facility] Comment on above: Performed By: #### C BC #### [facility] [address] [address] [address] Emilie Carmona MONO # 0.3 103/ul Normal 0.3-0.8 [facility] Comment on above: Performed By: #### C BC #### [facility] [address] [address] [address] Emilie Carmona Monocytes/100 WBC (Bld) 2.9 % Normal 1.7-12.0 [facility] Comment on above: Performed By: #### C BC #### [facility] [address] [place] [address] Dr. Emilie Carmona NEUT # 8.9 103/ul Critically high 1.4-6.5 [facility] Comment on above: Performed By: #### C BC #### [facility] [address] [place] [address] Dr. Emilie Carmona Neutrophils/100 WBC (Bld) 91.1 % Critically high 43.0-75.0 [facility] Comment on above: Performed By: #### C BC #### [facility] [address] [place] [address] Dr. Emilie Carmona Platelet mean volume (Bld) [Entitic vol] 10.8 fL Normal 9.5-13.5 [facility] Comment on above: Performed By: #### C BC #### [facility] [address] [place] [address] Dr. Emilie Carmona PLT 204 103/ul Normal 150-450 [facility] Comment on above: Performed By: #### C BC #### [facility] [address] [place] [address] Dr. Emilie Carmona RBC 3.83 106/ul Critically low 4.20-5.40 [facility] Comment on above: Performed By: #### C BC #### [facility] [address] [address] [address] Emilie Camrona WBC 9.8 103/ul Normal 4.0-11.0 [facility] Comment on above: Performed By: #### C BC #### [facility] [address] [place] [address] Dr. Emilie Carmona PROF 14(COMP METB)on 023 Albumin [Mass/Vol] 2.5 g/dL Critically low 3.4-5.0 Th [facility] Comment on above: Performed By: #### R SPLUS #### [facility] [address] [place] [address] Dr. Emilie Carmona Albumin/Globulin [Mass ratio] 0.6 {ratio} Normal [facility] Comment on above: Performed By: #### R SPLUS #### [facility] [address] [place] [address] Dr. Emilie Carmona ALP [Catalytic activity/Vol] 63 U/L Normal 46-116 [facility] Comment on above: Performed By: #### R SPLUS #### [facility] [address] [place] [address] Dr. Emilie Carmona ALT [Catalytic activity/Vol] 13 U/L Critically low 14-59 [facility] Comment on above: Performed By: #### R SPLUS #### [facility] [address] [place] [address] Dr. Emilie Carmona Anion gap [Moles/Vol] 18.7 mmol/L Normal [facility] Comment on above: Performed By: #### R SPLUS #### [facility] [address] [place] [address] Dr. Emilie Carmona AST [Catalytic activity/Vol] 16 U/L Normal 15-37 [facility] Comment on above: Performed By: #### R SPLUS #### [facility] [address] [place] [address] Dr. Emilie Carmona Bilirubin [Mass/Vol] 0.3 mg/dL Normal 0.2-1.0 [facility] Comment on above: Performed By: #### R SPLUS #### [facility] [address] [address] [address] Emilie Carmona Calcium [Mass/Vol] 8.5 mg/dL Normal 8.5-10.1 [facility] Comment on above: Performed By: #### R SPLUS #### [facility] [address] [address] [address] Emilie Carmona Chloride [Moles/Vol] 103 mmol/L Normal 98-107 [facility] Comment on above: Performed By: #### R SPLUS #### [facility] [address] [address] [address] Emilie Carmona CO2 [Moles/Vol] 21.0 mmol/L Normal 21.0-32.0 [facility] Comment on above: Performed By: #### R SPLUS #### [facility] [address] [place] [address] Dr. Emilie Carmona Creatinine [Mass/Vol] 1.37 mg/dL Critically high 0.55-1.02 [facility] Comment on above: Performed By: #### R SPLUS #### [facility] [address] [place] [address] Dr. Emilie Carmona EGFR-AF CHADIAN 45 mL/min/1.73m2 Critically low >=60 [facility] Comment on above: Performed By: #### R SPLUS #### [facility] [address] [place] [address] Dr. Emilie Carmona EGFR-NON AF CHADIAN 37 mL/min/1.73m2 Critically low >=60 [facility] Comment on above: Performed By: #### R SPLUS #### [facility] [address] [place] [address] Dr. Emilie Carmona Globulin (S) [Mass/Vol] 4.1 g/dL Normal [facility] Comment on above: Performed By: #### R SPLUS #### [facility] [address] [place] [address] Dr. Emilie Carmona Glucose [Mass/Vol] 235 mg/dL Critically high 74-106 T [facility] Comment on above: Performed By: #### R SPLUS #### [facility] [address] [address] [address] Emilie Carmona Potassium [Moles/Vol] 2.7 mmol/L Critically low 3.5-5.1 [facility] Comment on above: Performed By: #### R SPLUS #### [facility] [address] [place] [address] Dr. Emilie Carmona Protein [Mass/Vol] 6.6 g/dL Normal 6.4-8.2 [facility] Comment on above: Performed By: #### R SPLUS #### [facility] [address] [place] [address] Dr. Emilie Carmona Sodium [Moles/Vol] 138 mmol/L Normal 136-145 [facility] Comment on above: Performed By: #### R SPLUS #### [facility] [address] [place] [address] Dr. Emilie Carmona Urea nitrogen [Mass/Vol] 20.0 mg/dL Critically high 7.0-18.0 [facility] Comment on above: Performed By: #### R SPLUS #### [facility] [address] [place] [address] Dr. Emilie Carmona Urea nitrogen/Creatinine [Mass ratio] 14.6 mg/mg Normal [facility] Comment on above: Performed By: #### R SPLUS #### [facility] [address] [place] [address] Dr. Emilie Carmona XR CHEST 1 Von [...] ALEIDA TAVERAS Date: 2022-12-26 10:29 Normal [facility] BNPon 12-25-2022 Natriuretic peptide B (Bld) [Mass/Vol] 639.0 pg/mL Normal <=1,800.0 [facility] Comment on above: Performed By: #### C MADM, BNP, CMP ####[facility] [address] [address]Dr. Emilie Carmona CARDIAC MARYCRUZ ADMITon 023 CK [Catalytic activity/Vol] 248 U/L Critically high 26-192 [facility] Comment on above: Performed By: #### C MADM, BNP, CMP ####[facility] [address] [address]Dr. Emilie Carmona CK.MB [Mass/Vol] 1.38 ng/mL Normal <=3.60 [facility] Comment on above: Performed By: #### C MADM, BNP, CMP ####[facility] [address] [address]Dr. Emilie Carmona HSTROP 11.8 pg/mL Normal 4.0-51.3 [facility] Comment on above: Result Comment: CUT- OFF POINTS HAVE BEEN ESTABLISHED BASED ON THE FOURTH UNIVERSAL DEFINITIONS OF MYOCARDIAL INFARCTION. THE UPPER REFERENCE LIMIT (URL) OF TROPONIN, DEFINED THE 99TH PERCENTILE OF cTnI DISTRIBUTION IN A REFERENCE POPULATION, HAS BEEN CONFIRMED THE DECISION THRESHOLD FOR DE DIAGNOSIS. Performed By: #### C MADM, BNP, CMP ####[facility] [address] [id number] Emilie Carmona MAXIMILIAN 484 ng/mL Critically high 9-82 [facility] Comment on above: Performed By: #### C MADM, BNP, CMP ####[facility] [address] [id number] Emilie Carmona CBC AUTO DIFFon 12-25-2022 BASO # 0.0 103/ul Normal 0.0-0.1 [facility] Comment on above: Performed By: #### C BC #### [facility] [address] [address] [address] Emilie Carmona Basophils/100 WBC (Bld) 0.4 % Normal 0.2-2.0 [facility] Comment on above: Performed By: #### C BC #### [facility] [address] [address] [address] Emilie Carmona EO # 0.0 103/ul Normal 0.0-0.7 [facility] Comment on above: Performed By: #### C BC #### [facility] [address] [address] [address] Eimlie Carmona Eosinophils/100 WBC (Bld) 0.0 % Critically low 0.9-7.0 [facility] Comment on above: Performed By: #### C BC #### [facility] [address] [place] [address] Dr. Emilie Carmona Erythrocyte distribution width (RBC) [Ratio] 13.6 % Normal 11.0-15.0 [facility] Comment on above: Performed By: #### C BC #### [facility] [address] [place] [address] Dr. Emilie Carmona Hematocrit (Bld) [Volume fraction] 39.0 % Normal 36.0-48.0 [facility] Comment on above: Performed By: #### C BC #### [facility] [address] [place] [address] Dr. Emilie Carmona Hemoglobin (Bld) [Mass/Vol] 13.0 g/dL Normal 12.0-16.0 [facility] Comment on above: Performed By: #### C BC #### [facility] [address] [place] [address] Dr. Emilie Carmona IG # 0.07 10e3/ul Critically high 0.00-0.03 [facility] Comment on above: Performed By: #### C BC #### [facility] [address] [place] [address] Dr. Emilie Carmona IG % 0.6 % Critically high 0.0-0.5 [facility] Comment on above: Performed By: #### C BC #### [facility] [address] [place] [address] Dr. Emilie Carmona LYMPH # 0.8 103/ul Critically low 1.2-3.8 [facility] Comment on above: Performed By: #### C BC #### [facility] [address] [address] [address] Emilie Carmona Lymphocytes/100 WBC (Bld) 6.9 % Critically low 20.5-60.0 [facility] Comment on above: Performed By: #### C BC #### [facility] [address] [address] [address] Emilie Carmona MANUAL DIFF REQ NO Normal [facility] Comment on above: Performed By: #### C BC #### [facility] [address] [place] [address] Dr. Emilie Carmona MCH (RBC) [Entitic mass] 28.4 pg Normal 26.7-34.0 [facility] Comment on above: Performed By: #### C BC #### [facility] [address] [place] [address] Dr. Emilie Carmona MCHC (RBC) [Mass/Vol] 33.3 g/dL Normal 29.9-35.2 [facility] Comment on above: Performed By: #### C BC #### [facility] [address] [place] [address] Dr. Emilie Carmona MCV (RBC) [Entitic vol] 85.3 fL Normal 81.0-99.0 [facility] Comment on above: Performed By: #### C BC #### [facility] [address] [place] [address] Dr. Emilie Carmona MONO # 1.0 103/ul Critically high 0.3-0.8 [facility] Comment on above: Performed By: #### C BC #### [facility] [address] [place] [address] Dr. Emilie Carmona Monocytes/100 WBC (Bld) 9.1 % Normal 1.7-12.0 [facility] Comment on above: Performed By: #### C BC #### [facility] [address] [place] [address] Dr. Emilie Carmona NEUT # 9.0 103/ul Critically high 1.4-6.5 [facility] Comment on above: Performed By: #### C BC #### [facility] [address] [address] [address] Emilie Carmona Neutrophils/100 WBC (Bld) 83.0 % Critically high 43.0-75.0 [facility] Comment on above: Performed By: #### C BC #### [facility] [address] [address] [address] Emilie Carmona Platelet mean volume (Bld) [Entitic vol] 10.6 fL Normal 9.5-13.5 [facility] Comment on above: Performed By: #### C BC #### [facility] [address] [address] [address] Emilie Carmona PLT 276 103/ul Normal 150-450 [facility] Comment on above: Performed By: #### C BC #### [facility] [address] [place] [address] Dr. Emilie Carmona RBC 4.57 106/ul Normal 4.20-5.40 [facility] Comment on above: Performed By: #### C BC #### [facility] [address] [place] [address] Dr. Emilie Carmona WBC 10.8 103/ul Normal 4.0-11.0 [facility] Comment on above: Performed By: #### C BC #### [facility] [address] [address] [address] Emilie Carmona CULTURE BLOODon 12-25-2022 Microscopic examination of blood, culture Culture Observations: NO GROWTH AT 36-48 HOURS. FINAL TO FOLLOW. Normal [facility] Comment on above: Performed By: #### B LDCX2 ####[facility] [address] [address]Dr. Emilie Carmona Microscopic examination of blood, culture Culture Observations: NO GROWTH AT 36-48 HOURS. FINAL TO FOLLOW. Normal [facility] Comment on above: Performed By: #### B LDCX1 #### [facility] [address] [place] [address] Dr. Emilie Carmona CULTURE SPUTUMon 12-25-2022 CULTURE SPUTUM Culture Observations : Growth of Normal Respiratory Joanne also seen Isolate 1 Haemophilus influenzae Heavy growth of Normal [facility] Comment on above: Result Comment: Beta Lactamase: Negative Performed By: #### S PUTCX ####[facility] [address] [address]Dr. Emilie Carmona CULTURE URINEon 12-25-2022 CULTURE URINE Culture Observations : ROD TO FOLLOW. Isolate 1 Escherichia coli 15,000 cfu/mL of Normal [facility] Comment on above: Performed By: #### U RCX #### [facility] [address] [place] [address] Dr. Emilie Carmona ER URINE PROFILEon 3 Bilirubin Ql (U) Negative Normal NEGATIVE [facility] Comment on above: Performed By: #### R SPLUS #### [facility] [address] [place] [address] Dr. Emilie Carmona Clarity (U) CLEAR Normal CLEAR [facility] Comment on above: Performed By: #### R SPLUS #### [facility] [address] [place] [address] Dr. Emilie Carmona Color (U) YELLOW Normal YELLOW [facility] Comment on above: Performed By: #### R SPLUS #### [facility] [address] [place] [address] Dr. Emilie Carmona ERUD A micrscopic examination will be performed if indicated. Normal [facility] Comment on above: Performed By: #### R SPLUS #### [facility] [address] [place] [address] Dr. Emilie Carmona Glucose Ql (U) Negative Normal NEGATIVE [facility] Comment on above: Performed By: #### R SPLUS #### [facility] [address] [place] [address] Dr. Emilie Carmona Hemoglobin Ql (U) SMALL Abnormal NEGATIVE [facility] Comment on above: Performed By: #### R SPLUS #### [facility] [address] [place] [address] Dr. Emilie Carmona Ketones Ql (U) 15 mg/dl Abnormal NEGATIVE [facility] Comment on above: Performed By: #### R SPLUS #### [facility] [address] [place] [address] Dr. Emilie Carmona LEUKOCYTES Negative Normal NEGATIVE [facility] Comment on above: Performed By: #### R SPLUS #### [facility] [address] [address] [address] Emilie Carmona Nitrite Ql (U) Negative Normal NEGATIVE [facility] Comment on above: Performed By: #### R SPLUS #### [facility] [address] [address] [address] Emilie Carmona pH (U) 6.0 [pH] Normal 5-9 [facility] Comment on above: Performed By: #### R SPLUS #### [facility] [address] [address] [address] Emilie Carmona SPEC GRAVITY 1.015 Normal 1.005-<=1.025 [facility] Comment on above: Performed By: #### R SPLUS #### [facility] [address] [place] [address] Dr. Emilie Carmona UA PROTEIN TRACE Normal NEGATIVE/ TRACE [facility] Comment on above: Performed By: #### R SPLUS #### [facility] [address] [address] [address] Emilie Carmona UR MICRO IND INDICATED Normal [facility] Comment on above: Performed By: #### R SPLUS #### [facility] [address] [address] [address] Emilie Carmona Urobilinogen Qn (U) 0.2 {Warren'U}/dL Normal 0.2 - 1. 0 [facility] Comment on above: Performed By: #### R SPLUS #### [facility] [address] [place] [address] Dr. Emilie Carmona LACTATE/LACTIC ACIDon 2022 Lactate [Moles/Vol] 1.2 mmol/L Normal 0.4-2.0 [facility] Comment on above: Performed By: #### L ACT ####[facility] [id number] [place] [address]Dr. Emilie Carmona PROF 14(COMP METB)on 023 Albumin [Mass/Vol] 3.4 g/dL Normal 3.4-5.0 [facility] Comment on above: Performed By: #### C MADM, BNP, CMP ####[facility] [address]uxfzd[address] [place] [address]Dr. Emilie Carmona Albumin/Globulin [Mass ratio] 0.8 {ratio} Normal [facility] Comment on above: Performed By: #### C MADM, BNP, CMP ####[facility] Xrtkzgazqa[address] [place] [address]Dr. Emilie Mathew ALP [Catalytic activity/Vol] 88 U/L Normal 46-116 [facility] Comment on above: Performed By: #### C MADM, BNP, CMP ####[facility] [address] [place], [place] [address]Dr. Emilie Carmona ALT [Catalytic activity/Vol] 17 U/L Normal 14-59 [facility] Comment on above: Performed By: #### C MADM, BNP, CMP ####[facility] Gw[address]mysqq[address] [place], [place] [address]Dr. Savileslie Mathew Anion gap [Moles/Vol] 13.2 mmol/L Normal [facility] Comment on above: Performed By: #### C MADM, BNP, CMP ####[facility] [address] [place], [place] [address]Dr. Savileslie Carmona AST [Catalytic activity/Vol] 22 U/L Normal 15-37 [facility] Comment on above: Performed By: #### C MADM, BNP, CMP ####[facility] [address] [place], [place] [address]Dr. Emilie Carmona Bilirubin [Mass/Vol] 0.4 mg/dL Normal 0.2-1.0 [facility] Comment on above: Performed By: #### C MADM, BNP, CMP ####[facility] [address] [place], [place] [address]Dr. Emilie Carmona Calcium [Mass/Vol] 9.2 mg/dL Normal 8.5-10.1 [facility] Comment on above: Performed By: #### C MADM, BNP, CMP ####[facility] [address] [place], [place] [id number]. Emilie Carmona Chloride [Moles/Vol] 100 mmol/L Normal 98-107 [facility] Comment on above: Performed By: #### C MADM, BNP, CMP ####[facility] Whw[address]udkffj[address] [place] [address]Dr. Emilie Carmona CO2 [Moles/Vol] 26.5 mmol/L Normal 21.0-32.0 [facility] Comment on above: Performed By: #### C MADM, BNP, CMP ####[facility] Dgpopbvhmb[address] [place], [place] [address]Dr. Emilie Carmona Creatinine [Mass/Vol] 1.12 mg/dL Critically high 0.55-1.02 [facility] Comment on above: Performed By: #### C MADM, BNP, CMP ####[facility] T[address]vr[address] [place], [place] [address]Dr. Emilie Mathew EGFR-AF CHADIAN 56 mL/min/1.73m2 Critically low >=60 [facility] Comment on above: Performed By: #### C MADM, BNP, CMP ####[facility] [address]wk[address] [place], [place] [address]Dr. Emilie Mathew EGFR-NON AF CHADIAN 46 mL/min/1.73m2 Critically low >=60 [facility] Comment on above: Performed By: #### C MADM, BNP, CMP ####[facility] [address]urnyexx[address] [place], [place] [address]Dr. Emilie Carmona Globulin (S) [Mass/Vol] 4.4 g/dL Normal [facility] Comment on above: Performed By: #### C MADM, BNP, CMP ####[facility] [address] [place] [address]Dr. Emilie Carmona Glucose [Mass/Vol] 123 mg/dL Critically high 74-106 [facility] Comment on above: Performed By: #### C MADM, BNP, CMP ####[facility] Tiswdiumqa[address] [place] [address]Dr. Emilie Carmona Potassium [Moles/Vol] 3.7 mmol/L Normal 3.5-5.1 [facility] Comment on above: Performed By: #### C MADM, BNP, CMP ####[facility] O[address]zxiq[address] [place] [address]Dr. Emilie Carmona Protein [Mass/Vol] 7.8 g/dL Normal 6.4-8.2 [facility] Comment on above: Performed By: #### C MADM, BNP, CMP ####[facility] Wpwuufcdbx7972 [place] [address]Dr. Emilie Carmona Sodium [Moles/Vol] 136 mmol/L Normal 136-145 [facility] Comment on above: Performed By: #### C MADM, BNP, CMP ####[facility] Zxfxjnqhmi3444 [place] [address]Dr. Emilie Carmona Urea nitrogen [Mass/Vol] 14.0 mg/dL Normal 7.0-18.0 [facility] Comment on above: Performed By: #### C MADM, BNP, CMP ####[facility] [address] [place], [place] [address]Dr. Emilie Carmona Urea nitrogen/Creatinine [Mass ratio] 12.5 mg/mg Normal [facility] Comment on above: Performed By: #### C MADM, BNP, CMP ####[facility] K[address]rq[address]exess[address] [place] [address]Dr. Emilie Carmona RESPIRATORY PANEL PLUSon Adenovirus Not detected Normal NOT DETECTED [facility] Comment on above: Performed By: #### R SPLUS #### [facility] [address] [place] [address] Dr. Emilie Carmona B. Parapertusis Not detected Normal NOT DETECTED [facility] Comment on above: Performed By: #### R SPLUS #### [facility] [address] [place] [address] Dr. Emilie Lyn. Pertussis Not detected Normal NOT DETECTED [facility] Comment on above: Performed By: #### R SPLUS #### [facility] [address] [place] [address] [address] Emilie Carmona Chlamydia Pneumoniae Not detected Normal NOT DETECTED [facility] Comment on above: Performed By: #### R SPLUS #### [facility] [address] [place] [address] Dr. Emilie Carmona Coronavirus 229E Not detected Normal NOT DETECTED [facility] Comment on above: Performed By: #### R SPLUS #### [facility] [address] [place] [address] Dr. Emilie Carmona Coronavirus HKU1 Not detected Normal NOT DETECTED [facility] Comment on above: Performed By: #### R SPLUS #### [facility] [address] [place] [address] Dr. Emilie Carmona Coronavirus NL63 Not detected Normal NOT DETECTED [facility] Comment on above: Performed By: #### R SPLUS #### [facility] [address] [place] [address] Dr. Emilie Carmona Coronavirus OC43 Not detected Normal NOT DETECTED [facility] Comment on above: Performed By: #### R SPLUS #### [facility] [address] [place] [address] Dr. Emilie Carmona Influenza A H1 Not detected Normal NOT DETECTED [facility] Comment on above: Performed By: #### R SPLUS #### [facility] [address] [place] [address] Dr. Emilie Carmona Influenza A H1 2009 Detected Abnormal NOT DETECTED [facility] Comment on above: Performed By: #### R SPLUS #### [facility] [address] [place] [address] Dr. Emilie Carmona Influenza A H3 Not detected Normal NOT DETECTED [facility] Comment on above: Performed By: #### R SPLUS #### [facility] [address] [place] [address] Dr. Emilie Carmona Influenza B Not detected Normal NOT DETECTED [facility] Comment on above: Performed By: #### R SPLUS #### [facility] [address] [place] [address] Dr. Emilie Carmona Metapneumovirus Not detected Normal NOT DETECTED [facility] Comment on above: Performed By: #### R SPLUS #### [facility] [address] [place] [address] Dr. Emilie Carmona Mycoplas. Pneumoniae Not detected Normal NOT DETECTED [facility] Comment on above: Performed By: #### R SPLUS #### [facility] [address] [place] [address] Dr. Emilie Carmona Parainfluenza 1 Not detected Normal NOT DETECTED [facility] Comment on above: Performed By: #### R SPLUS #### [facility] [address] [place] [address] Dr. Emilie Carmona Parainfluenza 2 Not detected Normal NOT DETECTED [facility] Comment on above: Performed By: #### R SPLUS #### [facility] [address] [place] [address] Dr. Emilie Carmona Parainfluenza 3 Not detected Normal NOT DETECTED [facility] Comment on above: Performed By: #### R SPLUS #### [facility] [address] [place] [address] Dr. Emilie Carmona Parainfluenza 4 Not detected Normal NOT DETECTED [facility] Comment on above: Performed By: #### R SPLUS #### [facility] [address] [place] [address] Dr. Emilie Carmona Rhino/Enterovirus Not detected Normal NOT DETECTED [facility] Comment on above: Performed By: #### R SPLUS #### [facility] [address] [place] [address] Dr. Emilie Carmona RP2 Header 1 RESPIRATORY PANEL: VIRUSES Normal [facility] Comment on above: Performed By: #### R SPLUS #### [facility] [address] [place] [address] Dr. Emilie Carmona RP2 Header 2 RESPIRATORY PANEL: BACTERIA Normal [facility] Comment on above: Performed By: #### R SPLUS #### [facility] [address] [place] [address] Dr. Emilie Carmona RSV Not detected Normal NOT DETECTED [facility] Comment on above: Performed By: #### R SPLUS #### [facility] [address] [place] [address] Dr. Emilie Carmona SARS-CoV-2 (COVID-19) RNA CHASITY+probe Ql (Unsp spec) Detected Abnormal NOT DETECTED [facility] Comment on above: Performed By: #### R SPLUS #### [facility] [address] [place] [address] Dr. Emilie Carmona SPUTUM GRAM STAINon 12-26-19 COMMENTS Normal [facility] Comment on above: Performed By: #### C BC #### [facility] [address] [place] [address] [address] Emilie Carmona DIPHTHEROIDS Normal [facility] Comment on above: Performed By: #### C BC #### [facility] [address] [place] [address] Dr. Emilie Carmona EPITHELIALS <25 Normal [facility] Comment on above: Performed By: #### C BC #### [facility] [address] [place] [address] Dr. Emilie Carmona FUNGAL ELEMENTS Normal [facility] Comment on above: Performed By: #### C BC #### [facility] [address] [place] [address] [address] Emilie Carmona GRAM NEG BACILLI Normal [facility] Comment on above: Performed By: #### C BC #### [facility] [address] [place] [address] Dr. Emilie WALTERS NEG DIPPLOCOCCI FEW Normal [facility] Comment on above: Performed By: #### C BC #### [facility] [address] [place] [address] Dr. Emilie Carmona GRAM POS BACILLI Normal [facility] Comment on above: Performed By: #### C BC #### [facility] [address] [place] [address] Dr. Emilie Carmona GRAM POSITIVE COCCI Normal [facility] Comment on above: Performed By: #### C BC #### [facility] [address] [place] [address] Dr. Emilie Carmona WBC (Bld) [#/Vol] 10*3/uL Normal [facility] Comment on above: Performed By: #### C BC #### [facility] [address] [place] [address] Dr. Emilie Carmona URINE MICROSCOPIC ONLYon BACTERIA SMALL Abnormal NONE SEEN [facility] Comment on above: Performed By: #### R SPLUS #### [facility] [address] [place] [address] Dr. Emilie Carmona Bacteria identified Cx Nom (U) INDICATED Normal [facility] Comment on above: Performed By: #### R SPLUS #### [facility] [address] [place] [address] Dr. Emilie Carmona CAST SEEN Abnormal NONE SEEN [facility] Comment on above: Performed By: #### R SPLUS #### [facility] [address] [place] [address] Dr. Emilie Carmona Crystals LM Nom (Urine sed) NONE SEEN Normal NONE SEEN [facility] Comment on above: Performed By: #### R SPLUS #### [facility] [address] [place] [address] Dr. Emilie Carmona Epithelial cells LM Ql (Urine sed) FEW Abnormal NONE SEEN /RARE [facility] Comment on above: Performed By: #### R SPLUS #### [facility] [address] [place] [address] Dr. Emilie Carmona HYALINE CAST RARE Normal [facility] Comment on above: Performed By: #### R SPLUS #### [facility] [address] [place] [address] Dr. Emilie Carmona MUCOUS NONE SEEN Normal NONE SEEN [facility] Comment on above: Performed By: #### R SPLUS #### [facility] [address] [place] [address] Dr. Emilie Carmona RBC 10-20 Abnormal 0-2 [facility] Comment on above: Performed By: #### R SPLUS #### [facility] [address] [place] [address] Dr. Emilie Carmona WBC 2-5 Abnormal NONE SEEN [facility] Comment on above: Performed By: #### R SPLUS #### [facility] [address] [place] [address] Dr. Emilie Carmona XR CHEST 1 Von 12-25-2022 XR CHEST 1 V EXAM: XR CHEST 1 V INDICATION: SHORTNESS OF BREATH. COMPARISON: Chest radiograph 06/14/2022 TECHNIQUE: Single frontal view of the chest FINDINGS: Normal cardiomediastinal contours. No acute infiltrative process. No pleural effusion or pneumothorax. No acute osseous abnormality. IMPRESSION: No acute cardiopulmonary process. Electronically authenticated by: DELL BENITEZ Date: 2022-12-25 15:54 Normal [facility] XR DEXA BONE DENSITYon 06-22 XR DEXA [...] by: KARISSA COLBY Date: 2022-06-22 15:50 Normal [facility] CBC AUTO DIFFon 06-16-2022 BASO # 0.1 103/ul Normal 0.0-0.1 [facility] Comment on above: Performed By: #### C BC #### [facility] [address] [place] [address] Dr. Emilie Carmona Basophils/100 WBC (Bld) 0.9 % Normal 0.2-2.0 [facility] Comment on above: Performed By: #### C BC #### [facility] [address] [place] [address] Dr. Emilie Carmona EO # 0.4 103/ul Normal 0.0-0.7 [facility] Comment on above: Performed By: #### C BC #### [facility] [address] [place] [address] Dr. Emilie Carmona Eosinophils/100 WBC (Bld) 5.7 % Normal 0.9-7.0 [facility] Comment on above: Performed By: #### C BC #### [facility] [address] [place] [address] Dr. Emilie Carmona Erythrocyte distribution width (RBC) [Ratio] 13.5 % Normal 11.0-15.0 [facility] Comment on above: Performed By: #### C BC #### [facility] [address] [place] [address] Dr. Emilie Carmona Hematocrit (Bld) [Volume fraction] 32.9 % Critically low 36.0-48.0 [facility] Comment on above: Performed By: #### C BC #### [facility] [address] [place] [address] Dr. Emilie Carmona Hemoglobin (Bld) [Mass/Vol] 10.6 g/dL Critically low 12.0-16.0 [facility] Comment on above: Performed By: #### C BC #### [facility] [address] [place] [address] Dr. Emilie Carmona IG # 0.02 10e3/ul Normal 0.00-0.03 [facility] Comment on above: Performed By: #### C BC #### [facility] [address] [place] [address] Dr. Emilie Carmona IG % 0.3 % Normal 0.0-0.5 [facility] Comment on above: Performed By: #### C BC #### [facility] [address] [place] [address] Dr. Emilie Carmona LYMPH # 1.8 103/ul Normal 1.2-3.8 [facility] Comment on above: Performed By: #### C BC #### [facility] [address] [place] [address] Dr. Emilie Carmona Lymphocytes/100 WBC (Bld) 28.4 % Normal 20.5-60.0 [facility] Comment on above: Performed By: #### C BC #### [facility] [address] [place] [address] Dr. Emilie Carmona MANUAL DIFF REQ NO Normal [facility] Comment on above: Performed By: #### C BC #### [facility] [address] [place] [address] Dr. Emilie Carmona MCH (RBC) [Entitic mass] 28.5 pg Normal 26.7-34.0 [facility] Comment on above: Performed By: #### C BC #### [facility] [address] [place] [address] Dr. Emilie Carmona MCHC (RBC) [Mass/Vol] 32.2 g/dL Normal 29.9-35.2 [facility] Comment on above: Performed By: #### C BC #### [facility] [address] [place] [address] Dr. Emilie Carmona MCV (RBC) [Entitic vol] 88.4 fL Normal 81.0-99.0 [facility] Comment on above: Performed By: #### C BC #### [facility] [address] [place] [address] Dr. Emilie Carmona MONO # 0.7 103/ul Normal 0.3-0.8 [facility] Comment on above: Performed By: #### C BC #### [facility] [address] [place] [address] Dr. Emilie Carmona Monocytes/100 WBC (Bld) 11.0 % Normal 1.7-12.0 [facility] Comment on above: Performed By: #### C BC #### [facility] [address] [place] [address] Dr. Emilie Carmona NEUT # 3.5 103/ul Normal 1.4-6.5 [facility] Comment on above: Performed By: #### C BC #### [facility] [address] [place] [address] Dr. Emilie Carmona Neutrophils/100 WBC (Bld) 53.7 % Normal 43.0-75.0 [facility] Comment on above: Performed By: #### C BC #### [facility] [address] [place] [address] Dr. Emilie Carmona Platelet mean volume (Bld) [Entitic vol] 11.6 fL Normal 9.5-13.5 [facility] Comment on above: Performed By: #### C BC #### [facility] [address] [place] [address] Dr. Emilie Carmona PLT 223 103/ul Normal 150-450 [facility] Comment on above: Performed By: #### C BC #### [facility] [address] [place] [address] [address] Emilie Carmona RBC 3.72 106/ul Critically low 4.20-5.40 [facility] Comment on above: Performed By: #### C BC #### [facility] [address] [place] [address] [address] Emilie Carmona WBC 6.4 103/ul Normal 4.0-11.0 [facility] Comment on above: Performed By: #### C BC #### [facility] [address] [place] [address] [address] Emilie Carmona PROF CHEM 8 (BAS METB)on Anion gap [Moles/Vol] 10.4 mmol/L Normal [facility] Comment on above: Performed By: #### C BC #### [facility] [address] [place] [address] Dr. Emilie Carmona Calcium [Mass/Vol] 9.8 mg/dL Normal 8.5-10.1 [facility] Comment on above: Performed By: #### C BC #### [facility] [address] [place] [address] Dr. Emilie Carmona Chloride [Moles/Vol] 105 mmol/L Normal 98-107 [facility] Comment on above: Performed By: #### C BC #### [facility] [address] [place] [address] [address] Emilie Carmona CO2 [Moles/Vol] 25.0 mmol/L Normal 21.0-32.0 [facility] Comment on above: Performed By: #### C BC #### [facility] [address] [place] [address] Dr. Emilie Carmona Creatinine [Mass/Vol] 0.87 mg/dL Normal 0.55-1.02 [facility] Comment on above: Performed By: #### C BC #### [facility] [address] [place] [address] Dr. Emilie Carmona EGFR-AF CHADIAN >60 Normal >=60 [facility] Comment on above: Performed By: #### C BC #### [facility] [address] [place] [address] [address] Emilie Carmona EGFR-NON AF CHADIAN >60 Normal >=60 [facility] Comment on above: Performed By: #### C BC #### [facility] [address] [place] [address] [address] Emilie Carmona Glucose [Mass/Vol] 105 mg/dL Normal 74-106 [facility] Comment on above: Performed By: #### C BC #### [facility] [address] [place] [address] [address] Emilie Carmona Potassium [Moles/Vol] 3.4 mmol/L Critically low 3.5-5.1 [facility] Comment on above: Performed By: #### C BC #### [facility] [address] [place] [address] [address] Emilie Carmona Sodium [Moles/Vol] 137 mmol/L Normal 136-145 [facility] Comment on above: Performed By: #### C BC #### [facility] [address] [place] [address] [address] Emilie Carmona Urea nitrogen [Mass/Vol] 12.0 mg/dL Normal 7.0-18.0 [facility] Comment on above: Performed By: #### C BC #### [facility] [address] [place] [address] [address] Emilie Carmona Urea nitrogen/Creatinine [Mass ratio] 13.8 mg/mg Normal [facility] Comment on above: Performed By: #### C BC #### [facility] [address] [place] [address] [address] Emilie Carmona CBC AUTO DIFFon 06-15-2022 BASO # 0.1 103/ul Normal 0.0-0.1 [facility] Comment on above: Performed By: #### C BC ####[facility] [address] [place] [address]Dr. Emilie Carmona Basophils/100 WBC (Bld) 0.7 % Normal 0.2-2.0 [facility] Comment on above: Performed By: #### C BC ####[facility] [address] [place] [address]Dr. Emilie Carmona EO # 0.2 103/ul Normal 0.0-0.7 [facility] Comment on above: Performed By: #### C BC ####[facility] [address] [place] [address]Dr. Emilie Carmona Eosinophils/100 WBC (Bld) 2.4 % Normal 0.9-7.0 [facility] Comment on above: Performed By: #### C BC ####[facility] [address] [place], [place] [address]Dr. Emilie Carmona Erythrocyte distribution width (RBC) [Ratio] 13.5 % Normal 11.0-15.0 [facility] Comment on above: Performed By: #### C BC ####[facility] [address] [place], [place] [address]Dr. Emilie Carmona Hematocrit (Bld) [Volume fraction] 35.3 % Critically low 36.0-48.0 [facility] Comment on above: Performed By: #### C BC ####[facility] [address] [place], [place] [address]Dr. Emilie Carmona Hemoglobin (Bld) [Mass/Vol] 11.5 g/dL Critically low 12.0-16.0 [facility] Comment on above: Performed By: #### C BC ####[facility] [address] [place], [place] [address]Dr. Emilie Carmona IG # 0.01 10e3/ul Normal 0.00-0.03 [facility] Comment on above: Performed By: #### C BC ####[facility] [address] [place], [place] [address]Dr. Emilie Carmona IG % 0.1 % Normal 0.0-0.5 [facility] Comment on above: Performed By: #### C BC ####[facility] [address] [place], [place] [address]Dr. Savileslie Carmona LYMPH # 1.6 103/ul Normal 1.2-3.8 [facility] Comment on above: Performed By: #### C BC ####[facility] [address] [place] [id number]. Savileslie Carmona Lymphocytes/100 WBC (Bld) 23.3 % Normal 20.5-60.0 [facility] Comment on above: Performed By: #### C BC ####[facility] [address] [place] [id number]. Emilie Carmona MANUAL DIFF REQ NO Normal [facility] Comment on above: Performed By: #### C BC ####[facility] [address] [place] [id number]. Emilie Carmona MCH (RBC) [Entitic mass] 28.9 pg Normal 26.7-34.0 [facility] Comment on above: Performed By: #### C BC ####[facility] [address] [place] [address]Dr. Emilie Carmona MCHC (RBC) [Mass/Vol] 32.6 g/dL Normal 29.9-35.2 [facility] Comment on above: Performed By: #### C BC ####[facility] [address] [place] [id number]. Emilie Carmona MCV (RBC) [Entitic vol] 88.7 fL Normal 81.0-99.0 [facility] Comment on above: Performed By: #### C BC ####[facility] [address] [place], [place] [address]Dr. Emilie Carmona MONO # 0.8 103/ul Normal 0.3-0.8 [facility] Comment on above: Performed By: #### C BC ####[facility] [address] [place] [id number]. Emilie Carmona Monocytes/100 WBC (Bld) 11.9 % Normal 1.7-12.0 [facility] Comment on above: Performed By: #### C BC ####[facility] [address] [place], [place] [id number]. Emilie Carmona NEUT # 4.3 103/ul Normal 1.4-6.5 [facility] Comment on above: Performed By: #### C BC ####[facility] [address] [place] [id number]. Emilie Carmona Neutrophils/100 WBC (Bld) 61.6 % Normal 43.0-75.0 [facility] [facility] [place] Comment on above: Performed By: #### C BC ####[facility] [address] [place] [id number]. Emilie Carmona Platelet mean volume (Bld) [Entitic vol] 11.9 fL Normal 9.5-13.5 [facility] Comment on above: Performed By: #### C BC ####[facility] [address] [place] [id number]. Emilie Carmona PLT 247 103/ul Normal 150-450 [facility] [place] Comment on above: Performed By: #### C BC ####[facility] [address] [place] [id number]. Emilie Carmona RBC 3.98 106/ul Critically low 4.20-5.40 [facility] Comment on above: Performed By: #### C BC ####[facility] [address] [place] [id number]. Emilie Carmona WBC 7.0 103/ul Normal 4.0-11.0 [facility] Comment on above: Performed By: #### C BC ####[facility] [address] [place] [id number]. Emilie Carmona FREE T3on 06-15-2022 FREE T3 1.29 pg/mlL Critically low 2.18-3.98 [facility] Comment on above: Performed By: #### F T3, TSH ####[facility] [address] [place] [id number]. Emilie Carmona PROF CHEM 8 (BAS METB)on Anion gap [Moles/Vol] 10.0 mmol/L Normal [facility] Comment on above: Performed By: #### B MP ####[facility] [address] [place] [id number]. Emilie Carmona Calcium [Mass/Vol] 9.8 mg/dL Normal 8.5-10.1 [facility] Comment on above: Performed By: #### B MP ####[facility] [address] [place] [address]Dr. Savileslie Mathew Chloride [Moles/Vol] 102 mmol/L Normal 98-107 [facility] Comment on above: Performed By: #### B MP ####[facility] [address] [place] [id number]. Emilie Carmona CO2 [Moles/Vol] 28.0 mmol/L Normal 21.0-32.0 [facility] Comment on above: Performed By: #### B MP ####[facility] [address] [place] [address]Dr. Emilie Carmona Creatinine [Mass/Vol] 0.91 mg/dL Normal 0.55-1.02 [facility] Comment on above: Performed By: #### B MP ####[facility] [address] [place], [place] [address]Dr. Savileslie Mathew EGFR-AF CHADIAN >60 Normal >=60 [facility] Comment on above: Performed By: #### B MP ####[facility] [address] [place], [place] [address]Dr. Emilie Carmona EGFR-NON AF CHADIAN 59 mL/min/1.73m2 Critically low >=60 [facility] Comment on above: Performed By: #### B MP ####[facility] [address] [place] [address]Dr. Emilie Carmona Glucose [Mass/Vol] 96 mg/dL Normal 74-106 [facility] Comment on above: Performed By: #### B MP ####[facility] [address] [place] [id number]. Emilie Carmona Potassium [Moles/Vol] 3.0 mmol/L Critically low 3.5-5.1 [facility] Comment on above: Performed By: #### B MP ####[facility] [address] [place] [address]Dr. Emilie Carmona Sodium [Moles/Vol] 137 mmol/L Normal 136-145 [facility] Comment on above: Performed By: #### B MP ####[facility] [address] [place] [id number]. Emilie Carmona Urea nitrogen [Mass/Vol] 16.0 mg/dL Normal 7.0-18.0 [facility] Comment on above: Performed By: #### B MP ####[facility] [address] [place] [id number] Carmona Urea nitrogen/Creatinine [Mass ratio] 17.6 mg/mg Normal [facility] Comment on above: Performed By: #### B MP ####[facility] [address] [place] [address]Dr. Emilie Carmona TSHon 06-15-2022 TSH 12.224 uIU/mL Critically high 0.358-3.740 [facility] Comment on above: Performed By: #### F T3, TSH ####[facility] [address] [place] [address]DrBrenton Carmona CARDIAC MARYCRUZ 3-6on 2 CK [Catalytic activity/Vol] 163 U/L Normal 26-192 [facility] Comment on above: Performed By: #### R SPLUS #### [facility] [address] [address] [address] Emilie Carmona CK.MB [Mass/Vol] 2.77 ng/mL Normal <=3.60 [facility] [place] [facility] Comment on above: Performed By: #### R SPLUS #### [facility] [address] [address] [address] Emilie Carmona HSTROP 8.5 pg/mL Normal 4.0-51.3 [facility] Comment on above: Result Comment: CUT- OFF POINTS HAVE BEEN ESTABLISHED BASED ON THE FOURTH UNIVERSAL DEFINITIONS OF MYOCARDIAL INFARCTION. THE UPPER REFERENCE LIMIT (URL) OF TROPONIN, DEFINED THE 99TH PERCENTILE OF cTnI DISTRIBUTION IN A REFERENCE POPULATION, HAS BEEN CONFIRMED THE DECISION THRESHOLD FOR DE DIAGNOSIS. Performed By: #### R SPLUS #### [facility] [address] [address] [address] Emilie Carmona CK [Catalytic activity/Vol] 141 U/L Normal 26-192 [facility] Comment on above: Performed By: #### C BC #### [facility] [address] [place] [address] Dr. Emilie Carmona CK.MB [Mass/Vol] 2.50 ng/mL Normal <=3.60 [facility] [place] [facility] Comment on above: Performed By: #### C BC #### [facility] [address] [place] [address] Dr. Emilie Carmona HSTROP 9.8 pg/mL Normal 4.0-51.3 [facility] Comment on above: Result Comment: CUT- OFF POINTS HAVE BEEN ESTABLISHED BASED ON THE FOURTH UNIVERSAL DEFINITIONS OF MYOCARDIAL INFARCTION. THE UPPER REFERENCE LIMIT (URL) OF TROPONIN, DEFINED THE 99TH PERCENTILE OF cTnI DISTRIBUTION IN A REFERENCE POPULATION, HAS BEEN CONFIRMED THE DECISION THRESHOLD FOR DE DIAGNOSIS. Performed By: #### C BC #### [facility] [address] [place] [address] Dr. Emilie Carmona CBC AUTO DIFFon 06-14-2022 BASO # 0.0 103/ul Normal 0.0-0.1 [facility] Comment on above: Performed By: #### C BC #### [facility] [address] [place] [address] Dr. Emilie Carmona Basophils/100 WBC (Bld) 0.5 % Normal 0.2-2.0 [facility] Comment on above: Performed By: #### C BC #### [facility] [address] [place] [address] Dr. Emilie Carmona EO # 0.0 103/ul Normal 0.0-0.7 [facility] Comment on above: Performed By: #### C BC #### [facility] [address] [place] [address] Dr. Emilie Carmona Eosinophils/100 WBC (Bld) 0.1 % Critically low 0.9-7.0 [facility] Comment on above: Performed By: #### C BC #### [facility] [address] [place] [address] Dr. Emilie Carmona Erythrocyte distribution width (RBC) [Ratio] 13.2 % Normal 11.0-15.0 [facility] Comment on above: Performed By: #### C BC #### [facility] [address] [place] [address] Dr. Emilie Carmona Hematocrit (Bld) [Volume fraction] 41.0 % Normal 36.0-48.0 [facility] Comment on above: Performed By: #### C BC #### [facility] [address] [place] [address] Dr. Emilie Carmona Hemoglobin (Bld) [Mass/Vol] 13.3 g/dL Normal 12.0-16.0 [facility] Comment on above: Performed By: #### C BC #### [facility] [address] [place] [address] Dr. Emilie Carmona IG # 0.03 10e3/ul Normal 0.00-0.03 [facility] Comment on above: Performed By: #### C BC #### [facility] [address] [place] [address] Dr. Emilie Carmona IG % 0.4 % Normal 0.0-0.5 [facility] Comment on above: Performed By: #### C BC #### [facility] [address] [place] [address] Dr. Emilie Carmona LYMPH # 1.4 103/ul Normal 1.2-3.8 [facility] Comment on above: Performed By: #### C BC #### [facility] [address] [place] [address] Dr. Emilie Carmona Lymphocytes/100 WBC (Bld) 15.9 % Critically low 20.5-60.0 [facility] Comment on above: Performed By: #### C BC #### [facility] [address] [place] [address] Dr. Emilie Carmona MANUAL DIFF REQ NO Normal [facility] Comment on above: Performed By: #### C BC #### [facility] [address] [place] [address] Dr. Emilie Carmona MCH (RBC) [Entitic mass] 28.6 pg Normal 26.7-34.0 [facility] Comment on above: Performed By: #### C BC #### [facility] [address] [address] [address] Emilie Carmona MCHC (RBC) [Mass/Vol] 32.4 g/dL Normal 29.9-35.2 [facility] Comment on above: Performed By: #### C BC #### [facility] [address] [address] [address] Emilie Carmona MCV (RBC) [Entitic vol] 88.2 fL Normal 81.0-99.0 [facility] Comment on above: Performed By: #### C BC #### [facility] [address] [address] [address] Emilie Carmona MONO # 0.9 103/ul Critically high 0.3-0.8 [facility] Comment on above: Performed By: #### C BC #### [facility] [address] [address] [address] Emilie Carmona Monocytes/100 WBC (Bld) 9.9 % Normal 1.7-12.0 [facility] Comment on above: Performed By: #### C BC #### [facility] [address] [address] [address] Emilie Carmona NEUT # 6.3 103/ul Normal 1.4-6.5 [facility] Comment on above: Performed By: #### C BC #### [facility] [address] [address] [address] Emilie Carmona Neutrophils/100 WBC (Bld) 73.2 % Normal 43.0-75.0 [facility] Comment on above: Performed By: #### C BC #### [facility] [address] [address] [address] Emilie Carmona Platelet mean volume (Bld) [Entitic vol] 11.6 fL Normal 9.5-13.5 [facility] Comment on above: Performed By: #### C BC #### [facility] [address] [address] [address] Emilie Carmona PLT 269 103/ul Normal 150-450 [facility] Comment on above: Performed By: #### C BC #### [facility] [address] [place], [place] [address] Dr. Emilie Carmona RBC 4.65 106/ul Normal 4.20-5.40 [facility] Comment on above: Performed By: #### C BC #### [facility] [address] [place], [place] [address] Dr. Emilie Carmona WBC 8.6 103/ul Normal 4.0-11.0 [facility] Comment on above: Performed By: #### C BC #### [facility] [id number] Emilie Carmona Covid-19 PCR (CVDTB)on 06-01 SARS-CoV-2 (COVID-19) RNA CHASITY+probe Ql (Unsp spec) Not detected Normal NOT DETECTED [facility] Comment on above: Result Comment: When [...] for this test is supported by the Continuous Pillowcase Cutter of Health and Human Service's declaration that [...] be used). Performed By: #### C VDTBH ####[facility] [address] [place], [place] [address]YtDr. Emilie Carmona ER URINE PROFILEon 2 Bilirubin Ql (U) SMALL Abnormal NEGATIVE [facility] Comment on above: Performed By: #### R SPLUS #### [facility] [address] [id number] [address] Emilie Carmona Clarity (U) SL CLOUDY Abnormal CLEAR [facility] Comment on above: Performed By: #### R SPLUS #### [facility] [address] [address] [address] Emilie Carmona Color (U) YELLOW Normal YELLOW [facility] Comment on above: Performed By: #### R SPLUS #### [facility] [address] [place] [address] Dr. Emilie Carmona ERUAHD A micrscopic examination will be performed if indicated. Normal [facility] Comment on above: Performed By: #### R SPLUS #### [facility] [address] [place] [address] Dr. Emilie Carmona Glucose Ql (U) Negative Normal NEGATIVE [facility] Comment on above: Performed By: #### R SPLUS #### [facility] [address] [place] [address] Dr. Emilie Carmona Hemoglobin Ql (U) TRACE-INTACT Abnormal NEGATIVE [facility] Comment on above: Performed By: #### R SPLUS #### [facility] [address] [place] [address] Dr. Emilie Carmona Ketones Ql (U) 40 mg/dl Abnormal NEGATIVE [facility] Comment on above: Performed By: #### R SPLUS #### [facility] [address] [place] [address] Dr. Emilie Carmona LEUKOCYTES Negative Normal NEGATIVE [facility] Comment on above: Performed By: #### R SPLUS #### [facility] [address] [place] [address] Dr. Emilie Carmona Nitrite Ql (U) Negative Normal NEGATIVE [facility] Comment on above: Performed By: #### R SPLUS #### [facility] [address] [place] [address] Dr. Emilie Carmona pH (U) 5.5 [pH] Normal 5-9 [facility] Comment on above: Performed By: #### R SPLUS #### [facility] [address] [place] [address] Dr. Emilie Carmona SPEC GRAVITY 1.030 Abnormal 1.005-<=1.025 [facility] Comment on above: Performed By: #### R SPLUS #### [facility] [address] [address] [address] Emilie Carmona UA PROTEIN Negative Normal NEGATIVE/ TRACE [facility] Comment on above: Performed By: #### R SPLUS #### [facility] [address] [address] [address] Emilie Carmona UR MICRO IND INDICATED Normal [facility] Comment on above: Performed By: #### R SPLUS #### [facility] [address] [address] [address] Emilie Carmona Urobilinogen Qn (U) 0.2 {Warren'U}/dL Normal 0.2 - 1. 0 [facility] Comment on above: Performed By: #### R SPLUS #### [facility] [address] [place] [address] Dr. Emilie Carmona FREE T4on 06-14-2022 Free T4 [Mass/Vol] 0.75 ng/dL Critically low 0.76-1.46 [facility] Comment on above: Performed By: #### F T4, VITAD, FETIBC, B12FOL ####[facility] [address] [place] [address]Dr. Emilie Carmona IRON AND TIBCon 06-14-2022 % SATURATION 6.7 % Normal [facility] Comment on above: Performed By: #### C BC #### [facility] [address] [address] [address] Emilie Carmona Iron [Mass/Vol] 21.0 ug/dL Critically low 50.0-170.0 [facility] Comment on above: Performed By: #### C BC #### [facility] [address] [address] [address] Emilie Carmona TIBC DIRECT 312.0 ug/dL Normal 250.0-450.0 [facility] Comment on above: Performed By: #### C BC #### [facility] [address] [address] [address] Emilie Carmona MYOGLOBINon 06-14-2022 MAXIMILIAN 268 ng/mL Critically high 9-82 [facility] Comment on above: Performed By: #### M YO ####[facility] [address] [place], [place] [address]Dr. Emilie Carmona PROF CHEM 8 (BAS METB)on Anion gap [Moles/Vol] 12.8 mmol/L Normal [facility] Comment on above: Performed By: #### C BC #### [facility] [address] [address] [address] Emilie Carmona Calcium [Mass/Vol] 10.7 mg/dL Critically high 8.5-10.1 [facility] Comment on above: Performed By: #### C BC #### [facility] [address] [address] [address] Emilie Carmona Chloride [Moles/Vol] 100 mmol/L Normal 98-107 [facility] Comment on above: Performed By: #### C BC #### [facility] [address] [address] [address] Emilie Carmona CO2 [Moles/Vol] 25.6 mmol/L Normal 21.0-32.0 [facility] [place] [facility] Comment on above: Performed By: #### C BC #### [facility] [address] [address] [address] Emilie Carmona Creatinine [Mass/Vol] 1.05 mg/dL Critically high 0.55-1.02 [facility] Comment on above: Performed By: #### C BC #### [facility] [address] [address] [address] Emilie Carmona EGFR-AF CHADIAN >60 Normal >=60 [facility] Comment on above: Performed By: #### C BC #### [facility] [address] [id number] [address] Emilie Carmona EGFR-NON AF CHADIAN 50 mL/min/1.73m2 Critically low >=60 [facility] Comment on above: Performed By: #### C BC #### [facility] [address] [address] [address] Emilie Carmona Glucose [Mass/Vol] 129 mg/dL Critically high 74-106 [facility] Comment on above: Performed By: #### C BC #### [facility] [address] [place] [address] Dr. Emilie Carmona Potassium [Moles/Vol] 3.4 mmol/L Critically low 3.5-5.1 [facility] Comment on above: Performed By: #### C BC #### [facility] [address] [address] [address] Emilie Carmona Sodium [Moles/Vol] 135 mmol/L Critically low 136-145 [facility] Comment on above: Performed By: #### C BC #### [facility] [address] [place] [address] Dr. Emilie Carmona Urea nitrogen [Mass/Vol] 19.0 mg/dL Critically high 7.0-18.0 [facility] Comment on above: Performed By: #### C BC #### [facility] [address] [place] [address] Dr. Emilie Carmona Urea nitrogen/Creatinine [Mass ratio] 18.1 mg/mg Normal [facility] Comment on above: Performed By: #### C BC #### [facility] [address] [place] [address] Dr. Emilie Carmona URINE MICROSCOPIC ONLYon BACTERIA NONE SEEN Normal NONE SEEN [facility] Comment on above: Performed By: #### R SPLUS #### [facility] [address] [place] [address] Dr. Emilie Carmona Bacteria identified Cx Nom (U) NOT INDICATED Normal [facility] Comment on above: Performed By: #### R SPLUS #### [facility] [address] [place] [address] Dr. Emilie Cramona CAST SEEN Abnormal NONE SEEN [facility] Comment on above: Performed By: #### R SPLUS #### [facility] [address] [place] [address] Dr. Emilie Carmona Crystals LM Nom (Urine sed) NONE SEEN Normal NONE SEEN [facility] Comment on above: Performed By: #### R SPLUS #### [facility] [address] [place] [address] Dr. Emilie Carmona Epithelial cells LM Ql (Urine sed) FEW Abnormal NONE SEEN /RARE [facility] Comment on above: Performed By: #### R SPLUS #### [facility] [address] [place] [address] Dr. Emilie Carmona MUCOUS NONE SEEN Normal NONE SEEN [facility] Comment on above: Performed By: #### R SPLUS #### [facility] [address] [place] [address] Dr. Emilie Carmona RBC 0-2 Normal 0-2 [facility] Comment on above: Performed By: #### R SPLUS #### [facility] [address] [place] [address] Dr. Emilie Carmona WBC 0-2 Abnormal NONE SEEN [facility] Comment on above: Performed By: #### R SPLUS #### [facility] [address] [place] [address] Dr. Emilie Carmona VIT B12 AND FOLATEon 022 Cobalamin (Vitamin B12) [Mass/Vol] 426.0 pg/mL Normal 193.0-986.0 [facility] Comment on above: Performed By: #### C BC #### [facility] [address] [place] [address] Dr. Emilie Carmona FOLATE 12.10 ng/mL Normal 8.60-58.90 [facility] Comment on above: Performed By: #### C BC #### [facility] [address] [place] [address] Dr. Emilie Carmona VITAMIN D 25 OHon 06-14-2022 VIT D 25-OH 75.5 ng/mL Normal [facility] Comment on above: Performed By: #### C BC #### [facility] [address] [place] [address] Dr. Emilie Carmona VIT D RANGES SEE BELOW Normal [facility] Comment on above: Result Comment: <20 ng/mL Vit D deficient 20 - <30 ng/mL Vit D insufficient 30 - 100 ng/mL Vit D sufficient >100 ng/mL Potential Toxicity Performed By: #### C BC #### [facility] [address] [place] [address] [address] Emilie Carmona XR ABD FLAT_UPon 06-14-2022 [...] by: ALEIDA TAVERAS Date: 2022-06-14 12:35 Normal [facility] XR CHEST 1 Von 06-14-2022 XR CHEST [...] by: ALEIDA TAVERAS Date: 2022-06-14 07:10 Normal [facility] XR HIPS LYNDA 5V W PELVISon XR HIPS LYNDA 5V W PELVIS EXAMINATION: XR HIPS LYNDA 5V W PELVIS HISTORY: Pain COMPARISON: No relevant comparison available. FINDINGS: RIGHT FINDINGS: BONES: No acute fracture or dislocation. Ckdk-wu-kszkjids hip osteoarthropathy SOFT TISSUES: Negative. No visible soft tissue swelling. OTHER: Lumbar posterior decompression and transpedicular fusion LEFT FINDINGS: BONES: No acute fracture or dislocation. Elnp-pi-hnmvmkgs hip osteoarthropathy SOFT TISSUES: Negative. No visible soft tissue swelling. OTHER: Negative. IMPRESSION: RIGHT CONCLUSION: Osteoarthritis. No acute fracture LEFT CONCLUSION: Osteoarthritis. No acute fracture Electronically authenticated by: ALEIDA TAVERAS Date: 2022-06-14 07:15 Normal [facility] XR LSPINE 2_3 VIEWSon 2021 XR LSPINE [...] ALEIDA TAVERAS Date: 2022-06-14 07:12 Normal [facility] Metabolic Pane [facility] 09-21-2021 Albumin [Mass/Vol] 4.5 g/dL Normal 3.6-5.1 [facility] Comment on above: Performed By: #### V ITD, FT3, FT4, CMP, TSH #### [facility] [address] [place], [place] [id number] Albumin/Globulin [Mass ratio] 1.5 {ratio} Normal 1.0-2.5 [facility] Comment on above: Performed By: #### V ITD, FT3, FT4, CMP, TSH #### [facility] [address] [place], [place] [id number] ALP [Catalytic activity/Vol] 103 U/L Normal 35-119 [facility] Comment on above: Performed By: #### V ITD, FT3, FT4, CMP, TSH #### [facility] [address] [place], [place] [id number] ALT [Catalytic activity/Vol] 18 U/L Normal 6-33 [facility] Comment on above: Result Comment: 07/01 Female reference range changed. Performed By: #### V ITD, FT3, FT4, CMP, TSH #### [facility] [address] [place], [place] [id number] Anion gap [Moles/Vol] 24 mmol/L High 12-20 [facility] Comment on above: Result Comment: Effe ctive 08/06/2019 reference range changed. Performed By: #### V ITD, FT3, FT4, CMP, TSH #### [facility] [address] [place], [place] [id number] AST [Catalytic activity/Vol] 16 U/L Normal 9-34 [facility] Comment on above: Performed By: #### V ITD, FT3, FT4, CMP, TSH #### [facility] [address] [place], [place] [id number] BUN/CREA 27 Ratio High 6-22 [facility] Comment on above: Performed By: #### V ITD, FT3, FT4, CMP, TSH #### [facility] [address] [place], [place] [id number] Calcium [Mass/Vol] 10.7 mg/dL High 8.6-10.2 [facility] Comment on above: Performed By: #### V ITD, FT3, FT4, CMP, TSH #### [facility] [address] [place], [place] [id number] Chloride [Moles/Vol] 103 mmol/L Normal 98-107 [facility] Comment on above: Performed By: #### V ITD, FT3, FT4, CMP, TSH #### [facility] [address] [place], [place] [id number] CO2 [Moles/Vol] 17 mmol/L Low 20-31 [facility] Comment on above: Performed By: #### V ITD, FT3, FT4, CMP, TSH #### [facility] [address] [place], [place] [id number] Creatinine [Mass/Vol] 1.1 mg/dL Normal 0.6-1.4 [facility] Comment on above: Performed By: #### V ITD, FT3, FT4, CMP, TSH #### [facility] [address] [place], [place] [id number] eGFRAA 60 mL/min/1.73m2 Low >60 [facility] Comment on above: Performed By: #### V ITD, FT3, FT4, CMP, TSH #### [facility] [address] [place], [place] [id number] eGFRNAA 49 mL/min/1.73m2 Low >60 [facility] Comment on above: Performed By: #### V ITD, FT3, FT4, CMP, TSH #### [facility] [address] [place], [place] [id number] Globulin (S) [Mass/Vol] 3.0 g/dL Normal 1.9-3.7 [facility] Comment on above: Performed By: #### V ITD, FT3, FT4, CMP, TSH #### [facility] [address] [place], [place] [id number] Glucose [Mass/Vol] 109 mg/dL High 65-99 [employer] [facility] Comment on above: Result Comment: For FASTING Glucose --- ADA reference ranges: Normal 65-99 mg/dl Prediabetes 100-125 Diabetes >/= 126 Performed By: #### V ITD, FT3, FT4, CMP, TSH #### [facility] [address] [place], [place] [id number] Potassium [Moles/Vol] 4.7 mmol/L Normal 3.5-5.5 [facility] Maker Comment on above: Performed By: #### V ITD, FT3, FT4, CMP, TSH #### [facility] [address], [place] [id number] Protein [Mass/Vol] 7.5 g/dL Normal 6.1-8.1 [employer] [place] [employer] Maker Comment on above: Performed By: #### V ITD, FT3, FT4, CMP, TSH #### [facility] [address], [place] [phone] Sodium [Moles/Vol] 139 mmol/L Normal 135-146 [employer] [place] [employer] Maker Comment on above: Performed By: #### V ITD, FT3, FT4, CMP, TSH #### [facility] [address], [place] [phone] TBIL <0.3 Normal [facility]use Maker Comment on above: Performed By: #### V ITD, FT3, FT4, CMP, TSH #### [facility] [address], [place] [phone] Urea nitrogen [Mass/Vol] 29 mg/dL High 7-25 [facility] [employer] Maker Comment on above: Performed By: #### V ITD, FT3, FT4, CMP, TSH #### [facility] [address], [place] [id number] Free T3on 09-21-2021 FT3 1.79 pg/mL Low 2.00-4.40 [facility] [employer] Maker Comment on above: Performed By: #### V ITD, FT3, FT4, CMP, TSH #### [facility] [address], [place] [id number] Free T4on 09-21-2021 Free T4 [Mass/Vol] 0.67 ng/dL Low 0.80-1.80 [facility] Specialist Comment on above: Performed By: #### V ITD, FT3, FT4, CMP, TSH #### [facility] [address], [place] [phone] TSHon 09-21-2021 TSH 0.611 uIU/mL Normal 0.400-4.500 [facility] F[facility] Maker Comment on above: Performed By: #### V ITD, FT3, FT4, CMP, TSH #### [facility] [address], [place] [id number] US Carotid, Bilateralon 09-02 US Carotid, Bilateral [...] by Tyrese Wisdom on 09/22/2021 0822 Normal [facility] Vitamin B12/Folateon 022 Cobalamin (Vitamin B12) [Mass/Vol] 383 pg/mL Normal 211-946 [facility] Specialist Comment on above: Performed By: #### B 12/Fol #### [facility] [address], [place] [phone] FOL 5.5 ng/mL Normal >4.7 [facility] Comment on above: Result Comment: Refe rence range change 06/17/2017. Prior reference range F 4.8-37.3 ng/mL, M 4.5-32.2 ng/mL. Performed By: #### B 12/Fol #### [facility] [address] [place] [id number] Vitamin D 25-OHon 09-21-2021 VIT D 25 OH 23 ng/ml Low >29 [facility] [employer] Maker Comment on above: Result Comment: Latonia min D Status Deficiency <20 ng/mL Insufficiency 20-29 ng/mL Optimal 30-100 ng/mL Possible Toxicity >=150 ng/mL Performed By: #### V ITD, FT3, FT4, CMP, TSH #### [facility] [address] [place], [place] [phone] Encounters Encounter Date Encounter Type Care Provider Facility Start: 12-09-2023 End: 12-09-2023 ambulatory APOLLO BOO Not Available Start: 12-26-2022 End: 12-29-2022 Evaluation and management of inpatient DR ALEIDA TAVERAS Facility:[facility] Start: 06-22-2022 End: 06-23-[address] MARLA KENDALL . Facility:[facility] Start: 06-14-2022 End: 06-16-[address] MARLA KENDALL . Facility:[facility] Start: 10-20-2017 End: 10-21-2017 Ambulatory DEFAULT PHYSICIAN Facility:[facility] Payers Date Payer Category Payer Medicare [id number] 1960 Medicare [id number] 1940 Unknown [id number] 2.16.84 [id number] 1940 Unknown [id number] 2.16.84 [id number] 1940 Unknown [id number] 2.16.84 [id number] 1940 Unknown [id number] 2.16.84 [id number] Unknown Clinical Note 06-14-2022 Note Date & Type Note Facility 06-14-2022 Note PROCEDURE: XR SHOULD ER LT 2V or > COMPARISON: None. HISTORY: Pain FINDINGS: BONES:No acute fracture or dislocation. Mild degenerative changes. SOFT TISSUES:Negative. No visible soft tissue swelling. EFFUSION:None visible. OTHER: Negative. IMPRESSION: No acute fracture Electronically authenticated by: ALEIDA TAVERAS Date: 2022-06-14 07:08 [facility] Clinical Note 09-21-2021 Note Date & Type Note Facility 09-21-2021 Note PROCEDURE: Film Fresh Signa HDXT 1.5 Sagittal T1, T2, STIR [...] signed by Tyrese Wisdom on 09/22/2021 0902 [facility]use Maker Summary Purpose Family History No Family History Records FoundNo Family History Records FoundNo Family History Records FoundNo Family History Records Found Advance Directives No Advanced Directives Records FoundNo Advanced Directives Records FoundNo Advanced Directives Records FoundNo Advanced Directives Records Found Additional Source Comments INFORMATION SOURCE (unrecogn ized section and content) DATE CREATED AUTHOR 01/20/2018 [facility] DATE CREATED AUTHOR AUTHOR'S ORGANIZ ATION 09/24/2021 [facility] dical Specialist DATE CREATED AUTHOR AUTHOR'S ORGANIZ ATION 01/10/2023 [facility] DATE CREATED AUTHOR AUTHOR'S ORGANIZ ATION 12/11/2023 [facility] dical Specialists EPIC FOR RECORDS PERTAINING TO PATIENTS WHO ARE [...] BE BASED ON THE PRIMARY CLINICAL RECORDS. [facility] [employer] [facility]. provides no warranty or guarantee of the accuracy or completeness of information in this document.
[2024-04-19 13:57] LABS: Alanine Aminotransferase 19 U/L (14-59); Albumin Globulin Ratio 1.1; Albumin Level 3.8 g/dL (3.4-5.0); Alkaline Phosphatase 94 U/L (46-116); Anion Gap 12.4; Aspartate Amino Transferase 13 U/L (15-37); BUN Creatinine Ratio 21.8; Bilirubin Total 0.6 mg/dL (0.2-1.0); Calcium 10.1 mg/dL (8.5-10.1); Carbon Dioxide 26.9 mmol/L (21.0-32.0); Chloride 105 mmol/L (98-107); Estimated GFR (African America 50 (>=60); Estimated GFR (Non-African Ame 41 (>=60); Globulin 3.5 g/dL; Glucose 102 mg/dL (74-106); Magnesium 2.3 mg/dL (1.8-2.4); Potassium 4.3 mmol/L (3.5-5.1); Sodium 140 mmol/L (136-145); Total Protein 7.3 g/dL (6.4-8.2)
--- NOTE | 2024-04-19 16:41 | PM.HP ---
HPI H&P: HPI History of Present Illness Chief complaint: ABDOMINAL PAIN, Pancreatitis Narrative: Patient is an 84 y.o white female with past medical history of Dementia, HTN, hypothyroidism, Copd who presents to the ER today for a several day history of anorexia and RLQ abdominal pain. She denies vomiting and diarrhea. She was concerned about her appendix. No fevers or chills. ER findings: CT shows normal appendix, renal cysts, diverticulosis with no evidence of diverticulitis. WBC's 7.7, Cr 1.24, Lipase 383, AST/ALT normal and Total bili normal; patient was given pain medication and will be admitted for acute pancreatitis. Opioid HPI Opioid Management Most Recent Pain and Opioid Data: Last Pain Scale 8 04/20/24 10:11 Last Pain Assessment 04/20/24 11:03 Last ORT Total Score 0 04/19/24 17:36 Last ORT Risk Category Low Risk 04/19/24 17:36 Review of Systems ROS Narrative ROS: a complete review of systems were reviewed with patient and are positive as below or listed in History of Chief Complaint. General: no fever, chills, night sweats Head: no headache, trauma, visual changes, nausea or vomiting Skin: no reported rashes, itching or sores Eyes: no blurriness of vision Ears: no reported hearing loss, vertigo, earache, or tinnitus Throat: no sore throat, hoarseness, swelling of neck, or tongue pain Heart: no chest pain Lungs: no shortness of breath or cough GI: no diarrhea or vomiting/nausea, abdominal pain Urinary: no urinary urgency, frequency or pain Neuro: no numbness or tingling HEM: no bleeding issues or bruising ENDO: no thyroid problems Psych: no anxiety or depression [facility] Medical History (Updated 04/19/24 @ 17:42 by Michaelle Pham DO) Primary hypertension ?I10 - Essential (primary) hypertension (ICD-10) Acute UTI ?N39.0 - Urinary tract infection, site not specified (ICD-10) Confusion ?R41.0 - Disorientation, unspecified (ICD-10) Hypertension, uncontrolled ?I10 - Essential (primary) hypertension (ICD-10) Ambulatory dysfunction ?R26.2 - Difficulty in walking, not elsewhere classified (ICD-10) Persistent asthma Hypothyroid ?E03.9 - Hypothyroidism, unspecified (ICD-10) Dementia ?F03.90 - Unspecified dementia, unspecified severity, without behavioral disturbance, psychotic disturbance, mood disturbance, and anxiety (ICD-10) Hypertension, uncontrolled ?I10 - Essential (primary) hypertension (ICD-10) Cystitis cystica ?N30.80 - Other cystitis without hematuria (ICD-10) Spondylitis ?M46.90 - Unspecified inflammatory spondylopathy, site unspecified (ICD-10) Cataract ?H26.9 - Unspecified cataract (ICD-10) Numbness and tingling of both feet ?R20.0 - Anesthesia of skin (ICD-10) ?R20.2 - Paresthesia of skin (ICD-10) Numbness and tingling in both hands ?R20.0 - Anesthesia of skin (ICD-10) ?R20.2 - Paresthesia of skin (ICD-10) COPD (chronic obstructive pulmonary disease) ?J44.9 - Chronic obstructive pulmonary disease, unspecified (ICD-10) Acute bronchitis ?J20.9 - Acute bronchitis, unspecified (ICD-10) Acute asthma ?J45.909 - Unspecified asthma, uncomplicated (ICD-10) Esophageal abnormality ?K22.9 - Disease of esophagus, unspecified (ICD-10) TMJ (temporomandibular joint syndrome) ?M26.609 - Unspecified temporomandibular joint disorder, unspecified side (ICD-10) Closed head injury ?S09.90XA - Unspecified injury of head, initial encounter (ICD-10) Surgical History History of cataract surgery ?Z98.49 - Cataract extraction status, unspecified eye (ICD-10) H/O: hysterectomy ?Z90.710 - Acquired absence of both cervix and uterus (ICD-10) Total knee replacement status ?Z96.659 - Presence of unspecified artificial knee joint (ICD-10) Family History Sister Family history of stroke Mother Family history of diabetes mellitus Social History Within the past year, how often did you have a drink containing alcohol: never Within the past year, how often did you have six or more drinks on one occasion: never Score interpretation: A score less than 3 is consistent with normal alcohol consumption. Smoking status: Never smoker Non-prescribed substance use: denies use Previous occupational history: n/a Highest level of school completed/degree received: high school graduate Are you now , , , , never or living with a partner: In a typical week, how many times do you talk on the telephone with family, friends, or neighbors: 3 or more times per week How often do you get together with friends or relatives: never How often do you attend restoration or denominational services: never Do you belong to any clubs or organizations such as restoration groups unions, Diversion or athletic groups, or school groups: no Total score: 1 Score interpretation: A score of less than or equal to 1 indicates the most socially isolated. Little interest or pleasure in doing things: not at all Feeling down, depressed, or hopeless: not at all Feel stressed/tense/nervous/anxious/difficulty sleeping: to some extent Life stressors: other Life stressor details: pain in back Due to disability, difficulty making decisions: No Meds Home Medications and Allergies Home Medications ?Medication ?Instructions ?Recorded ?Confirmed ?Type donepezil 10 mg tablet 10 mg PO BID 04/29/23 04/19/24 History duloxetine 60 mg capsule,delayed 60 mg PO DAILY 04/29/23 04/19/24 History release quetiapine 25 mg tablet 25 mg PO BEDTIME 04/29/23 04/19/24 History levothyroxine 100 mcg tablet 100 mcg PO DAILY 04/30/23 04/19/24 History (Synthroid) memantine 10 mg tablet (Namenda) 10 mg PO BID 04/30/23 04/19/24 History amlodipine 10 mg tablet 10 mg PO DAILY #30 tabs 05/03/23 04/19/24 Rx albuterol sulfate 2.5 mg/3 mL 2.5 mg inhalation Q6H PRN 04/19/24 04/19/24 History (0.083 %) solution for nebulization shortness of breath or wheezing cephalexin 250 mg capsule 250 mg PO DAILY 04/19/24 04/19/24 History losartan 100 1 tab PO .qd 04/19/24 04/19/24 History mg-hydrochlorothiazide 12.5 mg tablet Allergies Allergy/AdvReac Type Severity Reaction Status Date / Time No Known Drug Allergies Allergy Verified 04/29/23 17:56 Exam Narrative Exam Narrative: General: Patient is alert, and oriented to person, place and time with normal affect, proper hygiene Skin: no visible rashes, or ulcers Head: atraumatic, acephalic Eyes: PERRLA, no nystagmus present, conjunctiva clear, no scleral icterus Ears: normal gross auditory acuity Neck: no masses palpated Heart: Normal rate and rhythm, no murmurs/rubs/gallops Lungs: no audible wheezes, crackles and normal breath sounds all lung [place] Abdomen: Normal audible bowel sounds, no distension, No palpable masses, mild tenderness to palpation in the RLQ and around the right side of abdominal wall Musculoskeletal: no swelling bilateral lower extremities Neuro: CN II-X grossly intact Constitutional Vital Signs, click to edit/add: Last Vital Signs Temp 98.1 F 04/19/24 13:03 Pulse 78 04/19/24 14:26 Resp 18 04/19/24 14:26 BP 122/88 04/19/24 14:26 Pulse Ox 96 04/19/24 14:26 O2 Del Method Room Air 04/19/24 13:03 Results Labs Labs: Short CBC 04/19/24 Range/Units 13:10 WBC 7.7 (4.0-11.0) 10^3/uL Hgb 12.9 (12.0-16.0) g/dL Hct 38.3 (36.0-48.0) % Plt Count 261 (150-450) 10^3/uL BMP 04/19/24 13:10 Sodium 140 Potassium 4.3 Chloride 105 Carbon Dioxide 26.9 BUN 27.0 H Creatinine 1.24 H Glucose 102 Calcium 10.1 Liver Function 04/19/24 Range/Units 13:10 Total Bilirubin 0.6 (0.2-1.0) mg/dL AST 13 L (15-37) U/L ALT 19 (14-59) U/L Alkaline Phosphatase 94 (46-116) U/L Albumin 3.8 (3.4-5.0) g/dL Assessment and Plan Assessment and Plan (1) Acute pancreatitis without infection or necrosis: Assessment and Plan: Clear liquid diet, antiemetics if needed, prn Zofran. normal CT of the pancreas and LFT's normal, TB normal, prior cholecystectomy. Pain control with Tylenol and NOrco as needed. Check lipids in the morning. Qualifiers: Pancreatitis type: idiopathic Qualified Code(s): K85.00 - Idiopathic acute pancreatitis without necrosis or infection (2) Hypothyroid: Assessment and Plan: continue levothyroxine Qualifiers: Hypothyroidism type: unspecified Qualified Code(s): E03.9 - Hypothyroidism, unspecified (3) Dementia: Assessment and Plan: continue memantine and seroquel and donepezil Qualifiers: Alzheimer's disease onset: late onset Dementia behavioral or psychological symptom: with mood disturbance Dementia severity: moderate Dementia type: Alzheimer's Qualified Code(s): G30.1 - Alzheimer's disease with late onset; F02.B3 - Dementia in other diseases classified elsewhere, moderate, with mood disturbance (4) COPD (chronic obstructive pulmonary disease): Assessment and Plan: prn Duonebs, no acute exacerbation Qualifiers: COPD type: chronic bronchitis Chronic bronchitis type: unspecified Qualified Code(s): J42 - Unspecified chronic bronchitis (5) Ambulatory dysfunction: Assessment and Plan: PT/OT consult (6) Primary hypertension: Assessment and Plan: continue losartan/hctz, amlodipine Plan Patient is a DNRCC Patient is inpatient status and is expected to cross 2 midnights for treatment of acute pancreatitis
--- OUTSIDE RECORDS SUMMARY | 2024-04-19 17:38 | XMS_ITS | CCD ---
Author Organization [facility] Inform ion Partnership [facility] Care Team Providers Care Market Manager Name Role Phone PHYSICIAN, DEFAULT Unavailable [...] Facility (1 source) Desonide Drug Allergy [facility] Repository (1 source) nabumetone Drug Allergy [facility] Repository (1 source) Neomycin Drug Allergy [facility] Repository (1 source) oxyCODONE Drug Allergy [facility] Repository (1 source) Ramipril Drug Allergy [facility] Repository (1 source) Polymyxin B Drug allergy (disorder) [facility] Repository Problems Active Problems Problem Classification Problem [...] Onset: 06-21-2022 Chronic Other aftercare (1 source) prison (current) use of aspirin; Translations: [JAIL CURRENT USE OF ASPIRIN] Onset: 12-28-2022 Episodic Other aftercare (1 source) Other halfway (current) drug therapy; Translations: [OTH JAIL CURRENT DRUG THERAPY] Onset: 12-28-2022 Episodic Other [...] 12-29-2022 BASO # 0.1 103/ul Normal 0.0-0.1 [facility] Comment on above: Performed By: #### R SPLUS #### [facility] [address] [address] [address] Emilie Carmona Basophils/100 WBC (Bld) 0.8 % Normal 0.2-2.0 [facility] Comment on above: Performed By: #### R SPLUS #### [facility] [address] [address] [address] Emilie Carmona EO # 0.0 103/ul Normal 0.0-0.7 [facility] Comment on above: Performed By: #### R SPLUS #### [facility] [address] [address] [address] Emilie Carmona Eosinophils/100 WBC (Bld) 0.1 % Critically low 0.9-7.0 [facility] Comment on above: Performed By: #### R SPLUS #### [facility] [address] [address] [address] Emilie Carmona Erythrocyte distribution width (RBC) [Ratio] 14.8 % Normal 11.0-15.0 [facility] Comment on above: Performed By: #### R SPLUS #### [facility] [address] [place] [address] Dr. Emilie Carmona Hematocrit (Bld) [Volume fraction] 33.3 % Critically low 36.0-48.0 [facility] Comment on above: Performed By: #### R SPLUS #### [facility] [address] [address] [address] Emilie Carmona Hemoglobin (Bld) [Mass/Vol] 10.9 g/dL Critically low 12.0-16.0 [facility] Comment on above: Performed By: #### R SPLUS #### [facility] [address] [address] [address] Emilie Carmona IG # 0.61 10e3/ul Critically high 0.00-0.03 [facility] Comment on above: Performed By: #### R SPLUS #### [facility] [address] [place] [address] Dr. Emilie Carmona IG % 5.7 % Critically high 0.0-0.5 [facility] Comment on above: Performed By: #### R SPLUS #### [facility] [address] [place] [address] Dr. Emilie Carmona LYMPH # 1.7 103/ul Normal 1.2-3.8 [facility] Comment on above: Performed By: #### R SPLUS #### [facility] [address] [place] [address] Dr. Emilie Carmona Lymphocytes/100 WBC (Bld) 15.8 % Critically low 20.5-60.0 [facility] Comment on above: Performed By: #### R SPLUS #### [facility] [address] [place] [address] Dr. Emilie Carmona MANUAL DIFF REQ NO Normal [facility] Comment on above: Performed By: #### R SPLUS #### [facility] [address] [place] [address] Dr. Emilie Carmona MCH (RBC) [Entitic mass] 27.9 pg Normal 26.7-34.0 [facility] Comment on above: Performed By: #### R SPLUS #### [facility] [address] [place] [address] Dr. Emilie Carmona MCHC (RBC) [Mass/Vol] 32.7 g/dL Normal 29.9-35.2 [facility] Comment on above: Performed By: #### R SPLUS #### [facility] [address] [place] [address] Dr. Emilie Carmona MCV (RBC) [Entitic vol] 85.4 fL Normal 81.0-99.0 [facility] Comment on above: Performed By: #### R SPLUS #### [facility] [address] [place] [address] Dr. Emilie Carmona MONO # 0.7 103/ul Normal 0.3-0.8 [facility] Comment on above: Performed By: #### R SPLUS #### [facility] [address] [place] [address] Dr. Emilie Carmona Monocytes/100 WBC (Bld) 6.9 % Normal 1.7-12.0 [facility] Comment on above: Performed By: #### R SPLUS #### [facility] [address] [place] [address] Dr. Emilie Carmona NEUT # 7.6 103/ul Critically high 1.4-6.5 [facility] Comment on above: Performed By: #### R SPLUS #### [facility] [address] [place] [address] Dr. Emilie Carmona Neutrophils/100 WBC (Bld) 70.7 % Normal 43.0-75.0 [facility] Comment on above: Performed By: #### R SPLUS #### [facility] [address] [place] [address] Dr. Emilie Carmona Platelet mean volume (Bld) [Entitic vol] 10.8 fL Normal 9.5-13.5 [facility] Comment on above: Performed By: #### R SPLUS #### [facility] [address] [place] [address] Dr. Emilie Carmona PLT 270 103/ul Normal 150-450 [facility] Comment on above: Performed By: #### R SPLUS #### [facility] [address] [place] [address] Dr. Emilie Carmona RBC 3.90 106/ul Critically low 4.20-5.40 [facility] Comment on above: Performed By: #### R SPLUS #### [facility] [address] [address] [address] Emilie Carmona WBC 10.7 103/ul Normal 4.0-11.0 [facility] Comment on above: Performed By: #### R SPLUS #### [facility] [address] [address] [address] Emilie Carmona PROF 14(COMP METB)on 023 Albumin [Mass/Vol] 2.6 g/dL Critically low 3.4-5.0 [facility] Comment on above: Performed By: #### C MP #### [facility] [address] [place] [address] Dr. Emilie Carmona Albumin/Globulin [Mass ratio] 0.6 {ratio} Normal [facility] Comment on above: Performed By: #### C MP #### [facility] [address] [place] [address] Dr. Emilie Carmona ALP [Catalytic activity/Vol] 58 U/L Normal 46-116 [facility] Comment on above: Performed By: #### C MP #### [facility] [address] [place] [address] Dr. Emilie Carmona ALT [Catalytic activity/Vol] 32 U/L Normal 14-59 [facility] Comment on above: Performed By: #### C MP #### [facility] [address] [place] [address] Dr. Emilie Carmona Anion gap [Moles/Vol] 13.8 mmol/L Normal [facility] Comment on above: Performed By: #### C MP #### [facility] [address] [address] [address] Emilie Carmona AST [Catalytic activity/Vol] 30 U/L Normal 15-37 [facility] Comment on above: Performed By: #### C MP #### [facility] [address] [place] [address] Dr. Emilie Carmona Bilirubin [Mass/Vol] 0.2 mg/dL Normal 0.2-1.0 [facility] Comment on above: Performed By: #### C MP #### [facility] [address] [address] [address] Emilie Carmona Calcium [Mass/Vol] 9.7 mg/dL Normal 8.5-10.1 [facility] Comment on above: Performed By: #### C MP #### [facility] [address] [address] [address] Emilie Carmona Chloride [Moles/Vol] 107 mmol/L Normal 98-107 [facility] Comment on above: Performed By: #### C MP #### [facility] [address] [address] [address] Emilie Carmona CO2 [Moles/Vol] 24.8 mmol/L Normal 21.0-32.0 [facility] Comment on above: Performed By: #### C MP #### [facility] [address] [address] [address] Emilie Carmona Creatinine [Mass/Vol] 1.02 mg/dL Normal 0.55-1.02 [facility] Comment on above: Performed By: #### C MP #### [facility] [address] [address] [address] Emilie Carmona EGFR-AF GAMBIAN >60 Normal >=60 [facility] Comment on above: Performed By: #### C MP #### [facility] [address] [address] [address] Emilie Carmona EGFR-NON AF GAMBIAN 52 mL/min/1.73m2 Critically low >=60 [facility] Comment on above: Performed By: #### C MP #### [facility] [address] [address] [address] Emilie Carmona Globulin (S) [Mass/Vol] 4.0 g/dL Normal [facility] Comment on above: Performed By: #### C MP #### [facility] [address] [address] [address] Emilie Carmona Glucose [Mass/Vol] 99 mg/dL Normal 74-106 [facility] Comment on above: Performed By: #### C MP #### [facility] [address] [address] [address] Emilie Carmona Potassium [Moles/Vol] 4.6 mmol/L Normal 3.5-5.1 [facility] Comment on above: Performed By: #### C MP #### [facility] [address] [address] [address] Emilie Carmona Protein [Mass/Vol] 6.6 g/dL Normal 6.4-8.2 [facility] Comment on above: Performed By: #### C MP #### [facility] [address] [address] [address] Emilie Carmona Sodium [Moles/Vol] 141 mmol/L Normal 136-145 [facility] Comment on above: Performed By: #### C MP #### [facility] [address] [address] [address] Emilie Carmona Urea nitrogen [Mass/Vol] 17.0 mg/dL Normal 7.0-18.0 [facility] Comment on above: Performed By: #### C MP #### [facility] [address] [address] [address] Emilie Carmona Urea nitrogen/Creatinine [Mass ratio] 16.7 mg/mg Normal [facility] Comment on above: Performed By: #### C MP #### [facility] [address] [address] [address] Emilie Carmona CBC AUTO DIFFon 12-28-2022 BASO # 0.0 103/ul Normal 0.0-0.1 [facility] Comment on above: Performed By: #### C BC #### [facility] [address] [address] [address] Emilie Carmona Basophils/100 WBC (Bld) 0.3 % Normal 0.2-2.0 [facility] Comment on above: Performed By: #### C BC #### [facility] [address] [address] [address] Emilie Carmona EO # 0.0 103/ul Normal 0.0-0.7 [facility] Comment on above: Performed By: #### C BC #### [facility] [address] [address] [address] Emilie Carmona Eosinophils/100 WBC (Bld) 0.0 % Critically low 0.9-7.0 [facility] Comment on above: Performed By: #### C BC #### [facility] [address] [place] [address] Dr. Emilie Carmona Erythrocyte distribution width (RBC) [Ratio] 14.6 % Normal 11.0-15.0 [facility] Comment on above: Performed By: #### C BC #### [facility] [address] [place] [address] Dr. Emilie Carmona Hematocrit (Bld) [Volume fraction] 32.2 % Critically low 36.0-48.0 [facility] Comment on above: Performed By: #### C BC #### [facility] [address] [place] [address] Dr. Emilie Carmona Hemoglobin (Bld) [Mass/Vol] 10.4 g/dL Critically low 12.0-16.0 [facility] Comment on above: Performed By: #### C BC #### [facility] [address] [place] [address] Dr. Emilie Carmona IG # 0.22 10e3/ul Critically high 0.00-0.03 [facility] Comment on above: Performed By: #### C BC #### [facility] [address] [place] [address] Dr. Emilie Carmona IG % 2.0 % Critically high 0.0-0.5 [facility] Comment on above: Performed By: #### C BC #### [facility] [address] [place] [address] Dr. Emilie Carmona LYMPH # 1.2 103/ul Normal 1.2-3.8 [facility] Comment on above: Performed By: #### C BC #### [facility] [address] [place] [address] Dr. Emilie Carmona Lymphocytes/100 WBC (Bld) 11.4 % Critically low 20.5-60.0 [facility] Comment on above: Performed By: #### C BC #### [facility] [address] [place] [address] Dr. Emilie Carmona MANUAL DIFF REQ NO Normal [facility] Comment on above: Performed By: #### C BC #### [facility] [address] [place] [address] Dr. Emilie Carmona MCH (RBC) [Entitic mass] 27.6 pg Normal 26.7-34.0 [facility] Comment on above: Performed By: #### C BC #### [facility] [address] [place] [address] Dr. Emilie Carmona MCHC (RBC) [Mass/Vol] 32.3 g/dL Normal 29.9-35.2 [facility] Comment on above: Performed By: #### C BC #### [facility] [address] [place] [address] Dr. Emilie Carmona MCV (RBC) [Entitic vol] 85.4 fL Normal 81.0-99.0 [facility] Comment on above: Performed By: #### C BC #### [facility] [address] [place] [address] Dr. Emilie Carmona MONO # 0.7 103/ul Normal 0.3-0.8 [facility] Comment on above: Performed By: #### C BC #### [facility] [address] [place] [address] Dr. Emilie Carmona Monocytes/100 WBC (Bld) 6.3 % Normal 1.7-12.0 [facility] Comment on above: Performed By: #### C BC #### [facility] [address] [place] [address] Dr. Emilie Carmona NEUT # 8.7 103/ul Critically high 1.4-6.5 [facility] Comment on above: Performed By: #### C BC #### [facility] [address] [place] [address] Dr. Emilie Carmona Neutrophils/100 WBC (Bld) 80.0 % Critically high 43.0-75.0 [facility] Comment on above: Performed By: #### C BC #### [facility] [address] [address] [address] Emilie Carmona Platelet mean volume (Bld) [Entitic vol] 10.9 fL Normal 9.5-13.5 [facility] Comment on above: Performed By: #### C BC #### [facility] [address] [address] [address] Emilie Carmona PLT 226 103/ul Normal 150-450 [facility] Comment on above: Performed By: #### C BC #### [facility] [address] [address] [address] Emilie Carmona RBC 3.77 106/ul Critically low 4.20-5.40 [facility] Comment on above: Performed By: #### C BC #### [facility] [address] [address] [address] Emilie Carmona WBC 10.9 103/ul Normal 4.0-11.0 [facility] Comment on above: Performed By: #### C BC #### [facility] [address] [address] [address] Emilie Carmona PROF 14(COMP METB)on 023 Albumin [Mass/Vol] 2.4 g/dL Critically low 3.4-5.0 [facility] Comment on above: Performed By: #### C MP ####[facility] [address] [address]DrBrenton Carmona Albumin/Globulin [Mass ratio] 0.6 {ratio} Normal [facility] Comment on above: Performed By: #### C MP ####[facility] [address] [id number] Carmona ALP [Catalytic activity/Vol] 57 U/L Normal 46-116 [facility] Comment on above: Performed By: #### C MP ####[facility] [address] [id number] Carmona ALT [Catalytic activity/Vol] 32 U/L Normal 14-59 [facility] Comment on above: Performed By: #### C MP ####[facility] [address] [address]Dr. Emilie Carmona Anion gap [Moles/Vol] 14.1 mmol/L Normal [facility] Comment on above: Performed By: #### C MP ####[facility] [address] [place], [place] [address]Dr. Emilie Carmona AST [Catalytic activity/Vol] 35 U/L Normal 15-37 [facility] Comment on above: Performed By: #### C MP ####[facility] [address] [place], [place] [address]Dr. Emilie Carmona Bilirubin [Mass/Vol] 0.2 mg/dL Normal 0.2-1.0 [facility] Comment on above: Performed By: #### C MP ####[facility] [address] [place], [place] [address]Dr. Emilie Carmona Calcium [Mass/Vol] 9.2 mg/dL Normal 8.5-10.1 [facility] Comment on above: Performed By: #### C MP ####[facility] [address] [place], [place] [address]Dr. Emilie Carmona Chloride [Moles/Vol] 107 mmol/L Normal 98-107 [facility] Comment on above: Performed By: #### C MP ####[facility] [address] [place], [place] [address]Dr. Emilie Carmona CO2 [Moles/Vol] 22.7 mmol/L Normal 21.0-32.0 [facility] Comment on above: Performed By: #### C MP ####[facility] [address] [place], [place] [address]Dr. Emilie Mathew Creatinine [Mass/Vol] 1.02 mg/dL Normal 0.55-1.02 [facility] Comment on above: Performed By: #### C MP ####[facility] [address] [place], [place] [address]Dr. Savileslie Mathew EGFR-AF GAMBIAN >60 Normal >=60 [facility] Comment on above: Performed By: #### C MP ####[facility] [address] [place], [place] [address]Dr. Emilie Carmona EGFR-NON AF GAMBIAN 52 mL/min/1.73m2 Critically low >=60 [facility] Comment on above: Performed By: #### C MP ####[facility] [address] [address]Dr. Emilie Carmona Globulin (S) [Mass/Vol] 4.0 g/dL Normal [facility] Comment on above: Performed By: #### C MP ####[facility] [address] [address]Dr. Emilie Carmona Glucose [Mass/Vol] 132 mg/dL Critically high 74-106 [facility] [place] Comment on above: Performed By: #### C MP ####[facility] [address] [place], [place] [address]Dr. Emilie Carmona Potassium [Moles/Vol] 3.8 mmol/L Normal 3.5-5.1 [facility] Comment on above: Performed By: #### C MP ####[facility] [address] [place], [place] [address]Dr. Emilie Carmona Protein [Mass/Vol] 6.4 g/dL Normal 6.4-8.2 [facility] Comment on above: Performed By: #### C MP ####[facility] [address] [place], [place] [address]Dr. Emilie Carmona Sodium [Moles/Vol] 140 mmol/L Normal 136-145 [facility] Comment on above: Performed By: #### C MP ####[facility] [address] [place], [place] [address]Dr. Emilie Carmona Urea nitrogen [Mass/Vol] 19.0 mg/dL Critically high 7.0-18.0 [facility] Comment on above: Performed By: #### C MP ####[facility] [address] [place], [place] [address]Dr. Emilie Carmona Urea nitrogen/Creatinine [Mass ratio] 18.6 mg/mg Normal [facility] Comment on above: Performed By: #### C MP ####[facility] [address] [place], [place] [address]Dr. Emilie Carmona CBC AUTO DIFFon 12-27-2022 BASO # 0.1 103/ul Normal 0.0-0.1 [facility] Comment on above: Performed By: #### C BC #### [facility] [address] [address] [address] Emilie Carmona Basophils/100 WBC (Bld) 0.4 % Normal 0.2-2.0 [facility] Comment on above: Performed By: #### C BC #### [facility] [address] [address] [address] Emilie Carmona EO # 0.2 103/ul Normal 0.0-0.7 [facility] Comment on above: Performed By: #### C BC #### [facility] [address] [place] [address] Dr. Emilie Carmona Eosinophils/100 WBC (Bld) 1.8 % Normal 0.9-7.0 [facility] Comment on above: Performed By: #### C BC #### [facility] [address] [place] [address] Dr. Emilie Carmona Erythrocyte distribution width (RBC) [Ratio] 14.1 % Normal 11.0-15.0 [facility] Comment on above: Performed By: #### C BC #### [facility] [address] [place] [address] Dr. Emilie Carmona Hematocrit (Bld) [Volume fraction] 32.1 % Critically low 36.0-48.0 [facility] Comment on above: Performed By: #### C BC #### [facility] [address] [place] [address] Dr. Emilie Carmona Hemoglobin (Bld) [Mass/Vol] 10.7 g/dL Critically low 12.0-16.0 [facility] Comment on above: Performed By: #### C BC #### [facility] [address] [place] [address] Dr. Emilie Carmona IG # 0.13 10e3/ul Critically high 0.00-0.03 [facility] Comment on above: Performed By: #### C BC #### [facility] [address] [place] [address] Dr. Emilie Carmona IG % 0.9 % Critically high 0.0-0.5 [facility] Comment on above: Performed By: #### C BC #### [facility] [address] [place] [address] Dr. Emilie Carmona LYMPH # 0.9 103/ul Critically low 1.2-3.8 [facility] Comment on above: Performed By: #### C BC #### [facility] [address] [place] [address] Dr. Emilie Carmona Lymphocytes/100 WBC (Bld) 6.9 % Critically low 20.5-60.0 [facility] Comment on above: Performed By: #### C BC #### [facility] [address] [place] [address] Dr. Emilie Carmona MANUAL DIFF REQ NO Normal [facility] Comment on above: Performed By: #### C BC #### [facility] [address] [place] [address] Dr. Emilie Carmona MCH (RBC) [Entitic mass] 28.2 pg Normal 26.7-34.0 [facility] Comment on above: Performed By: #### C BC #### [facility] [address] [place] [address] Dr. Emilie Carmona MCHC (RBC) [Mass/Vol] 33.3 g/dL Normal 29.9-35.2 [facility] Comment on above: Performed By: #### C BC #### [facility] [address] [place] [address] Dr. Emilie Carmona MCV (RBC) [Entitic vol] 84.7 fL Normal 81.0-99.0 [facility] Comment on above: Performed By: #### C BC #### [facility] [address] [place] [address] Dr. Emilie Carmona MONO # 0.8 103/ul Normal 0.3-0.8 [facility] Comment on above: Performed By: #### C BC #### [facility] [address] [place] [address] Dr. Emilie Carmona Monocytes/100 WBC (Bld) 5.8 % Normal 1.7-12.0 [facility] Comment on above: Performed By: #### C BC #### [facility] [address] [place] [address] Dr. Emilie Carmona NEUT # 11.5 103/ul Critically high 1.4-6.5 [facility] Comment on above: Performed By: #### C BC #### [facility] [address] [place] [address] Dr. Emilie Carmona Neutrophils/100 WBC (Bld) 84.2 % Critically high 43.0-75.0 [facility] Comment on above: Performed By: #### C BC #### [facility] [address] [place] [address] Dr. Emilie Carmona Platelet mean volume (Bld) [Entitic vol] 10.8 fL Normal 9.5-13.5 [facility] Comment on above: Performed By: #### C BC #### [facility] [address] [place] [address] Dr. Emilie Carmona PLT 200 103/ul Normal 150-450 [facility] Comment on above: Performed By: #### C BC #### [facility] [address] [place] [address] Dr. Emilie Carmona RBC 3.79 106/ul Critically low 4.20-5.40 [facility] Comment on above: Performed By: #### C BC #### [facility] [address] [place] [address] Dr. Emilie Carmona WBC 13.7 103/ul Critically high 4.0-11.0 [facility] Comment on above: Performed By: #### C BC #### [facility] [address] [place] [address] Dr. Emilie Carmona PROF 14(COMP METB)on 023 Albumin [Mass/Vol] 2.4 g/dL Critically low 3.4-5.0 [facility] Comment on above: Performed By: #### C MP #### [facility] [address] [place] [address] Dr. Emilie Carmona Albumin/Globulin [Mass ratio] 0.6 {ratio} Normal [facility] Comment on above: Performed By: #### C MP #### [facility] [address] [address] [address] Emilie Carmona ALP [Catalytic activity/Vol] 57 U/L Normal 46-116 [facility] Comment on above: Performed By: #### C MP #### [facility] [address] [address] [address] Emilie Carmona ALT [Catalytic activity/Vol] 21 U/L Normal 14-59 [facility] Comment on above: Performed By: #### C MP #### [facility] [address] [address] [address] Emilie Carmona Anion gap [Moles/Vol] 15.4 mmol/L Normal [facility] Comment on above: Performed By: #### C MP #### [facility] [address] [place] [address] Dr. Emilie Carmona AST [Catalytic activity/Vol] 39 U/L Critically high 15-37 [facility] Comment on above: Performed By: #### C MP #### [facility] [address] [address] [address] Emilie Carmona Bilirubin [Mass/Vol] 0.3 mg/dL Normal 0.2-1.0 [facility] Comment on above: Performed By: #### C MP #### [facility] [address] [address] [address] Emilie Carmona Calcium [Mass/Vol] 9.0 mg/dL Normal 8.5-10.1 [facility] Comment on above: Performed By: #### C MP #### [facility] [address] [address] [address] Emilie Carmona Chloride [Moles/Vol] 104 mmol/L Normal 98-107 [facility] Comment on above: Performed By: #### C MP #### [facility] [address] [address] [address] Emilie Carmona CO2 [Moles/Vol] 20.7 mmol/L Critically low 21.0-32.0 [facility] Comment on above: Performed By: #### C MP #### [facility] [address] [address] [address] Emilie Carmona Creatinine [Mass/Vol] 1.05 mg/dL Critically high 0.55-1.02 [facility] Comment on above: Performed By: #### C MP #### [facility] [address] [address] [address] Emilie Carmona EGFR-AF GAMBIAN >60 Normal >=60 [facility] Comment on above: Performed By: #### C MP #### [facility] [address] [address] [address] Emilie Carmona EGFR-NON AF GAMBIAN 50 mL/min/1.73m2 Critically low >=60 [facility] Comment on above: Performed By: #### C MP #### [facility] [address] [address] [address] Emilie Carmona Globulin (S) [Mass/Vol] 4.1 g/dL Normal [facility] Comment on above: Performed By: #### C MP #### [facility] [address] [address] [address] Emilie Carmona Glucose [Mass/Vol] 141 mg/dL Critically high 74-106 [facility] [place] Comment on above: Performed By: #### C MP #### [facility] [address] [address] [address] Emilie Carmona Potassium [Moles/Vol] 4.1 mmol/L Normal 3.5-5.1 [facility] Comment on above: Performed By: #### C MP #### [facility] [address] [address] [address] Emilie Carmona Protein [Mass/Vol] 6.5 g/dL Normal 6.4-8.2 [facility] Comment on above: Performed By: #### C MP #### [facility] [address] [address] [address] Emilie Carmona Sodium [Moles/Vol] 136 mmol/L Normal 136-145 [facility] Comment on above: Performed By: #### C MP #### [facility] [address] [place] [address] Dr. Emilie Carmona Urea nitrogen [Mass/Vol] 22.0 mg/dL Critically high 7.0-18.0 [facility] Comment on above: Performed By: #### C MP #### [facility] [address] [place] [address] Dr. Emilie Carmona Urea nitrogen/Creatinine [Mass ratio] 21.0 mg/mg Normal [facility] Comment on above: Performed By: #### C MP #### [facility] [address] [place] [address] Dr. Emilie Carmona CBC AUTO DIFFon 12-26-2022 BASO # 0.0 103/ul Normal 0.0-0.1 [facility] Comment on above: Performed By: #### C BC #### [facility] [address] [place] [address] Dr. Emilie Carmona Basophils/100 WBC (Bld) 0.2 % Normal 0.2-2.0 [facility] Comment on above: Performed By: #### C BC #### [facility] [address] [place] [address] Dr. Emilie Carmona EO # 0.0 103/ul Normal 0.0-0.7 [facility] Comment on above: Performed By: #### C BC #### [facility] [address] [place] [address] Dr. Emilie Carmona Eosinophils/100 WBC (Bld) 0.1 % Critically low 0.9-7.0 [facility] Comment on above: Performed By: #### C BC #### [facility] [address] [place] [address] Dr. Emilie Carmona Erythrocyte distribution width (RBC) [Ratio] 13.7 % Normal 11.0-15.0 [facility] Comment on above: Performed By: #### C BC #### [facility] [address] [place] [address] Dr. Emilie Carmona Hematocrit (Bld) [Volume fraction] 32.5 % Critically low 36.0-48.0 [facility] Comment on above: Performed By: #### C BC #### [facility] [address] [address] [address] Emilie Carmona Hemoglobin (Bld) [Mass/Vol] 10.9 g/dL Critically low 12.0-16.0 [facility] Comment on above: Performed By: #### C BC #### [facility] [address] [place] [address] Dr. Emilie Carmona IG # 0.09 10e3/ul Critically high 0.00-0.03 [facility] Comment on above: Performed By: #### C BC #### [facility] [address] [place] [address] Dr. Emilie Carmona IG % 0.9 % Critically high 0.0-0.5 [facility] Comment on above: Performed By: #### C BC #### [facility] [address] [place] [address] Dr. Emilie Carmona LYMPH # 0.5 103/ul Critically low 1.2-3.8 [facility] Comment on above: Performed By: #### C BC #### [facility] [address] [place] [address] Dr. Emilie Carmona Lymphocytes/100 WBC (Bld) 4.8 % Critically low 20.5-60.0 [facility] Comment on above: Performed By: #### C BC #### [facility] [address] [place] [address] Dr. Emilie Carmona MANUAL DIFF REQ NO Normal [facility] Comment on above: Performed By: #### C BC #### [facility] [address] [place] [address] Dr. Emilie Carmona MCH (RBC) [Entitic mass] 28.5 pg Normal 26.7-34.0 [facility] Comment on above: Performed By: #### C BC #### [facility] [address] [place] [address] Dr. Emilie Carmona MCHC (RBC) [Mass/Vol] 33.5 g/dL Normal 29.9-35.2 [facility] Comment on above: Performed By: #### C BC #### [facility] [address] [address] [address] Emilie Carmona MCV (RBC) [Entitic vol] 84.9 fL Normal 81.0-99.0 [facility] Comment on above: Performed By: #### C BC #### [facility] [address] [address] [address] Eimlie Carmona MONO # 0.3 103/ul Normal 0.3-0.8 [facility] Comment on above: Performed By: #### C BC #### [facility] [address] [address] [address] Emilie Carmona Monocytes/100 WBC (Bld) 2.9 % Normal 1.7-12.0 [facility] Comment on above: Performed By: #### C BC #### [facility] [address] [place] [address] Dr. Emilie Carmona NEUT # 8.9 103/ul Critically high 1.4-6.5 [facility] Comment on above: Performed By: #### C BC #### [facility] [address] [place] [address] Dr. Emilie Carmona Neutrophils/100 WBC (Bld) 91.1 % Critically high 43.0-75.0 [facility] Comment on above: Performed By: #### C BC #### [facility] [address] [place] [address] Dr. Emilie Carmona Platelet mean volume (Bld) [Entitic vol] 10.8 fL Normal 9.5-13.5 [facility] Comment on above: Performed By: #### C BC #### [facility] [address] [place] [address] Dr. Emilie Carmona PLT 204 103/ul Normal 150-450 [facility] Comment on above: Performed By: #### C BC #### [facility] [address] [place] [address] Dr. Emilie Carmona RBC 3.83 106/ul Critically low 4.20-5.40 [facility] Comment on above: Performed By: #### C BC #### [facility] [address] [address] [address] Emilie Carmona WBC 9.8 103/ul Normal 4.0-11.0 [facility] Comment on above: Performed By: #### C BC #### [facility] [address] [place] [address] Dr. Emilie Carmona PROF 14(COMP METB)on 023 Albumin [Mass/Vol] 2.5 g/dL Critically low 3.4-5.0 [facility] Comment on above: Performed By: #### R SPLUS #### [facility] [address] [place] [address] Dr. Emilie Carmona Albumin/Globulin [Mass ratio] 0.6 {ratio} Normal [facility] Comment on above: Performed By: #### R SPLUS #### [facility] [address] [place] [address] Dr. Emilie Carmona ALP [Catalytic activity/Vol] 63 U/L Normal 46-116 [facility] Comment on above: Performed By: #### R SPLUS #### [facility] [address] [place] [address] Dr. Emilie Carmona ALT [Catalytic activity/Vol] 13 U/L Critically low 14-59 [facility] Comment on above: Performed By: #### R SPLUS #### [facility] [address] [place] [address] Dr. Emilie Carmona Anion gap [Moles/Vol] 18.7 mmol/L Normal [facility] Comment on above: Performed By: #### R SPLUS #### [facility] [address] [place] [address] Dr. Emilie Carmona AST [Catalytic activity/Vol] 16 U/L Normal 15-37 [facility] Comment on above: Performed By: #### R SPLUS #### [facility] [address] [place] [address] Dr. Emilie Carmona Bilirubin [Mass/Vol] 0.3 mg/dL Normal 0.2-1.0 [facility] Comment on above: Performed By: #### R SPLUS #### [facility] [address] [address] [address] Emilie Carmona Calcium [Mass/Vol] 8.5 mg/dL Normal 8.5-10.1 [facility] Comment on above: Performed By: #### R SPLUS #### [facility] [address] [address] [address] Emilie Carmona Chloride [Moles/Vol] 103 mmol/L Normal 98-107 [facility] Comment on above: Performed By: #### R SPLUS #### [facility] [address] [address] [address] Emilie Carmoan CO2 [Moles/Vol] 21.0 mmol/L Normal 21.0-32.0 [facility] Comment on above: Performed By: #### R SPLUS #### [facility] [address] [place] [address] Dr. Emilie Carmona Creatinine [Mass/Vol] 1.37 mg/dL Critically high 0.55-1.02 [facility] Comment on above: Performed By: #### R SPLUS #### [facility] [address] [place] [address] Dr. Emilie Carmona EGFR-AF GAMBIAN 45 mL/min/1.73m2 Critically low >=60 [facility] Comment on above: Performed By: #### R SPLUS #### [facility] [address] [place] [address] Dr. Emilie Carmona EGFR-NON AF GAMBIAN 37 mL/min/1.73m2 Critically low >=60 [facility] Comment on above: Performed By: #### R SPLUS #### [facility] [address] [place] [address] Dr. Emilie Carmona Globulin (S) [Mass/Vol] 4.1 g/dL Normal [facility] Comment on above: Performed By: #### R SPLUS #### [facility] [address] [place] [address] Dr. Emilie Carmona Glucose [Mass/Vol] 235 mg/dL Critically high 74-106 [facility] [place] Comment on above: Performed By: #### R SPLUS #### [facility] [address] [address] [address] Emilie Carmona Potassium [Moles/Vol] 2.7 mmol/L Critically low 3.5-5.1 [facility] Comment on above: Performed By: #### R SPLUS #### [facility] [address] [place] [address] Dr. Emilie Carmona Protein [Mass/Vol] 6.6 g/dL Normal 6.4-8.2 [facility] Comment on above: Performed By: #### R SPLUS #### [facility] [address] [place] [address] Dr. Emilie Carmona Sodium [Moles/Vol] 138 mmol/L Normal 136-145 [facility] Comment on above: Performed By: #### R SPLUS #### [facility] [address] [place] [address] Dr. Emilie Carmona Urea nitrogen [Mass/Vol] 20.0 mg/dL Critically high 7.0-18.0 [facility] Comment on above: Performed By: #### R SPLUS #### [facility] [address] [place] [address] Dr. Emilie Carmona Urea nitrogen/Creatinine [Mass ratio] 14.6 mg/mg Normal [facility] Comment on above: Performed By: #### R SPLUS #### [facility] [address] [place] [address] Dr. Emilie Carmona XR CHEST 1 Von [...] ALEIDA TAVERAS Date: 2022-12-26 10:29 Normal [facility] BNPon 12-25-2022 Natriuretic peptide B (Bld) [Mass/Vol] 639.0 pg/mL Normal <=1,800.0 [facility] Comment on above: Performed By: #### C MADM, BNP, CMP ####[facility] [id number] [address]Dr. Emilie Carmona CARDIAC MARYCRUZ ADMITon 023 CK [Catalytic activity/Vol] 248 U/L Critically high 26-192 [facility] Comment on above: Performed By: #### C MADM, BNP, CMP ####[facility] [id number] [address]Dr. Emilie Carmona CK.MB [Mass/Vol] 1.38 ng/mL Normal <=3.60 [facility] Comment on above: Performed By: #### C MADM, BNP, CMP ####[facility] [id number] [address]Dr. Emilie Carmona HSTROP 11.8 pg/mL Normal 4.0-51.3 [facility] Comment on above: Result Comment: CUT- OFF POINTS HAVE BEEN ESTABLISHED BASED ON THE FOURTH UNIVERSAL DEFINITIONS OF MYOCARDIAL INFARCTION. THE UPPER REFERENCE LIMIT (URL) OF TROPONIN, DEFINED THE 99TH PERCENTILE OF cTnI DISTRIBUTION IN A REFERENCE POPULATION, HAS BEEN CONFIRMED THE DECISION THRESHOLD FOR [place] DIAGNOSIS. Performed By: #### C MADM, BNP, CMP ####[facility] [id number] [id number] Emilie Carmona MAXIMILIAN 484 ng/mL Critically high 9-82 [facility] Comment on above: Performed By: #### C MADM, BNP, CMP ####[facility] [id number] [id number] Emilie Carmona CBC AUTO DIFFon 12-25-2022 BASO # 0.0 103/ul Normal 0.0-0.1 [facility] Comment on above: Performed By: #### C BC #### [facility] [address] [address] [address] Emilie Carmona Basophils/100 WBC (Bld) 0.4 % Normal 0.2-2.0 [facility] Comment on above: Performed By: #### C BC #### [facility] [address] [address] [address] Emilie Carmona EO # 0.0 103/ul Normal 0.0-0.7 [facility] Comment on above: Performed By: #### C BC #### [facility] [address] [address] [address] Emilie Carmona Eosinophils/100 WBC (Bld) 0.0 % Critically low 0.9-7.0 [facility] Comment on above: Performed By: #### C BC #### [facility] [address] [place] [address] Dr. Emilie Carmona Erythrocyte distribution width (RBC) [Ratio] 13.6 % Normal 11.0-15.0 [facility] Comment on above: Performed By: #### C BC #### [facility] [address] [place] [address] Dr. Emilie Carmona Hematocrit (Bld) [Volume fraction] 39.0 % Normal 36.0-48.0 [facility] Comment on above: Performed By: #### C BC #### [facility] [address] [place] [address] Dr. Emilie Carmona Hemoglobin (Bld) [Mass/Vol] 13.0 g/dL Normal 12.0-16.0 [facility] Comment on above: Performed By: #### C BC #### [facility] [address] [place] [address] Dr. Emilie Carmona IG # 0.07 10e3/ul Critically high 0.00-0.03 [facility] Comment on above: Performed By: #### C BC #### [facility] [address] [place] [address] Dr. Emilie Carmona IG % 0.6 % Critically high 0.0-0.5 [facility] Comment on above: Performed By: #### C BC #### [facility] [address] [place] [address] Dr. Emilie Carmona LYMPH # 0.8 103/ul Critically low 1.2-3.[address] [facility] Comment on above: Performed By: #### C BC #### [facility] [address] [address] [address] Emilie Carmona Lymphocytes/100 WBC (Bld) 6.9 % Critically low 20.5-60.0 [facility] Comment on above: Performed By: #### C BC #### [facility] [address] [address] [address] Emilie Carmona MANUAL DIFF REQ NO Normal [facility] Comment on above: Performed By: #### C BC #### [facility] [address] [place] [address] Dr. Emilie Carmona MCH (RBC) [Entitic mass] 28.4 pg Normal 26.7-34.0 [facility] Comment on above: Performed By: #### C BC #### [facility] [address] [place] [address] Dr. Emilie Carmona MCHC (RBC) [Mass/Vol] 33.3 g/dL Normal 29.9-35.2 [facility] Comment on above: Performed By: #### C BC #### [facility] [address] [place] [address] Dr. Emilie Carmona MCV (RBC) [Entitic vol] 85.3 fL Normal 81.0-99.0 [facility] Comment on above: Performed By: #### C BC #### [facility] [address] [place] [address] Dr. Emilie Carmona MONO # 1.0 103/ul Critically high 0.3-0.8 [facility] Comment on above: Performed By: #### C BC #### [facility] [address] [place] [address] Dr. Emilie Carmona Monocytes/100 WBC (Bld) 9.1 % Normal 1.7-12.0 [facility] Comment on above: Performed By: #### C BC #### [facility] [address] [place] [address] Dr. Emilie Carmona NEUT # 9.0 103/ul Critically high 1.4-6.5 [facility] Comment on above: Performed By: #### C BC #### [facility] [address] [address] [address] Emilie Carmona Neutrophils/100 WBC (Bld) 83.0 % Critically high 43.0-75.0 [facility] Comment on above: Performed By: #### C BC #### [facility] [address] [address] [address] Emilie Carmona Platelet mean volume (Bld) [Entitic vol] 10.6 fL Normal 9.5-13.5 [facility] Comment on above: Performed By: #### C BC #### [facility] [address] [address] [address] Emilie Carmona PLT 276 103/ul Normal 150-450 [facility] Comment on above: Performed By: #### C BC #### [facility] [address] [place] [address] Dr. Emilie Carmona RBC 4.57 106/ul Normal 4.20-5.40 [facility] Comment on above: Performed By: #### C BC #### [facility] [address] [place] [address] Dr. Emilie Carmona WBC 10.8 103/ul Normal 4.0-11.0 [facility] Comment on above: Performed By: #### C BC #### [facility] [address] [address] [address] Emilie Carmona CULTURE BLOODon 12-25-2022 Microscopic examination of blood, culture Culture Observations: NO GROWTH AT 36-48 HOURS. FINAL TO FOLLOW. Normal [facility] Comment on above: Performed By: #### B LDCX2 ####[facility] [id number] [address]Dr. Emilie Carmona Microscopic examination of blood, culture Culture Observations: NO GROWTH AT 36-48 HOURS. FINAL TO FOLLOW. Normal [facility] Comment on above: Performed By: #### B LDCX1 #### [facility] [address] [place] [address] Dr. Emilie Carmona CULTURE SPUTUMon 12-25-2022 CULTURE SPUTUM Culture Observations : Growth of Normal Respiratory Joanne also seen Isolate 1 Haemophilus influenzae Heavy growth of Normal [facility] Comment on above: Result Comment: Beta Lactamase: Negative Performed By: #### S PUTCX ####[facility] [facility] [id number] [id number]. Emilie Carmona CULTURE URINEon 12-25-2022 CULTURE URINE Culture Observations : ROD TO FOLLOW. Isolate 1 Escherichia coli 15,000 cfu/mL of Normal [facility] Comment on above: Performed By: #### U RCX #### [facility] [address] [place] [address] Dr. Emilie Carmona ER URINE PROFILEon 3 Bilirubin Ql (U) Negative Normal NEGATIVE [facility] Comment on above: Performed By: #### R SPLUS #### [facility] [address] [place] [address] Dr. Emilie Carmona Clarity (U) CLEAR Normal CLEAR [facility] Comment on above: Performed By: #### R SPLUS #### [facility] [address] [place] [address] Dr. Emilie Carmona Color (U) YELLOW Normal YELLOW [facility] Comment on above: Performed By: #### R SPLUS #### [facility] [address] [place] [address] Dr. Emilie Carmona ERUD A micrscopic examination will be performed if indicated. Normal [facility] Comment on above: Performed By: #### R SPLUS #### [facility] [address] [place] [address] Dr. Emilie Carmona Glucose Ql (U) Negative Normal NEGATIVE [facility] Comment on above: Performed By: #### R SPLUS #### [facility] [address] [place] [address] Dr. Emilie Carmona Hemoglobin Ql (U) SMALL Abnormal NEGATIVE [facility] Comment on above: Performed By: #### R SPLUS #### [facility] [address] [place] [address] Dr. Emilie Carmona Ketones Ql (U) 15 mg/dl Abnormal NEGATIVE [facility] Comment on above: Performed By: #### R SPLUS #### [facility] [address] [place] [address] Dr. Emilie Carmona LEUKOCYTES Negative Normal NEGATIVE [facility] Comment on above: Performed By: #### R SPLUS #### [facility] [address] [address] [address] Emilie Carmona Nitrite Ql (U) Negative Normal NEGATIVE [facility] Comment on above: Performed By: #### R SPLUS #### [facility] [address] [address] [address] Emilie Carmona pH (U) 6.0 [pH] Normal 5-9 [facility] Comment on above: Performed By: #### R SPLUS #### [facility] [address] [address] [address] Emilie Carmona SPEC GRAVITY 1.015 Normal 1.005-<=1.025 [facility] Comment on above: Performed By: #### R SPLUS #### [facility] [address] [place] [address] Dr. Emilie Carmona UA PROTEIN TRACE Normal NEGATIVE/ TRACE [facility] Comment on above: Performed By: #### R SPLUS #### [facility] [address] [address] [address] Emilie Carmona UR MICRO IND INDICATED Normal [facility] Comment on above: Performed By: #### R SPLUS #### [facility] [address] [address] [address] Emilie Carmona Urobilinogen Qn (U) 0.2 {Warren'U}/dL Normal 0.2 - 1. 0 [facility] Comment on above: Performed By: #### R SPLUS #### [facility] [address] [place] [address] Dr. Emilie Carmona LACTATE/LACTIC ACIDon 2022 Lactate [Moles/Vol] 1.2 mmol/L Normal 0.4-2.0 [facility] Comment on above: Performed By: #### L ACT ####[facility] [address] [address]Dr. Emilie Carmona PROF 14(COMP METB)on 023 Albumin [Mass/Vol] 3.4 g/dL Normal 3.4-5.0 [facility] Comment on above: Performed By: #### C MADM, BNP, CMP ####[facility] [address] [address]Dr. Emilie Carmona Albumin/Globulin [Mass ratio] 0.8 {ratio} Normal [facility] Comment on above: Performed By: #### C MADM, BNP, CMP ####[facility] [address] [address]Dr. Emilie Mathew ALP [Catalytic activity/Vol] 88 U/L Normal 46-116 [facility] Comment on above: Performed By: #### C MADM, BNP, CMP ####[facility] [id number] [place], [place] [address]Dr. Emilie Carmona ALT [Catalytic activity/Vol] 17 U/L Normal 14-59 [facility] Comment on above: Performed By: #### C MADM, BNP, CMP ####[facility] [id number] [place], [place] [address]Dr. Savileslie Mathew Anion gap [Moles/Vol] 13.2 mmol/L Normal [facility] Comment on above: Performed By: #### C MADM, BNP, CMP ####[facility] [address] [place], [place] [address]Dr. Savileslie Carmona AST [Catalytic activity/Vol] 22 U/L Normal 15-37 [facility] Comment on above: Performed By: #### C MADM, BNP, CMP ####[facility] [address] [place], [place] [address]Dr. Emilie Carmona Bilirubin [Mass/Vol] 0.4 mg/dL Normal 0.2-1.0 [facility] Comment on above: Performed By: #### C MADM, BNP, CMP ####[facility] [address] [place], [place] [address]Dr. Emilie Carmona Calcium [Mass/Vol] 9.2 mg/dL Normal 8.5-10.1 [facility] Comment on above: Performed By: #### C MADM, BNP, CMP ####[facility] [address] [place], [place] [id number]. Emilie Carmona Chloride [Moles/Vol] 100 mmol/L Normal 98-107 [facility] Comment on above: Performed By: #### C MADM, BNP, CMP ####[facility] [address] [address]Dr. Emilie Carmona CO2 [Moles/Vol] 26.5 mmol/L Normal 21.0-32.0 [facility] Comment on above: Performed By: #### C MADM, BNP, CMP ####[facility] [address] [place], [place] [address]Dr. Emilie Carmona Creatinine [Mass/Vol] 1.12 mg/dL Critically high 0.55-1.02 [facility] Comment on above: Performed By: #### C MADM, BNP, CMP ####[facility] [address] [place], [place] [address]Dr. Emilie Mathew EGFR-AF GAMBIAN 56 mL/min/1.73m2 Critically low >=60 [facility] Comment on above: Performed By: #### C MADM, BNP, CMP ####[facility] [address] [place], [place] [address]Dr. Emilie Mathew EGFR-NON AF GAMBIAN 46 mL/min/1.73m2 Critically low >=60 [facility] Comment on above: Performed By: #### C MADM, BNP, CMP ####[facility] [address] [place], [place] [address]Dr. Emilie Carmona Globulin (S) [Mass/Vol] 4.4 g/dL Normal [facility] Comment on above: Performed By: #### C MADM, BNP, CMP ####[facility] [address] [address]Dr. Emilie Carmona Glucose [Mass/Vol] 123 mg/dL Critically high 74-106 [facility] [place] Comment on above: Performed By: #### C MADM, BNP, CMP ####[facility] [address] [address]Dr. Emilie Carmona Potassium [Moles/Vol] 3.7 mmol/L Normal 3.5-5.1 [facility] Comment on above: Performed By: #### C MADM, BNP, CMP ####[facility] [address] [address]Dr. Emilie Carmona Protein [Mass/Vol] 7.8 g/dL Normal 6.4-8.2 [facility] Comment on above: Performed By: #### C MADM, BNP, CMP ####[facility] [address] [address]Dr. Emilie Carmona Sodium [Moles/Vol] 136 mmol/L Normal 136-145 [facility] Comment on above: Performed By: #### C MADM, BNP, CMP ####[facility] [address] [address]Dr. Emilie Carmona Urea nitrogen [Mass/Vol] 14.0 mg/dL Normal 7.0-18.0 [facility] Comment on above: Performed By: #### C MADM, BNP, CMP ####[facility] [address] [place], [place] [address]Dr. Emilie Carmona Urea nitrogen/Creatinine [Mass ratio] 12.5 mg/mg Normal [facility] Comment on above: Performed By: #### C MADM, BNP, CMP ####[facility] [address] [address]Dr. Emilie Carmona RESPIRATORY PANEL PLUSon Adenovirus Not detected Normal NOT DETECTED [facility] Comment on above: Performed By: #### R SPLUS #### [facility] [address] [place] [address] Dr. Emilie Carmona B. Parapertusis Not detected Normal NOT DETECTED [facility] Comment on above: Performed By: #### R SPLUS #### [facility] [address] [place] [address] Dr. Emilie Lny. Pertussis Not detected Normal NOT DETECTED [facility] Comment on above: Performed By: #### R SPLUS #### [facility] [address] [address] [address] Emilie Carmona Chlamydia Pneumoniae Not detected Normal NOT DETECTED [facility] Comment on above: Performed By: #### R SPLUS #### [facility] [address] [place] [address] Dr. Emilie Carmona Coronavirus 229E Not detected Normal NOT DETECTED [facility] Comment on above: Performed By: #### R SPLUS #### [facility] [address] [place] [address] Dr. Emilie Carmona Coronavirus HKU1 Not detected Normal NOT DETECTED [facility] Comment on above: Performed By: #### R SPLUS #### [facility] [address] [place] [address] Dr. Emilie Carmona Coronavirus NL63 Not detected Normal NOT DETECTED [facility] Comment on above: Performed By: #### R SPLUS #### [facility] [address] [place] [address] Dr. Emilie Carmona Coronavirus OC43 Not detected Normal NOT DETECTED [facility] Comment on above: Performed By: #### R SPLUS #### [facility] [address] [place] [address] Dr. Emilie Carmona Influenza A H1 Not detected Normal NOT DETECTED [facility] Comment on above: Performed By: #### R SPLUS #### [facility] [address] [place] [address] Dr. Emilie Carmona Influenza A H1 2009 Detected Abnormal NOT DETECTED [facility] Comment on above: Performed By: #### R SPLUS #### [facility] [address] [place] [address] Dr. Emilie Carmona Influenza A H3 Not detected Normal NOT DETECTED [facility] Comment on above: Performed By: #### R SPLUS #### [facility] [address] [place] [address] Dr. Emilie Carmona Influenza B Not detected Normal NOT DETECTED [facility] Comment on above: Performed By: #### R SPLUS #### [facility] [address] [place] [address] Dr. Emilie Carmona Metapneumovirus Not detected Normal NOT DETECTED [facility] Comment on above: Performed By: #### R SPLUS #### [facility] [address] [place] [address] Dr. Emilie Carmona Mycoplas. Pneumoniae Not detected Normal NOT DETECTED [facility] Comment on above: Performed By: #### R SPLUS #### [facility] [address] [place] [address] Dr. Emilie Carmona Parainfluenza 1 Not detected Normal NOT DETECTED [facility] Comment on above: Performed By: #### R SPLUS #### [facility] [address] [place] [address] Dr. Emilie Carmona Parainfluenza 2 Not detected Normal NOT DETECTED [facility] Comment on above: Performed By: #### R SPLUS #### [facility] [address] [place] [address] Dr. Emilie Carmona Parainfluenza 3 Not detected Normal NOT DETECTED [facility] Comment on above: Performed By: #### R SPLUS #### [facility] [address] [place] [address] Dr. Emilie Carmona Parainfluenza 4 Not detected Normal NOT DETECTED [facility] Comment on above: Performed By: #### R SPLUS #### [facility] [address] [place] [address] Dr. Emilie Carmona Rhino/Enterovirus Not detected Normal NOT DETECTED [facility] Comment on above: Performed By: #### R SPLUS #### [facility] [address] [place] [address] Dr. Emilie Carmona RP2 Header 1 RESPIRATORY PANEL: VIRUSES Normal [facility] Comment on above: Performed By: #### R SPLUS #### [facility] [address] [place] [address] Dr. Emilie Carmona RP2 Header 2 RESPIRATORY PANEL: BACTERIA Normal [facility] Comment on above: Performed By: #### R SPLUS #### [facility] [address] [place] [address] Dr. Emilie Carmona RSV Not detected Normal NOT DETECTED [facility] Comment on above: Performed By: #### R SPLUS #### [facility] [address] [place] [address] Dr. Emilie Carmona SARS-CoV-2 (COVID-19) RNA CHASITY+probe Ql (Unsp spec) Detected Abnormal NOT DETECTED [facility] Comment on above: Performed By: #### R SPLUS #### [facility] [address] [place] [address] Dr. Emilie Carmona SPUTUM GRAM STAINon 12-26-19 COMMENTS Normal [facility] Comment on above: Performed By: #### C BC #### [facility] [address] [address] [address] Emilie Carmona DIPHTHEROIDS Normal [facility] Comment on above: Performed By: #### C BC #### [facility] [address] [place] [address] Dr. Emilie Carmona EPITHELIALS <25 Normal [facility] Comment on above: Performed By: #### C BC #### [facility] [address] [place] [address] Dr. Emilie Carmona FUNGAL ELEMENTS Normal [facility] Comment on above: Performed By: #### C BC #### [facility] [address] [address] [address] Emilie Carmona GRAM NEG BACILLI Normal [facility] Comment on above: Performed By: #### C BC #### [facility] [address] [place] [address] Dr. Emilie WALTERS NEG DIPPLOCOCCI FEW Normal [facility] Comment on above: Performed By: #### C BC #### [facility] [address] [place] [address] Dr. Emilie Carmona GRAM POS BACILLI Normal [facility] Comment on above: Performed By: #### C BC #### [facility] [address] [place] [address] Dr. Emilie Carmona GRAM POSITIVE COCCI Normal [facility] Comment on above: Performed By: #### C BC #### [facility] [address] [place] [address] Dr. Emilie Carmona WBC (Bld) [#/Vol] 10*3/uL Normal [facility] Comment on above: Performed By: #### C BC #### [facility] [address] [place] [address] Dr. Emilie Carmona URINE MICROSCOPIC ONLYon BACTERIA SMALL Abnormal NONE SEEN [facility] Comment on above: Performed By: #### R SPLUS #### [facility] [address] [place] [address] Dr. Emilie Carmona Bacteria identified Cx Nom (U) INDICATED Normal [facility] Comment on above: Performed By: #### R SPLUS #### [facility] [address] [place] [address] Dr. Emilie Carmona CAST SEEN Abnormal NONE SEEN [facility] Comment on above: Performed By: #### R SPLUS #### [facility] [address] [place] [address] Dr. Emilie Carmona Crystals LM Nom (Urine sed) NONE SEEN Normal NONE SEEN [facility] Comment on above: Performed By: #### R SPLUS #### [facility] [address] [place] [address] Dr. Emilie Carmona Epithelial cells LM Ql (Urine sed) FEW Abnormal NONE SEEN /RARE [facility] Comment on above: Performed By: #### R SPLUS #### [facility] [address] [place] [address] Dr. Emilie Carmona HYALINE CAST RARE Normal [facility] Comment on above: Performed By: #### R SPLUS #### [facility] [address] [place] [address] Dr. Emilie Carmona MUCOUS NONE SEEN Normal NONE SEEN [facility] Comment on above: Performed By: #### R SPLUS #### [facility] [address] [place] [address] Dr. Emilie Carmona RBC 10-20 Abnormal 0-2 [facility] Comment on above: Performed By: #### R SPLUS #### [facility] [address] [place] [address] Dr. Emilie Carmona WBC 2-5 Abnormal NONE SEEN [facility] Comment on above: Performed By: #### R SPLUS #### [facility] [address] [place] [address] Dr. Emilie Carmona XR CHEST 1 Von 12-25-2022 XR CHEST 1 V EXAM: XR CHEST 1 V INDICATION: SHORTNESS OF BREATH. COMPARISON: Chest radiograph 06/14/2022 TECHNIQUE: Single frontal view of the chest FINDINGS: Normal cardiomediastinal contours. No acute infiltrative process. No pleural effusion or pneumothorax. No acute osseous abnormality. IMPRESSION: No acute cardiopulmonary process. Electronically authenticated by: DELL BENITEZ Date: 2022-12-25 15:54 Normal [facility] XR DEXA BONE DENSITYon 06-22 XR DEXA [...] by: KARISSA COLBY Date: 2022-06-22 15:50 Normal [facility] CBC AUTO DIFFon 06-16-2022 BASO # 0.1 103/ul Normal 0.0-0.1 [facility] Comment on above: Performed By: #### C BC #### [facility] [address] [place] [address] Dr. Emilie Carmona Basophils/100 WBC (Bld) 0.9 % Normal 0.2-2.0 [facility] Comment on above: Performed By: #### C BC #### [facility] [address] [place] [address] Dr. Emilie Carmona EO # 0.4 103/ul Normal 0.0-0.7 [facility] Comment on above: Performed By: #### C BC #### [facility] [address] [place] [address] Dr. Emilie Carmona Eosinophils/100 WBC (Bld) 5.7 % Normal 0.9-7.0 [facility] Comment on above: Performed By: #### C BC #### [facility] [address] [place] [address] Dr. Emilie Carmona Erythrocyte distribution width (RBC) [Ratio] 13.5 % Normal 11.0-15.0 [facility] Comment on above: Performed By: #### C BC #### [facility] [address] [place] [address] Dr. Emilie Carmona Hematocrit (Bld) [Volume fraction] 32.9 % Critically low 36.0-48.0 [facility] Comment on above: Performed By: #### C BC #### [facility] [address] [place] [address] Dr. Emilie Carmona Hemoglobin (Bld) [Mass/Vol] 10.6 g/dL Critically low 12.0-16.0 [facility] Comment on above: Performed By: #### C BC #### [facility] [address] [place] [address] Dr. Emilie Carmona IG # 0.02 10e3/ul Normal 0.00-0.03 [facility] Comment on above: Performed By: #### C BC #### [facility] [address] [place] [address] Dr. Emilie Carmona IG % 0.3 % Normal 0.0-0.5 [facility] Comment on above: Performed By: #### C BC #### [facility] [address] [place] [address] Dr. Emilie Carmona LYMPH # 1.8 103/ul Normal 1.2-3.8 [facility] Comment on above: Performed By: #### C BC #### [facility] [address] [place] [address] Dr. Emilie Carmona Lymphocytes/100 WBC (Bld) 28.4 % Normal 20.5-60.0 [facility] Comment on above: Performed By: #### C BC #### [facility] [address] [place] [address] Dr. Emilie Carmona MANUAL DIFF REQ NO Normal [facility] Comment on above: Performed By: #### C BC #### [facility] [address] [place] [address] Dr. Emilie Carmona MCH (RBC) [Entitic mass] 28.5 pg Normal 26.7-34.0 [facility] Comment on above: Performed By: #### C BC #### [facility] [address] [place] [address] Dr. Emilie Carmona MCHC (RBC) [Mass/Vol] 32.2 g/dL Normal 29.9-35.2 [facility] Comment on above: Performed By: #### C BC #### [facility] [address] [place] [address] Dr. Emilie Carmona MCV (RBC) [Entitic vol] 88.4 fL Normal 81.0-99.0 [facility] Comment on above: Performed By: #### C BC #### [facility] [address] [place] [address] Dr. Emilie Carmona MONO # 0.7 103/ul Normal 0.3-0.8 [facility] Comment on above: Performed By: #### C BC #### [facility] [address] [place] [address] Dr. Emilie Carmona Monocytes/100 WBC (Bld) 11.0 % Normal 1.7-12.0 [facility] Comment on above: Performed By: #### C BC #### [facility] [address] [place] [address] Dr. Emilie Carmona NEUT # 3.5 103/ul Normal 1.4-6.5 [facility] Comment on above: Performed By: #### C BC #### [facility] [address] [place] [address] Dr. Emilie Carmona Neutrophils/100 WBC (Bld) 53.7 % Normal 43.0-75.0 [facility] Comment on above: Performed By: #### C BC #### [facility] [address] [place] [address] Dr. Emilie Carmona Platelet mean volume (Bld) [Entitic vol] 11.6 fL Normal 9.5-13.5 [facility] Comment on above: Performed By: #### C BC #### [facility] [address] [place] [address] Dr. Emilie Carmona PLT 223 103/ul Normal 150-450 [facility] Comment on above: Performed By: #### C BC #### [facility] [address] [address] [address] Emilie Carmona RBC 3.72 106/ul Critically low 4.20-5.40 [facility] Comment on above: Performed By: #### C BC #### [facility] [address] [address] [address] Emilie Carmona WBC 6.4 103/ul Normal 4.0-11.0 [facility] Comment on above: Performed By: #### C BC #### [facility] [address] [address] [address] Emilie Carmona PROF CHEM 8 (BAS METB)on Anion gap [Moles/Vol] 10.4 mmol/L Normal [facility] Comment on above: Performed By: #### C BC #### [facility] [address] [place] [address] Dr. Emilie Carmona Calcium [Mass/Vol] 9.8 mg/dL Normal 8.5-10.1 [facility] Comment on above: Performed By: #### C BC #### [facility] [address] [place] [address] Dr. Emilie Carmona Chloride [Moles/Vol] 105 mmol/L Normal 98-107 [facility] Comment on above: Performed By: #### C BC #### [facility] [address] [address] [address] Emilie Carmona CO2 [Moles/Vol] 25.0 mmol/L Normal 21.0-32.0 [facility] Comment on above: Performed By: #### C BC #### [facility] [address] [place] [address] Dr. Emilie Carmona Creatinine [Mass/Vol] 0.87 mg/dL Normal 0.55-1.02 [facility] Comment on above: Performed By: #### C BC #### [facility] [address] [place] [address] Dr. Emilie Carmona EGFR-AF GAMBIAN >60 Normal >=[address] [facility] Comment on above: Performed By: #### C BC #### [facility] [address] [address] [address] Emilie Carmona EGFR-NON AF GAMBIAN >60 Normal >=60 [facility] Comment on above: Performed By: #### C BC #### [facility] [address] [address] [address] Emilie Carmona Glucose [Mass/Vol] 105 mg/dL Normal 74-106 [facility] Comment on above: Performed By: #### C BC #### [facility] [address] [address] [address] Emilie Carmona Potassium [Moles/Vol] 3.4 mmol/L Critically low 3.5-5.1 [facility] Comment on above: Performed By: #### C BC #### [facility] [address] [address] [address] Emilie Carmona Sodium [Moles/Vol] 137 mmol/L Normal 136-145 [facility] Comment on above: Performed By: #### C BC #### [facility] [address] [address] [address] Emilie Carmona Urea nitrogen [Mass/Vol] 12.0 mg/dL Normal 7.0-18.0 [facility] Comment on above: Performed By: #### C BC #### [facility] [address] [address] [address] Emilie Carmona Urea nitrogen/Creatinine [Mass ratio] 13.8 mg/mg Normal [facility] Comment on above: Performed By: #### C BC #### [facility] [address] [address] [address] Emilie Carmona CBC AUTO DIFFon 06-15-2022 BASO # 0.1 103/ul Normal 0.0-0.1 [facility] Comment on above: Performed By: #### C BC ####[facility] [address] [address]Dr. Emilie Carmona Basophils/100 WBC (Bld) 0.7 % Normal 0.2-2.0 [facility] Comment on above: Performed By: #### C BC ####[facility] [address] [address]Dr. Emilie Carmona EO # 0.2 103/ul Normal 0.0-0.7 [facility] Comment on above: Performed By: #### C BC ####[facility] [address] [address]Dr. Emilie Carmona Eosinophils/100 WBC (Bld) 2.4 % Normal 0.9-7.0 [facility] Comment on above: Performed By: #### C BC ####[facility] [address] [place], [place] [address]Dr. Emilie Carmona Erythrocyte distribution width (RBC) [Ratio] 13.5 % Normal 11.0-15.0 [facility] Comment on above: Performed By: #### C BC ####[facility] [address] [place], [place] [address]Dr. Emilie Carmona Hematocrit (Bld) [Volume fraction] 35.3 % Critically low 36.0-48.0 [facility] Comment on above: Performed By: #### C BC ####[facility] [address] [place], [place] [address]Dr. Emilie Carmona Hemoglobin (Bld) [Mass/Vol] 11.5 g/dL Critically low 12.0-16.0 [facility] Comment on above: Performed By: #### C BC ####[facility] [address] [place], [place] [address]Dr. Emilie Carmona IG # 0.01 10e3/ul Normal 0.00-0.03 [facility] Comment on above: Performed By: #### C BC ####[facility] [address] [place], [place] [address]Dr. Emilie Carmona IG % 0.1 % Normal 0.0-0.5 [facility] Comment on above: Performed By: #### C BC ####[facility] [address] [place], [place] [address]Dr. Savileslie Carmona LYMPH # 1.6 103/ul Normal 1.2-3.8 [facility] Comment on above: Performed By: #### C BC ####[facility] [address] [id number]. Savileslie Carmona Lymphocytes/100 WBC (Bld) 23.3 % Normal 20.5-60.0 [facility] Comment on above: Performed By: #### C BC ####[facility] [address] [id number]. Emilie Carmona MANUAL DIFF REQ NO Normal [facility] Comment on above: Performed By: #### C BC ####[facility] [address] [id number]. Emilie Carmona MCH (RBC) [Entitic mass] 28.9 pg Normal 26.7-34.0 [facility] Comment on above: Performed By: #### C BC ####[facility] [address] [address]Dr. Emilie Carmona MCHC (RBC) [Mass/Vol] 32.6 g/dL Normal 29.9-35.2 [facility] Comment on above: Performed By: #### C BC ####[facility] [address] [id number]. Emilie Carmona MCV (RBC) [Entitic vol] 88.7 fL Normal 81.0-99.0 [facility] Comment on above: Performed By: #### C BC ####[facility] [address] [place], [place] [address]Dr. Emilie Carmona MONO # 0.8 103/ul Normal 0.3-0.8 [facility] Comment on above: Performed By: #### C BC ####[facility] [address] [id number]. Emilie Carmona Monocytes/100 WBC (Bld) 11.9 % Normal 1.7-12.0 [facility] Comment on above: Performed By: #### C BC ####[facility] [address] [place], [place] [id number]. Emilie Carmona NEUT # 4.3 103/ul Normal 1.4-6.5 [facility] Comment on above: Performed By: #### C BC ####[facility] [address] [id number]. Emilie Carmona Neutrophils/100 WBC (Bld) 61.6 % Normal 43.0-75.0 [facility] Comment on above: Performed By: #### C BC ####[facility] [address] [id number]. Emilie Carmona Platelet mean volume (Bld) [Entitic vol] 11.9 fL Normal 9.5-13.5 [facility] Comment on above: Performed By: #### C BC ####[facility] [address] [id number]. Emilie Carmona PLT 247 103/ul Normal 150-450 [facility] Comment on above: Performed By: #### C BC ####[facility] [address] [id number]. Emilie Carmona RBC 3.98 106/ul Critically low 4.20-5.40 [facility] Comment on above: Performed By: #### C BC ####[facility] [address] [id number]. Emilie Carmona WBC 7.0 103/ul Normal 4.0-11.0 [facility] Comment on above: Performed By: #### C BC ####[facility] [address] [id number]. Emilie Carmona FREE T3on 06-15-2022 FREE T3 1.29 pg/mlL Critically low 2.18-3.98 [facility] Comment on above: Performed By: #### F T3, TSH ####[facility] [address] [id number]. Emilie Carmona PROF CHEM 8 (BAS METB)on Anion gap [Moles/Vol] 10.0 mmol/L Normal [facility] Comment on above: Performed By: #### B MP ####[facility] [address] [id number]. Emilie Carmona Calcium [Mass/Vol] 9.8 mg/dL Normal 8.5-10.1 [facility] Comment on above: Performed By: #### B MP ####[facility] [address] [address]Dr. Savileslie Mathew Chloride [Moles/Vol] 102 mmol/L Normal 98-107 [facility] Comment on above: Performed By: #### B MP ####[facility] [address] [id number]. Emilie Carmona CO2 [Moles/Vol] 28.0 mmol/L Normal 21.0-32.0 [facility] Comment on above: Performed By: #### B MP ####[facility] [address] [address]Dr. Emilie Carmona Creatinine [Mass/Vol] 0.91 mg/dL Normal 0.55-1.02 [facility] Comment on above: Performed By: #### B MP ####[facility] [address] [place], [place] [address]Dr. Savileslie Mathew EGFR-AF GAMBIAN >60 Normal >=60 [facility] Comment on above: Performed By: #### B MP ####[facility] [address] [place], [place] [address]Dr. Emilie Carmona EGFR-NON AF GAMBIAN 59 mL/min/1.73m2 Critically low >=60 [facility] Comment on above: Performed By: #### B MP ####[facility] [address] [address]Dr. Emilie Carmona Glucose [Mass/Vol] 96 mg/dL Normal 74-106 [facility] Comment on above: Performed By: #### B MP ####[facility] [address] [id number]. Emilie Carmona Potassium [Moles/Vol] 3.0 mmol/L Critically low 3.5-5.1 [facility] Comment on above: Performed By: #### B MP ####[facility] [address] [address]Dr. Emilie Carmona Sodium [Moles/Vol] 137 mmol/L Normal 136-145 [facility] Comment on above: Performed By: #### B MP ####[facility] [address] [id number]. Emilie Carmona Urea nitrogen [Mass/Vol] 16.0 mg/dL Normal 7.0-18.0 [facility] Comment on above: Performed By: #### B MP ####[facility] [address] [id number] Carmona Urea nitrogen/Creatinine [Mass ratio] 17.6 mg/mg Normal [facility] Comment on above: Performed By: #### B MP ####[facility] [address] [address]Dr. Emilie Carmona TSHon 06-15-2022 TSH 12.224 uIU/mL Critically high 0.358-3.740 [facility] Comment on above: Performed By: #### F T3, TSH ####[facility] [address] [address]DrBrenton Carmona CARDIAC MARYCRUZ 3-6on 2 CK [Catalytic activity/Vol] 163 U/L Normal 26-192 [facility] Comment on above: Performed By: #### R SPLUS #### [facility] [address] [address] [address] Emilie Carmona CK.MB [Mass/Vol] 2.77 ng/mL Normal <=3.60 [facility] Comment on above: Performed By: #### R SPLUS #### [facility] [address] [address] [address] Emilie Carmona HSTROP 8.5 pg/mL Normal 4.0-51.3 [facility] Comment on above: Result Comment: CUT- OFF POINTS HAVE BEEN ESTABLISHED BASED ON THE FOURTH UNIVERSAL DEFINITIONS OF MYOCARDIAL INFARCTION. THE UPPER REFERENCE LIMIT (URL) OF TROPONIN, DEFINED THE 99TH PERCENTILE OF cTnI DISTRIBUTION IN A REFERENCE POPULATION, HAS BEEN CONFIRMED THE DECISION THRESHOLD FOR [place] DIAGNOSIS. Performed By: #### R SPLUS #### [facility] [address] [address] [address] Emilie Carmona CK [Catalytic activity/Vol] 141 U/L Normal 26-192 [facility] Comment on above: Performed By: #### C BC #### [facility] [address] [place] [address] Dr. Emilie Carmona CK.MB [Mass/Vol] 2.50 ng/mL Normal <=3.60 [facility] Comment on above: Performed By: #### C BC #### [facility] [address] [place] [address] Dr. Emilie Carmona HSTROP 9.8 pg/mL Normal 4.0-51.3 [facility] Comment on above: Result Comment: CUT- OFF POINTS HAVE BEEN ESTABLISHED BASED ON THE FOURTH UNIVERSAL DEFINITIONS OF MYOCARDIAL INFARCTION. THE UPPER REFERENCE LIMIT (URL) OF TROPONIN, DEFINED THE 99TH PERCENTILE OF cTnI DISTRIBUTION IN A REFERENCE POPULATION, HAS BEEN CONFIRMED THE DECISION THRESHOLD FOR [place] DIAGNOSIS. Performed By: #### C BC #### [facility] [address] [place] [address] Dr. Emilie Carmona CBC AUTO DIFFon 06-14-2022 BASO # 0.0 103/ul Normal 0.0-0.1 [facility] Comment on above: Performed By: #### C BC #### [facility] [address] [place] [address] Dr. Emilie Carmona Basophils/100 WBC (Bld) 0.5 % Normal 0.2-2.0 [facility] Comment on above: Performed By: #### C BC #### [facility] [address] [place] [address] Dr. Emilie Carmona EO # 0.0 103/ul Normal 0.0-0.7 [facility] Comment on above: Performed By: #### C BC #### [facility] [address] [place] [address] Dr. Emilie Carmona Eosinophils/100 WBC (Bld) 0.1 % Critically low 0.9-7.0 [facility] Comment on above: Performed By: #### C BC #### [facility] [address] [place] [address] Dr. Emilie Carmona Erythrocyte distribution width (RBC) [Ratio] 13.2 % Normal 11.0-15.0 [facility] Comment on above: Performed By: #### C BC #### [facility] [address] [place] [address] Dr. Emilie Carmona Hematocrit (Bld) [Volume fraction] 41.0 % Normal 36.0-48.0 [facility] Comment on above: Performed By: #### C BC #### [facility] [address] [place] [address] Dr. Emilie Carmona Hemoglobin (Bld) [Mass/Vol] 13.3 g/dL Normal 12.0-16.0 [facility] Comment on above: Performed By: #### C BC #### [facility] [address] [place] [address] Dr. Emilie Carmona IG # 0.03 10e3/ul Normal 0.00-0.03 [facility] Comment on above: Performed By: #### C BC #### [facility] [address] [place] [address] Dr. Emilie Carmona IG % 0.4 % Normal 0.0-0.5 [facility] Comment on above: Performed By: #### C BC #### [facility] [address] [place] [address] Dr. Emilie Carmona LYMPH # 1.4 103/ul Normal 1.2-3.8 [facility] Comment on above: Performed By: #### C BC #### [facility] [address] [place] [address] Dr. Emilie Carmona Lymphocytes/100 WBC (Bld) 15.9 % Critically low 20.5-60.0 [facility] Comment on above: Performed By: #### C BC #### [facility] [address] [place] [address] Dr. Emilie Carmona MANUAL DIFF REQ NO Normal [facility] Comment on above: Performed By: #### C BC #### [facility] [address] [place] [address] Dr. Emilie Carmona MCH (RBC) [Entitic mass] 28.6 pg Normal 26.7-34.0 [facility] Comment on above: Performed By: #### C BC #### [facility] [address] [address] [address] Emilie Carmona MCHC (RBC) [Mass/Vol] 32.4 g/dL Normal 29.9-35.2 [facility] Comment on above: Performed By: #### C BC #### [facility] [address] [address] [address] Emilie Carmona MCV (RBC) [Entitic vol] 88.2 fL Normal 81.0-99.0 [facility] Comment on above: Performed By: #### C BC #### [facility] [address] [address] [address] Emilie Carmona MONO # 0.9 103/ul Critically high 0.3-0.8 [facility] Comment on above: Performed By: #### C BC #### [facility] [address] [address] [address] Emilie Carmona Monocytes/100 WBC (Bld) 9.9 % Normal 1.7-12.0 [facility] Comment on above: Performed By: #### C BC #### [facility] [address] [address] [address] Emilie Carmona NEUT # 6.3 103/ul Normal 1.4-6.5 [facility] Comment on above: Performed By: #### C BC #### [facility] [address] [address] [address] Emilie Carmona Neutrophils/100 WBC (Bld) 73.2 % Normal 43.0-75.0 [facility] Comment on above: Performed By: #### C BC #### [facility] [address] [address] [address] Emilie Carmona Platelet mean volume (Bld) [Entitic vol] 11.6 fL Normal 9.5-13.5 [facility] Comment on above: Performed By: #### C BC #### [facility] [address] [address] [address] Emilie Carmona PLT 269 103/ul Normal 150-450 [facility] Comment on above: Performed By: #### C BC #### [facility] [address] [place], [place] [address] Dr. Emilie Carmona RBC 4.65 106/ul Normal 4.20-5.40 [facility] Comment on above: Performed By: #### C BC #### [facility] [address] [place], [place] [address] Dr. Emilie Carmona WBC 8.6 103/ul Normal 4.0-11.0 [facility] Comment on above: Performed By: #### C BC #### [facility] [id number] Emilie Carmona Covid-19 PCR (CVDTB)on 06-01 SARS-CoV-2 (COVID-19) RNA CHASITY+probe Ql (Unsp spec) Not detected Normal NOT DETECTED [facility] Comment on above: Result Comment: When diagnostic [...] for this test is supported by the Commodities Manager of Health and Human Service's declaration that [...] be used). Performed By: #### C VDTBH ####[facility] [address] [place], [place] [address]NqDr. Emilie Carmona ER URINE PROFILEon 2 Bilirubin Ql (U) SMALL Abnormal NEGATIVE [facility] Comment on above: Performed By: #### R SPLUS #### [facility] [id number] Emilie Carmona Clarity (U) SL CLOUDY Abnormal CLEAR [facility] Comment on above: Performed By: #### R SPLUS #### [facility] [address] [address] [address] Emilie Carmona Color (U) YELLOW Normal YELLOW [facility] Comment on above: Performed By: #### R SPLUS #### [facility] [address] [place] [address] Dr. Emilie Carmona ERUAHD A micrscopic examination will be performed if indicated. Normal [facility] Comment on above: Performed By: #### R SPLUS #### [facility] [address] [place] [address] Dr. Emilie Carmona Glucose Ql (U) Negative Normal NEGATIVE [facility] Comment on above: Performed By: #### R SPLUS #### [facility] [address] [place] [address] Dr. Emilie Carmona Hemoglobin Ql (U) TRACE-INTACT Abnormal NEGATIVE [facility] Comment on above: Performed By: #### R SPLUS #### [facility] [address] [place] [address] Dr. Emilie Carmona Ketones Ql (U) 40 mg/dl Abnormal NEGATIVE [facility] Comment on above: Performed By: #### R SPLUS #### [facility] [address] [place] [address] Dr. Emilie Carmona LEUKOCYTES Negative Normal NEGATIVE [facility] Comment on above: Performed By: #### R SPLUS #### [facility] [address] [place] [address] Dr. Emilie Carmona Nitrite Ql (U) Negative Normal NEGATIVE [facility] Comment on above: Performed By: #### R SPLUS #### [facility] [address] [place] [address] Dr. Emilie Carmona pH (U) 5.5 [pH] Normal 5-9 [facility] Comment on above: Performed By: #### R SPLUS #### [facility] [address] [place] [address] Dr. Emilie Carmona SPEC GRAVITY 1.030 Abnormal 1.005-<=1.025 [facility] Comment on above: Performed By: #### R SPLUS #### [facility] [address] [address] [address] Emilie Carmona UA PROTEIN Negative Normal NEGATIVE/ TRACE [facility] Comment on above: Performed By: #### R SPLUS #### [facility] [address] [address] [address] Emilie Carmona UR MICRO IND INDICATED Normal [facility] Comment on above: Performed By: #### R SPLUS #### [facility] [address] [address] [address] Emilie Carmona Urobilinogen Qn (U) 0.2 {Warren'U}/dL Normal 0.2 - 1. 0 [facility] Comment on above: Performed By: #### R SPLUS #### [facility] [address] [place] [address] Dr. Emilie Carmona FREE T4on 06-14-2022 Free T4 [Mass/Vol] 0.75 ng/dL Critically low 0.76-1.46 [facility] Comment on above: Performed By: #### F T4, VITAD, FETIBC, B12FOL ####[facility] [address] [address]Dr. Emilie Carmona IRON AND TIBCon 06-14-2022 % SATURATION 6.7 % Normal [facility] Comment on above: Performed By: #### C BC #### [facility] [address] [address] [address] Emilie Carmona Iron [Mass/Vol] 21.0 ug/dL Critically low 50.0-170.0 [facility] Comment on above: Performed By: #### C BC #### [facility] [address] [address] [address] Emilie Carmona TIBC DIRECT 312.0 ug/dL Normal 250.0-450.0 [facility] Comment on above: Performed By: #### C BC #### [facility] [address] [address] [address] Emilie Carmona MYOGLOBINon 06-14-2022 MAXIMILIAN 268 ng/mL Critically high 9-82 [facility] Comment on above: Performed By: #### M YO ####[facility] [address] [place], [place] [address]JoDr. Emilie Carmona PROF CHEM 8 (BAS METB)on Anion gap [Moles/Vol] 12.8 mmol/L Normal [facility] Comment on above: Performed By: #### C BC #### [facility] [address] [address] [address] Emilie Carmona Calcium [Mass/Vol] 10.7 mg/dL Critically high 8.5-10.1 [facility] Comment on above: Performed By: #### C BC #### [facility] [address] [address] [address] Emilie Carmona Chloride [Moles/Vol] 100 mmol/L Normal 98-107 [facility] Comment on above: Performed By: #### C BC #### [facility] [address] [address] [address] Emilie Carmona CO2 [Moles/Vol] 25.6 mmol/L Normal 21.0-32.0 [facility] Comment on above: Performed By: #### C BC #### [facility] [address] [address] [address] Emilie Carmona Creatinine [Mass/Vol] 1.05 mg/dL Critically high 0.55-1.02 [facility] Comment on above: Performed By: #### C BC #### [facility] [address] [address] [address] Emilie Carmona EGFR-AF GAMBIAN >60 Normal >=60 [facility] Comment on above: Performed By: #### C BC #### [facility] [id number] Emilie Carmona EGFR-NON AF GAMBIAN 50 mL/min/1.73m2 Critically low >=60 [facility] Comment on above: Performed By: #### C BC #### [facility] [address] [address] [address] Emilie Carmona Glucose [Mass/Vol] 129 mg/dL Critically high 74-106 T [place] Comment on above: Performed By: #### C BC #### [facility] [address] [place] [address] Dr. Emilie Carmona Potassium [Moles/Vol] 3.4 mmol/L Critically low 3.5-5.1 [facility] Comment on above: Performed By: #### C BC #### [facility] [address] [address] [address] Emilie Carmona Sodium [Moles/Vol] 135 mmol/L Critically low 136-145 Th [facility] Comment on above: Performed By: #### C BC #### [facility] [address] [place] [address] Dr. Emilie Carmona Urea nitrogen [Mass/Vol] 19.0 mg/dL Critically high 7.0-18.0 [facility] Comment on above: Performed By: #### C BC #### [facility] [address] [place] [address] Dr. Emilie Carmona Urea nitrogen/Creatinine [Mass ratio] 18.1 mg/mg Normal [facility] Comment on above: Performed By: #### C BC #### [facility] [address] [place] [address] Dr. Emilie Carmona URINE MICROSCOPIC ONLYon BACTERIA NONE SEEN Normal NONE SEEN [facility] Comment on above: Performed By: #### R SPLUS #### [facility] [address] [place] [address] Dr. Emilie Carmona Bacteria identified Cx Nom (U) NOT INDICATED Normal [facility] Comment on above: Performed By: #### R SPLUS #### [facility] [address] [place] [address] Dr. Emilie Carmona CAST SEEN Abnormal NONE SEEN [facility] Comment on above: Performed By: #### R SPLUS #### [facility] [address] [place] [address] Dr. Emilie Carmona Crystals LM Nom (Urine sed) NONE SEEN Normal NONE SEEN [facility] Comment on above: Performed By: #### R SPLUS #### [facility] [address] [place] [address] Dr. Emilie Carmona Epithelial cells LM Ql (Urine sed) FEW Abnormal NONE SEEN /RARE [facility] Comment on above: Performed By: #### R SPLUS #### [facility] [address] [place] [address] Dr. Emilie Carmona MUCOUS NONE SEEN Normal NONE SEEN [facility] Comment on above: Performed By: #### R SPLUS #### [facility] [address] [place] [address] Dr. Emilie Carmona RBC 0-2 Normal 0-2 [facility] Comment on above: Performed By: #### R SPLUS #### [facility] [address] [place] [address] Dr. Emilie Carmona WBC 0-2 Abnormal NONE SEEN [facility] Comment on above: Performed By: #### R SPLUS #### [facility] [address] [place] [address] Dr. Emilie Carmona VIT B12 AND FOLATEon 022 Cobalamin (Vitamin B12) [Mass/Vol] 426.0 pg/mL Normal 193.0-986.0 [facility] Comment on above: Performed By: #### C BC #### [facility] [address] [place] [address] Dr. Emilie Carmona FOLATE 12.10 ng/mL Normal 8.60-58.90 [facility] Comment on above: Performed By: #### C BC #### [facility] [address] [place] [address] Dr. Emilie Carmona VITAMIN D 25 OHon 06-14-2022 VIT D 25-OH 75.5 ng/mL Normal [facility] Comment on above: Performed By: #### C BC #### [facility] [address] [place] [address] Dr. Emilie Carmona VIT D RANGES SEE BELOW Normal [facility] Comment on above: Result Comment: <20 ng/mL Vit D deficient 20 - <30 ng/mL Vit D insufficient 30 - 100 ng/mL Vit D sufficient >100 ng/mL Potential Toxicity Performed By: #### C BC #### [facility] [address] [address] [address] Emilie Carmona XR ABD FLAT_UPon 06-14-2022 [...] by: ALEIDA TAVERAS Date: 2022-06-14 12:35 Normal [facility] XR CHEST 1 Von 06-14-2022 XR CHEST [...] ALEIDA TAVERAS Date: 2022-06-14 07:10 Normal [facility] XR HIPS LYNDA 5V W PELVISon XR HIPS LYNDA 5V W PELVIS EXAMINATION: XR HIPS LYNDA 5V W PELVIS HISTORY: Pain COMPARISON: No relevant comparison available. FINDINGS: RIGHT FINDINGS: BONES: No acute fracture or dislocation. Egre-ne-cjjntzpd hip osteoarthropathy SOFT TISSUES: Negative. No visible soft tissue swelling. OTHER: Lumbar posterior decompression and transpedicular fusion LEFT FINDINGS: BONES: No acute fracture or dislocation. [id number] hip osteoarthropathy SOFT TISSUES: Negative. No visible soft tissue swelling. OTHER: Negative. IMPRESSION: RIGHT CONCLUSION: Osteoarthritis. No acute fracture LEFT CONCLUSION: Osteoarthritis. No acute fracture Electronically authenticated by: ALEIDA TAVERAS Date: 2022-06-14 07:15 Normal [facility] XR LSPINE 2_3 VIEWSon 2021 XR LSPINE [...] ALEIDA TAVERAS Date: 2022-06-14 07:12 Normal [facility] Metabolic Pane [facility] 09-21-2021 Albumin [Mass/Vol] 4.5 g/dL Normal 3.6-5.1 [facility] Comment on above: Performed By: #### V ITD, FT3, FT4, CMP, TSH #### [facility] [address], [place] [phone] Albumin/Globulin [Mass ratio] 1.5 {ratio} Normal 1.0-2.5 [facility] Comment on above: Performed By: #### V ITD, FT3, FT4, CMP, TSH #### [facility] [address], [place] [phone] ALP [Catalytic activity/Vol] 103 U/L Normal 35-119 [facility] Comment on above: Performed By: #### V ITD, FT3, FT4, CMP, TSH #### [facility] [address], [place] [id number] ALT [Catalytic activity/Vol] 18 U/L Normal 6-33 [facility] Comment on above: Result Comment: 07/01 Female reference range changed. Performed By: #### V ITD, FT3, FT4, CMP, TSH #### [facility] [address], [place] [phone] Anion gap [Moles/Vol] 24 mmol/L High 12-20 [facility] Comment on above: Result Comment: Effe ctive 08/06/2019 reference range changed. Performed By: #### V ITD, FT3, FT4, CMP, TSH #### [facility] [address], [place] [id number] AST [Catalytic activity/Vol] 16 U/L Normal 9-34 [facility] Comment on above: Performed By: #### V ITD, FT3, FT4, CMP, TSH #### [facility] [address], [place] [id number] BUN/CREA 27 Ratio High 6-22 [facility] Comment on above: Performed By: #### V ITD, FT3, FT4, CMP, TSH #### [facility] [address], [place] [id number] Calcium [Mass/Vol] 10.7 mg/dL High 8.6-10.2 [facility] Comment on above: Performed By: #### V ITD, FT3, FT4, CMP, TSH #### [facility] [address], [place] [id number] Chloride [Moles/Vol] 103 mmol/L Normal 98-107 [facility] Comment on above: Performed By: #### V ITD, FT3, FT4, CMP, TSH #### [facility] [address], [place] [id number] CO2 [Moles/Vol] 17 mmol/L Low 20-31 [facility] Comment on above: Performed By: #### V ITD, FT3, FT4, CMP, TSH #### [facility] [address], [place] [id number] Creatinine [Mass/Vol] 1.1 mg/dL Normal 0.6-1.4 [facility] Comment on above: Performed By: #### V ITD, FT3, FT4, CMP, TSH #### [facility] [address], [place] [id number] eGFRAA 60 mL/min/1.73m2 Low >60 [facility] Comment on above: Performed By: #### V ITD, FT3, FT4, CMP, TSH #### [facility] [address], [place] [id number] eGFRNAA 49 mL/min/1.73m2 Low >60 [facility] Comment on above: Performed By: #### V ITD, FT3, FT4, CMP, TSH #### [facility] [address], [place] [id number] Globulin (S) [Mass/Vol] 3.0 g/dL Normal 1.9-3.7 [facility] Comment on above: Performed By: #### V ITD, FT3, FT4, CMP, TSH #### [facility] [address], [place] [id number] Glucose [Mass/Vol] 109 mg/dL High 65-99 [facility] Comment on above: Result Comment: For FASTING Glucose --- ADA reference ranges: Normal 65-99 mg/dl Prediabetes 100-125 Diabetes >/= 126 Performed By: #### V ITD, FT3, FT4, CMP, TSH #### [facility] [address], [place] [id number] Potassium [Moles/Vol] 4.7 mmol/L Normal 3.5-5.5 [facility] Comment on above: Performed By: #### V ITD, FT3, FT4, CMP, TSH #### [facility] [address], [place] [id number] Protein [Mass/Vol] 7.5 g/dL Normal 6.1-8.1 [facility] [place] [facility] Comment on above: Performed By: #### V ITD, FT3, FT4, CMP, TSH #### [facility] [address], [place] [id number] Sodium [Moles/Vol] 139 mmol/L Normal 135-146 [facility] [place] [facility] Comment on above: Performed By: #### V ITD, FT3, FT4, CMP, TSH #### [facility] [address], [place] [id number] TBIL <0.3 Normal [facility] Comment on above: Performed By: #### V ITD, FT3, FT4, CMP, TSH #### [facility] [address], [place] [id number] Urea nitrogen [Mass/Vol] 29 mg/dL High 7-25 [facility] Comment on above: Performed By: #### V ITD, FT3, FT4, CMP, TSH #### [facility] [address], [place] [id number] Free T3on 09-21-2021 FT3 1.79 pg/mL Low 2.00-4.40 [facility] Comment on above: Performed By: #### V ITD, FT3, FT4, CMP, TSH #### [facility] [address], [place] [id number] Free T4on 09-21-2021 Free T4 [Mass/Vol] 0.67 ng/dL Low 0.80-1.80 [facility] Comment on above: Performed By: #### V ITD, FT3, FT4, CMP, TSH #### [facility] [address], [place] [id number] TSHon 09-21-2021 TSH 0.611 uIU/mL Normal 0.400-4.500 [facility] Comment on above: Performed By: #### V ITD, FT3, FT4, CMP, TSH #### [facility] [address], [place] [id number] US Carotid, Bilateralon 09-02 US Carotid, Bilateral [...] by Tyrese Wisdom on 09/22/2021 0822 Normal [facility] Vitamin B12/Folateon 022 Cobalamin (Vitamin B12) [Mass/Vol] 383 pg/mL Normal 211-946 [facility] Comment on above: Performed By: #### B 12/Fol #### [facility] [address], [place] [id number] FOL 5.5 ng/mL Normal >4.7 [facility] Comment on above: Result Comment: Refe rence range change 06/17/2017. Prior reference range F 4.8-37.3 ng/mL, M 4.5-32.2 ng/mL. Performed By: #### B 12/Fol #### [facility] [address] [id number] Vitamin D 25-OHon 09-21-2021 VIT D 25 OH 23 ng/ml Low >29 [facility] Comment on above: Result Comment: [place] min D Status Deficiency <20 ng/mL Insufficiency 20-29 ng/mL Optimal 30-100 ng/mL Possible Toxicity >=150 ng/mL Performed By: #### V ITD, FT3, FT4, CMP, TSH #### [facility] [address] [place], [place] [phone] Encounters Encounter Date Encounter Type Care Provider Facility Start: 12-09-2023 End: 12-09-2023 ambulatory APOLLO BOO Not Available Start: 12-26-2022 End: 12-29-2022 Evaluation and management of inpatient DR ALEIDA TAVERAS Facility:[facility] Start: 06-22-2022 End: 06-23-[address] MARLA KENDALL . Facility:[facility] Start: 06-14-2022 End: 06-16-[address] MARLA KENDALL . Facility:[facility] Start: 10-20-2017 End: 10-21-2017 Ambulatory DEFAULT PHYSICIAN Facility:[facility] Payers Date Payer Category Payer Medicare [id number] 1960 Medicare [id number] 1940 Unknown [id number] [id number] [id number] 1940 Unknown [id number] [id number] [id number] 1940 Unknown [id number] [id number] [id number] 1940 Unknown [id number] [id number] [id number] Unknown Clinical Note 06-14-2022 Note Date & Type Note Facility 06-14-2022 Note PROCEDURE: XR SHOULD ER LT 2V or > COMPARISON: None. HISTORY: Pain FINDINGS: BONES:No acute fracture or dislocation. Mild degenerative changes. SOFT TISSUES:Negative. No visible soft tissue swelling. EFFUSION:None visible. OTHER: Negative. IMPRESSION: No acute fracture Electronically authenticated by: ALEIDA TAVERAS Date: 2022-06-14 07:08 [facility] Clinical Note 09-21-2021 Note Date & Type Note Facility 09-21-2021 Note PROCEDURE: [employer] HD[employer] 1.5 Sagittal T1, T2, STIR [...] signed by Tyrese Wisdom on 09/22/2021 0902 [facility] Summary Purpose Family History No Family History Records FoundNo Family History Records FoundNo Family History Records FoundNo Family History Records Found Advance Directives No Advanced Directives Records FoundNo Advanced Directives Records FoundNo Advanced Directives Records FoundNo Advanced Directives Records Found Additional Source Comments INFORMATION SOURCE (unrecogn ized section and content) DATE CREATED AUTHOR 01/20/2018 [facility] DATE CREATED AUTHOR AUTHOR'S ORGANIZ ATION 09/24/2021 [facility] dical Specialist DATE CREATED AUTHOR AUTHOR'S ORGANIZ ATION 01/10/2023 [facility] DATE CREATED AUTHOR AUTHOR'S ORGANIZ ATION 12/11/2023 [facility] dical Specialists EPIC FOR RECORDS PERTAINING [...] BE BASED ON THE PRIMARY CLINICAL RECORDS. [facility] [employer] [facility]. provides no warranty or guarantee of the accuracy or completeness of information in this document.
[2024-04-19] MEDS: LACTATED RINGER'S SOLUTION 1,000 ML 75 ML IV (18:37)
[2024-04-19] MEDS: ACETAMINOPHEN 325 MG TABLET PO (21:04)
[2024-04-19] MEDS: OXYCODONE HCL/ACETAMINOPHEN 5MG/325MG 1 TAB PO (21:04)
[2024-04-19] MEDS: DONEPEZIL HCL 10 MG TABLET PO (21:05)
[2024-04-19] MEDS: QUETIAPINE FUMARATE 25 MG TABLET PO (21:05)
[2024-04-20] VITALS (9 sets, daily range): BP systolic 117–151; BP diastolic 51–70; PULSE 57–73; TEMP 36.3–36.6; O2SAT 93–97
[2024-04-20] MEDS: LEVOTHYROXINE SODIUM 100 MCG TABLET PO (05:53)
--- OUTSIDE RECORDS SUMMARY | 2024-04-20 06:03 | XMS_ITS | CCD ---
Author Organization [facility] Inform ion Partnership [facility] Care Team Providers Care Operating Theatre Technician Name Role Phone PHYSICIAN, DEFAULT Unavailable Unavailable [...] UnavailDR ALEIDA Griffin V Consulting Unavailable DAWSON MYAA Consulting Unavailable APOLLO BOO Attending Unavailable Allergies Allergy Classification Reported Allergen(s) Allergy Type Date of Onset Reaction(s) Facility (1 source) Desonide Drug Allergy The [facility] Repository (1 source) nabumetone Drug Allergy The [facility] Repository (1 source) Neomycin Drug Allergy The [facility] Repository (1 source) oxyCODONE Drug Allergy The [facility] Repository (1 source) Ramipril Drug Allergy The [facility] Repository (1 source) Polymyxin B Drug allergy (disorder) [facility] Repository Problems Active Problems Problem [...] source) prison (current) use of aspirin; Translations: [[facility] CURRENT USE OF ASPIRIN] Onset: 12-28-2022 Episodic Other aftercare (1 source) Other half-way (current) drug therapy; Translations: [OTH [facility] CURRENT DRUG THERAPY] Onset: 12-28-2022 Episodic Other [...] 12-29-2022 BASO # 0.1 103/ul Normal 0.0-0.1 [facility] Comment on above: Performed By: #### R SPLUS #### [facility] [address] [address] [address] Emilie Carmona Basophils/100 WBC (Bld) 0.8 % Normal 0.2-2.0 [facility] Comment on above: Performed By: #### R SPLUS #### [facility] [address] [address] [address] Emilie Carmona EO # 0.0 103/ul Normal 0.0-0.7 [facility] Comment on above: Performed By: #### R SPLUS #### [facility] [address] [address] [address] Emilie Carmona Eosinophils/100 WBC (Bld) 0.1 % Critically low 0.9-7.0 [facility] Comment on above: Performed By: #### R SPLUS #### [facility] [address] [address] [address] Emilie Carmona Erythrocyte distribution width (RBC) [Ratio] 14.8 % Normal 11.0-15.0 [facility] Comment on above: Performed By: #### R SPLUS #### [facility] [address] [place] [address] Dr. Emilie Carmona Hematocrit (Bld) [Volume fraction] 33.3 % Critically low 36.0-48.0 [facility] Comment on above: Performed By: #### R SPLUS #### [facility] [address] [address] [address] Emilie Carmona Hemoglobin (Bld) [Mass/Vol] 10.9 g/dL Critically low 12.0-16.0 [facility] Comment on above: Performed By: #### R SPLUS #### [facility] [address] [address] [address] Emilie Carmona IG # 0.61 10e3/ul Critically high 0.00-0.03 [facility] Comment on above: Performed By: #### R SPLUS #### [facility] [address] [place] [address] Dr. Emilie Carmona IG % 5.7 % Critically high 0.0-0.5 [facility] Comment on above: Performed By: #### R SPLUS #### [facility] [address] [place] [address] Dr. Emilie Carmona LYMPH # 1.7 103/ul Normal 1.2-3.8 [facility] Comment on above: Performed By: #### R SPLUS #### [facility] [address] [place] [address] Dr. Emilie Carmona Lymphocytes/100 WBC (Bld) 15.8 % Critically low 20.5-60.0 [facility] Comment on above: Performed By: #### R SPLUS #### [facility] [address] [place] [address] Dr. Emilie Carmona MANUAL DIFF REQ NO Normal [facility] Comment on above: Performed By: #### R SPLUS #### [facility] [address] [place] [address] Dr. Emilie Carmona MCH (RBC) [Entitic mass] 27.9 pg Normal 26.7-34.0 [facility] Comment on above: Performed By: #### R SPLUS #### [facility] [address] [place] [address] Dr. Emilie Carmona MCHC (RBC) [Mass/Vol] 32.7 g/dL Normal 29.9-35.2 [facility] Comment on above: Performed By: #### R SPLUS #### [facility] [address] [place] [address] Dr. Emilie Carmona MCV (RBC) [Entitic vol] 85.4 fL Normal 81.0-99.0 [facility] Comment on above: Performed By: #### R SPLUS #### [facility] [address] [place] [address] Dr. Emilie Carmona MONO # 0.7 103/ul Normal 0.3-0.8 [facility] Comment on above: Performed By: #### R SPLUS #### [facility] [address] [place] [address] Dr. Emilie Carmona Monocytes/100 WBC (Bld) 6.9 % Normal 1.7-12.0 [facility] Comment on above: Performed By: #### R SPLUS #### [facility] [address] [place] [address] Dr. Emilie Carmona NEUT # 7.6 103/ul Critically high 1.4-6.5 [facility] Comment on above: Performed By: #### R SPLUS #### [facility] [address] [place] [address] Dr. Emilie Carmona Neutrophils/100 WBC (Bld) 70.7 % Normal 43.0-75.0 [facility] Comment on above: Performed By: #### R SPLUS #### [facility] [address] [place] [address] Dr. Emilie Carmona Platelet mean volume (Bld) [Entitic vol] 10.8 fL Normal 9.5-13.5 The [facility] Comment on above: Performed By: #### R SPLUS #### [facility] [address] [place] [address] Dr. Emilie Carmona PLT 270 103/ul Normal 150-450 [facility] Comment on above: Performed By: #### R SPLUS #### [facility] [address] [place] [address] Dr. Emilie Carmona RBC 3.90 106/ul Critically low 4.20-5.40 [facility] Comment on above: Performed By: #### R SPLUS #### [facility] [address] [address] [address] Emilie Carmona WBC 10.7 103/ul Normal 4.0-11.0 [facility] Comment on above: Performed By: #### R SPLUS #### [facility] [address] [address] [address] Emilie Carmona PROF 14(COMP METB)on 023 Albumin [Mass/Vol] 2.6 g/dL Critically low 3.4-5.0 [facility] Comment on above: Performed By: #### C MP #### [facility] [address] [place] [address] Dr. Emilie Carmona Albumin/Globulin [Mass ratio] 0.6 {ratio} Normal [facility] Comment on above: Performed By: #### C MP #### [facility] [address] [place] [address] Dr. Emilie Carmona ALP [Catalytic activity/Vol] 58 U/L Normal 46-116 [facility] Comment on above: Performed By: #### C MP #### [facility] [address] [place] [address] Dr. Emilie Carmona ALT [Catalytic activity/Vol] 32 U/L Normal 14-59 [facility] Comment on above: Performed By: #### C MP #### [facility] [address] [place] [address] Dr. Emilie Carmona Anion gap [Moles/Vol] 13.8 mmol/L Normal [facility] Comment on above: Performed By: #### C MP #### [facility] [address] [address] [address] Emilie Carmona AST [Catalytic activity/Vol] 30 U/L Normal 15-37 [facility] Comment on above: Performed By: #### C MP #### [facility] [address] [place] [address] Dr. Emilie Carmona Bilirubin [Mass/Vol] 0.2 mg/dL Normal 0.2-1.0 [facility] Comment on above: Performed By: #### C MP #### [facility] [address] [address] [address] Emilie Carmona Calcium [Mass/Vol] 9.7 mg/dL Normal 8.5-10.1 [facility] Comment on above: Performed By: #### C MP #### [facility] [address] [address] [address] Emilie Carmona Chloride [Moles/Vol] 107 mmol/L Normal 98-107 The [facility] Comment on above: Performed By: #### C MP #### [facility] [address] [address] [address] Emilie Carmona CO2 [Moles/Vol] 24.8 mmol/L Normal 21.0-32.0 [facility] Comment on above: Performed By: #### C MP #### [facility] [address] [address] [address] Emilie Carmona Creatinine [Mass/Vol] 1.02 mg/dL Normal 0.55-1.02 [facility] Comment on above: Performed By: #### C MP #### [facility] [address] [address] [address] Emilie Carmona EGFR-AF SAO TOMEAN >60 Normal >=60 [facility] Comment on above: Performed By: #### C MP #### [facility] [address] [address] [address] Emilie Carmona EGFR-NON AF SAO TOMEAN 52 mL/min/1.73m2 Critically low >=60 [facility] Comment on above: Performed By: #### C MP #### [facility] [address] [address] [address] Emilie Carmona Globulin (S) [Mass/Vol] 4.0 g/dL Normal [facility] Comment on above: Performed By: #### C MP #### [facility] [address] [address] [address] Emilie Carmona Glucose [Mass/Vol] 99 mg/dL Normal 74-106 [facility] Comment on above: Performed By: #### C MP #### [facility] [address] [address] [address] Emilie Carmona Potassium [Moles/Vol] 4.6 mmol/L Normal 3.5-5.1 [facility] Comment on above: Performed By: #### C MP #### [facility] [address] [address] [address] Emilie Carmona Protein [Mass/Vol] 6.6 g/dL Normal 6.4-8.2 [facility] Comment on above: Performed By: #### C MP #### [facility] [address] [address] [address] Emilie Carmona Sodium [Moles/Vol] 141 mmol/L Normal 136-145 [facility] Comment on above: Performed By: #### C MP #### [facility] [address] [address] [address] Emilie Carmona Urea nitrogen [Mass/Vol] 17.0 mg/dL Normal 7.0-18.0 [facility] Comment on above: Performed By: #### C MP #### [facility] [address] [address] [address] Emilie Carmona Urea nitrogen/Creatinine [Mass ratio] 16.7 mg/mg Normal [facility] Comment on above: Performed By: #### C MP #### [facility] [address] [address] [address] Emilie Carmona CBC AUTO DIFFon 12-28-2022 BASO # 0.0 103/ul Normal 0.0-0.1 [facility] Comment on above: Performed By: #### C BC #### [facility] [address] [address] [address] Emilie Carmona Basophils/100 WBC (Bld) 0.3 % Normal 0.2-2.0 [facility] Comment on above: Performed By: #### C BC #### [facility] [address] [address] [address] Emilie Carmona EO # 0.0 103/ul Normal 0.0-0.7 [facility] Comment on above: Performed By: #### C BC #### [facility] [address] [address] [address] Emilie Carmona Eosinophils/100 WBC (Bld) 0.0 % Critically low 0.9-7.0 [facility] Comment on above: Performed By: #### C BC #### [facility] [address] [place] [address] Dr. Emilie Carmona Erythrocyte distribution width (RBC) [Ratio] 14.6 % Normal 11.0-15.0 [facility] Comment on above: Performed By: #### C BC #### [facility] [address] [place] [address] Dr. Emilie Carmona Hematocrit (Bld) [Volume fraction] 32.2 % Critically low 36.0-48.0 [facility] Comment on above: Performed By: #### C BC #### [facility] [address] [place] [address] Dr. Emilie Carmona Hemoglobin (Bld) [Mass/Vol] 10.4 g/dL Critically low 12.0-16.0 [facility] Comment on above: Performed By: #### C BC #### [facility] [address] [place] [address] Dr. Emilie Carmona IG # 0.22 10e3/ul Critically high 0.00-0.03 [facility] Comment on above: Performed By: #### C BC #### [facility] [address] [place] [address] Dr. Emilie Carmona IG % 2.0 % Critically high 0.0-0.5 [facility] Comment on above: Performed By: #### C BC #### [facility] [address] [place] [address] Dr. Emilie Carmona LYMPH # 1.2 103/ul Normal 1.2-3.8 [facility] Comment on above: Performed By: #### C BC #### [facility] [address] [place] [address] Dr. Emilie Carmona Lymphocytes/100 WBC (Bld) 11.4 % Critically low 20.5-60.0 [facility] Comment on above: Performed By: #### C BC #### [facility] [address] [place] [address] Dr. Emilie Carmona MANUAL DIFF REQ NO Normal [facility] Comment on above: Performed By: #### C BC #### [facility] [address] [place] [address] Dr. Emilie Carmona MCH (RBC) [Entitic mass] 27.6 pg Normal 26.7-34.0 [facility] Comment on above: Performed By: #### C BC #### [facility] [address] [place] [address] Dr. Emilie Carmona MCHC (RBC) [Mass/Vol] 32.3 g/dL Normal 29.9-35.2 [facility] Comment on above: Performed By: #### C BC #### [facility] [address] [place] [address] Dr. Emilie Carmona MCV (RBC) [Entitic vol] 85.4 fL Normal 81.0-99.0 [facility] Comment on above: Performed By: #### C BC #### [facility] [address] [place] [address] Dr. Emilie Carmona MONO # 0.7 103/ul Normal 0.3-0.8 [facility] Comment on above: Performed By: #### C BC #### [facility] [address] [place] [address] Dr. Emilie Carmona Monocytes/100 WBC (Bld) 6.3 % Normal 1.7-12.0 [facility] Comment on above: Performed By: #### C BC #### [facility] [address] [place] [address] Dr. Emilie Carmona NEUT # 8.7 103/ul Critically high 1.4-6.5 [facility] Comment on above: Performed By: #### C BC #### [facility] [address] [place] [address] Dr. Emilie Carmona Neutrophils/100 WBC (Bld) 80.0 % Critically high 43.0-75.0 [facility] Comment on above: Performed By: #### C BC #### [facility] [address] [address] [address] Emilie Carmona Platelet mean volume (Bld) [Entitic vol] 10.9 fL Normal 9.5-13.5 [facility] Comment on above: Performed By: #### C BC #### [facility] [address] [address] [address] Emilie Carmona PLT 226 103/ul Normal 150-450 [facility] Comment on above: Performed By: #### C BC #### [facility] [address] [address] [address] Emilie Carmona RBC 3.77 106/ul Critically low 4.20-5.40 [facility] Comment on above: Performed By: #### C BC #### [facility] [address] [address] [address] Emilie Carmona WBC 10.9 103/ul Normal 4.0-11.0 [facility] Comment on above: Performed By: #### C BC #### [facility] [address] [address] [address] Emilie Carmona PROF 14(COMP METB)on 023 Albumin [Mass/Vol] 2.4 g/dL Critically low 3.4-5.0 [facility] Comment on above: Performed By: #### C MP ####[facility] [address] [address]DrBrenton Carmona Albumin/Globulin [Mass ratio] 0.6 {ratio} Normal [facility] Comment on above: Performed By: #### C MP ####[facility] [address] [id number] Carmona ALP [Catalytic activity/Vol] 57 U/L Normal 46-116 [facility] Comment on above: Performed By: #### C MP ####[facility] [address] [id number] Carmona ALT [Catalytic activity/Vol] 32 U/L Normal 14-59 [facility] Comment on above: Performed By: #### C MP ####[facility] [address] [address]Dr. Emilie Carmona Anion gap [Moles/Vol] 14.1 mmol/L Normal [facility] Comment on above: Performed By: #### C MP ####[facility] [address] [place], [place] [address]Dr. Emilie Carmona AST [Catalytic activity/Vol] 35 U/L Normal 15-37 [facility] Comment on above: Performed By: #### C MP ####[facility] [address] [place], [place] [address]Dr. Emilie Carmona Bilirubin [Mass/Vol] 0.2 mg/dL Normal 0.2-1.0 The [facility] Comment on above: Performed By: #### C MP ####[facility] [address] [place], [place] [address]Dr. Emilie Carmona Calcium [Mass/Vol] 9.2 mg/dL Normal 8.5-10.1 [facility] Comment on above: Performed By: #### C MP ####[facility] [address] [place], [place] [address]Dr. Emilie Carmona Chloride [Moles/Vol] 107 mmol/L Normal 98-107 [facility] Comment on above: Performed By: #### C MP ####[facility] [address] [place], [place] [address]Dr. Emilie Carmona CO2 [Moles/Vol] 22.7 mmol/L Normal 21.0-32.0 [facility] Comment on above: Performed By: #### C MP ####[facility] [address] [place], [place] [address]Dr. Emilie Mathew Creatinine [Mass/Vol] 1.02 mg/dL Normal 0.55-1.02 [facility] Comment on above: Performed By: #### C MP ####[facility] [address] [place], [place] [address]Dr. Savileslie Mathew EGFR-AF SAO TOMEAN >60 Normal >=60 [facility] Comment on above: Performed By: #### C MP ####[facility] [address] [place], [place] [address]Dr. Emilie Carmona EGFR-NON AF SAO TOMEAN 52 mL/min/1.73m2 Critically low >=60 [facility] Comment on above: Performed By: #### C MP ####[facility] [address] [address]Dr. Emilie Carmona Globulin (S) [Mass/Vol] 4.0 g/dL Normal [facility] Comment on above: Performed By: #### C MP ####[facility] [address] [address]Dr. Emilie Carmona Glucose [Mass/Vol] 132 mg/dL Critically high 74-106 [facility] Comment on above: Performed By: #### C MP ####[facility] [address] [place], [place] [address]Dr. Emilie Carmona Potassium [Moles/Vol] 3.8 mmol/L Normal 3.5-5.1 [facility] Comment on above: Performed By: #### C MP ####[facility] [address] [place], [place] [address]Dr. Emilie Carmona Protein [Mass/Vol] 6.4 g/dL Normal 6.4-8.2 [facility] Comment on above: Performed By: #### C MP ####[facility] [address] [place], [place] [address]Dr. Emilei Carmona Sodium [Moles/Vol] 140 mmol/L Normal 136-145 [facility] Comment on above: Performed By: #### C MP ####[facility] [address] [place], [place] [address]Dr. Emilie Carmona Urea nitrogen [Mass/Vol] 19.0 mg/dL Critically high 7.0-18.0 The [facility] Comment on above: Performed By: #### C MP ####[facility] [address] [place], [place] [address]Dr. Emilie Carmona Urea nitrogen/Creatinine [Mass ratio] 18.6 mg/mg Normal [facility] Comment on above: Performed By: #### C MP ####[facility] [address] [place], [place] [address]Dr. Emilie Carmona CBC AUTO DIFFon 12-27-2022 BASO # 0.1 103/ul Normal 0.0-0.1 [facility] Comment on above: Performed By: #### C BC #### [facility] [address] [address] [address] Emilie Carmona Basophils/100 WBC (Bld) 0.4 % Normal 0.2-2.0 [facility] Comment on above: Performed By: #### C BC #### [facility] [address] [address] [address] Emilie Carmona EO # 0.2 103/ul Normal 0.0-0.7 [facility] Comment on above: Performed By: #### C BC #### [facility] [address] [place] [address] Dr. Emilie Carmona Eosinophils/100 WBC (Bld) 1.8 % Normal 0.9-7.0 [facility] Comment on above: Performed By: #### C BC #### [facility] [address] [place] [address] Dr. Emilie Carmona Erythrocyte distribution width (RBC) [Ratio] 14.1 % Normal 11.0-15.0 [facility] Comment on above: Performed By: #### C BC #### [facility] [address] [place] [address] Dr. Emilie Carmona Hematocrit (Bld) [Volume fraction] 32.1 % Critically low 36.0-48.0 [facility] Comment on above: Performed By: #### C BC #### [facility] [address] [place] [address] Dr. Emilie Carmona Hemoglobin (Bld) [Mass/Vol] 10.7 g/dL Critically low 12.0-16.0 [facility] Comment on above: Performed By: #### C BC #### [facility] [address] [place] [address] Dr. Emilie Carmona IG # 0.13 10e3/ul Critically high 0.00-0.03 [facility] Comment on above: Performed By: #### C BC #### [facility] [address] [place] [address] Dr. Emilie Carmona IG % 0.9 % Critically high 0.0-0.5 [facility] Comment on above: Performed By: #### C BC #### [facility] [address] [place] [address] Dr. Emilie Carmona LYMPH # 0.9 103/ul Critically low 1.2-3.8 [facility] Comment on above: Performed By: #### C BC #### [facility] [address] [place] [address] Dr. Emilie Carmona Lymphocytes/100 WBC (Bld) 6.9 % Critically low 20.5-60.0 [facility] Comment on above: Performed By: #### C BC #### [facility] [address] [place] [address] Dr. Emilie Carmona MANUAL DIFF REQ NO Normal [facility] Comment on above: Performed By: #### C BC #### [facility] [address] [place] [address] Dr. Emilie Carmona MCH (RBC) [Entitic mass] 28.2 pg Normal 26.7-34.0 [facility] Comment on above: Performed By: #### C BC #### [facility] [address] [place] [address] Dr. Emilie Carmona MCHC (RBC) [Mass/Vol] 33.3 g/dL Normal 29.9-35.2 [facility] Comment on above: Performed By: #### C BC #### [facility] Laboratory [address] [place] [address] Dr. Emilie Carmona MCV (RBC) [Entitic vol] 84.7 fL Normal 81.0-99.0 [facility] Comment on above: Performed By: #### C BC #### [facility] Laboratory [address] [place] [address] Dr. Emilie Carmona MONO # 0.8 103/ul Normal 0.3-0.8 [facility] Comment on above: Performed By: #### C BC #### [facility] Laboratory [address] [place] [address] Dr. Emilie Carmona Monocytes/100 WBC (Bld) 5.8 % Normal 1.7-12.0 [facility] Comment on above: Performed By: #### C BC #### [facility] Laboratory [address] [place] [address] Dr. Emilie Carmona NEUT # 11.5 103/ul Critically high 1.4-6.5 [facility] Comment on above: Performed By: #### C BC #### [facility] Laboratory [address] [place] [address] Dr. Emilie Carmona Neutrophils/100 WBC (Bld) 84.2 % Critically high 43.0-75.0 [facility] Comment on above: Performed By: #### C BC #### [facility] Laboratory [address] [place] [address] Dr. Emilie Carmona Platelet mean volume (Bld) [Entitic vol] 10.8 fL Normal 9.5-13.5 [facility] Comment on above: Performed By: #### C BC #### [facility] Laboratory [address] [place] [address] Dr. Emilie Carmona PLT 200 103/ul Normal 150-450 [facility] Comment on above: Performed By: #### C BC #### [facility] Laboratory [address] [place] [address] Dr. Emilie Carmona RBC 3.79 106/ul Critically low 4.20-5.40 [facility] Comment on above: Performed By: #### C BC #### [facility] Laboratory [address] [place] [address] Dr. Emilie Carmona WBC 13.7 103/ul Critically high 4.0-11.0 [facility] Comment on above: Performed By: #### C BC #### [facility] Laboratory [address] [place] [address] Dr. Emilie Carmona PROF 14(COMP METB)on 023 Albumin [Mass/Vol] 2.4 g/dL Critically low 3.4-5.0 [facility] Comment on above: Performed By: #### C MP #### [facility] Laboratory [address] [place] [address] Dr. Emilie Carmona Albumin/Globulin [Mass ratio] 0.6 {ratio} Normal [facility] Comment on above: Performed By: #### C MP #### [facility] Laboratory [address] [address] [address] Emilie Carmona ALP [Catalytic activity/Vol] 57 U/L Normal 46-116 [facility] Comment on above: Performed By: #### C MP #### [facility] Laboratory [address] [address] [address] Emilie Carmona ALT [Catalytic activity/Vol] 21 U/L Normal 14-59 [facility] Comment on above: Performed By: #### C MP #### [facility] [address] [address] [address] Emilie Carmona Anion gap [Moles/Vol] 15.4 mmol/L Normal [facility] Comment on above: Performed By: #### C MP #### [facility] Laboratory [address] [place] [address] Dr. Emilie Carmona AST [Catalytic activity/Vol] 39 U/L Critically high 15-37 [facility] Comment on above: Performed By: #### C MP #### [facility] Laboratory [address] [address] [address] Emilie Carmona Bilirubin [Mass/Vol] 0.3 mg/dL Normal 0.2-1.0 [facility] Comment on above: Performed By: #### C MP #### [facility] [address] [address] [address] Emilie Carmona Calcium [Mass/Vol] 9.0 mg/dL Normal 8.5-10.1 [facility] Comment on above: Performed By: #### C MP #### [facility] [address] [address] [address] Emilie Carmona Chloride [Moles/Vol] 104 mmol/L Normal 98-107 [facility] Comment on above: Performed By: #### C MP #### [facility] [address] [address] [address] Emilie Carmona CO2 [Moles/Vol] 20.7 mmol/L Critically low 21.0-32.0 [facility] Comment on above: Performed By: #### C MP #### [facility] [address] [address] [address] Emilie Carmona Creatinine [Mass/Vol] 1.05 mg/dL Critically high 0.55-1.02 [facility] Comment on above: Performed By: #### C MP #### [facility] [address] [address] [address] Emilie Carmona EGFR-AF SAO TOMEAN >60 Normal >=60 [facility] Comment on above: Performed By: #### C MP #### [facility] [address] [address] [address] Emilie Carmona EGFR-NON AF SAO TOMEAN 50 mL/min/1.73m2 Critically low >=60 [facility] Comment on above: Performed By: #### C MP #### [facility] [address] [address] [address] Emilie Carmona Globulin (S) [Mass/Vol] 4.1 g/dL Normal [facility] Comment on above: Performed By: #### C MP #### [facility] [address] [address] [address] Eimlie Carmona Glucose [Mass/Vol] 141 mg/dL Critically high 74-106 [facility] Comment on above: Performed By: #### C MP #### [facility] [address] [address] [address] Emilie Carmona Potassium [Moles/Vol] 4.1 mmol/L Normal 3.5-5.1 [facility] Comment on above: Performed By: #### C MP #### [facility] [address] [address] [address] Emilie Carmona Protein [Mass/Vol] 6.5 g/dL Normal 6.4-8.2 [facility] Comment on above: Performed By: #### C MP #### [facility] [address] [address] [address] Emilie Carmona Sodium [Moles/Vol] 136 mmol/L Normal 136-145 [facility] Comment on above: Performed By: #### C MP #### [facility] [address] [place] [address] Dr. Emilie Carmona Urea nitrogen [Mass/Vol] 22.0 mg/dL Critically high 7.0-18.0 [facility] Comment on above: Performed By: #### C MP #### [facility] [address] [place] [address] Dr. Emilie Carmona Urea nitrogen/Creatinine [Mass ratio] 21.0 mg/mg Normal The [facility] Comment on above: Performed By: #### C MP #### [facility] [address] [place] [address] Dr. Emilie Carmona CBC AUTO DIFFon 12-26-2022 BASO # 0.0 103/ul Normal 0.0-0.1 [facility] Comment on above: Performed By: #### C BC #### [facility] [address] [place] [address] Dr. Emilie Carmona Basophils/100 WBC (Bld) 0.2 % Normal 0.2-2.0 [facility] Comment on above: Performed By: #### C BC #### [facility] [address] [place] [address] Dr. Emilie Carmona EO # 0.0 103/ul Normal 0.0-0.7 [facility] Comment on above: Performed By: #### C BC #### [facility] [address] [place] [address] Dr. Emilie Carmona Eosinophils/100 WBC (Bld) 0.1 % Critically low 0.9-7.0 [facility] Comment on above: Performed By: #### C BC #### [facility] [address] [place] [address] Dr. Emilie Carmona Erythrocyte distribution width (RBC) [Ratio] 13.7 % Normal 11.0-15.0 [facility] Comment on above: Performed By: #### C BC #### [facility] [address] [place] [address] Dr. Emilie Carmona Hematocrit (Bld) [Volume fraction] 32.5 % Critically low 36.0-48.0 [facility] Comment on above: Performed By: #### C BC #### [facility] [address] [address] [address] Emilie Carmona Hemoglobin (Bld) [Mass/Vol] 10.9 g/dL Critically low 12.0-16.0 [facility] Comment on above: Performed By: #### C BC #### [facility] [address] [place] [address] Dr. Emilie Carmona IG # 0.09 10e3/ul Critically high 0.00-0.03 [facility] Comment on above: Performed By: #### C BC #### [facility] [address] [place] [address] Dr. Emilie Carmona IG % 0.9 % Critically high 0.0-0.5 [facility] Comment on above: Performed By: #### C BC #### [facility] [address] [place] [address] Dr. Emilie Carmona LYMPH # 0.5 103/ul Critically low 1.2-3.8 [facility] Comment on above: Performed By: #### C BC #### [facility] [address] [place] [address] Dr. Emilie Carmona Lymphocytes/100 WBC (Bld) 4.8 % Critically low 20.5-60.0 [facility] Comment on above: Performed By: #### C BC #### [facility] [address] [place] [address] Dr. Emilie Carmona MANUAL DIFF REQ NO Normal [facility] Comment on above: Performed By: #### C BC #### [facility] [address] [place] [address] Dr. Emilie Carmona MCH (RBC) [Entitic mass] 28.5 pg Normal 26.7-34.0 [facility] Comment on above: Performed By: #### C BC #### [facility] [address] [place] [address] Dr. Emilie Carmona MCHC (RBC) [Mass/Vol] 33.5 g/dL Normal 29.9-35.2 [facility] Comment on above: Performed By: #### C BC #### [facility] [address] [address] [address] Emilie Carmona MCV (RBC) [Entitic vol] 84.9 fL Normal 81.0-99.0 [facility] Comment on above: Performed By: #### C BC #### [facility] [address] [address] [address] Emilie Carmona MONO # 0.3 103/ul Normal 0.3-0.8 The [facility] Comment on above: Performed By: #### C BC #### [facility] [address] [address] [address] Emilie Carmona Monocytes/100 WBC (Bld) 2.9 % Normal 1.7-12.0 [facility] Comment on above: Performed By: #### C BC #### [facility] [address] [place] [address] Dr. Emilie Carmona NEUT # 8.9 103/ul Critically high 1.4-6.5 [facility] Comment on above: Performed By: #### C BC #### [facility] [address] [place] [address] Dr. Emilie Carmona Neutrophils/100 WBC (Bld) 91.1 % Critically high 43.0-75.0 [facility] Comment on above: Performed By: #### C BC #### [facility] [address] [place] [address] Dr. Emilie Carmona Platelet mean volume (Bld) [Entitic vol] 10.8 fL Normal 9.5-13.5 The [facility] Comment on above: Performed By: #### C BC #### [facility] [address] [place] [address] Dr. Emilie Carmona PLT 204 103/ul Normal 150-450 The [facility] Comment on above: Performed By: #### C BC #### [facility] [address] [place] [address] Dr. Emilie Carmona RBC 3.83 106/ul Critically low 4.20-5.40 [facility] Comment on above: Performed By: #### C BC #### [facility] [address] [address] [address] Emilie Carmona WBC 9.8 103/ul Normal 4.0-11.0 [facility] Comment on above: Performed By: #### C BC #### [facility] [address] [place] [address] Dr. Emilie Carmona PROF 14(COMP METB)on 023 Albumin [Mass/Vol] 2.5 g/dL Critically low 3.4-5.0 [facility] Comment on above: Performed By: #### R SPLUS #### [facility] [address] [place] [address] Dr. Emilie Carmona Albumin/Globulin [Mass ratio] 0.6 {ratio} Normal [facility] Comment on above: Performed By: #### R SPLUS #### [facility] [address] [place] [address] Dr. Emilie Carmona ALP [Catalytic activity/Vol] 63 U/L Normal 46-116 [facility] Comment on above: Performed By: #### R SPLUS #### [facility] [address] [place] [address] Dr. Emilie Carmona ALT [Catalytic activity/Vol] 13 U/L Critically low 14-59 [facility] Comment on above: Performed By: #### R SPLUS #### [facility] [address] [place] [address] Dr. Emilie Carmona Anion gap [Moles/Vol] 18.7 mmol/L Normal [facility] Comment on above: Performed By: #### R SPLUS #### [facility] [address] [place] [address] Dr. Emilie Carmona AST [Catalytic activity/Vol] 16 U/L Normal 15-37 [facility] Comment on above: Performed By: #### R SPLUS #### [facility] [address] [place] [address] Dr. Emilie Carmona Bilirubin [Mass/Vol] 0.3 mg/dL Normal 0.2-1.0 [facility] Comment on above: Performed By: #### R SPLUS #### [facility] [address] [address] [address] Emilie Carmona Calcium [Mass/Vol] 8.5 mg/dL Normal 8.5-10.1 [facility] Comment on above: Performed By: #### R SPLUS #### [facility] [address] [address] [address] Emilie Carmona Chloride [Moles/Vol] 103 mmol/L Normal 98-107 [facility] Comment on above: Performed By: #### R SPLUS #### [facility] [address] [address] [address] Emilie Carmona CO2 [Moles/Vol] 21.0 mmol/L Normal 21.0-32.0 [facility] Comment on above: Performed By: #### R SPLUS #### [facility] [address] [place] [address] Dr. Emilie Carmona Creatinine [Mass/Vol] 1.37 mg/dL Critically high 0.55-1.02 [facility] Comment on above: Performed By: #### R SPLUS #### [facility] [address] [place] [address] Dr. Emilie Carmona EGFR-AF SAO TOMEAN 45 mL/min/1.73m2 Critically low >=60 [facility] Comment on above: Performed By: #### R SPLUS #### [facility] [address] [place] [address] Dr. Emilie Carmona EGFR-NON AF SAO TOMEAN 37 mL/min/1.73m2 Critically low >=60 [facility] Comment on above: Performed By: #### R SPLUS #### [facility] [address] [place] [address] Dr. Emilie Carmona Globulin (S) [Mass/Vol] 4.1 g/dL Normal [facility] Comment on above: Performed By: #### R SPLUS #### [facility] [address] [place] [address] Dr. Emilie Carmona Glucose [Mass/Vol] 235 mg/dL Critically high 74-106 [facility] Comment on above: Performed By: #### R SPLUS #### [facility] Laboratory [address] [address] [address] Emilie Carmona Potassium [Moles/Vol] 2.7 mmol/L Critically low 3.5-5.1 The [facility] Comment on above: Performed By: #### R SPLUS #### [facility] [address] [place] [address] Dr. Emilie Carmona Protein [Mass/Vol] 6.6 g/dL Normal 6.4-8.2 [facility] Comment on above: Performed By: #### R SPLUS #### [facility] [address] [place] [address] Dr. Emilie Carmona Sodium [Moles/Vol] 138 mmol/L Normal 136-145 [facility] Comment on above: Performed By: #### R SPLUS #### [facility] [address] [place] [address] Dr. Emilie Carmona Urea nitrogen [Mass/Vol] 20.0 mg/dL Critically high 7.0-18.0 [facility] Comment on above: Performed By: #### R SPLUS #### [facility] [address] [place] [address] Dr. Emilie Carmona Urea nitrogen/Creatinine [Mass ratio] 14.6 mg/mg Normal [facility] Comment on above: Performed By: #### R SPLUS #### [facility] [address] [place] [address] Dr. Emilie Carmona XR CHEST 1 Von [...] ALEIDA TAVERAS Date: 2022-12-26 10:29 Normal The [facility] BNPon 12-25-2022 Natriuretic peptide B (Bld) [Mass/Vol] 639.0 pg/mL Normal <=1,800.0 The [facility] Comment on above: Performed By: #### C MADM, BNP, CMP ####[facility] [id number] [address]Dr. Emilie Carmona CARDIAC MARYCRUZ ADMITon 023 CK [Catalytic activity/Vol] 248 U/L Critically high 26-192 The [facility] Comment on above: Performed By: #### C MADM, BNP, CMP ####[facility] [id number] [address]Dr. Emilie Carmona CK.MB [Mass/Vol] 1.38 ng/mL Normal <=3.60 [facility] Comment on above: Performed By: #### C MADM, BNP, CMP ####[facility] [id number] [address]Dr. Emilie Carmona HSTROP 11.8 pg/mL Normal 4.0-51.3 The [facility] Comment on above: Result Comment: CUT- OFF POINTS HAVE BEEN ESTABLISHED BASED ON THE FOURTH UNIVERSAL DEFINITIONS OF MYOCARDIAL INFARCTION. THE UPPER REFERENCE LIMIT (URL) OF TROPONIN, DEFINED THE 99TH PERCENTILE OF cTnI DISTRIBUTION IN A REFERENCE POPULATION, HAS BEEN CONFIRMED THE DECISION THRESHOLD FOR IA DIAGNOSIS. Performed By: #### C MADM, BNP, CMP ####[facility] [id number] [id number] Emilie Carmona MAXIMILIAN 484 ng/mL Critically high 9-82 [facility] Comment on above: Performed By: #### C MADM, BNP, CMP ####[facility] [id number] [id number] Emilie Carmona CBC AUTO DIFFon 12-25-2022 BASO # 0.0 103/ul Normal 0.0-0.1 The [facility] Comment on above: Performed By: #### C BC #### [facility] Laboratory [address] [address] [address] Emilie Carmona Basophils/100 WBC (Bld) 0.4 % Normal 0.2-2.0 The [facility] Comment on above: Performed By: #### C BC #### [facility] Laboratory [address] [address] [address] Emilie Carmona EO # 0.0 103/ul Normal 0.0-0.7 The [facility] Comment on above: Performed By: #### C BC #### [facility] [address] [address] [address] Emilie Carmona Eosinophils/100 WBC (Bld) 0.0 % Critically low 0.9-7.0 [facility] Comment on above: Performed By: #### C BC #### [facility] [address] [place] [address] Dr. Emilie Carmona Erythrocyte distribution width (RBC) [Ratio] 13.6 % Normal 11.0-15.0 [facility] Comment on above: Performed By: #### C BC #### [facility] [address] [place] [address] Dr. Emilie Carmona Hematocrit (Bld) [Volume fraction] 39.0 % Normal 36.0-48.0 [facility] Comment on above: Performed By: #### C BC #### [facility] [address] [place] [address] Dr. Emilie Carmona Hemoglobin (Bld) [Mass/Vol] 13.0 g/dL Normal 12.0-16.0 [facility] Comment on above: Performed By: #### C BC #### [facility] [address] [place] [address] Dr. Emilie Carmona IG # 0.07 10e3/ul Critically high 0.00-0.03 [facility] Comment on above: Performed By: #### C BC #### [facility] [address] [place] [address] Dr. Emilie Carmona IG % 0.6 % Critically high 0.0-0.5 [facility] Comment on above: Performed By: #### C BC #### [facility] [address] [place] [address] Dr. Emilie Carmona LYMPH # 0.8 103/ul Critically low 1.2-3.8 The [facility] Comment on above: Performed By: #### C BC #### [facility] [address] [address] [address] Emilie Carmona Lymphocytes/100 WBC (Bld) 6.9 % Critically low 20.5-60.0 The [facility] Comment on above: Performed By: #### C BC #### [facility] [address] [address] [address] Emilie Carmona MANUAL DIFF REQ NO Normal [facility] Comment on above: Performed By: #### C BC #### [facility] [address] [place] [address] Dr. Emilie Carmona MCH (RBC) [Entitic mass] 28.4 pg Normal 26.7-34.0 The [facility] Comment on above: Performed By: #### C BC #### [facility] [address] [place] [address] Dr. Emilie Carmona MCHC (RBC) [Mass/Vol] 33.3 g/dL Normal 29.9-35.2 The [facility] Comment on above: Performed By: #### C BC #### [facility] [address] [place] [address] Dr. Emilie Carmona MCV (RBC) [Entitic vol] 85.3 fL Normal 81.0-99.0 The [facility] Comment on above: Performed By: #### C BC #### [facility] [address] [place] [address] Dr. Emilie Carmona MONO # 1.0 103/ul Critically high 0.3-0.8 [facility] Comment on above: Performed By: #### C BC #### [facility] [address] [place] [address] Dr. Emilie Cramona Monocytes/100 WBC (Bld) 9.1 % Normal 1.7-12.0 The [facility] Comment on above: Performed By: #### C BC #### [facility] [address] [place] [address] Dr. Emilie Carmona NEUT # 9.0 103/ul Critically high 1.4-6.5 [facility] Comment on above: Performed By: #### C BC #### [facility] [address] [address] [address] Emilie Carmona Neutrophils/100 WBC (Bld) 83.0 % Critically high 43.0-75.0 [facility] Comment on above: Performed By: #### C BC #### [facility] [address] [address] [address] Emilie Carmona Platelet mean volume (Bld) [Entitic vol] 10.6 fL Normal 9.5-13.5 [facility] Comment on above: Performed By: #### C BC #### [facility] [address] [address] [address] Emilie Carmona PLT 276 103/ul Normal 150-450 [facility] Comment on above: Performed By: #### C BC #### [facility] [address] [place] [address] Dr. Emilie Carmona RBC 4.57 106/ul Normal 4.20-5.40 [facility] Comment on above: Performed By: #### C BC #### [facility] [address] [place] [address] Dr. Emilie Carmona WBC 10.8 103/ul Normal 4.0-11.0 [facility] Comment on above: Performed By: #### C BC #### [facility] [address] [address] [address] Emilie Carmona CULTURE BLOODon 12-25-2022 Microscopic examination of blood, culture Culture Observations: NO GROWTH AT 36-48 HOURS. FINAL TO FOLLOW. Normal [facility] Comment on above: Performed By: #### B LDCX2 ####[facility] [id number] [address]Dr. Emilie Carmona Microscopic examination of blood, culture Culture Observations: NO GROWTH AT 36-48 HOURS. FINAL TO FOLLOW. Normal [facility] Comment on above: Performed By: #### B [id number] #### [facility] [address] [place] [address] Dr. Emilie Carmona CULTURE SPUTUMon 12-25-2022 CULTURE SPUTUM Culture Observations : Growth of Normal Respiratory Joanne also seen Isolate 1 Haemophilus influenzae Heavy growth of Normal The [facility] Comment on above: Result Comment: Beta Lactamase: Negative Performed By: #### S PUTCX ####[facility] [address] [address]Dr. Emilie Carmona CULTURE URINEon 12-25-2022 CULTURE URINE Culture Observations : ROD TO FOLLOW. Isolate 1 Escherichia coli 15,000 cfu/mL of Normal [facility] Comment on above: Performed By: #### U RCX #### [facility] [address] [place] [address] Dr. Emilie Carmona ER URINE PROFILEon 3 Bilirubin Ql (U) Negative Normal NEGATIVE The [facility] Comment on above: Performed By: #### R SPLUS #### [facility] [address] [place] [address] Dr. Emilie Carmona Clarity (U) CLEAR Normal CLEAR [facility] Comment on above: Performed By: #### R SPLUS #### [facility] [address] [place] [address] Dr. Emilie Carmona Color (U) YELLOW Normal YELLOW [facility] Comment on above: Performed By: #### R SPLUS #### [facility] [address] [place] [address] Dr. Emilie Carmona ERUD A micrscopic examination will be performed if indicated. Normal The [facility] Comment on above: Performed By: #### R SPLUS #### [facility] [address] [place] [address] Dr. Emilie Carmona Glucose Ql (U) Negative Normal NEGATIVE The [facility] Comment on above: Performed By: #### R SPLUS #### [facility] [address] [place] [address] Dr. Emilie Carmona Hemoglobin Ql (U) SMALL Abnormal NEGATIVE The [facility] Comment on above: Performed By: #### R SPLUS #### [facility] [address] [place] [address] Dr. Emilie Carmona Ketones Ql (U) 15 mg/dl Abnormal NEGATIVE The [facility] Comment on above: Performed By: #### R SPLUS #### [facility] [address] [place] [address] Dr. Emilie Carmona LEUKOCYTES Negative Normal NEGATIVE [facility] Comment on above: Performed By: #### R SPLUS #### [facility] [address] [address] [address] Emilie Carmona Nitrite Ql (U) Negative Normal NEGATIVE The [facility] Comment on above: Performed By: #### R SPLUS #### [facility] [address] [address] [address] Emilie Carmona pH (U) 6.0 [pH] Normal 5-9 [facility] Comment on above: Performed By: #### R SPLUS #### [facility] [address] [address] [address] Emilie Carmona SPEC GRAVITY 1.015 Normal 1.005-<=1.025 [facility] Comment on above: Performed By: #### R SPLUS #### [facility] [address] [place] [address] Dr. Emilie Carmona UA PROTEIN TRACE Normal NEGATIVE/ TRACE [facility] Comment on above: Performed By: #### R SPLUS #### [facility] [address] [address] [address] Emilie Carmona UR MICRO IND INDICATED Normal [facility] Comment on above: Performed By: #### R SPLUS #### [facility] [address] [address] [address] Emilie Carmona Urobilinogen Qn (U) 0.2 {Warren'U}/dL Normal 0.2 - 1. 0 [facility] Comment on above: Performed By: #### R SPLUS #### [facility] [address] [place] [address] Dr. Emilie Camrona LACTATE/LACTIC ACIDon 2022 Lactate [Moles/Vol] 1.2 mmol/L Normal 0.4-2.0 [facility] Comment on above: Performed By: #### L ACT ####[facility] [address] [address]Dr. Emilie Carmona PROF 14(COMP METB)on 023 Albumin [Mass/Vol] 3.4 g/dL Normal 3.4-5.0 [facility] Comment on above: Performed By: #### C MADM, BNP, CMP ####[facility] [address] [address]Dr. Emilie Carmona Albumin/Globulin [Mass ratio] 0.8 {ratio} Normal [facility] Comment on above: Performed By: #### C MADM, BNP, CMP ####[facility] [address] [address]Dr. Emilie Mathew ALP [Catalytic activity/Vol] 88 U/L Normal 46-116 [facility] Comment on above: Performed By: #### C MADM, BNP, CMP ####[facility] [address] [place], [place] [address]Dr. Emilie Carmona ALT [Catalytic activity/Vol] 17 U/L Normal 14-59 [facility] Comment on above: Performed By: #### C MADM, BNP, CMP ####[facility] [address] [place], [place] [address]Dr. Savileslie Mathew Anion gap [Moles/Vol] 13.2 mmol/L Normal [facility] Comment on above: Performed By: #### C MADM, BNP, CMP ####[facility] [address] [place], [place] [address]Dr. Savileslie Carmona AST [Catalytic activity/Vol] 22 U/L Normal 15-37 [facility] Comment on above: Performed By: #### C MADM, BNP, CMP ####[facility] [address] [place], [place] [address]Dr. Emilie Carmona Bilirubin [Mass/Vol] 0.4 mg/dL Normal 0.2-1.0 The [facility] Comment on above: Performed By: #### C MADM, BNP, CMP ####[facility] [address] [place], [place] [address]Dr. Emilie Carmona Calcium [Mass/Vol] 9.2 mg/dL Normal 8.5-10.1 [facility] Comment on above: Performed By: #### C MADM, BNP, CMP ####[facility] [address] [place], [place] [id number]. Emilie Carmona Chloride [Moles/Vol] 100 mmol/L Normal 98-107 The [facility] Comment on above: Performed By: #### C MADM, BNP, CMP ####[facility] [address] [address]Dr. Emilie Carmona CO2 [Moles/Vol] 26.5 mmol/L Normal 21.0-32.0 The [facility] Comment on above: Performed By: #### C MADM, BNP, CMP ####[facility] [address] [place], [place] [address]Dr. Emilie Carmona Creatinine [Mass/Vol] 1.12 mg/dL Critically high 0.55-1.02 The [facility] Comment on above: Performed By: #### C MADM, BNP, CMP ####[facility] [address] [place], [place] [address]Dr. Emilie Mathew EGFR-AF SAO TOMEAN 56 mL/min/1.73m2 Critically low >=60 The [facility] Comment on above: Performed By: #### C MADM, BNP, CMP ####[facility] [address] [place], [place] [address]Dr. Emilie Mathew EGFR-NON AF SAO TOMEAN 46 mL/min/1.73m2 Critically low >=60 The [facility] Comment on above: Performed By: #### C MADM, BNP, CMP ####[facility] [address] [place], [place] [address]Dr. Emilie Carmona Globulin (S) [Mass/Vol] 4.4 g/dL Normal The [facility] Comment on above: Performed By: #### C MADM, BNP, CMP ####[facility] [address] [address]Dr. Emilie Carmona Glucose [Mass/Vol] 123 mg/dL Critically high 74-106 [facility] Comment on above: Performed By: #### C MADM, BNP, CMP ####[facility] [address] [address]Dr. Emilie Carmona Potassium [Moles/Vol] 3.7 mmol/L Normal 3.5-5.1 The [facility] Comment on above: Performed By: #### C MADM, BNP, CMP ####[facility] [address] [address]Dr. Emilie Carmona Protein [Mass/Vol] 7.8 g/dL Normal 6.4-8.2 [facility] Comment on above: Performed By: #### C MADM, BNP, CMP ####[facility] [address] [address]Dr. Emilie Carmona Sodium [Moles/Vol] 136 mmol/L Normal 136-145 [facility] Comment on above: Performed By: #### C MADM, BNP, CMP ####[facility] [address] [address]Dr. Emilie Carmona Urea nitrogen [Mass/Vol] 14.0 mg/dL Normal 7.0-18.0 The [facility] Comment on above: Performed By: #### C MADM, BNP, CMP ####[facility] [address] [place], [place] [address]Dr. Emilie Carmona Urea nitrogen/Creatinine [Mass ratio] 12.5 mg/mg Normal The [facility] Comment on above: Performed By: #### C MADM, BNP, CMP ####[facility] [address] [address]Dr. Emilie Carmona RESPIRATORY PANEL PLUSon Adenovirus Not detected Normal NOT DETECTED The [facility] Comment on above: Performed By: #### R SPLUS #### [facility] [address] [place] [address] Dr. Emilie Carmona B. Parapertusis Not detected Normal NOT DETECTED The [facility] Comment on above: Performed By: #### R SPLUS #### [facility] [address] [place] [address] Dr. Emilie Lyn. Pertussis Not detected Normal NOT DETECTED [facility] Comment on above: Performed By: #### R SPLUS #### [facility] [address] [address] [address] Emilie Carmona Chlamydia Pneumoniae Not detected Normal NOT DETECTED The [facility] Comment on above: Performed By: #### R SPLUS #### [facility] [address] [place] [address] Dr. Emilie Carmona Coronavirus 229E Not detected Normal NOT DETECTED The [facility] Comment on above: Performed By: #### R SPLUS #### [facility] [address] [place] [address] Dr. Emilie Carmona Coronavirus HKU1 Not detected Normal NOT DETECTED The [facility] Comment on above: Performed By: #### R SPLUS #### [facility] [address] [place] [address] Dr. Emilie Carmona Coronavirus NL63 Not detected Normal NOT DETECTED The [facility] Comment on above: Performed By: #### R SPLUS #### [facility] [address] [place] [address] Dr. Emilie Carmona Coronavirus OC43 Not detected Normal NOT DETECTED The [facility] Comment on above: Performed By: #### R SPLUS #### [facility] [address] [place] [address] Dr. Emilie Carmona Influenza A H1 Not detected Normal NOT DETECTED [facility] Comment on above: Performed By: #### R SPLUS #### [facility] [address] [place] [address] Dr. Emilie Carmona Influenza A H1 2009 Detected Abnormal NOT DETECTED The [facility] Comment on above: Performed By: #### R SPLUS #### [facility] [address] [place] [address] Dr. Emilie Carmona Influenza A H3 Not detected Normal NOT DETECTED [facility] Comment on above: Performed By: #### R SPLUS #### [facility] [address] [place] [address] Dr. Emilie Carmona Influenza B Not detected Normal NOT DETECTED The [facility] Comment on above: Performed By: #### R SPLUS #### [facility] [address] [place] [address] Dr. Emilie Carmona Metapneumovirus Not detected Normal NOT DETECTED The [facility] Comment on above: Performed By: #### R SPLUS #### [facility] [address] [place] [address] Dr. Emilie Carmona Mycoplas. Pneumoniae Not detected Normal NOT DETECTED The [facility] Comment on above: Performed By: #### R SPLUS #### [facility] [address] [place] [address] Dr. Emilie Carmona Parainfluenza 1 Not detected Normal NOT DETECTED The [facility] Comment on above: Performed By: #### R SPLUS #### [facility] [address] [place] [address] Dr. Emilie Carmona Parainfluenza 2 Not detected Normal NOT DETECTED The [facility] Comment on above: Performed By: #### R SPLUS #### [facility] [address] [place] [address] Dr. Emilie Carmona Parainfluenza 3 Not detected Normal NOT DETECTED The [facility] Comment on above: Performed By: #### R SPLUS #### [facility] [address] [place] [address] Dr. Emilie Carmona Parainfluenza 4 Not detected Normal NOT DETECTED The [facility] Comment on above: Performed By: #### R SPLUS #### [facility] [address] [place] [address] Dr. Emilie Carmona Rhino/Enterovirus Not detected Normal NOT DETECTED The [facility] Comment on above: Performed By: #### R SPLUS #### [facility] [address] [place] [address] Dr. Emilie Carmona RP2 Header 1 RESPIRATORY PANEL: VIRUSES Normal The [facility] Comment on above: Performed By: #### R SPLUS #### [facility] [address] [place] [address] Dr. Emilie Carmona RP2 Header 2 RESPIRATORY PANEL: BACTERIA Normal The [facility] Comment on above: Performed By: #### R SPLUS #### [facility] [address] [place] [address] Dr. Emilie Carmona RSV Not detected Normal NOT DETECTED The [facility] Comment on above: Performed By: #### R SPLUS #### [facility] [address] [place] [address] Dr. Emilie Carmona SARS-CoV-2 (COVID-19) RNA CHASITY+probe Ql (Unsp spec) Detected Abnormal NOT DETECTED The [facility] Comment on above: Performed By: #### R SPLUS #### [facility] [address] [place] [address] Dr. Emilie Carmona SPUTUM GRAM STAINon 12-26-19 COMMENTS Normal [facility] Comment on above: Performed By: #### C BC #### [facility] [address] [address] [address] Emilie Carmona DIPHTHEROIDS Normal [facility] Comment on above: Performed By: #### C BC #### [facility] [address] [place] [address] Dr. Emilie Carmona EPITHELIALS <25 Normal [facility] Comment on above: Performed By: #### C BC #### [facility] [address] [place] [address] Dr. Emilie Carmona FUNGAL ELEMENTS Normal The [facility] Comment on above: Performed By: #### C BC #### [facility] [address] [address] [address] Emilie Carmona GRAM NEG BACILLI Normal [facility] Comment on above: Performed By: #### C BC #### [facility] [address] [place] [address] Dr. Emilie WALTERS NEG DIPPLOCOCCI FEW Normal [facility] Comment on above: Performed By: #### C BC #### [facility] [address] [place] [address] Dr. Emilie Carmona GRAM POS BACILLI Normal [facility] Comment on above: Performed By: #### C BC #### [facility] [address] [place] [address] Dr. Emilie Carmona GRAM POSITIVE COCCI Normal [facility] Comment on above: Performed By: #### C BC #### [facility] [address] [place] [address] Dr. Emilie Carmona WBC (Bld) [#/Vol] 10*3/uL Normal [facility] Comment on above: Performed By: #### C BC #### [facility] [address] [place] [address] Dr. Emilie Carmona URINE MICROSCOPIC ONLYon BACTERIA SMALL Abnormal NONE SEEN The [facility] Comment on above: Performed By: #### R SPLUS #### [facility] [address] [place] [address] Dr. Emilie Carmona Bacteria identified Cx Nom (U) INDICATED Normal The [facility] Comment on above: Performed By: #### R SPLUS #### [facility] [address] [place] [address] Dr. Emilie Carmona CAST SEEN Abnormal NONE SEEN [facility] Comment on above: Performed By: #### R SPLUS #### [facility] [address] [place] [address] Dr. Emilie Carmona Crystals LM Nom (Urine sed) NONE SEEN Normal NONE SEEN [facility] Comment on above: Performed By: #### R SPLUS #### [facility] [address] [place] [address] Dr. Emilie Carmona Epithelial cells LM Ql (Urine sed) FEW Abnormal NONE SEEN /RARE The [facility] Comment on above: Performed By: #### R SPLUS #### [facility] [address] [place] [address] Dr. Emilie Carmona HYALINE CAST RARE Normal The [facility] Comment on above: Performed By: #### R SPLUS #### [facility] [address] [place] [address] Dr. Emilie Carmona MUCOUS NONE SEEN Normal NONE SEEN The [facility] Comment on above: Performed By: #### R SPLUS #### [facility] [address] [place] [address] Dr. Emilie Carmona RBC 10-20 Abnormal 0-2 The [facility] Comment on above: Performed By: #### R SPLUS #### [facility] [address] [place] [address] Dr. Emilie Carmona WBC 2-5 Abnormal NONE SEEN The [facility] Comment on above: Performed By: #### R SPLUS #### [facility] [address] [place] [address] Dr. Emilie Carmona XR CHEST 1 Von 12-25-2022 XR CHEST 1 V EXAM: XR CHEST 1 V INDICATION: SHORTNESS OF BREATH. COMPARISON: Chest radiograph 06/14/2022 TECHNIQUE: Single frontal view of the chest FINDINGS: Normal cardiomediastinal contours. No acute infiltrative process. No pleural effusion or pneumothorax. No acute osseous abnormality. IMPRESSION: No acute cardiopulmonary process. Electronically authenticated by: DELL BENITEZ Date: 2022-12-25 15:54 Normal [facility] XR DEXA BONE DENSITYon 06-22 [...] by: KARISSA COLBY Date: 2022-06-22 15:50 Normal [facility] CBC AUTO DIFFon 06-16-2022 BASO # 0.1 103/ul Normal 0.0-0.1 [facility] Comment on above: Performed By: #### C BC #### [facility] [address] [place] [address] Dr. Emilie Carmona Basophils/100 WBC (Bld) 0.9 % Normal 0.2-2.0 The [facility] Comment on above: Performed By: #### C BC #### [facility] [address] [place] [address] Dr. Emilie Carmona EO # 0.4 103/ul Normal 0.0-0.7 [facility] Comment on above: Performed By: #### C BC #### [facility] [address] [place] [address] Dr. Emilie Carmona Eosinophils/100 WBC (Bld) 5.7 % Normal 0.9-7.0 [facility] Comment on above: Performed By: #### C BC #### [facility] [address] [place] [address] Dr. Emilie Carmona Erythrocyte distribution width (RBC) [Ratio] 13.5 % Normal 11.0-15.0 [facility] Comment on above: Performed By: #### C BC #### [facility] [address] [place] [address] Dr. Emilie Carmona Hematocrit (Bld) [Volume fraction] 32.9 % Critically low 36.0-48.0 [facility] Comment on above: Performed By: #### C BC #### [facility] [address] [place] [address] Dr. Emilie Carmona Hemoglobin (Bld) [Mass/Vol] 10.6 g/dL Critically low 12.0-16.0 [facility] Comment on above: Performed By: #### C BC #### [facility] [address] [place] [address] Dr. Emilie Carmona IG # 0.02 10e3/ul Normal 0.00-0.03 [facility] Comment on above: Performed By: #### C BC #### [facility] [address] [place] [address] Dr. Emilie Carmona IG % 0.3 % Normal 0.0-0.5 [facility] Comment on above: Performed By: #### C BC #### [facility] [address] [place] [address] Dr. Emilie Carmona LYMPH # 1.8 103/ul Normal 1.2-3.8 [facility] Comment on above: Performed By: #### C BC #### [facility] [address] [place] [address] Dr. Emilie Carmona Lymphocytes/100 WBC (Bld) 28.4 % Normal 20.5-60.0 The [facility] Comment on above: Performed By: #### C BC #### [facility] [address] [place] [address] Dr. Emilie Carmona MANUAL DIFF REQ NO Normal The [facility] Comment on above: Performed By: #### C BC #### [facility] [address] [place] [address] Dr. Emilie Carmona MCH (RBC) [Entitic mass] 28.5 pg Normal 26.7-34.0 [facility] Comment on above: Performed By: #### C BC #### [facility] [address] [place] [address] Dr. Emilie Carmona MCHC (RBC) [Mass/Vol] 32.2 g/dL Normal 29.9-35.2 [facility] Comment on above: Performed By: #### C BC #### [facility] [address] [place] [address] Dr. Emilie Carmona MCV (RBC) [Entitic vol] 88.4 fL Normal 81.0-99.0 [facility] Comment on above: Performed By: #### C BC #### [facility] [address] [place] [address] Dr. Emilie Carmona MONO # 0.7 103/ul Normal 0.3-0.8 [facility] Comment on above: Performed By: #### C BC #### [facility] [address] [place] [address] Dr. Emliie Carmona Monocytes/100 WBC (Bld) 11.0 % Normal 1.7-12.0 [facility] Comment on above: Performed By: #### C BC #### [facility] [address] [place] [address] Dr. Emilie Carmona NEUT # 3.5 103/ul Normal 1.4-6.5 [facility] Comment on above: Performed By: #### C BC #### [facility] [address] [place] [address] Dr. Emilie Carmona Neutrophils/100 WBC (Bld) 53.7 % Normal 43.0-75.0 The [facility] Comment on above: Performed By: #### C BC #### [facility] [address] [place] [address] Dr. Emilie Carmona Platelet mean volume (Bld) [Entitic vol] 11.6 fL Normal 9.5-13.5 [facility] Comment on above: Performed By: #### C BC #### [facility] [address] [place] [address] Dr. Emilie Carmona PLT 223 103/ul Normal 150-450 [facility] Comment on above: Performed By: #### C BC #### [facility] [address] [address] [address] Emilie Carmona RBC 3.72 106/ul Critically low 4.20-5.40 [facility] Comment on above: Performed By: #### C BC #### [facility] Laboratory [address] [address] [address] Emilie Carmona WBC 6.4 103/ul Normal 4.0-11.0 [facility] Comment on above: Performed By: #### C BC #### [facility] Laboratory [address] [address] [address] Emilie Carmona PROF CHEM 8 (BAS METB)on Anion gap [Moles/Vol] 10.4 mmol/L Normal [facility] Comment on above: Performed By: #### C BC #### [facility] Laboratory [address] [place] [address] Dr. Emilie Carmona Calcium [Mass/Vol] 9.8 mg/dL Normal 8.5-10.1 [facility] Comment on above: Performed By: #### C BC #### [facility] Laboratory [address] [place] [address] Dr. Emilie Carmona Chloride [Moles/Vol] 105 mmol/L Normal 98-107 The [facility] Comment on above: Performed By: #### C BC #### [facility] Laboratory [address] [address] [address] Emilie Carmona CO2 [Moles/Vol] 25.0 mmol/L Normal 21.0-32.0 The [facility] Comment on above: Performed By: #### C BC #### [facility] Laboratory [address] [place] [address] Dr. Emilie Carmona Creatinine [Mass/Vol] 0.87 mg/dL Normal 0.55-1.02 [facility] Comment on above: Performed By: #### C BC #### [facility] Laboratory [address] [place] [address] Dr. Emilie Carmona EGFR-AF SAO TOMEAN >60 Normal >=60 The [facility] Comment on above: Performed By: #### C BC #### [facility] Laboratory [address] [address] [address] Emilie Carmona EGFR-NON AF SAO TOMEAN >60 Normal >=60 [facility] Comment on above: Performed By: #### C BC #### [facility] Laboratory [address] [address] [address] Emilie Carmona Glucose [Mass/Vol] 105 mg/dL Normal 74-106 [facility] Comment on above: Performed By: #### C BC #### [facility] Laboratory [address] [address] [address] Emilie Carmona Potassium [Moles/Vol] 3.4 mmol/L Critically low 3.5-5.1 [facility] Comment on above: Performed By: #### C BC #### [facility] Laboratory [address] [address] [address] Emilie Carmona Sodium [Moles/Vol] 137 mmol/L Normal 136-145 [facility] Comment on above: Performed By: #### C BC #### [facility] Laboratory [address] [address] [address] Emilie Carmona Urea nitrogen [Mass/Vol] 12.0 mg/dL Normal 7.0-18.0 [facility] Comment on above: Performed By: #### C BC #### [facility] Laboratory [address] [address] [address] Emilie Carmona Urea nitrogen/Creatinine [Mass ratio] 13.8 mg/mg Normal [facility] Comment on above: Performed By: #### C BC #### [facility] Laboratory [address] [address] [address] Emilie Carmona CBC AUTO DIFFon 06-15-2022 BASO # 0.1 103/ul Normal 0.0-0.1 [facility] Comment on above: Performed By: #### C BC ####[facility] [address] [address]Dr. Emilie Carmona Basophils/100 WBC (Bld) 0.7 % Normal 0.2-2.0 [facility] Comment on above: Performed By: #### C BC ####[facility] [address] [address]Dr. Emilie Carmona EO # 0.2 103/ul Normal 0.0-0.7 The [facility] Comment on above: Performed By: #### C BC ####[facility] [address] [address]Dr. Emilie Carmona Eosinophils/100 WBC (Bld) 2.4 % Normal 0.9-7.0 The [facility] Comment on above: Performed By: #### C BC ####[facility] [address] [place], [place] [address]Dr. Emilie Carmona Erythrocyte distribution width (RBC) [Ratio] 13.5 % Normal 11.0-15.0 [facility] Comment on above: Performed By: #### C BC ####[facility] [address] [place], [place] [address]Dr. Emilie Carmona Hematocrit (Bld) [Volume fraction] 35.3 % Critically low 36.0-48.0 [facility] Comment on above: Performed By: #### C BC ####[facility] [address] [place], [place] [address]Dr. Emilie Carmona Hemoglobin (Bld) [Mass/Vol] 11.5 g/dL Critically low 12.0-16.0 The [facility] Comment on above: Performed By: #### C BC ####[facility] [address] [place], [place] [address]Dr. Emilie Carmona IG # 0.01 10e3/ul Normal 0.00-0.03 The [facility] Comment on above: Performed By: #### C BC ####[facility] [address] [place], [place] [address]Dr. Emilie Carmona IG % 0.1 % Normal 0.0-0.5 The [facility] Comment on above: Performed By: #### C BC ####[facility] [address] [place], [place] [address]Dr. Savileslie Carmona LYMPH # 1.6 103/ul Normal 1.2-3.8 The [facility] Comment on above: Performed By: #### C BC ####[facility] [address] [id number]. Savileslie Carmona Lymphocytes/100 WBC (Bld) 23.3 % Normal 20.5-60.0 [facility] Comment on above: Performed By: #### C BC ####[facility] [address] [id number]. Emilie Carmona MANUAL DIFF REQ NO Normal [facility] Comment on above: Performed By: #### C BC ####[facility] [address] [id number]. Emilie Carmona MCH (RBC) [Entitic mass] 28.9 pg Normal 26.7-34.0 [facility] Comment on above: Performed By: #### C BC ####[facility] [address] [address]Dr. Emilie Carmona MCHC (RBC) [Mass/Vol] 32.6 g/dL Normal 29.9-35.2 The [facility] Comment on above: Performed By: #### C BC ####[facility] [address] [id number]. Emilie Carmona MCV (RBC) [Entitic vol] 88.7 fL Normal 81.0-99.0 [facility] Comment on above: Performed By: #### C BC ####[facility] [address] [place], [place] [address]Dr. Emilie Carmona MONO # 0.8 103/ul Normal 0.3-0.8 The [facility] Comment on above: Performed By: #### C BC ####[facility] [address] [id number]. Emilie Carmona Monocytes/100 WBC (Bld) 11.9 % Normal 1.7-12.0 The [facility] Comment on above: Performed By: #### C BC ####[facility] [address] [place], [place] [id number]. Emilie Carmona NEUT # 4.3 103/ul Normal 1.4-6.5 The [facility] Comment on above: Performed By: #### C BC ####[facility] [address] [id number]. Emilie Carmona Neutrophils/100 WBC (Bld) 61.6 % Normal 43.0-75.0 [facility] Comment on above: Performed By: #### C BC ####[facility] [address] [phone]. Emilie Carmona Platelet mean volume (Bld) [Entitic vol] 11.9 fL Normal 9.5-13.5 [facility] Comment on above: Performed By: #### C BC ####[facility] [address] [id number]. Emilie Carmona PLT 247 103/ul Normal 150-450 [facility] Comment on above: Performed By: #### C BC ####[facility] [address] [phone]. Emilie Carmona RBC 3.98 106/ul Critically low 4.20-5.40 [facility] Comment on above: Performed By: #### C BC ####[facility] [address] [id number]. Emilie Carmona WBC 7.0 103/ul Normal 4.0-11.0 [facility] Comment on above: Performed By: #### C BC ####[facility] [address] [id number]. Emilie Carmona FREE T3on 06-15-2022 FREE T3 1.29 pg/mlL Critically low 2.18-3.98 The [facility] Comment on above: Performed By: #### F T3, TSH ####[facility] [address] [phone]. Emilie Carmona PROF CHEM 8 (BAS METB)on Anion gap [Moles/Vol] 10.0 mmol/L Normal [facility] Comment on above: Performed By: #### B MP ####[facility] [address] [phone]. Emilie Carmona Calcium [Mass/Vol] 9.8 mg/dL Normal 8.5-10.1 The [facility] Comment on above: Performed By: #### B MP ####[facility] [address] [address]Dr. Savileslie Mathew Chloride [Moles/Vol] 102 mmol/L Normal 98-107 The [facility] Comment on above: Performed By: #### B MP ####[facility] [address] [phone]. Emilie Carmona CO2 [Moles/Vol] 28.0 mmol/L Normal 21.0-32.0 The [facility] Comment on above: Performed By: #### B MP ####[facility] [address] [address]Dr. Emilie Carmona Creatinine [Mass/Vol] 0.91 mg/dL Normal 0.55-1.02 The [facility] Comment on above: Performed By: #### B MP ####[facility] [address] [place], [place] [address]Dr. Savileslie Mathew EGFR-AF SAO TOMEAN >60 Normal >=60 The [facility] Comment on above: Performed By: #### B MP ####[facility] [address] [place], [place] [address]Dr. Emilie Carmona EGFR-NON AF SAO TOMEAN 59 mL/min/1.73m2 Critically low >=60 The [facility] Comment on above: Performed By: #### B MP ####[facility] [address] [address]Dr. Emilie Carmona Glucose [Mass/Vol] 96 mg/dL Normal 74-106 The [facility] Comment on above: Performed By: #### B MP ####[facility] [address] [phone]. Emilie Carmona Potassium [Moles/Vol] 3.0 mmol/L Critically low 3.5-5.1 The [facility] Comment on above: Performed By: #### B MP ####[facility] [address] [address]Dr. Emilie Carmona Sodium [Moles/Vol] 137 mmol/L Normal 136-145 [facility] Comment on above: Performed By: #### B MP ####[facility] [address] [phone]. Emilie Carmona Urea nitrogen [Mass/Vol] 16.0 mg/dL Normal 7.0-18.0 [facility] Comment on above: Performed By: #### B MP ####[facility] [address] [id number] Carmona Urea nitrogen/Creatinine [Mass ratio] 17.6 mg/mg Normal [facility] Comment on above: Performed By: #### B MP ####[facility] [address] [address]Dr. Emilie Carmona TSHon 06-15-2022 TSH 12.224 uIU/mL Critically high 0.358-3.740 [facility] Comment on above: Performed By: #### F T3, TSH ####[facility] [address] [address]DrBrenton Carmona CARDIAC MARYCRUZ 3-6on 2 CK [Catalytic activity/Vol] 163 U/L Normal 26-192 [facility] Comment on above: Performed By: #### R SPLUS #### [facility] Laboratory [address] [address] [address] Emilie Carmona CK.MB [Mass/Vol] 2.77 ng/mL Normal <=3.60 [facility] Comment on above: Performed By: #### R SPLUS #### [facility] Laboratory [address] [address] [address] Emilie Carmona HSTROP 8.5 pg/mL Normal 4.0-51.3 [facility] Comment on above: Result Comment: CUT- OFF POINTS HAVE BEEN ESTABLISHED BASED ON THE FOURTH UNIVERSAL DEFINITIONS OF MYOCARDIAL INFARCTION. THE UPPER REFERENCE LIMIT (URL) OF TROPONIN, DEFINED THE 99TH PERCENTILE OF cTnI DISTRIBUTION IN A REFERENCE POPULATION, HAS BEEN CONFIRMED THE DECISION THRESHOLD FOR IA DIAGNOSIS. Performed By: #### R SPLUS #### [facility] Laboratory [address] [address] [address] Emilie Carmona CK [Catalytic activity/Vol] 141 U/L Normal 26-192 [facility] Comment on above: Performed By: #### C BC #### [facility] Laboratory [address] [place] [address] Dr. Emilie Carmona CK.MB [Mass/Vol] 2.50 ng/mL Normal <=3.60 [facility] Comment on above: Performed By: #### C BC #### [facility] Laboratory [address] [place] [address] Dr. Emilie Carmona HSTROP 9.8 pg/mL Normal 4.0-51.3 [facility] Comment on above: Result Comment: CUT- OFF POINTS HAVE BEEN ESTABLISHED BASED ON THE FOURTH UNIVERSAL DEFINITIONS OF MYOCARDIAL INFARCTION. THE UPPER REFERENCE LIMIT (URL) OF TROPONIN, DEFINED THE 99TH PERCENTILE OF cTnI DISTRIBUTION IN A REFERENCE POPULATION, HAS BEEN CONFIRMED THE DECISION THRESHOLD FOR IA DIAGNOSIS. Performed By: #### C BC #### [facility] Laboratory [address] [place] [address] Dr. Emilie Carmona CBC AUTO DIFFon 06-14-2022 BASO # 0.0 103/ul Normal 0.0-0.1 [facility] Comment on above: Performed By: #### C BC #### [facility] Laboratory [address] [place] [address] Dr. Emilie Carmona Basophils/100 WBC (Bld) 0.5 % Normal 0.2-2.0 [facility] Comment on above: Performed By: #### C BC #### [facility] Laboratory [address] [place] [address] Dr. Emilie Carmona EO # 0.0 103/ul Normal 0.0-0.7 [facility] Comment on above: Performed By: #### C BC #### [facility] Laboratory [address] [place] [address] Dr. Emilie Carmona Eosinophils/100 WBC (Bld) 0.1 % Critically low 0.9-7.0 [facility] Comment on above: Performed By: #### C BC #### [facility] Laboratory [address] [place] [address] Dr. Emilie Carmona Erythrocyte distribution width (RBC) [Ratio] 13.2 % Normal 11.0-15.0 [facility] Comment on above: Performed By: #### C BC #### [facility] Laboratory [address] [place] [address] Dr. Emilie Carmona Hematocrit (Bld) [Volume fraction] 41.0 % Normal 36.0-48.0 [facility] Comment on above: Performed By: #### C BC #### [facility] Laboratory [address] [place] [address] Dr. Emilie Carmona Hemoglobin (Bld) [Mass/Vol] 13.3 g/dL Normal 12.0-16.0 [facility] Comment on above: Performed By: #### C BC #### [facility] Laboratory [address] [place] [address] Dr. Emilie Carmona IG # 0.03 10e3/ul Normal 0.00-0.03 [facility] Comment on above: Performed By: #### C BC #### [facility] Laboratory [address] [place] [address] Dr. Emilie Carmona IG % 0.4 % Normal 0.0-0.5 [facility] Comment on above: Performed By: #### C BC #### [facility] Laboratory [address] [place] [address] Dr. Emilie Carmona LYMPH # 1.4 103/ul Normal 1.2-3.8 [facility] Comment on above: Performed By: #### C BC #### [facility] Laboratory [address] [place] [address] Dr. Emilie Carmona Lymphocytes/100 WBC (Bld) 15.9 % Critically low 20.5-60.0 [facility] Comment on above: Performed By: #### C BC #### [facility] Laboratory [address] [place] [address] Dr. Emilie Carmona MANUAL DIFF REQ NO Normal [facility] Comment on above: Performed By: #### C BC #### [facility] Laboratory [address] [place] [address] Dr. Emilie Carmona MCH (RBC) [Entitic mass] 28.6 pg Normal 26.7-34.0 [facility] Comment on above: Performed By: #### C BC #### [facility] Laboratory [address] [address] [address] Emilie Carmona MCHC (RBC) [Mass/Vol] 32.4 g/dL Normal 29.9-35.2 [facility] Comment on above: Performed By: #### C BC #### [facility] Laboratory [address] [address] [address] Emilie Carmona MCV (RBC) [Entitic vol] 88.2 fL Normal 81.0-99.0 [facility] Comment on above: Performed By: #### C BC #### [facility] Laboratory [address] [address] [address] Emilie Carmona MONO # 0.9 103/ul Critically high 0.3-0.8 [facility] Comment on above: Performed By: #### C BC #### [facility] Laboratory [address] [address] [address] Emilie Carmona Monocytes/100 WBC (Bld) 9.9 % Normal 1.7-12.0 [facility] Comment on above: Performed By: #### C BC #### [facility] Laboratory [address] [address] [address] Emilie Carmona NEUT # 6.3 103/ul Normal 1.4-6.5 [facility] Comment on above: Performed By: #### C BC #### [facility] Laboratory [address] [address] [address] Emilie Carmona Neutrophils/100 WBC (Bld) 73.2 % Normal 43.0-75.0 The [facility] Comment on above: Performed By: #### C BC #### [facility] Laboratory [address] [address] [address] Emilie Carmona Platelet mean volume (Bld) [Entitic vol] 11.6 fL Normal 9.5-13.5 [facility] Comment on above: Performed By: #### C BC #### [facility] Laboratory [address] [address] [address] Emilie Carmona PLT 269 103/ul Normal 150-450 The [facility] Comment on above: Performed By: #### C BC #### [facility] [address] [place], [place] [address] Dr. Emilie Carmona RBC 4.65 106/ul Normal 4.20-5.40 The [facility] Comment on above: Performed By: #### C BC #### [facility] [address] [place], [place] [address] Dr. Emilie Carmona WBC 8.6 103/ul Normal 4.0-11.0 The [facility] Comment on above: Performed By: #### C BC #### [facility] Laboratory [id number] Emilie Carmona Covid-19 PCR (CVDTB)on 06-01 SARS-CoV-2 (COVID-19) RNA CHASITY+probe Ql (Unsp spec) Not detected Normal NOT DETECTED The [facility] Comment on above: Result Comment: [...] for this test is supported by the [employer] R[employer] of Health and Human Service's declaration that [...] be used). Performed By: #### C VDTBH ####[facility] [address] [place], [place] [address]TaDr. Emilie Carmona ER URINE PROFILEon 2 Bilirubin Ql (U) SMALL Abnormal NEGATIVE [facility] Comment on above: Performed By: #### R SPLUS #### [facility] Laboratory [id number] Emilie Carmona Clarity (U) SL CLOUDY Abnormal CLEAR The [facility] Comment on above: Performed By: #### R SPLUS #### [facility] Laboratory [address] [address] [address] Emilie Carmona Color (U) YELLOW Normal YELLOW [facility] Comment on above: Performed By: #### R SPLUS #### [facility] Laboratory [address] [place] [address] Dr. Emilie Carmona ERUAHD A micrscopic examination will be performed if indicated. Normal The [facility] Comment on above: Performed By: #### R SPLUS #### [facility] Laboratory [address] [place] [address] Dr. Emilie Carmona Glucose Ql (U) Negative Normal NEGATIVE [facility] Comment on above: Performed By: #### R SPLUS #### [facility] Laboratory [address] [place] [address] Dr. Emilie Carmona Hemoglobin Ql (U) TRACE-INTACT Abnormal NEGATIVE [facility] Comment on above: Performed By: #### R SPLUS #### [facility] Laboratory [address] [place] [address] Dr. Emilie Carmona Ketones Ql (U) 40 mg/dl Abnormal NEGATIVE [facility] Comment on above: Performed By: #### R SPLUS #### [facility] Laboratory [address] [place] [address] Dr. Emilie Carmona LEUKOCYTES Negative Normal NEGATIVE [facility] Comment on above: Performed By: #### R SPLUS #### [facility] Laboratory [address] [place] [address] Dr. Emilie Carmona Nitrite Ql (U) Negative Normal NEGATIVE [facility] Comment on above: Performed By: #### R SPLUS #### [facility] Laboratory [address] [place] [address] Dr. Emilie Carmona pH (U) 5.5 [pH] Normal 5-9 [facility] Comment on above: Performed By: #### R SPLUS #### [facility] Laboratory [address] [place] [address] Dr. Emilie Carmona SPEC GRAVITY 1.030 Abnormal 1.005-<=1.025 [facility] Comment on above: Performed By: #### R SPLUS #### [facility] Laboratory [address] [address] [address] Emilie Carmona UA PROTEIN Negative Normal NEGATIVE/ TRACE [facility] Comment on above: Performed By: #### R SPLUS #### [facility] Laboratory [address] [address] [address] Emilie Carmona UR MICRO IND INDICATED Normal [facility] Comment on above: Performed By: #### R SPLUS #### [facility] Laboratory [address] [address] [address] Emilie Carmona Urobilinogen Qn (U) 0.2 {Warren'U}/dL Normal 0.2 - 1. 0 [facility] Comment on above: Performed By: #### R SPLUS #### [facility] Laboratory [address] [place] [address] Dr. Emilie Carmona FREE T4on 06-14-2022 Free T4 [Mass/Vol] 0.75 ng/dL Critically low 0.76-1.46 [facility] Comment on above: Performed By: #### F T4, VITAD, FETIBC, B12FOL ####[facility] [address] [address]Dr. Emilie Carmona IRON AND TIBCon 06-14-2022 % SATURATION 6.7 % Normal [facility] Comment on above: Performed By: #### C BC #### [facility] Laboratory [address] [address] [address] Emilie Carmona Iron [Mass/Vol] 21.0 ug/dL Critically low 50.0-170.0 [facility] Comment on above: Performed By: #### C BC #### [facility] Laboratory [address] [address] [address] Emilie Carmona TIBC DIRECT 312.0 ug/dL Normal 250.0-450.0 [facility] Comment on above: Performed By: #### C BC #### [facility] Laboratory [address] [address] [address] Emilie Carmona MYOGLOBINon 06-14-2022 MAXIMILIAN 268 ng/mL Critically high 9-82 [facility] Comment on above: Performed By: #### M YO ####[facility] [address] [place], [place] [address]HfDr. Emilie Carmona PROF CHEM 8 (BAS METB)on Anion gap [Moles/Vol] 12.8 mmol/L Normal [facility] Comment on above: Performed By: #### C BC #### [facility] Laboratory [address] [address] [address] Emilie Cramona Calcium [Mass/Vol] 10.7 mg/dL Critically high 8.5-10.1 [facility] Comment on above: Performed By: #### C BC #### [facility] Laboratory [address] [address] [address] Emilie Carmona Chloride [Moles/Vol] 100 mmol/L Normal 98-107 [facility] Comment on above: Performed By: #### C BC #### [facility] Laboratory [address] [address] [address] Emilie Carmona CO2 [Moles/Vol] 25.6 mmol/L Normal 21.0-32.0 [facility] Comment on above: Performed By: #### C BC #### [facility] Laboratory [address] [address] [address] Emilie Carmona Creatinine [Mass/Vol] 1.05 mg/dL Critically high 0.55-1.02 [facility] Comment on above: Performed By: #### C BC #### [facility] [address] [address] [address] Emilie Carmona EGFR-AF SAO TOMEAN >60 Normal >=60 [facility] Comment on above: Performed By: #### C BC #### [facility] [id number] Emilie Carmona EGFR-NON AF SAO TOMEAN 50 mL/min/1.73m2 Critically low >=60 [facility] Comment on above: Performed By: #### C BC #### [facility] [address] [address] [address] Emilie Carmona Glucose [Mass/Vol] 129 mg/dL Critically high 74-106 [facility] Comment on above: Performed By: #### C BC #### [facility] [address] [place] [address] Dr. Emilie Carmona Potassium [Moles/Vol] 3.4 mmol/L Critically low 3.5-5.1 [facility] Comment on above: Performed By: #### C BC #### [facility] [address] [address] [address] Emilie Carmona Sodium [Moles/Vol] 135 mmol/L Critically low 136-145 Th [facility] Comment on above: Performed By: #### C BC #### [facility] [address] [place] [address] Dr. Emilie Carmona Urea nitrogen [Mass/Vol] 19.0 mg/dL Critically high 7.0-18.0 [facility] Comment on above: Performed By: #### C BC #### [facility] [address] [place] [address] Dr. Emilie Carmona Urea nitrogen/Creatinine [Mass ratio] 18.1 mg/mg Normal [facility] Comment on above: Performed By: #### C BC #### [facility] [address] [place] [address] Dr. Emilie Carmona URINE MICROSCOPIC ONLYon BACTERIA NONE SEEN Normal NONE SEEN [facility] Comment on above: Performed By: #### R SPLUS #### [facility] [address] [place] [address] Dr. Emilie Carmona Bacteria identified Cx Nom (U) NOT INDICATED Normal [facility] Comment on above: Performed By: #### R SPLUS #### [facility] [address] [place] [address] Dr. Emilie Carmona CAST SEEN Abnormal NONE SEEN [facility] Comment on above: Performed By: #### R SPLUS #### [facility] [address] [place] [address] Dr. Emilie Carmona Crystals LM Nom (Urine sed) NONE SEEN Normal NONE SEEN [facility] Comment on above: Performed By: #### R SPLUS #### [facility] [address] [place] [address] Dr. Emilie Carmona Epithelial cells LM Ql (Urine sed) FEW Abnormal NONE SEEN /RARE The [facility] Comment on above: Performed By: #### R SPLUS #### [facility] [address] [place] [address] Dr. Emilie Carmona MUCOUS NONE SEEN Normal NONE SEEN The [facility] Comment on above: Performed By: #### R SPLUS #### [facility] [address] [place] [address] Dr. Emilie Carmona RBC 0-2 Normal 0-2 [facility] Comment on above: Performed By: #### R SPLUS #### [facility] [address] [place] [address] Dr. Emilie Carmona WBC 0-2 Abnormal NONE SEEN The [facility] Comment on above: Performed By: #### R SPLUS #### [facility] [address] [place] [address] Dr. Emilie Carmona VIT B12 AND FOLATEon 022 Cobalamin (Vitamin B12) [Mass/Vol] 426.0 pg/mL Normal 193.0-986.0 [facility] Comment on above: Performed By: #### C BC #### [facility] [address] [place] [address] Dr. Emilie Carmona FOLATE 12.10 ng/mL Normal 8.60-58.90 [facility] Comment on above: Performed By: #### C BC #### [facility] [address] [place] [address] Dr. Emilie Carmona VITAMIN D 25 OHon 06-14-2022 VIT D 25-OH 75.5 ng/mL Normal The [facility] Comment on above: Performed By: #### C BC #### [facility] [address] [place] [address] Dr. Emilie Carmona VIT D RANGES SEE BELOW Normal [facility] Comment on above: Result Comment: <20 ng/mL Vit D deficient 20 - <30 ng/mL Vit D insufficient 30 - 100 ng/mL Vit D sufficient >100 ng/mL Potential Toxicity Performed By: #### C BC #### [facility] [address] [address] [address] Emilie Carmona XR ABD FLAT_UPon 06-14-2022 [...] by: ALEIDA TAVERAS Date: 2022-06-14 12:35 Normal [facility] XR CHEST 1 Von 06-14-2022 [...] ALEIDA TAVERAS Date: 2022-06-14 07:10 Normal The [facility] XR HIPS LYNDA 5V W PELVISon XR HIPS LYNDA 5V W PELVIS EXAMINATION: XR HIPS LYNDA 5V W PELVIS HISTORY: Pain COMPARISON: No relevant comparison available. FINDINGS: RIGHT FINDINGS: BONES: No acute fracture or dislocation. Smcz-sa-pkdwtiid hip osteoarthropathy SOFT TISSUES: Negative. No visible soft tissue swelling. OTHER: Lumbar posterior decompression and transpedicular fusion LEFT FINDINGS: BONES: No acute fracture or dislocation. Takv-tv-weekeozl hip osteoarthropathy SOFT TISSUES: Negative. No visible soft tissue swelling. OTHER: Negative. IMPRESSION: RIGHT CONCLUSION: Osteoarthritis. No acute fracture LEFT CONCLUSION: Osteoarthritis. No acute fracture Electronically authenticated by: ALEIDA TAVERAS Date: 2022-06-14 07:15 Normal [facility] XR LSPINE 2_3 VIEWSon 2021 [...] ALEIDA TAVERAS Date: 2022-06-14 07:12 Normal [facility] Metabolic Pane [facility] 09-21-2021 Albumin [Mass/Vol] 4.5 g/dL Normal 3.6-5.[address] [facility] Comment on above: Performed By: #### V ITD, FT3, FT4, CMP, TSH #### [facility] [address], [place] [id number] Albumin/Globulin [Mass ratio] 1.5 {ratio} Normal 1.0-2.5 [facility] Comment on above: Performed By: #### V ITD, FT3, FT4, CMP, TSH #### [facility] [address], [place] [id number] ALP [Catalytic activity/Vol] 103 U/L Normal 35-119 [facility] Comment on above: Performed By: #### V ITD, FT3, FT4, CMP, TSH #### [facility] [address], [place] [id number] ALT [Catalytic activity/Vol] 18 U/L Normal 6-33 [facility] Comment on above: Result Comment: 07/01 Female reference range changed. Performed By: #### V ITD, FT3, FT4, CMP, TSH #### [facility] [address], [place] [id number] Anion gap [Moles/Vol] 24 mmol/L High 12-20 [facility] Comment on above: Result Comment: Effe ctive 08/06/2019 reference range changed. Performed By: #### V ITD, FT3, FT4, CMP, TSH #### [facility] [address], [place] [id number] AST [Catalytic activity/Vol] 16 U/L Normal 9-34 [facility] Comment on above: Performed By: #### V ITD, FT3, FT4, CMP, TSH #### [facility] [address], [place] [id number] BUN/CREA 27 Ratio High 6-22 [facility] Comment on above: Performed By: #### V ITD, FT3, FT4, CMP, TSH #### [facility] [address], [place] [id number] Calcium [Mass/Vol] 10.7 mg/dL High 8.6-10.[address] [facility] Comment on above: Performed By: #### V ITD, FT3, FT4, CMP, TSH #### [facility] [address], [place] [id number] Chloride [Moles/Vol] 103 mmol/L Normal 98-107 [facility] Comment on above: Performed By: #### V ITD, FT3, FT4, CMP, TSH #### [facility] [address], [place] [id number] CO2 [Moles/Vol] 17 mmol/L Low 20-31 [facility] Comment on above: Performed By: #### V ITD, FT3, FT4, CMP, TSH #### [facility] [address], [place] [id number] Creatinine [Mass/Vol] 1.1 mg/dL Normal 0.6-1.4 [facility] Comment on above: Performed By: #### V ITD, FT3, FT4, CMP, TSH #### [facility] [address], [place] [id number] eGFRAA 60 mL/min/1.73m2 Low >60 [facility] Specialist Comment on above: Performed By: #### V ITD, FT3, FT4, CMP, TSH #### [facility] [address], [place] [id number] eGFRNAA 49 mL/min/1.73m2 Low >60 [facility]ist Comment on above: Performed By: #### V ITD, FT3, FT4, CMP, TSH #### [facility] [address], [place] [id number] Globulin (S) [Mass/Vol] 3.0 g/dL Normal 1.9-3.7 [facility] Comment on above: Performed By: #### V ITD, FT3, FT4, CMP, TSH #### [facility] [address], [place] [id number] Glucose [Mass/Vol] 109 mg/dL High 65-99 [facility] Comment on above: Result Comment: For FASTING Glucose --- ADA reference ranges: Normal 65-99 mg/dl Prediabetes 100-125 Diabetes >/= 126 Performed By: #### V ITD, FT3, FT4, CMP, TSH #### [facility] [address], [place] [id number] Potassium [Moles/Vol] 4.7 mmol/L Normal 3.5-5.5 [facility] Comment on above: Performed By: #### V ITD, FT3, FT4, CMP, TSH #### [facility] [address], [place] [id number] Protein [Mass/Vol] 7.5 g/dL Normal 6.1-8.1 [facility] Comment on above: Performed By: #### V ITD, FT3, FT4, CMP, TSH #### [facility] [address], [place] [id number] Sodium [Moles/Vol] 139 mmol/L Normal 135-146 [facility] Comment on above: Performed By: #### V ITD, FT3, FT4, CMP, TSH #### [facility] [address], [place] [id number] TBIL <0.3 Normal [facility] Comment on above: Performed By: #### V ITD, FT3, FT4, CMP, TSH #### [facility] [address], [place] [id number] Urea nitrogen [Mass/Vol] 29 mg/dL High 7-25 [facility] Comment on above: Performed By: #### V ITD, FT3, FT4, CMP, TSH #### [facility] [address], [place] [id number] Free T3on 09-21-2021 FT3 1.79 pg/mL Low 2.00-4.40 [facility] Comment on above: Performed By: #### V ITD, FT3, FT4, CMP, TSH #### [facility] [address], [place] [id number] Free T4on 09-21-2021 Free T4 [Mass/Vol] 0.67 ng/dL Low 0.80-1.80 [facility] Specialist Comment on above: Performed By: #### V ITD, FT3, FT4, CMP, TSH #### [facility] [address], [place] [id number] TSHon 09-21-2021 TSH 0.611 uIU/mL Normal 0.400-4.500 [facility] Comment on above: Performed By: #### V ITD, FT3, FT4, CMP, TSH #### [facility] [address], [place] [id number] US Carotid, Bilateralon 09-02 US Carotid, Bilateral [...] by Tyrese Wisdom on 09/22/2021 0822 Normal [facility] Vitamin B12/Folateon 022 Cobalamin (Vitamin B12) [Mass/Vol] 383 pg/mL Normal 211-946 [facility] Specialist Comment on above: Performed By: #### B 12/Fol #### [facility] [address], [place] [id number] FOL 5.5 ng/mL Normal >4.7 [facility] Comment on above: Result Comment: Refe rence range change 06/17/2017. Prior reference range F 4.8-37.3 ng/mL, M 4.5-32.2 ng/mL. Performed By: #### B 12/Fol #### [facility] [address], [place] [id number] Vitamin D 25-OHon 09-21-2021 VIT D 25 OH 23 ng/ml Low >29 [facility] Comment on above: Result Comment: Latonia min D Status Deficiency <20 ng/mL Insufficiency 20-29 ng/mL Optimal 30-100 ng/mL Possible Toxicity >=150 ng/mL Performed By: #### V ITD, FT3, FT4, CMP, TSH #### [facility] [address] [place], [place] [id number] Encounters Encounter Date Encounter Type Care Provider Facility Start: 12-09-2023 End: 12-09-2023 ambulatory APOLLO BOO Not Available Start: 12-26-2022 End: 12-29-2022 Evaluation and management of inpatient DR ALEIDA TAVERAS Facility:[facility] Start: 06-22-2022 End: 06-23-[address] MARLA KENDALL . Facility:[facility] Start: 06-14-2022 End: 06-16-[address] MARLA KENDALL . Facility:[facility] Start: 10-20-2017 End: 10-21-2017 Ambulatory DEFAULT PHYSICIAN Facility:[facility] Payers Date Payer Category Payer Medicare [id number] 1960 Medicare [id number] 1940 Unknown [id number] [id number] [id number] 1940 Unknown [id number] 2.16.84 [id number] 1940 Unknown [id number] [id number] [id number] 1940 Unknown [id number] 2.16.84 [id number] Unknown Clinical Note 06-14-2022 Note Date & Type Note Facility 06-14-2022 Note PROCEDURE: XR SHOULD ER LT 2V or > COMPARISON: None. HISTORY: Pain FINDINGS: BONES:No acute fracture or dislocation. Mild degenerative changes. SOFT TISSUES:Negative. No visible soft tissue swelling. EFFUSION:None visible. OTHER: Negative. IMPRESSION: No acute fracture Electronically authenticated by: ALEIDA TAVERAS Date: 2022-06-14 07:08 [facility] Clinical Note 09-21-2021 Note Date & Type Note Facility 09-21-2021 Note PROCEDURE: [facility] HDXT 1.5 Sagittal T1, T2, STIR [...] signed by Tyrese Wisdom on 09/22/2021 0902 [facility] Summary Purpose Family History No Family History Records FoundNo Family History Records FoundNo Family History Records FoundNo Family History Records Found Advance Directives No Advanced Directives Records FoundNo Advanced Directives Records FoundNo Advanced Directives Records FoundNo Advanced Directives Records Found Additional Source Comments INFORMATION SOURCE (unrecogn ized section and content) DATE CREATED AUTHOR 01/20/2018 [facility] DATE CREATED AUTHOR AUTHOR'S ORGANIZ ATION 09/24/2021 [facility] dical Specialist DATE CREATED AUTHOR AUTHOR'S ORGANIZ ATION 01/10/2023 [facility] DATE CREATED AUTHOR AUTHOR'S ORGANIZ ATION 12/11/2023 [facility] dical Specialists EPIC FOR RECORDS PERTAINING TO [...] BE BASED ON THE PRIMARY CLINICAL RECORDS. [facility]. provides no warranty or guarantee of the accuracy or completeness of information in this document.
[2024-04-20 06:07] LABS: Basophils Absolute Auto 0.1 10^3/uL (0.0-0.1); Basophils Percent Auto 1.6 % (0.2-2.0); Eosinophils Absolute Auto 0.3 10^3/uL (0.0-0.7); Eosinophils Percent Auto 6.5 % (0.9-7.0); Hematocrit 34.8 % (36.0-48.0); Hemoglobin 11.3 g/dL (12.0-16.0); Immature Granulocytes Abs Auto 0.02 10^3/uL (0.00-0.03); Immature Granulocytes Pct Auto 0.4 % (0.0-0.5); Lymphocytes Absolute Auto 1.9 10^3/uL (1.2-3.8); Lymphocytes Percent Auto 37.5 % (20.5-60.0); Mean Corpuscular HGB Conc 32.5 g/dL (29.9-35.2); Mean Corpuscular Hemoglobin 30.7 pg (26.7-34.0); Mean Corpuscular Volume 94.6 fL (81.0-99.0); Mean Platelet Volume 11.3 fL (9.5-13.5); Monocytes Absolute Auto 0.4 10^3/uL (0.3-0.8); Monocytes Percent Auto 8.5 % (1.7-12.0); Neutrophils Absolute Auto 2.3 10^3/uL (1.4-6.5); Neutrophils Percent Auto 45.5 % (43.0-75.0); Platelet Count 188 10^3/uL (150-450); Red Blood Count 3.68 10^6/uL (4.20-5.40); Red Cell Distribution Width 12.5 % (11.0-15.0); White Blood Count 5.1 10^3/uL (4.0-11.0)
[2024-04-20 06:18] LABS: Estimated Average Glucose 111 mg/dL; Glycohemoglobin A1C 5.5 % (4.5-6.2)
[2024-04-20 06:19] LABS: Chol HDL Ratio 5.4; Cholesterol 236 mg/dL (<=200); HDL Cholesterol 44 mg/dL (40-60); Triglycerides 223 mg/dL (<=150); VLDL CHOLESTEROL 44.6 mg/dL
[2024-04-20 06:21] LABS: Alanine Aminotransferase 16 U/L (14-59); Albumin Globulin Ratio 1.1; Albumin Level 3.2 g/dL (3.4-5.0); Alkaline Phosphatase 81 U/L (46-116); Amylase 217 U/L (25-115); Aspartate Amino Transferase 13 U/L (15-37); BUN Creatinine Ratio 15.7; Bilirubin Total 0.7 mg/dL (0.2-1.0); Calcium 9.1 mg/dL (8.5-10.1); Carbon Dioxide 31.4 mmol/L (21.0-32.0); Chloride 105 mmol/L (98-107); Estimated GFR (African America 54 (>=60); Estimated GFR (Non-African Ame 45 (>=60); Globulin 2.8 g/dL; Glucose 100 mg/dL (74-106); Magnesium 2.3 mg/dL (1.8-2.4); Potassium 4.4 mmol/L (3.5-5.1); Sodium 139 mmol/L (136-145)
--- NOTE | 2024-04-20 08:20 | SWNOTE1 ---
JALYN reached out to Jillian at [facility] to see if pt is still at [facility]? Waiting to hear back.
[2024-04-20] MEDS: LACTATED RINGER'S SOLUTION 1,000 ML 75 ML IV ×2 (08:37→21:07)
[2024-04-20] MEDS: DONEPEZIL HCL 10 MG TABLET PO ×2 (08:37→21:08)
--- NOTE | 2024-04-20 08:39 | SWNOTE1 ---
SW met with pt to discuss dc needs. Pt was sitting on couch, she was finishing up session with physical therapy. Pt lives at [facility]. She is not sure how long she has been there. She voiced she likes it there and plans on returning at discharge. Pt has a walker at [facility], but does not always need to use it. At this time pt has no concerns or needs at discharge. SW to follow as needed. Important Message from Medicare reviewed and discussed with patient. Pt. verbalized understanding and signed the form. Original given to patient and copy placed in patient?s chart.
[2024-04-20] MEDS: MEMANTINE HCL 28 MG CAP XR PO (08:40)
[2024-04-20] MEDS: LOSARTAN POTASSIUM 50 MG TABLET 100 MG PO (08:40)
[2024-04-20] MEDS: AMLODIPINE BESYLATE 5 MG TABLET 10 MG PO (08:41)
[2024-04-20] MEDS: HYDROCHLOROTHIAZIDE 25 MG TABLET 12.5 MG PO (08:41)
[2024-04-20] MEDS: DULOXETINE HCL 60 MG CAPSULE.DR PO (08:42)
[2024-04-20] MEDS: CEFTRIAXONE 1,000 MG in 0.9 % SODIUM CHLORIDE 50 ML 100 MG IV (09:35)
--- NOTE | 2024-04-20 10:34 | CM.NOTE ---
Rounds made with Dr. Pham. Dr. Pham discusses plan of care with Betzaida and son, Ed. Both in agreement with treatment plan. Plan to return to [facility] at this time.
--- NOTE | 2024-04-20 11:07 | PM.PN ---
Progress Note: Subjective Subjective Interval history: Patient resting comfortably in chair, She says she is hungry. She denies any diarrhea/vomiting or nausea, pain still present on the right side of abdomen. Patient is urinating and having BM's. Patient is refusing any pain medication. She would like to try some yogurt. I have spoke with son, Dr. Kahn and he denies any history of pancreatitis for her. Discussed lab findings and CT findings with him. He verified code status as DNRCC and also return to [facility]. Exam Narrative Exam Narrative: General: Patient is alert, and oriented to person, place normal affect, proper hygiene Skin: no visible rashes, or ulcers Head: atraumatic, acephalic Eyes: PERRLA, no nystagmus present, conjunctiva clear, no scleral icterus Ears: normal gross auditory acuity Neck: no masses palpated Heart: Normal rate and rhythm, no murmurs/rubs/gallops Lungs: no audible wheezes, crackles and normal breath sounds all lung [place] Abdomen: Normal audible bowel sounds, no distension, No palpable masses, mild tenderness to palpation in the RLQ and around the right side of abdominal wall Musculoskeletal: no swelling bilateral lower extremities Neuro: CN II-X grossly intact Constitutional Vital Signs, click to edit/add: Last Vital Signs Temp 97.8 F 04/20/24 11:03 Pulse 62 04/20/24 11:03 Resp 16 04/20/24 11:03 BP 120/70 04/20/24 11:03 Pulse Ox 95 04/20/24 11:03 O2 Del Method Room Air 04/20/24 11:03 Progress Note: Objective Labs Labs: Short CBC 04/19/24 04/20/24 Range/Units 13:10 05:55 WBC 7.7 5.1 (4.0-11.0) 10^3/uL Hgb 12.9 11.3 L (12.0-16.0) g/dL Hct 38.3 34.8 L (36.0-48.0) % Plt Count 261 188 (150-450) 10^3/uL BMP 04/19/24 04/20/24 13:10 05:55 Sodium 140 139 Potassium 4.3 4.4 Chloride 105 105 Carbon Dioxide 26.9 31.4 BUN 27.0 H 18.0 Creatinine 1.24 H 1.15 H Glucose 102 100 Calcium 10.1 9.1 Liver Function 04/19/24 04/20/24 Range/Units 13:10 05:55 Total Bilirubin 0.6 0.7 (0.2-1.0) mg/dL AST 13 L 13 L (15-37) U/L ALT 19 16 (14-59) U/L Alkaline Phosphatase 94 81 (46-116) U/L Albumin 3.8 3.2 L (3.4-5.0) g/dL Progress Note: A&P Assessment and Plan (1) Acute pancreatitis without infection or necrosis: Assessment and Plan: advance diet to full liquid, antiemetics if needed, prn Zofran. normal CT of the pancreas and LFT's normal, TB normal, prior cholecystectomy. Pain control with Tylenol and [place] as needed. lipids show slightly elevated triglycerides at 223. Lipase 427 today, amylase 217. Most likely idiopathic pancreatitis Qualifiers: Pancreatitis type: idiopathic Qualified Code(s): K85.00 - Idiopathic acute pancreatitis without necrosis or infection (2) Hypothyroid: Assessment and Plan: slight elevation of TSH, I have increased levothyroxine to 112mcg daily Qualifiers: Hypothyroidism type: unspecified Qualified Code(s): E03.9 - Hypothyroidism, unspecified (3) Dementia: Assessment and Plan: continue memantine and seroquel and donepezil Qualifiers: Dementia type: Alzheimer's Alzheimer's disease onset: late onset Dementia severity: moderate Dementia behavioral or psychological symptom: with mood disturbance Qualified Code(s): G30.1 - Alzheimer's disease with late onset; F02.B3 - Dementia in other diseases classified elsewhere, moderate, with mood disturbance (4) COPD (chronic obstructive pulmonary disease): Assessment and Plan: prn Duonebs, no acute exacerbation Qualifiers: COPD type: chronic bronchitis Chronic bronchitis type: unspecified Qualified Code(s): J42 - Unspecified chronic bronchitis (5) Ambulatory dysfunction: Assessment and Plan: PT/OT consult, plans to return to [facility] (6) Primary hypertension: Assessment and Plan: continue losartan/hctz, amlodipine Plan Patient is a DNRCC Patient is inpatient status , advance diet today and hopeful discharge tomorrow
[2024-04-20] MEDS: QUETIAPINE FUMARATE 25 MG TABLET PO (21:06)
[2024-04-21] VITALS: BP 141/67; PULSE 60; TEMP 36.7; O2SAT 93
[2024-04-21 03:36] VITALS: BP 161/66; PULSE 62; TEMP 36.4; O2SAT 93
[2024-04-21] MEDS: LEVOTHYROXINE SODIUM 112 MCG TABLET PO (05:34)
[2024-04-21 06:28] LABS: Basophils Absolute Auto 0.1 10^3/uL (0.0-0.1); Basophils Percent Auto 1.3 % (0.2-2.0); Eosinophils Absolute Auto 0.4 10^3/uL (0.0-0.7); Eosinophils Percent Auto 6.7 % (0.9-7.0); Hematocrit 36.2 % (36.0-48.0); Hemoglobin 11.6 g/dL (12.0-16.0); Immature Granulocytes Abs Auto 0.02 10^3/uL (0.00-0.03); Immature Granulocytes Pct Auto 0.3 % (0.0-0.5); Lymphocytes Absolute Auto 1.7 10^3/uL (1.2-3.8); Lymphocytes Percent Auto 27.5 % (20.5-60.0); Mean Corpuscular Hemoglobin 30.2 pg (26.7-34.0); Mean Corpuscular Volume 94.3 fL (81.0-99.0); Mean Platelet Volume 11.6 fL (9.5-13.5); Monocytes Absolute Auto 0.4 10^3/uL (0.3-0.8); Monocytes Percent Auto 7.3 % (1.7-12.0); Neutrophils Absolute Auto 3.4 10^3/uL (1.4-6.5); Neutrophils Percent Auto 56.9 % (43.0-75.0); Platelet Count 191 10^3/uL (150-450); Red Blood Count 3.84 10^6/uL (4.20-5.40); Red Cell Distribution Width 12.6 % (11.0-15.0)
[2024-04-21 06:51] LABS: Alanine Aminotransferase 18 U/L (14-59); Albumin Level 3.1 g/dL (3.4-5.0); Alkaline Phosphatase 81 U/L (46-116); Amylase 80 U/L (25-115); Anion Gap 10.4; Aspartate Amino Transferase 18 U/L (15-37); BUN Creatinine Ratio 13.6; Bilirubin Total 0.5 mg/dL (0.2-1.0); Calcium 9.6 mg/dL (8.5-10.1); Carbon Dioxide 29.1 mmol/L (21.0-32.0); Chloride 106 mmol/L (98-107); Estimated GFR (African America >60 (>=60); Estimated GFR (Non-African Ame 51 (>=60); Globulin 3.1 g/dL; Glucose 95 mg/dL (74-106); Potassium 4.5 mmol/L (3.5-5.1); Sodium 141 mmol/L (136-145); Total Protein 6.2 g/dL (6.4-8.2)
[2024-04-21 08:40] VITALS: BP 171/71; PULSE 67; TEMP 36.6; O2SAT 95
[2024-04-21] MEDS: MEMANTINE HCL 28 MG CAP XR PO (08:58)
[2024-04-21] MEDS: DULOXETINE HCL 60 MG CAPSULE.DR PO (08:58)
[2024-04-21] MEDS: LOSARTAN POTASSIUM 50 MG TABLET 100 MG PO (08:58)
[2024-04-21] MEDS: AMLODIPINE BESYLATE 5 MG TABLET 10 MG PO (08:58)
[2024-04-21] MEDS: HYDROCHLOROTHIAZIDE 25 MG TABLET 12.5 MG PO (08:58)
[2024-04-21] MEDS: DONEPEZIL HCL 10 MG TABLET PO (08:59)
--- NOTE | 2024-04-21 09:09 | PT.DAILY ---
Physical Therapy Daily Note PT Daily Note/Assess Start: 04/21/24 09:08 Freq: Status: Active Protocol: Document 04/21/24 09:08 WILLIAM (Rec: 04/21/24 09:09 WILLIAM [id number]) Visit Not Completed Visit Not Completed Visit Not Completed Due to: Other Other Reason Visit Not Completed Pt using restroom at this time . States she has not needs from PT at this time and is getting around her room well. From assisted living, planned to go back. Physical Therapy Daily Note/Assessment Time In/Time Out Time In 09:05 Time Out 09:06 Pain In Pain N/A Pain Out Pain N/A GG. Functional Abilities and Goals-Complete for Swing Bed Patients Only [id number]. Self-Care [id number]. Mobility
[2024-04-21] MEDS: CEFTRIAXONE 1,000 MG in 0.9 % SODIUM CHLORIDE 50 ML 100 MG IV (09:11)
[2024-04-21 09:21] VITALS: O2SAT 95
--- NOTE | 2024-04-21 11:29 | PM.DS1 ---
DS: Providers Provider Date of admission: 04/19/24 17:20 Primary care physician: APOLLO BOO Admitting clinician: Michaelle Pham Attending physician on admission: Michaelle Pham Consults: 04/19/24 16:35 Occupational Therapy Eval and Treat Routine Reason for consultation: weakness Has provider been notified: No Physical Therapy Eval and Treat Routine Reason for consultation: weakness Has provider been notified: No Attending physician on discharge: Shaikh Verónica Discharging clinician: Shaikh Verónica Anticipated date of discharge: 04/21/24 DS: Diagnosis Discharge Diagnosis (1) Acute pancreatitis without infection or necrosis: Assessment and plan: Doing well today. Tolerated regular diet. Denies nausea/vomiting or abdominal pain. Lipase is also normal Qualifiers: Pancreatitis type: idiopathic Qualified Code(s): K85.00 - Idiopathic acute pancreatitis without necrosis or infection (2) Hypothyroid: Assessment and plan: C/w levothyroxine. Qualifiers: Hypothyroidism type: unspecified Qualified Code(s): E03.9 - Hypothyroidism, unspecified (3) Dementia: Assessment and plan: Forgetful but answers questions appropriately. C/w Memantine. Qualifiers: Alzheimer's disease onset: late onset Dementia behavioral or psychological symptom: with mood disturbance Dementia severity: moderate Dementia type: Alzheimer's Qualified Code(s): G30.1 - Alzheimer's disease with late onset; F02.B3 - Dementia in other diseases classified elsewhere, moderate, with mood disturbance (4) COPD (chronic obstructive pulmonary disease): Assessment and plan: No active bronchospasm. C/w home medications. Qualifiers: COPD type: chronic bronchitis Chronic bronchitis type: unspecified Qualified Code(s): J42 - Unspecified chronic bronchitis (5) Ambulatory dysfunction: Assessment and plan: Uses Walker. At her baseline physical status. Lives in assisted living facility. (6) Primary hypertension: Assessment and plan: C/w home medications. BP above goal today. May need to adjust her BP regimen as outpatient DS: Summary Hospital Course Hospital Course: 84-year-old female presented with poor appetite and right lower quadrant pain. Her workup revealed elevated lipase up to 380. CT abdomen pelvis was negative for ascites, diverticulitis and showed signs of prior cholecystectomy. Patient was treated for acute idiopathic pancreatitis with supportive measures including IV hydration, bowel rest, antiemetics and analgesic medications as needed. Patient's clinical symptoms improved during the course of admission and she tolerated regular diet earlier on the day of discharge. She denies nausea, vomiting, constipation, diarrhea. She also denies abdominal pain currently. Patient is medically stable for discharge. She was instructed to follow-up with PCP in 1 to 2 weeks. Status at Discharge Functional status at discharge: uses cane/walker Overall status at discharge: patient is back to baseline Time Spent with Patient Time attestation: Total time spent providing and/or coordinating discharge services: Time spent: greater than 30 minutes Exam Constitutional Vital Signs, click to edit/add: Last Vital Signs Temp 97.8 F 04/21/24 08:40 Pulse 67 04/21/24 08:40 Resp 18 04/21/24 08:40 BP 171/71 H 04/21/24 08:40 Pulse Ox 95 04/21/24 09:21 O2 Del Method Room Air 04/21/24 09:21 Documenting provider has reviewed patient's vital signs: yes Common normals: no apparent distress and oriented x3 General appearance: cooperative Respiratory Common normals: normal respiratory effort and clear to auscultation bilaterally Effort & inspection: able to speak in complete sentences Auscultation: clear to auscultation bilaterally Cardio Common normals: regular rate, S1 normal heart sound and S2 normal heart sound Rate: regular rate Heart sounds: S1 normal and S2 normal GI Common normals: Normal to inspection, nondistended, normoactive bowel sounds present, soft to palpation, non-tender and no hepatosplenomegaly Palpation: soft and no hepatosplenomegaly Extremity Common normals: no clubbing, cyanosis or edema Neuro Common normals: oriented x3, moves all extremities and no focal motor deficits Psych Common normals: mental status grossly normal, denies hallucinations, denies homicidal ideation and denies suicidal ideation DS: Data Data Completed and Pending Labs on day of discharge: Labs from last 24 hours 04/21/24 06:14 WBC 6.0 RBC 3.84 L Hgb 11.6 L Hct 36.2 MCV 94.3 MCH 30.2 MCHC 32.0 RDW 12.6 Plt Count 191 MPV 11.6 Neut % (Auto) 56.9 Lymph % (Auto) 27.5 Love % (Auto) 7.3 Eos % (Auto) 6.7 Baso % (Auto) 1.3 Neut # (Auto) 3.4 Lymph # (Auto) 1.7 Love # (Auto) 0.4 Eos # (Auto) 0.4 Baso # (Auto) 0.1 Abs Immat Gran (auto) 0.02 Imm/Tot Granulo (auto) 0.3 Sodium 141 Potassium 4.5 Chloride 106 Carbon Dioxide 29.1 Anion Gap 10.4 BUN 14.0 Creatinine 1.03 H Est GFR ( Amer) >60 Est GFR (Non-Af Amer) 51 L BUN/Creatinine Ratio 13.6 Glucose 95 Calcium 9.6 Magnesium 2.0 Total Bilirubin 0.5 AST 18 ALT 18 Alkaline Phosphatase 81 Total Protein 6.2 L Albumin 3.1 L Globulin 3.1 Albumin/Globulin Ratio 1.0 Amylase 80 Lipase 79.0 H Discharge Plan Discharge Disposition: Home, Self-Care Discharge Medications: Continued quetiapine 25 mg tablet 25 mg PO BEDTIME donepezil 10 mg tablet 10 mg PO BID duloxetine 60 mg capsule,delayed release(DR/EC) 60 mg PO DAILY memantine [Namenda] 10 mg tablet 10 mg PO BID levothyroxine [Synthroid] 100 mcg tablet 100 mcg PO DAILY amlodipine 10 mg tablet 10 mg PO DAILY Qty: 30 0RF losartan-hydrochlorothiazide 100-12.5 mg tablet 1 tab PO .qd albuterol sulfate 2.5 mg /3 mL (0.083 %) solution for nebulization 2.5 mg inhalation Q6H PRN (Reason: shortness of breath or wheezing) Discontinued cephalexin 250 mg capsule 250 mg PO DAILY Activity: increase activity as tolerated Diet: advance to your usual diet Print Language: [place] Forms: Portal Instructions Follow Up Appointments: F/u with PCP in one week
[2024-04-21 12:00] VITALS: BP 144/75; PULSE 59; TEMP 36.5; O2SAT 91
--- NOTE | 2024-04-23 14:03 | CM.DCFOLLOWU ---
Discharge back to [facility].
--- OUTSIDE RECORDS SUMMARY | 2024-04-27 10:16 | XMS_ITS | CCD ---
Author Organization [facility] Inform ion Partnership [facility] Care Team Providers Care Workforce Management Analyst Name Role Phone PHYSICIAN, DEFAULT Unavailable Unavailable [...] Facility (1 source) Desonide Drug Allergy [facility] (1 source) nabumetone Drug Allergy [facility] (1 source) Neomycin Drug Allergy [facility] (1 source) oxyCODONE Drug Allergy [facility] (1 source) Ramipril Drug Allergy [facility] (1 source) Polymyxin B Drug allergy (disorder) [facility] Problems Active Problems Problem Classification Problem Date Documented Da te Episodic/Chronic Delirium, dementia, and amnestic and other cognitive disorders (1 source) Unspecified dementia without behavioral disturbance; Translations: [UNSP CNOCHA UNS SEV W/O DSTRB ANXTY] Onset: 12-28-2022 [...] Onset: 06-21-2022 Chronic Other aftercare (1 source) care home (current) use of aspirin; Translations: [JAIL CURRENT USE OF ASPIRIN] Onset: 12-28-2022 Episodic Other aftercare (1 source) Other assisted (current) drug therapy; Translations: [OTH JAIL CURRENT [...] 12-29-2022 BASO # 0.1 103/ul Normal 0.0-0.1 [facility] Comment on above: Performed By: #### R SPLUS #### [facility] [address] [address] [address] Emilie Carmona Basophils/100 WBC (Bld) 0.8 % Normal 0.2-2.0 [facility] Comment on above: Performed By: #### R SPLUS #### [facility] [address] [address] [address] Emilie Carmona EO # 0.0 103/ul Normal 0.0-0.7 [facility] Comment on above: Performed By: #### R SPLUS #### [facility] [address] [address] [address] Emilie Carmona Eosinophils/100 WBC (Bld) 0.1 % Critically low 0.9-7.0 [facility] Comment on above: Performed By: #### R SPLUS #### [facility] [address] [address] [address] Emilie Carmona Erythrocyte distribution width (RBC) [Ratio] 14.8 % Normal 11.0-15.0 [facility] Comment on above: Performed By: #### R SPLUS #### [facility] [address] [place] [address] Dr. Emilie Carmona Hematocrit (Bld) [Volume fraction] 33.3 % Critically low 36.0-48.0 [facility] Comment on above: Performed By: #### R SPLUS #### [facility] [address] [address] [address] Emilie Carmona Hemoglobin (Bld) [Mass/Vol] 10.9 g/dL Critically low 12.0-16.0 [facility] Comment on above: Performed By: #### R SPLUS #### [facility] [address] [address] [address] Emilie Carmona IG # 0.61 10e3/ul Critically high 0.00-0.[address] [facility] Comment on above: Performed By: #### R SPLUS #### [facility] [address] [place] [address] Dr. Emilie Carmona IG % 5.7 % Critically high 0.0-0.5 [facility] Comment on above: Performed By: #### R SPLUS #### [facility] [address] [place] [address] Dr. Emilie Carmona LYMPH # 1.7 103/ul Normal 1.2-3.8 [facility] Comment on above: Performed By: #### R SPLUS #### [facility] [address] [place] [address] Dr. Emilie Carmona Lymphocytes/100 WBC (Bld) 15.8 % Critically low 20.5-60.0 [facility] Comment on above: Performed By: #### R SPLUS #### [facility] [address] [place] [address] Dr. Emilie Carmona MANUAL DIFF REQ NO Normal [facility] Comment on above: Performed By: #### R SPLUS #### [facility] [address] [place] [address] Dr. Emilie Carmona MCH (RBC) [Entitic mass] 27.9 pg Normal 26.7-34.0 [facility] Comment on above: Performed By: #### R SPLUS #### [facility] [address] [place] [address] Dr. Emilie Carmona MCHC (RBC) [Mass/Vol] 32.7 g/dL Normal 29.9-35.2 [facility] Comment on above: Performed By: #### R SPLUS #### [facility] [address] [place] [address] Dr. Emilie Carmona MCV (RBC) [Entitic vol] 85.4 fL Normal 81.0-99.0 [facility] Comment on above: Performed By: #### R SPLUS #### [facility] [address] [place] [address] Dr. Emilie Carmona MONO # 0.7 103/ul Normal 0.3-0.8 [facility] Comment on above: Performed By: #### R SPLUS #### [facility] [address] [place] [address] Dr. Emilie Carmona Monocytes/100 WBC (Bld) 6.9 % Normal 1.7-12.0 [facility] Comment on above: Performed By: #### R SPLUS #### [facility] [address] [place] [address] Dr. Emiile Carmona NEUT # 7.6 103/ul Critically high 1.4-6.5 [facility] Comment on above: Performed By: #### R SPLUS #### [facility] [address] [place] [address] Dr. Emilie Carmona Neutrophils/100 WBC (Bld) 70.7 % Normal 43.0-75.0 [facility] Comment on above: Performed By: #### R SPLUS #### [facility] [address] [place] [address] Dr. Emilie Carmona Platelet mean volume (Bld) [Entitic vol] 10.8 fL Normal 9.5-13.5 [facility] Comment on above: Performed By: #### R SPLUS #### [facility] [address] [place] [address] Dr. Emilie Carmona PLT 270 103/ul Normal 150-450 [facility] Comment on above: Performed By: #### R SPLUS #### [facility] [address] [place] [address] Dr. Emilie Carmona RBC 3.90 106/ul Critically low 4.20-5.40 [facility] Comment on above: Performed By: #### R SPLUS #### [facility] [address] [address] [address] Emilie Carmona WBC 10.7 103/ul Normal 4.0-11.0 [facility] Comment on above: Performed By: #### R SPLUS #### [facility] [address] [address] [address] Emilie Carmona PROF 14(COMP METB)on 023 Albumin [Mass/Vol] 2.6 g/dL Critically low 3.4-5.0 [facility] Comment on above: Performed By: #### C MP #### [facility] [address] [place] [address] Dr. Emilie Carmona Albumin/Globulin [Mass ratio] 0.6 {ratio} Normal [facility] Comment on above: Performed By: #### C MP #### [facility] [address] [place] [address] Dr. Emilie Carmona ALP [Catalytic activity/Vol] 58 U/L Normal 46-116 [facility] Comment on above: Performed By: #### C MP #### [facility] [address] [place] [address] Dr. Emilie Carmona ALT [Catalytic activity/Vol] 32 U/L Normal 14-59 [facility] Comment on above: Performed By: #### C MP #### [facility] [address] [place] [address] Dr. Emilie Carmona Anion gap [Moles/Vol] 13.8 mmol/L Normal [facility] Comment on above: Performed By: #### C MP #### [facility] [address] [address] [address] Emilie Carmona AST [Catalytic activity/Vol] 30 U/L Normal 15-37 [facility] Comment on above: Performed By: #### C MP #### [facility] [address] [place] [address] Dr. Emilie Carmona Bilirubin [Mass/Vol] 0.2 mg/dL Normal 0.2-1.0 [facility] Comment on above: Performed By: #### C MP #### [facility] [address] [address] [address] Emilie Carmona Calcium [Mass/Vol] 9.7 mg/dL Normal 8.5-10.1 [facility] Comment on above: Performed By: #### C MP #### [facility] [address] [address] [address] Emilie Carmona Chloride [Moles/Vol] 107 mmol/L Normal 98-107 [facility] Comment on above: Performed By: #### C MP #### [facility] [address] [address] [address] Emilie Carmona CO2 [Moles/Vol] 24.8 mmol/L Normal 21.0-32.0 [facility] Comment on above: Performed By: #### C MP #### [facility] [address] [address] [address] Emilie Carmona Creatinine [Mass/Vol] 1.02 mg/dL Normal 0.55-1.02 [facility] Comment on above: Performed By: #### C MP #### [facility] [address] [address] [address] Emilie Carmona EGFR-AF BELIZEAN >60 Normal >=60 [facility] Comment on above: Performed By: #### C MP #### [facility] [address] [address] [address] Emilie Carmona EGFR-NON AF BELIZEAN 52 mL/min/1.73m2 Critically low >=60 [facility] Comment on above: Performed By: #### C MP #### [facility] [address] [address] [address] Emilie Carmona Globulin (S) [Mass/Vol] 4.0 g/dL Normal [facility] Comment on above: Performed By: #### C MP #### [facility] [address] [address] [address] Emilie Carmona Glucose [Mass/Vol] 99 mg/dL Normal 74-106 [facility] Comment on above: Performed By: #### C MP #### [facility] [address] [address] [address] Emilie Carmona Potassium [Moles/Vol] 4.6 mmol/L Normal 3.5-5.1 [facility] Comment on above: Performed By: #### C MP #### [facility] [address] [address] [address] Emilie Carmona Protein [Mass/Vol] 6.6 g/dL Normal 6.4-8.2 [facility] Comment on above: Performed By: #### C MP #### [facility] [address] [address] [address] Emilie Carmona Sodium [Moles/Vol] 141 mmol/L Normal 136-145 [facility] Comment on above: Performed By: #### C MP #### [facility] [address] [address] [address] Emilie Carmona Urea nitrogen [Mass/Vol] 17.0 mg/dL Normal 7.0-18.0 [facility] Comment on above: Performed By: #### C MP #### [facility] [address] [address] [address] Emilie Carmona Urea nitrogen/Creatinine [Mass ratio] 16.7 mg/mg Normal [facility] Comment on above: Performed By: #### C MP #### [facility] [address] [address] [address] Emilie Carmona CBC AUTO DIFFon 12-28-2022 BASO # 0.0 103/ul Normal 0.0-0.1 [facility] Comment on above: Performed By: #### C BC #### [facility] [address] [address] [address] Emilie Carmona Basophils/100 WBC (Bld) 0.3 % Normal 0.2-2.0 [facility] Comment on above: Performed By: #### C BC #### [facility] [address] [address] [address] Emilie Carmona EO # 0.0 103/ul Normal 0.0-0.7 [facility] Comment on above: Performed By: #### C BC #### [facility] [address] [address] [address] Emilie Carmona Eosinophils/100 WBC (Bld) 0.0 % Critically low 0.9-7.0 [facility] Comment on above: Performed By: #### C BC #### [facility] [address] [place] [address] Dr. Emilie Carmona Erythrocyte distribution width (RBC) [Ratio] 14.6 % Normal 11.0-15.0 [facility] Comment on above: Performed By: #### C BC #### [facility] [address] [place] [address] Dr. Emilie Carmona Hematocrit (Bld) [Volume fraction] 32.2 % Critically low 36.0-48.0 [facility] Comment on above: Performed By: #### C BC #### [facility] [address] [place] [address] Dr. Emilie Carmona Hemoglobin (Bld) [Mass/Vol] 10.4 g/dL Critically low 12.0-16.0 [facility] Comment on above: Performed By: #### C BC #### [facility] [address] [place] [address] Dr. Emilie Carmona IG # 0.22 10e3/ul Critically high 0.00-0.[address] [facility] Comment on above: Performed By: #### C BC #### [facility] [address] [place] [address] Dr. Emilie Carmona IG % 2.0 % Critically high 0.0-0.5 [facility] Comment on above: Performed By: #### C BC #### [facility] [address] [place] [address] Dr. Emilie Carmona LYMPH # 1.2 103/ul Normal 1.2-3.8 [facility] Comment on above: Performed By: #### C BC #### [facility] [address] [place] [address] Dr. Emilie Carmona Lymphocytes/100 WBC (Bld) 11.4 % Critically low 20.5-60.0 [facility] Comment on above: Performed By: #### C BC #### [facility] [address] [place] [address] Dr. Emilie Carmona MANUAL DIFF REQ NO Normal [facility] Comment on above: Performed By: #### C BC #### [facility] [address] [place] [address] Dr. Emilie Carmona MCH (RBC) [Entitic mass] 27.6 pg Normal 26.7-34.0 [facility] Comment on above: Performed By: #### C BC #### [facility] [address] [place] [address] Dr. Emilie Carmona MCHC (RBC) [Mass/Vol] 32.3 g/dL Normal 29.9-35.2 [facility] Comment on above: Performed By: #### C BC #### [facility] [address] [place] [address] Dr. Emilie Carmona MCV (RBC) [Entitic vol] 85.4 fL Normal 81.0-99.0 [facility] Comment on above: Performed By: #### C BC #### [facility] [address] [place] [address] Dr. Emilie Carmona MONO # 0.7 103/ul Normal 0.3-0.8 [facility] Comment on above: Performed By: #### C BC #### [facility] [address] [place] [address] Dr. Emilie Carmona Monocytes/100 WBC (Bld) 6.3 % Normal 1.7-12.0 [facility] Comment on above: Performed By: #### C BC #### [facility] [address] [place] [address] Dr. Emilie Carmona NEUT # 8.7 103/ul Critically high 1.4-6.5 [facility] Comment on above: Performed By: #### C BC #### [facility] [address] [place] [address] Dr. Emilie Carmona Neutrophils/100 WBC (Bld) 80.0 % Critically high 43.0-75.0 [facility] Comment on above: Performed By: #### C BC #### [facility] [address] [address] [address] Emilie Carmona Platelet mean volume (Bld) [Entitic vol] 10.9 fL Normal 9.5-13.5 [facility] Comment on above: Performed By: #### C BC #### [facility] [address] [address] [address] Emilie Carmona PLT 226 103/ul Normal 150-450 [facility] Comment on above: Performed By: #### C BC #### [facility] [address] [address] [address] Emilie Carmona RBC 3.77 106/ul Critically low 4.20-5.40 [facility] Comment on above: Performed By: #### C BC #### [facility] [address] [address] [address] Emilie Carmona WBC 10.9 103/ul Normal 4.0-11.0 [facility] Comment on above: Performed By: #### C BC #### [facility] [address] [address] [address] Emilie Carmona PROF 14(COMP METB)on 023 Albumin [Mass/Vol] 2.4 g/dL Critically low 3.4-5.0 [facility] Comment on above: Performed By: #### C MP ####[facility] [address] [address]DrBrenton Carmona Albumin/Globulin [Mass ratio] 0.6 {ratio} Normal [facility] Comment on above: Performed By: #### C MP ####[facility] [address] [id number] Carmona ALP [Catalytic activity/Vol] 57 U/L Normal 46-116 [facility] Comment on above: Performed By: #### C MP ####[facility] [address] [id number] Carmona ALT [Catalytic activity/Vol] 32 U/L Normal 14-59 [facility] Comment on above: Performed By: #### C MP ####[facility] [address] [address]Dr. Emilie Carmona Anion gap [Moles/Vol] 14.1 mmol/L Normal [facility] Comment on above: Performed By: #### C MP ####[facility] [address] [place], [place] [address]Dr. Emilie Carmona AST [Catalytic activity/Vol] 35 U/L Normal 15-37 [facility] Comment on above: Performed By: #### C MP ####[facility] [address] [place], [place] [address]Dr. Emilie Carmona Bilirubin [Mass/Vol] 0.2 mg/dL Normal 0.2-1.0 [facility] Comment on above: Performed By: #### C MP ####[facility] [address] [place], [place] [address]Dr. Emilie Carmona Calcium [Mass/Vol] 9.2 mg/dL Normal 8.5-10.1 [facility] Comment on above: Performed By: #### C MP ####[facility] [address] [place], [place] [address]Dr. Emilie Carmona Chloride [Moles/Vol] 107 mmol/L Normal 98-107 [facility] Comment on above: Performed By: #### C MP ####[facility] [address] [place], [place] [address]Dr. Emilie Carmona CO2 [Moles/Vol] 22.7 mmol/L Normal 21.0-32.0 [facility] Comment on above: Performed By: #### C MP ####[facility] [address] [place], [place] [address]Dr. Emilie Mathew Creatinine [Mass/Vol] 1.02 mg/dL Normal 0.55-1.02 [facility] Comment on above: Performed By: #### C MP ####[facility] [address] [place], [place] [address]Dr. Savileslie Mathew EGFR-AF BELIZEAN >60 Normal >=60 [facility] Comment on above: Performed By: #### C MP ####[facility] [address] [place], [place] [address]Dr. Emilie Carmona EGFR-NON AF BELIZEAN 52 mL/min/1.73m2 Critically low >=60 [facility] Comment on above: Performed By: #### C MP ####[facility] [address] [address]Dr. Emilie Carmona Globulin (S) [Mass/Vol] 4.0 g/dL Normal [facility] Comment on above: Performed By: #### C MP ####[facility] [address] [address]Dr. Emilie Carmona Glucose [Mass/Vol] 132 mg/dL Critically high 74-106 [facility] Comment on above: Performed By: #### C MP ####[facility] [address] [place], [place] [address]Dr. Emilie Carmona Potassium [Moles/Vol] 3.8 mmol/L Normal 3.5-5.1 [facility] Comment on above: Performed By: #### C MP ####[facility] [address] [place], [place] [address]Dr. Emilie Carmona Protein [Mass/Vol] 6.4 g/dL Normal 6.4-8.2 [facility] Comment on above: Performed By: #### C MP ####[facility] [address] [place], [place] [address]Dr. Emilie Carmona Sodium [Moles/Vol] 140 mmol/L Normal 136-145 [facility] Comment on above: Performed By: #### C MP ####[facility] [address] [place], [place] [address]Dr. Emilie Carmona Urea nitrogen [Mass/Vol] 19.0 mg/dL Critically high 7.0-18.0 [facility] Comment on above: Performed By: #### C MP ####[facility] [address] [place], [place] [address]Dr. Emilie Carmona Urea nitrogen/Creatinine [Mass ratio] 18.6 mg/mg Normal [facility] Comment on above: Performed By: #### C MP ####[facility] [address] [place], [place] [address]Dr. Emilie Carmona CBC AUTO DIFFon 12-27-2022 BASO # 0.1 103/ul Normal 0.0-0.1 [facility] Comment on above: Performed By: #### C BC #### [facility] [address] [address] [address] Emilie Carmona Basophils/100 WBC (Bld) 0.4 % Normal 0.2-2.0 [facility] Comment on above: Performed By: #### C BC #### [facility] [address] [address] [address] Emilie Carmona EO # 0.2 103/ul Normal 0.0-0.7 [facility] Comment on above: Performed By: #### C BC #### [facility] [address] [place] [address] Dr. Emilie Carmona Eosinophils/100 WBC (Bld) 1.8 % Normal 0.9-7.0 [facility] Comment on above: Performed By: #### C BC #### [facility] [address] [place] [address] Dr. Emilie Carmona Erythrocyte distribution width (RBC) [Ratio] 14.1 % Normal 11.0-15.0 [facility] Comment on above: Performed By: #### C BC #### [facility] [address] [place] [address] Dr. Emilie Carmona Hematocrit (Bld) [Volume fraction] 32.1 % Critically low 36.0-48.0 [facility] Comment on above: Performed By: #### C BC #### [facility] [address] [place] [address] Dr. Emilie Carmona Hemoglobin (Bld) [Mass/Vol] 10.7 g/dL Critically low 12.0-16.0 [facility] Comment on above: Performed By: #### C BC #### [facility] [address] [place] [address] Dr. Emilie Carmona IG # 0.13 10e3/ul Critically high 0.00-0.[address] [facility] Comment on above: Performed By: #### C BC #### [facility] [address] [place] [address] Dr. Emilie Carmona IG % 0.9 % Critically high 0.0-0.5 [facility] Comment on above: Performed By: #### C BC #### [facility] [address] [place] [address] Dr. Emilie Carmona LYMPH # 0.9 103/ul Critically low 1.2-3.8 [facility] Comment on above: Performed By: #### C BC #### [facility] [address] [place] [address] Dr. Emilie Carmona Lymphocytes/100 WBC (Bld) 6.9 % Critically low 20.5-60.0 [facility] Comment on above: Performed By: #### C BC #### [facility] [address] [place] [address] Dr. Emilie Carmona MANUAL DIFF REQ NO Normal [facility] Comment on above: Performed By: #### C BC #### [facility] [address] [place] [address] Dr. Emilie Carmona MCH (RBC) [Entitic mass] 28.2 pg Normal 26.7-34.0 [facility] Comment on above: Performed By: #### C BC #### [facility] [address] [place] [address] Dr. Emilie Carmona MCHC (RBC) [Mass/Vol] 33.3 g/dL Normal 29.9-35.2 [facility] Comment on above: Performed By: #### C BC #### [facility] [address] [place] [address] Dr. Emilie Carmona MCV (RBC) [Entitic vol] 84.7 fL Normal 81.0-99.0 [facility] Comment on above: Performed By: #### C BC #### [facility] [address] [place] [address] Dr. Emilie Carmona MONO # 0.8 103/ul Normal 0.3-0.8 [facility] Comment on above: Performed By: #### C BC #### [facility] [address] [place] [address] Dr. Emilie Carmona Monocytes/100 WBC (Bld) 5.8 % Normal 1.7-12.0 [facility] Comment on above: Performed By: #### C BC #### [facility] [address] [place] [address] Dr. Emilie Carmona NEUT # 11.5 103/ul Critically high 1.4-6.5 [facility] Comment on above: Performed By: #### C BC #### [facility] [address] [place] [address] Dr. Emilie Carmona Neutrophils/100 WBC (Bld) 84.2 % Critically high 43.0-75.0 [facility] Comment on above: Performed By: #### C BC #### [facility] [address] [place] [address] Dr. Emilie Carmona Platelet mean volume (Bld) [Entitic vol] 10.8 fL Normal 9.5-13.5 [facility] Comment on above: Performed By: #### C BC #### [facility] [address] [place] [address] Dr. Emilie Carmona PLT 200 103/ul Normal 150-450 [facility] Comment on above: Performed By: #### C BC #### [facility] [address] [place] [address] Dr. Emilie Carmona RBC 3.79 106/ul Critically low 4.20-5.40 [facility] Comment on above: Performed By: #### C BC #### [facility] [address] [place] [address] Dr. Emilie Carmona WBC 13.7 103/ul Critically high 4.0-11.0 [facility] Comment on above: Performed By: #### C BC #### [facility] [address] [place] [address] Dr. Emilie Carmona PROF 14(COMP METB)on 023 Albumin [Mass/Vol] 2.4 g/dL Critically low 3.4-5.0 [facility] Comment on above: Performed By: #### C MP #### [facility] [address] [place] [address] Dr. Emilie Carmona Albumin/Globulin [Mass ratio] 0.6 {ratio} Normal [facility] Comment on above: Performed By: #### C MP #### [facility] [address] [address] [address] Emilie Carmona ALP [Catalytic activity/Vol] 57 U/L Normal 46-116 [facility] Comment on above: Performed By: #### C MP #### [facility] Laboratory [address] [address] [address] Emilie Carmona ALT [Catalytic activity/Vol] 21 U/L Normal 14-59 [facility] Comment on above: Performed By: #### C MP #### [facility] [address] [address] [address] Emilie Carmona Anion gap [Moles/Vol] 15.4 mmol/L Normal [facility] Comment on above: Performed By: #### C MP #### [facility] [address] [place] [address] Dr. Emilie Carmona AST [Catalytic activity/Vol] 39 U/L Critically high 15-37 [facility] Comment on above: Performed By: #### C MP #### [facility] [address] [address] [address] Emilie Carmona Bilirubin [Mass/Vol] 0.3 mg/dL Normal 0.2-1.0 [facility] Comment on above: Performed By: #### C MP #### [facility] [address] [address] [address] Emilie Carmona Calcium [Mass/Vol] 9.0 mg/dL Normal 8.5-10.1 [facility] Comment on above: Performed By: #### C MP #### [facility] [address] [address] [address] Emilie Carmona Chloride [Moles/Vol] 104 mmol/L Normal 98-107 [facility] Comment on above: Performed By: #### C MP #### [facility] [address] [address] [address] Emilie Carmona CO2 [Moles/Vol] 20.7 mmol/L Critically low 21.0-32.0 [facility] Comment on above: Performed By: #### C MP #### [facility] [address] [address] [address] Emilie Carmona Creatinine [Mass/Vol] 1.05 mg/dL Critically high 0.55-1.02 [facility] Comment on above: Performed By: #### C MP #### [facility] [address] [address] [address] Emilie Carmona EGFR-AF BELIZEAN >60 Normal >=60 [facility] Comment on above: Performed By: #### C MP #### [facility] [address] [address] [address] Emilie Carmona EGFR-NON AF BELIZEAN 50 mL/min/1.73m2 Critically low >=60 [facility] Comment on above: Performed By: #### C MP #### [facility] [address] [address] [address] Emilie Carmona Globulin (S) [Mass/Vol] 4.1 g/dL Normal [facility] Comment on above: Performed By: #### C MP #### [facility] [address] [address] [address] Emilie Carmona Glucose [Mass/Vol] 141 mg/dL Critically high 74-106 [facility] Comment on above: Performed By: #### C MP #### [facility] [address] [address] [address] mEilie Carmona Potassium [Moles/Vol] 4.1 mmol/L Normal 3.5-5.1 [facility] Comment on above: Performed By: #### C MP #### [facility] [address] [address] [address] Emilie Carmona Protein [Mass/Vol] 6.5 g/dL Normal 6.4-8.2 [facility] Comment on above: Performed By: #### C MP #### [facility] [address] [address] [address] Emilie Carmona Sodium [Moles/Vol] 136 mmol/L Normal 136-145 [facility] Comment on above: Performed By: #### C MP #### [facility] [address] [place] [address] Dr. Emilie Carmona Urea nitrogen [Mass/Vol] 22.0 mg/dL Critically high 7.0-18.0 [facility] Comment on above: Performed By: #### C MP #### [facility] [address] [place] [address] Dr. Emilie Carmona Urea nitrogen/Creatinine [Mass ratio] 21.0 mg/mg Normal [facility] Comment on above: Performed By: #### C MP #### [facility] [address] [place] [address] Dr. Emilie Carmona CBC AUTO DIFFon 12-26-2022 BASO # 0.0 103/ul Normal 0.0-0.1 [facility] Comment on above: Performed By: #### C BC #### [facility] [address] [place] [address] Dr. Emilie Carmona Basophils/100 WBC (Bld) 0.2 % Normal 0.2-2.0 [facility] Comment on above: Performed By: #### C BC #### [facility] [address] [place] [address] Dr. Emilie Carmona EO # 0.0 103/ul Normal 0.0-0.7 [facility] Comment on above: Performed By: #### C BC #### [facility] [address] [place] [address] Dr. Emilei Carmona Eosinophils/100 WBC (Bld) 0.1 % Critically low 0.9-7.0 [facility] Comment on above: Performed By: #### C BC #### [facility] [address] [place] [address] Dr. Emilie Carmona Erythrocyte distribution width (RBC) [Ratio] 13.7 % Normal 11.0-15.0 [facility] Comment on above: Performed By: #### C BC #### [facility] [address] [place] [address] Dr. Emilie Carmona Hematocrit (Bld) [Volume fraction] 32.5 % Critically low 36.0-48.0 [facility] Comment on above: Performed By: #### C BC #### [facility] [address] [address] [address] Emilie Carmona Hemoglobin (Bld) [Mass/Vol] 10.9 g/dL Critically low 12.0-16.0 [facility] Comment on above: Performed By: #### C BC #### [facility] [address] [place] [address] Dr. Emilie Carmona IG # 0.09 10e3/ul Critically high 0.00-0.[address] [facility] Comment on above: Performed By: #### C BC #### [facility] [address] [place] [address] Dr. Emilie Carmona IG % 0.9 % Critically high 0.0-0.5 [facility] Comment on above: Performed By: #### C BC #### [facility] [address] [place] [address] Dr. Emilie Carmona LYMPH # 0.5 103/ul Critically low 1.2-3.8 [facility] Comment on above: Performed By: #### C BC #### [facility] [address] [place] [address] Dr. Emilie Carmona Lymphocytes/100 WBC (Bld) 4.8 % Critically low 20.5-60.0 [facility] Comment on above: Performed By: #### C BC #### [facility] [address] [place] [address] Dr. Emilie Carmona MANUAL DIFF REQ NO Normal [facility] Comment on above: Performed By: #### C BC #### [facility] [address] [place] [address] Dr. Emilie Carmona MCH (RBC) [Entitic mass] 28.5 pg Normal 26.7-34.0 [facility] Comment on above: Performed By: #### C BC #### [facility] [address] [place] [address] Dr. Emilie Carmona MCHC (RBC) [Mass/Vol] 33.5 g/dL Normal 29.9-35.2 [facility] Comment on above: Performed By: #### C BC #### [facility] [address] [address] [address] Emilie Carmona MCV (RBC) [Entitic vol] 84.9 fL Normal 81.0-99.0 [facility] Comment on above: Performed By: #### C BC #### [facility] [address] [address] [address] Emilie Carmona MONO # 0.3 103/ul Normal 0.3-0.8 [facility] Comment on above: Performed By: #### C BC #### [facility] [address] [address] [address] Emilie Carmona Monocytes/100 WBC (Bld) 2.9 % Normal 1.7-12.0 [facility] Comment on above: Performed By: #### C BC #### [facility] [address] [place] [address] Dr. Emilie Carmona NEUT # 8.9 103/ul Critically high 1.4-6.5 [facility] Comment on above: Performed By: #### C BC #### [facility] [address] [place] [address] Dr. Emilie Carmona Neutrophils/100 WBC (Bld) 91.1 % Critically high 43.0-75.0 [facility] Comment on above: Performed By: #### C BC #### [facility] [address] [place] [address] Dr. Emilie Carmona Platelet mean volume (Bld) [Entitic vol] 10.8 fL Normal 9.5-13.5 [facility] Comment on above: Performed By: #### C BC #### [facility] [address] [place] [address] Dr. Emilie Carmona PLT 204 103/ul Normal 150-450 [facility] Comment on above: Performed By: #### C BC #### [facility] [address] [place] [address] Dr. Emilie Carmona RBC 3.83 106/ul Critically low 4.20-5.40 [facility] Comment on above: Performed By: #### C BC #### [facility] [address] [address] [address] Emilie Carmona WBC 9.8 103/ul Normal 4.0-11.0 [facility] Comment on above: Performed By: #### C BC #### [facility] [address] [place] [address] Dr. Emilie Carmona PROF 14(COMP METB)on 023 Albumin [Mass/Vol] 2.5 g/dL Critically low 3.4-5.0 [facility] Comment on above: Performed By: #### R SPLUS #### [facility] [address] [place] [address] Dr. Emilie Carmona Albumin/Globulin [Mass ratio] 0.6 {ratio} Normal [facility] Comment on above: Performed By: #### R SPLUS #### [facility] [address] [place] [address] Dr. Emilie Carmona ALP [Catalytic activity/Vol] 63 U/L Normal 46-116 [facility] Comment on above: Performed By: #### R SPLUS #### [facility] [address] [place] [address] Dr. Emilie Carmona ALT [Catalytic activity/Vol] 13 U/L Critically low 14-59 [facility] Comment on above: Performed By: #### R SPLUS #### [facility] [address] [place] [address] Dr. Emilie Carmona Anion gap [Moles/Vol] 18.7 mmol/L Normal [facility] Comment on above: Performed By: #### R SPLUS #### [facility] [address] [place] [address] Dr. Emilie Carmona AST [Catalytic activity/Vol] 16 U/L Normal 15-37 [facility] Comment on above: Performed By: #### R SPLUS #### [facility] [address] [place] [address] Dr. Emilie Carmona Bilirubin [Mass/Vol] 0.3 mg/dL Normal 0.2-1.0 [facility] Comment on above: Performed By: #### R SPLUS #### [facility] [address] [address] [address] Emilie Carmona Calcium [Mass/Vol] 8.5 mg/dL Normal 8.5-10.1 [facility] Comment on above: Performed By: #### R SPLUS #### [facility] [address] [address] [address] Emilie Carmona Chloride [Moles/Vol] 103 mmol/L Normal 98-107 [facility] Comment on above: Performed By: #### R SPLUS #### [facility] [address] [address] [address] Emilie Carmona CO2 [Moles/Vol] 21.0 mmol/L Normal 21.0-32.0 [facility] Comment on above: Performed By: #### R SPLUS #### [facility] [address] [place] [address] Dr. Emilie Carmona Creatinine [Mass/Vol] 1.37 mg/dL Critically high 0.55-1.02 [facility] Comment on above: Performed By: #### R SPLUS #### [facility] [address] [place] [address] Dr. Emilie Carmona EGFR-AF BELIZEAN 45 mL/min/1.73m2 Critically low >=60 [facility] Comment on above: Performed By: #### R SPLUS #### [facility] [address] [place] [address] Dr. Emilie Carmona EGFR-NON AF BELIZEAN 37 mL/min/1.73m2 Critically low >=60 [facility] Comment on above: Performed By: #### R SPLUS #### [facility] [address] [place] [address] Dr. Emilie Carmona Globulin (S) [Mass/Vol] 4.1 g/dL Normal [facility] Comment on above: Performed By: #### R SPLUS #### [facility] [address] [place] [address] Dr. Emilie Carmona Glucose [Mass/Vol] 235 mg/dL Critically high 74-106 [facility] Comment on above: Performed By: #### R SPLUS #### [facility] [address] [address] [address] Emilie Carmona Potassium [Moles/Vol] 2.7 mmol/L Critically low 3.5-5.1 [facility] Comment on above: Performed By: #### R SPLUS #### [facility] [address] [place] [address] Dr. mEilie Carmona Protein [Mass/Vol] 6.6 g/dL Normal 6.4-8.2 [facility] Comment on above: Performed By: #### R SPLUS #### [facility] [address] [place] [address] Dr. Emilie Carmona Sodium [Moles/Vol] 138 mmol/L Normal 136-145 [facility] Comment on above: Performed By: #### R SPLUS #### [facility] [address] [place] [address] Dr. Emilie Carmona Urea nitrogen [Mass/Vol] 20.0 mg/dL Critically high 7.0-18.0 [facility] Comment on above: Performed By: #### R SPLUS #### [facility] [address] [place] [address] Dr. Emilie Carmona Urea nitrogen/Creatinine [Mass ratio] 14.6 mg/mg Normal [facility] Comment on above: Performed By: #### R SPLUS #### [facility] [address] [place] [address] Dr. Emilie Carmona XR CHEST 1 Von [...] ALEIDA TAVERAS Date: 2022-12-26 10:29 Normal [facility] BNPon 12-25-2022 Natriuretic peptide B (Bld) [Mass/Vol] 639.0 pg/mL Normal <=1,800.0 [facility] Comment on above: Performed By: #### C MADM, BNP, CMP ####[facility] [address] [address]Dr. Emilie Carmona CARDIAC MARYCRUZ ADMITon 023 CK [Catalytic activity/Vol] 248 U/L Critically high 26-192 [facility] Comment on above: Performed By: #### C MADM, BNP, CMP ####[facility] [address] [address]Dr. Emilie Carmona CK.MB [Mass/Vol] 1.38 ng/mL Normal <=3.60 [facility] Comment on above: Performed By: #### C MADM, BNP, CMP ####[facility] [address] [address]Dr. Emilie Carmona HSTROP 11.8 pg/mL Normal 4.0-51.3 [facility] Comment on above: Result Comment: CUT- OFF POINTS HAVE BEEN ESTABLISHED BASED ON THE FOURTH UNIVERSAL DEFINITIONS OF MYOCARDIAL INFARCTION. THE UPPER REFERENCE LIMIT (URL) OF TROPONIN, DEFINED THE 99TH PERCENTILE OF cTnI DISTRIBUTION IN A REFERENCE POPULATION, HAS BEEN CONFIRMED THE DECISION THRESHOLD FOR NE DIAGNOSIS. Performed By: #### C MADM, BNP, CMP ####[facility] [address] [id number] Emilie Carmona MAXIMILIAN 484 ng/mL Critically high 9-82 [facility] Comment on above: Performed By: #### C MADM, BNP, CMP ####[facility] [address] [id number] Emilie Carmona CBC AUTO DIFFon 12-25-2022 BASO # 0.0 103/ul Normal 0.0-0.1 [facility] Comment on above: Performed By: #### C BC #### [facility] [address] [address] [address] Emilie Carmona Basophils/100 WBC (Bld) 0.4 % Normal 0.2-2.0 [facility] Comment on above: Performed By: #### C BC #### [facility] [address] [address] [address] Emilie Carmona EO # 0.0 103/ul Normal 0.0-0.7 [facility] Comment on above: Performed By: #### C BC #### [facility] [address] [address] [address] Emilie Carmona Eosinophils/100 WBC (Bld) 0.0 % Critically low 0.9-7.0 [facility] Comment on above: Performed By: #### C BC #### [facility] [address] [place] [address] Dr. Emilie Carmona Erythrocyte distribution width (RBC) [Ratio] 13.6 % Normal 11.0-15.0 [facility] Comment on above: Performed By: #### C BC #### [facility] [address] [place] [address] Dr. Emilie Carmona Hematocrit (Bld) [Volume fraction] 39.0 % Normal 36.0-48.0 [facility] Comment on above: Performed By: #### C BC #### [facility] [address] [place] [address] Dr. Emilie Carmona Hemoglobin (Bld) [Mass/Vol] 13.0 g/dL Normal 12.0-16.0 [facility] Comment on above: Performed By: #### C BC #### [facility] [address] [place] [address] Dr. Emilie Carmona IG # 0.07 10e3/ul Critically high 0.00-0.[address] [facility] Comment on above: Performed By: #### C BC #### [facility] [address] [place] [address] Dr. Emilie Carmona IG % 0.6 % Critically high 0.0-0.5 [facility] Comment on above: Performed By: #### C BC #### [facility] [address] [place] [address] Dr. Emilie Carmona LYMPH # 0.8 103/ul Critically low 1.2-3.8 [facility] Comment on above: Performed By: #### C BC #### [facility] [address] [address] [address] Emilie Carmona Lymphocytes/100 WBC (Bld) 6.9 % Critically low 20.5-60.0 [facility] Comment on above: Performed By: #### C BC #### [facility] [address] [address] [address] Emilie Carmona MANUAL DIFF REQ NO Normal [facility] Comment on above: Performed By: #### C BC #### [facility] [address] [place] [address] Dr. Emilie Carmona MCH (RBC) [Entitic mass] 28.4 pg Normal 26.7-34.0 [facility] Comment on above: Performed By: #### C BC #### [facility] [address] [place] [address] Dr. Emilie Carmona MCHC (RBC) [Mass/Vol] 33.3 g/dL Normal 29.9-35.2 [facility] Comment on above: Performed By: #### C BC #### [facility] [address] [place] [address] Dr. Emilie Carmona MCV (RBC) [Entitic vol] 85.3 fL Normal 81.0-99.0 [facility] Comment on above: Performed By: #### C BC #### [facility] [address] [place] [address] Dr. Emilie Carmona MONO # 1.0 103/ul Critically high 0.3-0.8 [facility] Comment on above: Performed By: #### C BC #### [facility] [address] [place] [address] Dr. Emilie Carmona Monocytes/100 WBC (Bld) 9.1 % Normal 1.7-12.0 [facility] Comment on above: Performed By: #### C BC #### [facility] [address] [place] [address] Dr. Emilie Carmona NEUT # 9.0 103/ul Critically high 1.4-6.5 [facility] Comment on above: Performed By: #### C BC #### [facility] [address] [address] [address] Emilie Carmona Neutrophils/100 WBC (Bld) 83.0 % Critically high 43.0-75.0 [facility] Comment on above: Performed By: #### C BC #### [facility] [address] [address] [address] Emilie Carmona Platelet mean volume (Bld) [Entitic vol] 10.6 fL Normal 9.5-13.5 [facility] Comment on above: Performed By: #### C BC #### [facility] [address] [address] [address] Emilie Carmona PLT 276 103/ul Normal 150-450 [facility] Comment on above: Performed By: #### C BC #### [facility] [address] [place] [address] Dr. Emilie aCrmona RBC 4.57 106/ul Normal 4.20-5.40 [facility] Comment on above: Performed By: #### C BC #### [facility] [address] [place] [address] Dr. Emilie Carmona WBC 10.8 103/ul Normal 4.0-11.0 [facility] Comment on above: Performed By: #### C BC #### [facility] [address] [address] [address] Emilie Carmona CULTURE BLOODon 12-25-2022 Microscopic examination of blood, culture Culture Observations: NO GROWTH AT 36-48 HOURS. FINAL TO FOLLOW. Normal [facility] Comment on above: Performed By: #### B LDCX2 ####[facility] [address] [address]Dr. Emilie Carmona Microscopic examination of blood, culture Culture Observations: NO GROWTH AT 36-48 HOURS. FINAL TO FOLLOW. Normal [facility] Comment on above: Performed By: #### B LDCX1 #### [facility] [address] [place] [address] Dr. Emilie Carmona CULTURE SPUTUMon 12-25-2022 CULTURE SPUTUM Culture Observations : Growth of Normal Respiratory Joanne also seen Isolate 1 Haemophilus influenzae Heavy growth of Normal [facility] Comment on above: Result Comment: Beta Lactamase: Negative Performed By: #### S PUTCX ####[facility] [address] [address]Dr. Emilie Carmona CULTURE URINEon 12-25-2022 CULTURE URINE Culture Observations : ROD TO FOLLOW. Isolate 1 Escherichia coli 15,000 cfu/mL of Normal [facility] Comment on above: Performed By: #### U RCX #### [facility] [address] [place] [address] Dr. Emilie Carmona ER URINE PROFILEon 3 Bilirubin Ql (U) Negative Normal NEGATIVE [facility] Comment on above: Performed By: #### R SPLUS #### [facility] [address] [place] [address] Dr. Emilie Carmona Clarity (U) CLEAR Normal CLEAR [facility] Comment on above: Performed By: #### R SPLUS #### [facility] [address] [place] [address] Dr. Emilie Carmona Color (U) YELLOW Normal YELLOW [facility] Comment on above: Performed By: #### R SPLUS #### [facility] [address] [place] [address] Dr. Emilie Carmona ERUD A micrscopic examination will be performed if indicated. Normal [facility] Comment on above: Performed By: #### R SPLUS #### [facility] [address] [place] [address] Dr. Emilie Carmona Glucose Ql (U) Negative Normal NEGATIVE [facility] Comment on above: Performed By: #### R SPLUS #### [facility] [address] [place] [address] Dr. Emilie Carmona Hemoglobin Ql (U) SMALL Abnormal NEGATIVE [facility] Comment on above: Performed By: #### R SPLUS #### [facility] [address] [place] [address] Dr. Emilie Carmona Ketones Ql (U) 15 mg/dl Abnormal NEGATIVE [facility] Comment on above: Performed By: #### R SPLUS #### [facility] [address] [place] [address] Dr. Emilie Carmona LEUKOCYTES Negative Normal NEGATIVE [facility] Comment on above: Performed By: #### R SPLUS #### [facility] [address] [address] [address] Emilie Carmona Nitrite Ql (U) Negative Normal NEGATIVE [facility] Comment on above: Performed By: #### R SPLUS #### [facility] [address] [address] [address] Emilie Carmona pH (U) 6.0 [pH] Normal 5-9 [facility] Comment on above: Performed By: #### R SPLUS #### [facility] [address] [address] [address] Emilie Carmona SPEC GRAVITY 1.015 Normal 1.005-<=1.025 [facility] Comment on above: Performed By: #### R SPLUS #### [facility] [address] [place] [address] Dr. Emilie Carmona UA PROTEIN TRACE Normal NEGATIVE/ TRACE [facility] Comment on above: Performed By: #### R SPLUS #### [facility] [address] [address] [address] Emilie Carmona UR MICRO IND INDICATED Normal [facility] Comment on above: Performed By: #### R SPLUS #### [facility] [address] [address] [address] Emilie Carmona Urobilinogen Qn (U) 0.2 {Warren'U}/dL Normal 0.2 - 1. 0 [facility] Comment on above: Performed By: #### R SPLUS #### [facility] [address] [place] [address] Dr. Emilie Carmona LACTATE/LACTIC ACIDon 2022 Lactate [Moles/Vol] 1.2 mmol/L Normal 0.4-2.0 [facility] Comment on above: Performed By: #### L ACT ####[facility] [address] [address]Dr. Emilie Carmona PROF 14(COMP METB)on 023 Albumin [Mass/Vol] 3.4 g/dL Normal 3.4-5.0 [facility] Comment on above: Performed By: #### C MADM, BNP, CMP ####[facility] [address] [address]Dr. Emilie Carmona Albumin/Globulin [Mass ratio] 0.8 {ratio} Normal [facility] Comment on above: Performed By: #### C MADM, BNP, CMP ####[facility] [address] [address]Dr. Emilie Mathew ALP [Catalytic activity/Vol] 88 U/L Normal 46-116 [facility] Comment on above: Performed By: #### C MADM, BNP, CMP ####[facility] [address] [place], [place] [address]Dr. Emilie Carmona ALT [Catalytic activity/Vol] 17 U/L Normal 14-59 [facility] Comment on above: Performed By: #### C MADM, BNP, CMP ####[facility] [address] [place], [place] [address]Dr. Savileslie Mathew Anion gap [Moles/Vol] 13.2 mmol/L Normal [facility] Comment on above: Performed By: #### C MADM, BNP, CMP ####[facility] [address] [place], [place] [address]Dr. Savileslie Carmona AST [Catalytic activity/Vol] 22 U/L Normal 15-37 [facility] Comment on above: Performed By: #### C MADM, BNP, CMP ####[facility] [address] [place], [place] [address]Dr. Emilie Carmona Bilirubin [Mass/Vol] 0.4 mg/dL Normal 0.2-1.0 [facility] Comment on above: Performed By: #### C MADM, BNP, CMP ####[facility] [address] [place], [place] [address]Dr. Emilie Carmona Calcium [Mass/Vol] 9.2 mg/dL Normal 8.5-10.1 [facility] Comment on above: Performed By: #### C MADM, BNP, CMP ####[facility] [address] [place], [place] [id number]. Emilie Carmona Chloride [Moles/Vol] 100 mmol/L Normal 98-107 [facility] Comment on above: Performed By: #### C MADM, BNP, CMP ####[facility] [address] [address]Dr. Emilie Carmona CO2 [Moles/Vol] 26.5 mmol/L Normal 21.0-32.0 [facility] Comment on above: Performed By: #### C MADM, BNP, CMP ####[facility] [address] [place], [place] [address]Dr. Emilie Carmona Creatinine [Mass/Vol] 1.12 mg/dL Critically high 0.55-1.02 [facility] Comment on above: Performed By: #### C MADM, BNP, CMP ####[facility] [address] [place], [place] [address]Dr. Emilie Mathew EGFR-AF BELIZEAN 56 mL/min/1.73m2 Critically low >=60 [facility] Comment on above: Performed By: #### C MADM, BNP, CMP ####[facility] [address] [place], [place] [address]Dr. Emilie Mathew EGFR-NON AF BELIZEAN 46 mL/min/1.73m2 Critically low >=60 [facility] Comment on above: Performed By: #### C MADM, BNP, CMP ####[facility] Orthf[address]xca[address] [place], [place] [address]Dr. Emilie Carmona Globulin (S) [Mass/Vol] 4.4 g/dL Normal [facility] Comment on above: Performed By: #### C MADM, BNP, CMP ####[facility] [address] [place] [address]Dr. Emilie Carmona Glucose [Mass/Vol] 123 mg/dL Critically high 74-106 [facility] Comment on above: Performed By: #### C MADM, BNP, CMP ####[facility] [address] [address]Dr. Emilie Carmona Potassium [Moles/Vol] 3.7 mmol/L Normal 3.5-5.1 [facility] Comment on above: Performed By: #### C MADM, BNP, CMP ####[facility] [address] [place] [address]Dr. Emilie Carmona Protein [Mass/Vol] 7.8 g/dL Normal 6.4-8.2 [facility] Comment on above: Performed By: #### C MADM, BNP, CMP ####[facility] [address] [place] [address]Dr. Emilie Carmona Sodium [Moles/Vol] 136 mmol/L Normal 136-145 [facility] Comment on above: Performed By: #### C MADM, BNP, CMP ####[facility] [address] [address]Dr. Emilie Carmona Urea nitrogen [Mass/Vol] 14.0 mg/dL Normal 7.0-18.0 [facility] Comment on above: Performed By: #### C MADM, BNP, CMP ####[facility] [address] [place], [place] [address]Dr. Emilie Carmona Urea nitrogen/Creatinine [Mass ratio] 12.5 mg/mg Normal [facility] Comment on above: Performed By: #### C MADM, BNP, CMP ####[facility] [address] [place] [address]Dr. Emilie Carmona RESPIRATORY PANEL PLUSon Adenovirus Not detected Normal NOT DETECTED [facility] Comment on above: Performed By: #### R SPLUS #### [facility] [address] [place] [address] Dr. Emilie Carmona B. Parapertusis Not detected Normal NOT DETECTED [facility] Comment on above: Performed By: #### R SPLUS #### [facility] [address] [place] [address] Dr. Emilie Lyn. Pertussis Not detected Normal NOT DETECTED [facility] Comment on above: Performed By: #### R SPLUS #### [facility] [address] [address] [address] Emilie Carmona Chlamydia Pneumoniae Not detected Normal NOT DETECTED [facility] Comment on above: Performed By: #### R SPLUS #### [facility] [address] [place] [address] Dr. Emilie Carmona Coronavirus 229E Not detected Normal NOT DETECTED [facility] Comment on above: Performed By: #### R SPLUS #### [facility] [address] [place] [address] Dr. Emilie Carmona Coronavirus HKU1 Not detected Normal NOT DETECTED [facility] Comment on above: Performed By: #### R SPLUS #### [facility] [address] [place] [address] Dr. Emilie Carmona Coronavirus NL63 Not detected Normal NOT DETECTED [facility] Comment on above: Performed By: #### R SPLUS #### [facility] [address] [place] [address] Dr. Emilie Carmona Coronavirus OC43 Not detected Normal NOT DETECTED [facility] Comment on above: Performed By: #### R SPLUS #### [facility] [address] [place] [address] Dr. Emilie Carmona Influenza A H1 Not detected Normal NOT DETECTED [facility] Comment on above: Performed By: #### R SPLUS #### [facility] [address] [place] [address] Dr. Emilie Carmona Influenza A H1 2009 Detected Abnormal NOT DETECTED [facility] Comment on above: Performed By: #### R SPLUS #### [facility] [address] [place] [address] Dr. Emilie Carmona Influenza A H3 Not detected Normal NOT DETECTED [facility] Comment on above: Performed By: #### R SPLUS #### [facility] [address] [place] [address] Dr. Emilie Carmona Influenza B Not detected Normal NOT DETECTED [facility] Comment on above: Performed By: #### R SPLUS #### [facility] [address] [place] [address] Dr. Emilie Carmona Metapneumovirus Not detected Normal NOT DETECTED [facility] Comment on above: Performed By: #### R SPLUS #### [facility] [address] [place] [address] Dr. Eimlie Carmona Mycoplas. Pneumoniae Not detected Normal NOT DETECTED [facility] Comment on above: Performed By: #### R SPLUS #### [facility] [address] [place] [address] Dr. Emilie Carmona Parainfluenza 1 Not detected Normal NOT DETECTED [facility] Comment on above: Performed By: #### R SPLUS #### [facility] [address] [place] [address] Dr. Emilie Carmoan Parainfluenza 2 Not detected Normal NOT DETECTED [facility] Comment on above: Performed By: #### R SPLUS #### [facility] [address] [place] [address] Dr. Emilie Carmona Parainfluenza 3 Not detected Normal NOT DETECTED [facility] Comment on above: Performed By: #### R SPLUS #### [facility] [address] [place] [address] Dr. Emilie Carmona Parainfluenza 4 Not detected Normal NOT DETECTED [facility] Comment on above: Performed By: #### R SPLUS #### [facility] [address] [place] [address] Dr. Emilie Carmona Rhino/Enterovirus Not detected Normal NOT DETECTED [facility] Comment on above: Performed By: #### R SPLUS #### [facility] [address] [place] [address] Dr. Emilie Carmona RP2 Header 1 RESPIRATORY PANEL: VIRUSES Normal [facility] Comment on above: Performed By: #### R SPLUS #### [facility] [address] [place] [address] Dr. Emilie Carmona RP2 Header 2 RESPIRATORY PANEL: BACTERIA Normal [facility] Comment on above: Performed By: #### R SPLUS #### [facility] [address] [place] [address] Dr. Emilie Carmona RSV Not detected Normal NOT DETECTED [facility] Comment on above: Performed By: #### R SPLUS #### [facility] [address] [place] [address] Dr. Emilie Carmona SARS-CoV-2 (COVID-19) RNA CHASITY+probe Ql (Unsp spec) Detected Abnormal NOT DETECTED [facility] Comment on above: Performed By: #### R SPLUS #### [facility] [address] [place] [address] Dr. Emilie Carmona SPUTUM GRAM STAINon 12-26-19 COMMENTS Normal [facility] Comment on above: Performed By: #### C BC #### [facility] [address] [address] [address] Emilie Carmona DIPHTHEROIDS Normal [facility] Comment on above: Performed By: #### C BC #### [facility] [address] [place] [address] Dr. Emilie Carmona EPITHELIALS <25 Normal [facility] Comment on above: Performed By: #### C BC #### [facility] [address] [place] [address] Dr. Emilie Carmona FUNGAL ELEMENTS Normal [facility] Comment on above: Performed By: #### C BC #### [facility] [address] [address] [address] Emilie Carmona GRAM NEG BACILLI Normal [facility] Comment on above: Performed By: #### C BC #### [facility] [address] [place] [address] Dr. Emilie WALTERS NEG DIPPLOCOCCI FEW Normal [facility] Comment on above: Performed By: #### C BC #### [facility] [address] [place] [address] Dr. Emilie Carmona GRAM POS BACILLI Normal [facility] Comment on above: Performed By: #### C BC #### [facility] [address] [place] [address] Dr. Emilie Carmona GRAM POSITIVE COCCI Normal [facility] Comment on above: Performed By: #### C BC #### [facility] [address] [place] [address] Dr. Emilie Carmona WBC (Bld) [#/Vol] 10*3/uL Normal [facility] Comment on above: Performed By: #### C BC #### [facility] [address] [place] [address] Dr. Emilie Carmona URINE MICROSCOPIC ONLYon BACTERIA SMALL Abnormal NONE SEEN [facility] Comment on above: Performed By: #### R SPLUS #### [facility] [address] [place] [address] Dr. Emilie Carmona Bacteria identified Cx Nom (U) INDICATED Normal [facility] Comment on above: Performed By: #### R SPLUS #### [facility] [address] [place] [address] Dr. Emilie Carmona CAST SEEN Abnormal NONE SEEN [facility] Comment on above: Performed By: #### R SPLUS #### [facility] [address] [place] [address] Dr. Emilie Carmona Crystals LM Nom (Urine sed) NONE SEEN Normal NONE SEEN [facility] Comment on above: Performed By: #### R SPLUS #### [facility] [address] [place] [address] Dr. Emilie Carmona Epithelial cells LM Ql (Urine sed) FEW Abnormal NONE SEEN /RARE [facility] Comment on above: Performed By: #### R SPLUS #### [facility] [address] [place] [address] Dr. Emilie Carmona HYALINE CAST RARE Normal [facility] Comment on above: Performed By: #### R SPLUS #### [facility] [address] [place] [address] Dr. Emilie Carmona MUCOUS NONE SEEN Normal NONE SEEN [facility] Comment on above: Performed By: #### R SPLUS #### [facility] [address] [place] [address] Dr. Emilie Carmona RBC 10-20 Abnormal 0-2 [facility] Comment on above: Performed By: #### R SPLUS #### [facility] [address] [place] [address] Dr. Emilie Carmona WBC 2-5 Abnormal NONE SEEN [facility] Comment on above: Performed By: #### R SPLUS #### [facility] [address] [place] [address] Dr. Emilie Carmona XR CHEST 1 Von 12-25-2022 XR CHEST 1 V EXAM: XR CHEST 1 V INDICATION: SHORTNESS OF BREATH. COMPARISON: Chest radiograph 06/14/2022 TECHNIQUE: Single frontal view of the chest FINDINGS: Normal cardiomediastinal contours. No acute infiltrative process. No pleural effusion or pneumothorax. No acute osseous abnormality. IMPRESSION: No acute cardiopulmonary process. Electronically authenticated by: DELL BENITEZ Date: 2022-12-25 15:54 Normal [facility] XR DEXA BONE DENSITYon 06-22 XR DEXA [...] by: KARISSA COLBY Date: 2022-06-22 15:50 Normal [facility] CBC AUTO DIFFon 06-16-2022 BASO # 0.1 103/ul Normal 0.0-0.1 [facility] Comment on above: Performed By: #### C BC #### [facility] [address] [place] [address] Dr. Emilie Carmona Basophils/100 WBC (Bld) 0.9 % Normal 0.2-2.0 [facility] Comment on above: Performed By: #### C BC #### [facility] [address] [place] [address] Dr. Emilie Carmona EO # 0.4 103/ul Normal 0.0-0.7 [facility] Comment on above: Performed By: #### C BC #### [facility] [address] [place] [address] Dr. Emilie Carmona Eosinophils/100 WBC (Bld) 5.7 % Normal 0.9-7.0 [facility] Comment on above: Performed By: #### C BC #### [facility] [address] [place] [address] Dr. Emilie Carmona Erythrocyte distribution width (RBC) [Ratio] 13.5 % Normal 11.0-15.0 [facility] Comment on above: Performed By: #### C BC #### [facility] [address] [place] [address] Dr. Emilie Carmona Hematocrit (Bld) [Volume fraction] 32.9 % Critically low 36.0-48.0 [facility] Comment on above: Performed By: #### C BC #### [facility] [address] [place] [address] Dr. Emilie Carmona Hemoglobin (Bld) [Mass/Vol] 10.6 g/dL Critically low 12.0-16.0 [facility] Comment on above: Performed By: #### C BC #### [facility] [address] [place] [address] Dr. Emilie Carmona IG # 0.02 10e3/ul Normal 0.00-0.03 [facility] Comment on above: Performed By: #### C BC #### [facility] [address] [place] [address] Dr. Emilie Carmona IG % 0.3 % Normal 0.0-0.5 [facility] Comment on above: Performed By: #### C BC #### [facility] [address] [place] [address] Dr. Emilie Carmona LYMPH # 1.8 103/ul Normal 1.2-3.8 [facility] Comment on above: Performed By: #### C BC #### [facility] [address] [place] [address] Dr. Emilie Carmona Lymphocytes/100 WBC (Bld) 28.4 % Normal 20.5-60.0 [facility] Comment on above: Performed By: #### C BC #### [facility] [address] [place] [address] Dr. Emilie Carmona MANUAL DIFF REQ NO Normal [facility] Comment on above: Performed By: #### C BC #### [facility] [address] [place] [address] Dr. Emilie Carmona MCH (RBC) [Entitic mass] 28.5 pg Normal 26.7-34.0 [facility] Comment on above: Performed By: #### C BC #### [facility] [address] [place] [address] Dr. Emilie Carmona MCHC (RBC) [Mass/Vol] 32.2 g/dL Normal 29.9-35.2 [facility] Comment on above: Performed By: #### C BC #### [facility] [address] [place] [address] Dr. Emilie Carmona MCV (RBC) [Entitic vol] 88.4 fL Normal 81.0-99.0 [facility] Comment on above: Performed By: #### C BC #### [facility] [address] [place] [address] Dr. Emilie Carmona MONO # 0.7 103/ul Normal 0.3-0.8 [facility] Comment on above: Performed By: #### C BC #### [facility] [address] [place] [address] Dr. Emilie Carmona Monocytes/100 WBC (Bld) 11.0 % Normal 1.7-12.0 [facility] Comment on above: Performed By: #### C BC #### [facility] [address] [place] [address] Dr. Emilie Carmona NEUT # 3.5 103/ul Normal 1.4-6.5 [facility] Comment on above: Performed By: #### C BC #### [facility] [address] [place] [address] Dr. Emilie Carmona Neutrophils/100 WBC (Bld) 53.7 % Normal 43.0-75.0 [facility] Comment on above: Performed By: #### C BC #### [facility] [address] [place] [address] Dr. Emilie Carmona Platelet mean volume (Bld) [Entitic vol] 11.6 fL Normal 9.5-13.5 [facility] Comment on above: Performed By: #### C BC #### [facility] [address] [place] [address] Dr. Emilie Carmona PLT 223 103/ul Normal 150-450 [facility] Comment on above: Performed By: #### C BC #### [facility] [address] [address] [address] Emilie Carmona RBC 3.72 106/ul Critically low 4.20-5.40 [facility] Comment on above: Performed By: #### C BC #### [facility] [address] [address] [address] Emilie Carmona WBC 6.4 103/ul Normal 4.0-11.0 [facility] Comment on above: Performed By: #### C BC #### [facility] [address] [address] [address] Emilie Carmona PROF CHEM 8 (BAS METB)on Anion gap [Moles/Vol] 10.4 mmol/L Normal [facility] Comment on above: Performed By: #### C BC #### [facility] [address] [place] [address] Dr. Emilie Carmona Calcium [Mass/Vol] 9.8 mg/dL Normal 8.5-10.1 [facility] Comment on above: Performed By: #### C BC #### [facility] [address] [place] [address] Dr. Emilie Carmona Chloride [Moles/Vol] 105 mmol/L Normal 98-107 [facility] Comment on above: Performed By: #### C BC #### [facility] [address] [address] [address] Emilie Carmona CO2 [Moles/Vol] 25.0 mmol/L Normal 21.0-32.0 [facility] Comment on above: Performed By: #### C BC #### [facility] [address] [place] [address] Dr. Emilie Carmona Creatinine [Mass/Vol] 0.87 mg/dL Normal 0.55-1.02 [facility] Comment on above: Performed By: #### C BC #### [facility] [address] [place] [address] Dr. Emilie Carmona EGFR-AF BELIZEAN >60 Normal >=60 [facility] Comment on above: Performed By: #### C BC #### [facility] [address] [address] [address] Emilie Carmona EGFR-NON AF BELIZEAN >60 Normal >=60 [facility] Comment on above: Performed By: #### C BC #### [facility] [address] [address] [address] Emilie Carmona Glucose [Mass/Vol] 105 mg/dL Normal 74-106 [facility] Comment on above: Performed By: #### C BC #### [facility] [address] [address] [address] Emilie Carmona Potassium [Moles/Vol] 3.4 mmol/L Critically low 3.5-5.1 [facility] Comment on above: Performed By: #### C BC #### [facility] [address] [address] [address] Emilie Carmona Sodium [Moles/Vol] 137 mmol/L Normal 136-145 [facility] Comment on above: Performed By: #### C BC #### [facility] [address] [address] [address] Emilie Carmona Urea nitrogen [Mass/Vol] 12.0 mg/dL Normal 7.0-18.0 [facility] Comment on above: Performed By: #### C BC #### [facility] [address] [address] [address] Emilie Carmona Urea nitrogen/Creatinine [Mass ratio] 13.8 mg/mg Normal [facility] Comment on above: Performed By: #### C BC #### [facility] [address] [address] [address] Emilie Carmona CBC AUTO DIFFon 06-15-2022 BASO # 0.1 103/ul Normal 0.0-0.1 [facility] Comment on above: Performed By: #### C BC ####[facility] [address] [address]Dr. Emilie Carmona Basophils/100 WBC (Bld) 0.7 % Normal 0.2-2.0 [facility] Comment on above: Performed By: #### C BC ####[facility] [address] [address]Dr. Emilie Carmona EO # 0.2 103/ul Normal 0.0-0.7 [facility] Comment on above: Performed By: #### C BC ####[facility] [address] [address]Dr. Emilie Carmona Eosinophils/100 WBC (Bld) 2.4 % Normal 0.9-7.0 [facility] Comment on above: Performed By: #### C BC ####[facility] [address] [place], [place] [address]Dr. Emilie Carmona Erythrocyte distribution width (RBC) [Ratio] 13.5 % Normal 11.0-15.0 [facility] Comment on above: Performed By: #### C BC ####[facility] [address] [place], [place] [address]Dr. Emilie Carmona Hematocrit (Bld) [Volume fraction] 35.3 % Critically low 36.0-48.0 [facility] Comment on above: Performed By: #### C BC ####[facility] [address] [place], [place] [address]Dr. Emilie Carmona Hemoglobin (Bld) [Mass/Vol] 11.5 g/dL Critically low 12.0-16.0 [facility] Comment on above: Performed By: #### C BC ####[facility] [address] [place], [place] [address]Dr. Emilie Carmona IG # 0.01 10e3/ul Normal 0.00-0.03 [facility] Comment on above: Performed By: #### C BC ####[facility] [address] [place], [place] [address]Dr. Emilie Carmona IG % 0.1 % Normal 0.0-0.5 [facility] Comment on above: Performed By: #### C BC ####[facility] [address] [place], [place] [address]Dr. Savileslie Carmona LYMPH # 1.6 103/ul Normal 1.2-3.8 [facility] Comment on above: Performed By: #### C BC ####[facility] [address] [address]Dr. Savileslie Carmona Lymphocytes/100 WBC (Bld) 23.3 % Normal 20.5-60.0 [facility] Comment on above: Performed By: #### C BC ####[facility] [address] [id number]. Emilie Carmona MANUAL DIFF REQ NO Normal [facility] Comment on above: Performed By: #### C BC ####[facility] [address] [id number]. Emilie Carmona MCH (RBC) [Entitic mass] 28.9 pg Normal 26.7-34.0 [facility] Comment on above: Performed By: #### C BC ####[facility] [address] [address]Dr. Emilie Carmona MCHC (RBC) [Mass/Vol] 32.6 g/dL Normal 29.9-35.2 [facility] Comment on above: Performed By: #### C BC ####[facility] [address] [address]Dr. Emilie Carmona MCV (RBC) [Entitic vol] 88.7 fL Normal 81.0-99.0 [facility] Comment on above: Performed By: #### C BC ####[facility] [address] [place], [place] [address]Dr. Emilie Carmona MONO # 0.8 103/ul Normal 0.3-0.8 [facility] Comment on above: Performed By: #### C BC ####[facility] [address] [address]Dr. Emilie Carmona Monocytes/100 WBC (Bld) 11.9 % Normal 1.7-12.0 [facility] Comment on above: Performed By: #### C BC ####[facility] [address] [place], [place] [address]Dr. Emilie Carmona NEUT # 4.3 103/ul Normal 1.4-6.5 [facility] Comment on above: Performed By: #### C BC ####[facility] [address] [address]Dr. Emilie Carmona Neutrophils/100 WBC (Bld) 61.6 % Normal 43.0-75.0 [facility] Comment on above: Performed By: #### C BC ####[facility] [address] [address]Dr. Emilie Carmona Platelet mean volume (Bld) [Entitic vol] 11.9 fL Normal 9.5-13.5 [facility] Comment on above: Performed By: #### C BC ####[facility] [address] [address]Dr. Emilie Carmona PLT 247 103/ul Normal 150-450 [facility] Comment on above: Performed By: #### C BC ####[facility] [address] [id number]. Emilie Carmona RBC 3.98 106/ul Critically low 4.20-5.40 [facility] Comment on above: Performed By: #### C BC ####[facility] [address] [address]Dr. Emilie Carmona WBC 7.0 103/ul Normal 4.0-11.0 [facility] Comment on above: Performed By: #### C BC ####[facility] [address] [id number]. Emilie Carmona FREE T3on 06-15-2022 FREE T3 1.29 pg/mlL Critically low 2.18-3.98 [facility] Comment on above: Performed By: #### F T3, TSH ####[facility] [address] [id number]. Emilie Carmona PROF CHEM 8 (BAS METB)on Anion gap [Moles/Vol] 10.0 mmol/L Normal [facility] Comment on above: Performed By: #### B MP ####[facility] [address] [id number]. Emilie Carmona Calcium [Mass/Vol] 9.8 mg/dL Normal 8.5-10.1 [facility] Comment on above: Performed By: #### B MP ####[facility] [address] [address]Dr. Savileslie Mathew Chloride [Moles/Vol] 102 mmol/L Normal 98-107 [facility] Comment on above: Performed By: #### B MP ####[facility] [id number] [place] [id number]. Emilie Carmona CO2 [Moles/Vol] 28.0 mmol/L Normal 21.0-32.0 [facility] Comment on above: Performed By: #### B MP ####[facility] [address] [address]Dr. Emilie Carmona Creatinine [Mass/Vol] 0.91 mg/dL Normal 0.55-1.02 [facility] Comment on above: Performed By: #### B MP ####[facility] [address] [place], [place] [address]Dr. Savileslie Mathew EGFR-AF BELIZEAN >60 Normal >=60 [facility] Comment on above: Performed By: #### B MP ####[facility] [address] [place], [place] [address]Dr. Emilie Carmona EGFR-NON AF BELIZEAN 59 mL/min/1.73m2 Critically low >=60 [facility] Comment on above: Performed By: #### B MP ####[facility] [address] [place] [address]Dr. Emilie Carmona Glucose [Mass/Vol] 96 mg/dL Normal 74-106 [facility] Comment on above: Performed By: #### B MP ####[facility] [address] [place] [id number]. Emilie Carmona Potassium [Moles/Vol] 3.0 mmol/L Critically low 3.5-5.1 [facility] Comment on above: Performed By: #### B MP ####[facility] [address] [place] [address]Dr. Emilie Carmona Sodium [Moles/Vol] 137 mmol/L Normal 136-145 [facility] Comment on above: Performed By: #### B MP ####[facility] [address] [place] [id number]. Emilie Carmona Urea nitrogen [Mass/Vol] 16.0 mg/dL Normal 7.0-18.0 [facility] Comment on above: Performed By: #### B MP ####[facility] [address] [place] [id number] Carmona Urea nitrogen/Creatinine [Mass ratio] 17.6 mg/mg Normal [facility] Comment on above: Performed By: #### B MP ####[facility] [address] [place] [address]Dr. Emilie Carmona TSHon 06-15-2022 TSH 12.224 uIU/mL Critically high 0.358-3.740 [facility] Comment on above: Performed By: #### F T3, TSH ####[facility] [address] [place] [address]DrBrenton Carmona CARDIAC MARYCRUZ 3-6on 2 CK [Catalytic activity/Vol] 163 U/L Normal 26-192 [facility] Comment on above: Performed By: #### R SPLUS #### [facility] [address] [address] [address] Emilie Carmona CK.MB [Mass/Vol] 2.77 ng/mL Normal <=3.60 [facility] Comment on above: Performed By: #### R SPLUS #### [facility] [address] [address] [address] Emilie Carmona HSTROP 8.5 pg/mL Normal 4.0-51.3 [facility] Comment on above: Result Comment: CUT- OFF POINTS HAVE BEEN ESTABLISHED BASED ON THE FOURTH UNIVERSAL DEFINITIONS OF MYOCARDIAL INFARCTION. THE UPPER REFERENCE LIMIT (URL) OF TROPONIN, DEFINED THE 99TH PERCENTILE OF cTnI DISTRIBUTION IN A REFERENCE POPULATION, HAS BEEN CONFIRMED THE DECISION THRESHOLD FOR NE DIAGNOSIS. Performed By: #### R SPLUS #### [facility] [address] [address] [address] Emilie Carmona CK [Catalytic activity/Vol] 141 U/L Normal 26-192 [facility] Comment on above: Performed By: #### C BC #### [facility] [address] [place] [address] Dr. Emilie Carmona CK.MB [Mass/Vol] 2.50 ng/mL Normal <=3.60 [facility] Comment on above: Performed By: #### C BC #### [facility] [address] [place] [address] Dr. Emilie Carmona HSTROP 9.8 pg/mL Normal 4.0-51.3 [facility] Comment on above: Result Comment: CUT- OFF POINTS HAVE BEEN ESTABLISHED BASED ON THE FOURTH UNIVERSAL DEFINITIONS OF MYOCARDIAL INFARCTION. THE UPPER REFERENCE LIMIT (URL) OF TROPONIN, DEFINED THE 99TH PERCENTILE OF cTnI DISTRIBUTION IN A REFERENCE POPULATION, HAS BEEN CONFIRMED THE DECISION THRESHOLD FOR NE DIAGNOSIS. Performed By: #### C BC #### [facility] [address] [place] [address] Dr. Emilie Carmona CBC AUTO DIFFon 06-14-2022 BASO # 0.0 103/ul Normal 0.0-0.1 [facility] Comment on above: Performed By: #### C BC #### [facility] [address] [place] [address] Dr. Emilie Carmona Basophils/100 WBC (Bld) 0.5 % Normal 0.2-2.0 [facility] Comment on above: Performed By: #### C BC #### [facility] [address] [place] [address] Dr. Emilie Carmona EO # 0.0 103/ul Normal 0.0-0.7 [facility] Comment on above: Performed By: #### C BC #### [facility] [address] [place] [address] Dr. Emilie Carmona Eosinophils/100 WBC (Bld) 0.1 % Critically low 0.9-7.0 [facility] Comment on above: Performed By: #### C BC #### [facility] [address] [place] [address] Dr. Emilie Carmona Erythrocyte distribution width (RBC) [Ratio] 13.2 % Normal 11.0-15.0 [facility] Comment on above: Performed By: #### C BC #### [facility] [address] [place] [address] Dr. Emilie Carmona Hematocrit (Bld) [Volume fraction] 41.0 % Normal 36.0-48.0 [facility] Comment on above: Performed By: #### C BC #### [facility] [address] [place] [address] Dr. Emilie Carmona Hemoglobin (Bld) [Mass/Vol] 13.3 g/dL Normal 12.0-16.0 [facility] Comment on above: Performed By: #### C BC #### [facility] [address] [place] [address] Dr. Emilie Carmona IG # 0.03 10e3/ul Normal 0.00-0.03 [facility] Comment on above: Performed By: #### C BC #### [facility] [address] [place] [address] Dr. Emilie Carmona IG % 0.4 % Normal 0.0-0.5 [facility] Comment on above: Performed By: #### C BC #### [facility] [address] [place] [address] Dr. Emilie Carmona LYMPH # 1.4 103/ul Normal 1.2-3.8 [facility] Comment on above: Performed By: #### C BC #### [facility] [address] [place] [address] Dr. Emilie Carmona Lymphocytes/100 WBC (Bld) 15.9 % Critically low 20.5-60.0 [facility] Comment on above: Performed By: #### C BC #### [facility] [address] [place] [address] Dr. Emilie Carmona MANUAL DIFF REQ NO Normal [facility] Comment on above: Performed By: #### C BC #### [facility] [address] [place] [address] Dr. Emilie Carmona MCH (RBC) [Entitic mass] 28.6 pg Normal 26.7-34.0 [facility] Comment on above: Performed By: #### C BC #### [facility] [address] [address] [address] Emilie Carmona MCHC (RBC) [Mass/Vol] 32.4 g/dL Normal 29.9-35.2 [facility] Comment on above: Performed By: #### C BC #### [facility] [address] [address] [address] Emilie Carmona MCV (RBC) [Entitic vol] 88.2 fL Normal 81.0-99.0 [facility] Comment on above: Performed By: #### C BC #### [facility] [address] [address] [address] Emilie Carmona MONO # 0.9 103/ul Critically high 0.3-0.8 [facility] Comment on above: Performed By: #### C BC #### [facility] [address] [address] [address] Emilie Carmona Monocytes/100 WBC (Bld) 9.9 % Normal 1.7-12.0 [facility] Comment on above: Performed By: #### C BC #### [facility] [address] [address] [address] Emilie Carmona NEUT # 6.3 103/ul Normal 1.4-6.5 [facility] Comment on above: Performed By: #### C BC #### [facility] [address] [address] [address] Emilie Carmona Neutrophils/100 WBC (Bld) 73.2 % Normal 43.0-75.0 [facility] Comment on above: Performed By: #### C BC #### [facility] [address] [address] [address] Emilie Carmona Platelet mean volume (Bld) [Entitic vol] 11.6 fL Normal 9.5-13.5 [facility] Comment on above: Performed By: #### C BC #### [facility] [address] [address] [address] Emilie Carmona PLT 269 103/ul Normal 150-450 [facility] Comment on above: Performed By: #### C BC #### [facility] [address] [place], [place] [address] Dr. Emilie Carmona RBC 4.65 106/ul Normal 4.20-5.40 [facility] Comment on above: Performed By: #### C BC #### [facility] [address] [place], [place] [address] Dr. Emilie Carmona WBC 8.6 103/ul Normal 4.0-11.0 [facility] Comment on above: Performed By: #### C BC #### [facility] [id number] Emilie Carmnoa Covid-19 PCR (CVDTB)on 06-01 SARS-CoV-2 (COVID-19) RNA CHASITY+probe Ql (Unsp spec) Not detected Normal NOT DETECTED [facility] Comment on above: Result Comment: When [...] for this test is supported by the [employer] of Health and Human Service's declaration that [...] be used). Performed By: #### C VDTBH ####[facility] [address] [place], [place] [address]HrDr. Emilie Carmona ER URINE PROFILEon 2 Bilirubin Ql (U) SMALL Abnormal NEGATIVE [facility] Comment on above: Performed By: #### R SPLUS #### [facility] [id number] [address] Emilie Carmona Clarity (U) SL CLOUDY Abnormal CLEAR [facility] Comment on above: Performed By: #### R SPLUS #### [facility] [address] [address] [address] Emilie Carmona Color (U) YELLOW Normal YELLOW [facility] Comment on above: Performed By: #### R SPLUS #### [facility] [address] [place] [address] Dr. Emilie Carmona ERUAHD A micrscopic examination will be performed if indicated. Normal [facility] Comment on above: Performed By: #### R SPLUS #### [facility] [address] [place] [address] Dr. Emilie Carmona Glucose Ql (U) Negative Normal NEGATIVE [facility] Comment on above: Performed By: #### R SPLUS #### [facility] [address] [place] [address] Dr. Emilie Carmona Hemoglobin Ql (U) TRACE-INTACT Abnormal NEGATIVE [facility] Comment on above: Performed By: #### R SPLUS #### [facility] [address] [place] [address] Dr. Emilie Carmona Ketones Ql (U) 40 mg/dl Abnormal NEGATIVE [facility] Comment on above: Performed By: #### R SPLUS #### [facility] [address] [place] [address] Dr. Emilie Carmona LEUKOCYTES Negative Normal NEGATIVE [facility] Comment on above: Performed By: #### R SPLUS #### [facility] [address] [place] [address] Dr. Emilie Carmona Nitrite Ql (U) Negative Normal NEGATIVE [facility] Comment on above: Performed By: #### R SPLUS #### [facility] [address] [place] [address] Dr. Emilie Carmona pH (U) 5.5 [pH] Normal 5-9 [facility] Comment on above: Performed By: #### R SPLUS #### [facility] [address] [place] [address] Dr. Emilie Carmona SPEC GRAVITY 1.030 Abnormal 1.005-<=1.025 [facility] Comment on above: Performed By: #### R SPLUS #### [facility] [address] [address] [address] Emilie Carmona UA PROTEIN Negative Normal NEGATIVE/ TRACE [facility] Comment on above: Performed By: #### R SPLUS #### [facility] [address] [address] [address] Emilie Carmona UR MICRO IND INDICATED Normal [facility] Comment on above: Performed By: #### R SPLUS #### [facility] [address] [address] [address] Emilie Carmona Urobilinogen Qn (U) 0.2 {Warren'U}/dL Normal 0.2 - 1. 0 [facility] Comment on above: Performed By: #### R SPLUS #### [facility] [address] [place] [address] Dr. Emilie Carmona FREE T4on 06-14-2022 Free T4 [Mass/Vol] 0.75 ng/dL Critically low 0.76-1.46 [facility] Comment on above: Performed By: #### F T4, VITAD, FETIBC, B12FOL ####[facility] [address] [place] [address] [address]Dr. Emilie Carmona IRON AND TIBCon 06-14-2022 % SATURATION 6.7 % Normal [facility] Comment on above: Performed By: #### C BC #### [facility] [address] [address] [address] Emilie Carmona Iron [Mass/Vol] 21.0 ug/dL Critically low 50.0-170.0 [facility] Comment on above: Performed By: #### C BC #### [facility] [address] [address] [address] Emilie Carmona TIBC DIRECT 312.0 ug/dL Normal 250.0-450.0 [facility] Comment on above: Performed By: #### C BC #### [facility] [address] [address] [address] Emilie Carmona MYOGLOBINon 06-14-2022 MAXIMILIAN 268 ng/mL Critically high 9-82 [facility] Comment on above: Performed By: #### M YO ####[facility] [address] [place], [place] [address]FfDr. Emilie Carmona PROF CHEM 8 (BAS METB)on Anion gap [Moles/Vol] 12.8 mmol/L Normal [facility] Comment on above: Performed By: #### C BC #### [facility] [address] [address] [address] Emilie Carmona Calcium [Mass/Vol] 10.7 mg/dL Critically high 8.5-10.1 [facility] [place] Comment on above: Performed By: #### C BC #### [facility] [address] [address] [address] Emilie Carmona Chloride [Moles/Vol] 100 mmol/L Normal 98-107 [facility] Comment on above: Performed By: #### C BC #### [facility] [address] [address] [address] Emilie Carmona CO2 [Moles/Vol] 25.6 mmol/L Normal 21.0-32.0 [facility] Comment on above: Performed By: #### C BC #### [facility] [address] [address] [address] Emilie Carmona Creatinine [Mass/Vol] 1.05 mg/dL Critically high 0.55-1.02 [facility] Comment on above: Performed By: #### C BC #### [facility] [address] [address] [address] Emilie Carmona EGFR-AF BELIZEAN >60 Normal >=60 [facility] Comment on above: Performed By: #### C BC #### [facility] [id number] [address] Emilie Carmona EGFR-NON AF BELIZEAN 50 mL/min/1.73m2 Critically low >=60 [facility] Comment on above: Performed By: #### C BC #### [facility] [address] [address] [address] Emilie Carmona Glucose [Mass/Vol] 129 mg/dL Critically high 74-106 [facility] Comment on above: Performed By: #### C BC #### [facility] [address] [place] [address] Dr. Emilie Carmona Potassium [Moles/Vol] 3.4 mmol/L Critically low 3.5-5.1 [facility] Comment on above: Performed By: #### C BC #### [facility] [address] [address] [address] Emilie Carmona Sodium [Moles/Vol] 135 mmol/L Critically low 136-145 [facility] Comment on above: Performed By: #### C BC #### [facility] [address] [place] [address] Dr. Emilie Carmona Urea nitrogen [Mass/Vol] 19.0 mg/dL Critically high 7.0-18.0 [facility] Comment on above: Performed By: #### C BC #### [facility] [address] [place] [address] Dr. Emilie Carmona Urea nitrogen/Creatinine [Mass ratio] 18.1 mg/mg Normal [facility] Comment on above: Performed By: #### C BC #### [facility] [address] [place] [address] Dr. Emilie Carmona URINE MICROSCOPIC ONLYon BACTERIA NONE SEEN Normal NONE SEEN [facility] Comment on above: Performed By: #### R SPLUS #### [facility] [address] [place] [address] Dr. Emilie Carmona Bacteria identified Cx Nom (U) NOT INDICATED Normal [facility] Comment on above: Performed By: #### R SPLUS #### [facility] [address] [place] [address] Dr. Emilie Carmona CAST SEEN Abnormal NONE SEEN [facility] Comment on above: Performed By: #### R SPLUS #### [facility] [address] [place] [address] Dr. Emilie Carmona Crystals LM Nom (Urine sed) NONE SEEN Normal NONE SEEN [facility] Comment on above: Performed By: #### R SPLUS #### [facility] [address] [place] [address] Dr. Emilie Carmona Epithelial cells LM Ql (Urine sed) FEW Abnormal NONE SEEN /RARE [facility] Comment on above: Performed By: #### R SPLUS #### [facility] [address] [place] [address] Dr. Emilie Carmona MUCOUS NONE SEEN Normal NONE SEEN [facility] Comment on above: Performed By: #### R SPLUS #### [facility] [address] [place] [address] Dr. Emilie Carmona RBC 0-2 Normal 0-2 [facility] Comment on above: Performed By: #### R SPLUS #### [facility] [address] [place] [address] Dr. Emilie Carmona WBC 0-2 Abnormal NONE SEEN [facility] Comment on above: Performed By: #### R SPLUS #### [facility] [address] [place] [address] Dr. Emilie Carmona VIT B12 AND FOLATEon 022 Cobalamin (Vitamin B12) [Mass/Vol] 426.0 pg/mL Normal 193.0-986.0 [facility] Comment on above: Performed By: #### C BC #### [facility] [address] [place] [address] Dr. Emilie Carmona FOLATE 12.10 ng/mL Normal 8.60-58.90 [facility] Comment on above: Performed By: #### C BC #### [facility] [address] [place] [address] Dr. Emilie Carmona VITAMIN D 25 OHon 06-14-2022 VIT D 25-OH 75.5 ng/mL Normal [facility] Comment on above: Performed By: #### C BC #### [facility] [address] [place] [address] Dr. Emilie Carmona VIT D RANGES SEE BELOW Normal [facility] Comment on above: Result Comment: <20 ng/mL Vit D deficient 20 - <30 ng/mL Vit D insufficient 30 - 100 ng/mL Vit D sufficient >100 ng/mL Potential Toxicity Performed By: #### C BC #### [facility] [address] [address] [address] Emilie Carmona XR ABD FLAT_UPon 06-14-2022 [...] by: ALEIDA TAVERAS Date: 2022-06-14 12:35 Normal [facility] XR CHEST 1 Von 06-14-2022 XR CHEST [...] ALEIDA TAVERAS Date: 2022-06-14 07:10 Normal [facility] XR HIPS LYNDA 5V W PELVISon XR HIPS LYNDA 5V W PELVIS EXAMINATION: XR HIPS LYNDA 5V W PELVIS HISTORY: Pain COMPARISON: No relevant comparison available. FINDINGS: RIGHT FINDINGS: BONES: No acute fracture or dislocation. [id number] hip osteoarthropathy SOFT TISSUES: Negative. No visible soft tissue swelling. OTHER: Lumbar posterior decompression and transpedicular fusion LEFT FINDINGS: BONES: No acute fracture or dislocation. Keoo-ht-vhtqovkc hip osteoarthropathy SOFT TISSUES: Negative. No visible soft tissue swelling. OTHER: Negative. IMPRESSION: RIGHT CONCLUSION: Osteoarthritis. No acute fracture LEFT CONCLUSION: Osteoarthritis. No acute fracture Electronically authenticated by: ALEIDA TAVERAS Date: 2022-06-14 07:15 Normal [facility] XR LSPINE 2_3 VIEWSon 2021 XR LSPINE [...] ALEIDA TAVERAS Date: 2022-06-14 07:12 Normal [facility] Metabolic Pane [facility] 09-21-2021 Albumin [Mass/Vol] 4.5 g/dL Normal 3.6-5.1 [facility] Comment on above: Performed By: #### V ITD, FT3, FT4, CMP, TSH #### [facility] [address] [place], [place] [id number] Albumin/Globulin [Mass ratio] 1.5 {ratio} Normal 1.0-2.5 [facility] Comment on above: Performed By: #### V ITD, FT3, FT4, CMP, TSH #### [facility] [address] [place], [place] [id number] ALP [Catalytic activity/Vol] 103 U/L Normal 35-119 [facility] Comment on above: Performed By: #### V ITD, FT3, FT4, CMP, TSH #### [facility] [address] [place], [place] [id number] ALT [Catalytic activity/Vol] 18 U/L Normal 6-33 [facility] Comment on above: Result Comment: 07/01 Female reference range changed. Performed By: #### V ITD, FT3, FT4, CMP, TSH #### [facility] [address] [place], [place] [id number] Anion gap [Moles/Vol] 24 mmol/L High 12-20 [facility] Comment on above: Result Comment: Effe ctive 08/06/2019 reference range changed. Performed By: #### V ITD, FT3, FT4, CMP, TSH #### [facility] [address] [place], [place] [id number] AST [Catalytic activity/Vol] 16 U/L Normal 9-34 [facility] Comment on above: Performed By: #### V ITD, FT3, FT4, CMP, TSH #### [facility] [address] [place], [place] [id number] BUN/CREA 27 Ratio High 6-22 [facility] Comment on above: Performed By: #### V ITD, FT3, FT4, CMP, TSH #### [facility] [address] [place], [place] [id number] Calcium [Mass/Vol] 10.7 mg/dL High 8.6-10.2 [facility] Comment on above: Performed By: #### V ITD, FT3, FT4, CMP, TSH #### [facility] [address] [place], [place] [id number] Chloride [Moles/Vol] 103 mmol/L Normal 98-107 [facility] Comment on above: Performed By: #### V ITD, FT3, FT4, CMP, TSH #### [facility] [address] [place], [place] [id number] CO2 [Moles/Vol] 17 mmol/L Low 20-31 [facility] Comment on above: Performed By: #### V ITD, FT3, FT4, CMP, TSH #### [facility] [address] [place], [place] [id number] Creatinine [Mass/Vol] 1.1 mg/dL Normal 0.6-1.4 [facility] Comment on above: Performed By: #### V ITD, FT3, FT4, CMP, TSH #### [facility] [address] [place], [place] [id number] eGFRAA 60 mL/min/1.73m2 Low >60 [facility] Comment on above: Performed By: #### V ITD, FT3, FT4, CMP, TSH #### [facility] [address] [place], [place] [id number] eGFRNAA 49 mL/min/1.73m2 Low >60 [facility] Comment on above: Performed By: #### V ITD, FT3, FT4, CMP, TSH #### [facility] [address] [place], [place] [id number] Globulin (S) [Mass/Vol] 3.0 g/dL Normal 1.9-3.7 [employer] [place] [facility] [employer] Comment on above: Performed By: #### V ITD, FT3, FT4, CMP, TSH #### [facility] [address] [place], [place] [id number] Glucose [Mass/Vol] 109 mg/dL High 65-99 [employer] [place] [facility] [employer] Comment on above: Result Comment: For FASTING Glucose --- ADA reference ranges: Normal 65-99 mg/dl Prediabetes 100-125 Diabetes >/= 126 Performed By: #### V ITD, FT3, FT4, CMP, TSH #### [facility] [address] [place], [place] [id number] Potassium [Moles/Vol] 4.7 mmol/L Normal 3.5-5.5 [facility] [employer] Comment on above: Performed By: #### V ITD, FT3, FT4, CMP, TSH #### [facility] [address] [place], [place] [id number] Protein [Mass/Vol] 7.5 g/dL Normal 6.1-8.1 [employer] [place] [facility] [employer] Comment on above: Performed By: #### V ITD, FT3, FT4, CMP, TSH #### [facility] [address] [place], [place] [id number] Sodium [Moles/Vol] 139 mmol/L Normal 135-146 [employer] [place] [facility] Comment on above: Performed By: #### V ITD, FT3, FT4, CMP, TSH #### [facility] [address] [place], [place] [id number] TBIL <0.3 Normal [facility] [employer] Comment on above: Performed By: #### V ITD, FT3, FT4, CMP, TSH #### [facility] [address] [place], [place] [id number] Urea nitrogen [Mass/Vol] 29 mg/dL High 7-25 [facility] [employer] Comment on above: Performed By: #### V ITD, FT3, FT4, CMP, TSH #### [facility] [address] [place], [place] [id number] Free T3on 09-21-2021 FT3 1.79 pg/mL Low 2.00-4.40 [facility] [employer] Comment on above: Performed By: #### V ITD, FT3, FT4, CMP, TSH #### [facility] [address] [place], [place] [id number] Free T4on 09-21-2021 Free T4 [Mass/Vol] 0.67 ng/dL Low 0.80-1.80 [facility] Comment on above: Performed By: #### V ITD, FT3, FT4, CMP, TSH #### [facility] [address] [place], [place] [id number] TSHon 09-21-2021 TSH 0.611 uIU/mL Normal 0.400-4.500 [facility] [employer] Comment on above: Performed By: #### V ITD, FT3, FT4, CMP, TSH #### [facility] [address] [place], [place] [id number] US Carotid, Bilateralon 09-02 US Carotid, Bilateral [...] by Tyrese Wisdom on 09/22/2021 0822 Normal [facility] Vitamin B12/Folateon 022 Cobalamin (Vitamin B12) [Mass/Vol] 383 pg/mL Normal 211-946 [facility] Comment on above: Performed By: #### B 12/Fol #### [facility] [address] [place], [place] [id number] FOL 5.5 ng/mL Normal >4.7 [facility] Comment on above: Result Comment: Refe rence range change 06/17/2017. Prior reference range F 4.8-37.3 ng/mL, M 4.5-32.2 ng/mL. Performed By: #### B 12/Fol #### [facility] [address] [id number] Vitamin D 25-OHon 09-21-2021 VIT D 25 OH 23 ng/ml Low >29 [facility] Manager Leadership Development Comment on above: Result Comment: [place] min D Status Deficiency <20 ng/mL Insufficiency 20-29 ng/mL Optimal 30-100 ng/mL Possible Toxicity >=150 ng/mL Performed By: #### V ITD, FT3, FT4, CMP, TSH #### [facility] [address] [place], [place] [id number] Encounters Encounter Date Encounter Type Care Provider Facility Start: 12-09-2023 End: 12-09-2023 ambulatory APOLLO BOO Not Available Start: 12-26-2022 End: 12-29-2022 Evaluation and management of inpatient DR ALEIDA TAVERAS Facility:[facility] Start: 06-22-2022 End: 06-23-[address] MARLA KENDALL . Facility:[facility] Start: 06-14-2022 End: 06-16-[address] MARLA KENDALL . Facility:[facility] Start: 10-20-2017 End: 10-21-2017 Ambulatory DEFAULT PHYSICIAN Facility:[facility] Payers Date Payer Category Payer Medicare [id number] 1960 Medicare [id number] 1940 Unknown [id number] 2.16.84 [id number] 1940 Unknown [id number] 2.16.84 [id number] 1940 Unknown [id number] 2.16.84 [id number] 1940 Unknown [id number] 2.16.84 [id number] Unknown Clinical Note 06-14-2022 Note Date & Type Note Facility 06-14-2022 Note PROCEDURE: XR SHOULD ER LT 2V or > COMPARISON: None. HISTORY: Pain FINDINGS: BONES:No acute fracture or dislocation. Mild degenerative changes. SOFT TISSUES:Negative. No visible soft tissue swelling. EFFUSION:None visible. OTHER: Negative. IMPRESSION: No acute fracture Electronically authenticated by: ALEIDA TAVERAS Date: 2022-06-14 07:08 [facility] Clinical Note 09-21-2021 Note Date & Type Note Facility 09-21-2021 Note PROCEDURE: frenting Signa HDXT 1.5 Sagittal T1, T2, STIR [...] signed by Tyrese Wisdom on 09/22/2021 [id number] [facility] Manager [employer] Development Summary Purpose Family History No Family History Records FoundNo Family History Records FoundNo Family History Records FoundNo Family History Records Found Advance Directives No Advanced Directives Records FoundNo Advanced Directives Records FoundNo Advanced Directives Records FoundNo Advanced Directives Records Found Additional Source Comments INFORMATION SOURCE (unrecogn ized section and content) DATE CREATED AUTHOR 01/20/2018 [facility] DATE CREATED AUTHOR AUTHOR'S ORGANIZ ATION 09/24/2021 [facility] dical Specialist DATE CREATED AUTHOR AUTHOR'S ORGANIZ ATION 01/10/2023 [facility] DATE CREATED AUTHOR AUTHOR'S ORGANIZ ATION 12/11/2023 [facility] Specialists EPIC FOR RECORDS PERTAINING [...] BE BASED ON THE PRIMARY CLINICAL RECORDS. [facility] [employer] [facility]. provides no warranty or guarantee of the accuracy or completeness of information in this document.
== END 2024-04-21 13:39 | disposition home or self-care (01) | DRG 439 ==
LOC: ER 17:13 → MS 04-21 10:41
PROVIDERS: Physician Assistant; Admitting Provider Family Medicine; Emergency Provider Emergency Medicine; PCP Family Medicine; Visit Provider Internal Medicine
DX: K85.00 Idiopathic acute pancreatitis without necrosis or infection (principal); F02.B3 Dementia in other diseases classified elsewhere, moderate, with mood disturbance; E03.9 Hypothyroidism, unspecified; G30.1 Alzheimer's disease with late onset; I10 Essential (primary) hypertension; J42 Unspecified chronic bronchitis; R26.89 Other abnormalities of gait and mobility; Z66 Do not resuscitate; Z90.49 Acquired absence of other specified parts of digestive tract; Z90.710 Acquired absence of both cervix and uterus; Z87.440 Personal history of urinary (tract) infections; Z96.659 Presence of unspecified artificial knee joint; Z98.49 Cataract extraction status, unspecified eye; Z79.899 Other long term (current) drug therapy; Z79.890 Hormone replacement therapy
CPT/HCPCS: 36415; 74177; 80053; 80061; 81001; 82150; 83036; 83690; 83735; 85025; 94761; 96365; 96366; 96375; 97161; 97165; 97530; 99285; G0378; J0696; J2405; J3010; Q9967